=== PATIENT | male | born 1965 | race Caucasian/White ===

== ENCOUNTER 2020-01-05 16:16 | Inpatient (IN) | payer BC ==
[~2020-01-05] VITALS: Ht 172.7 cm; Wt 98.0 kg
--- NOTE | 2020-01-05 16:24 | PHYS DOC ---
General Adult EDM: Chief Complaint: JAUNDICE HPI: HPI: Patient is a 54 year old male who was sent here from his family physician clinic due to pancreatic mass, jaundice, elevated bilirubin. He just started noting the jaundice about 4-5 days ago. He has been feeling bloated. He denied drinking alcohol. He denied any history of hepatitis. He has several large tattoo on his body. No abdominal pain, no fever, no nausea or vomiting. Review of Systems: Review of Systems: Constitutional: Denies fever or chills. [] Eyes: Denies change in visual acuity. [] HENT: Denies nasal congestion or sore throat. [] Respiratory: Denies cough or shortness of breath. [] Cardiovascular: Denies chest pain or edema. [] GI: Denies abdominal pain, nausea, vomiting, bloody stools or diarrhea. [] : Denies dysuria. [] Musculoskeletal: Denies back pain or joint pain. [] Integument: Denies rash. Positive for jaundice Neurologic: Denies headache, focal weakness or sensory changes. [] Endocrine: Denies polyuria or polydipsia. [] Lymphatic: Denies swollen glands. [] Psychiatric: Denies depression or anxiety. [] Heart Score: Risk Factors: Risk Factors: DM, Current or recent (<one month) smoker, HTN, HLP, family hist ory of CAD, obesity. Risk Scores: Score 0 - 3: 2.5% MACE over next 6 weeks - Discharge Home Score 4 - 6: 20.3% MACE over next 6 weeks - Admit for Clinical Observation Score 7 - 10: 72.7% MACE over next 6 weeks - Early Invasive Strategies Physical Exam: PE: Constitutional: Well developed, well nourished, no acute distress, non-toxic appearance. [] HENT: Normocephalic, atraumatic, bilateral external ears normal, oropharynx moist, no oral exudates, nose normal. [] Eyes: PERRLA, EOMI, conjunctiva icterus, no discharge. [] Neck: Normal range of motion, no tenderness, supple, no stridor. [] Cardiovascular:Heart rate regular rhythm, no murmur [] Lungs & Thorax: Bilateral breath sounds clear to auscultation [] Abdomen: Bowel sounds normal, soft, tenderness in RUQ , no masses, no pulsatile masses. [] Skin: Warm, dry, no erythema, no rash. diffuse jaundice. Back: No tenderness, no CVA tenderness. [] Extremities: No tenderness, no cyanosis, no clubbing, ROM intact, no edema. [] Neurologic: Alert and oriented X 3, normal motor function, normal sensory function, no focal deficits noted. [] Psychologic: Affect normal, judgement normal, mood normal. [] EKG: EKG: [] Radiology/Procedures: Radiology/Procedures: [][address] [address] IMAGING REPORT Signed PATIENT: RYAN SHIPMAN ACCOUNT: [id number] : 1965 LOCATION: [facility] [place] AGE: 54 SEX: M EXAM STATUS: REG CLI ORD. PHYSICIAN: MAMADOU PEARCE MD REASON: JAUNDICE, ABDOMINAL BLOATING PROCEDURE: CT ABD PELV W/ORAL&IV CONTRAST EXAM: CT Abdomen and Pelvis with IV contrast CLINICAL HISTORY: JAUNDICE, ABDOMINAL BLOATING COMPARISON: none TECHNIQUE: Helical CT of the abdomen and pelvis was performed following the administration of IV contrast. Axial, coronal and sagittal reformatted images were generated. ---PQRS compliance statement - One or more of the following individualized dose reduction techniques were utilized for this study: 1. Automated exposure control 2. Adjustment of the mA and/or kV according to patient size 3. Use of iterative reconstruction technique--- FINDINGS: Lower chest: Coronary artery calcifications are seen. Calcified granuloma right lower lobe. Abdomen and pelvis: Liver and biliary system: No focal liver lesion. The gallbladder is distended. Small gallstones and sludge are seen dependently. There is intrahepatic and extrahepatic biliary ductal dilatation. Spleen: Unremarkable Pancreas: The pancreas is atrophic. Heterogeneous low attenuating mass is suspected within the pancreatic head/uncinate process measuring 2.9 x 1.9 cm. Adrenal glands: Unremarkable Kidneys: Symmetric nephrograms. Symmetric nephrograms. Punctate nonobstructing left lower pole renal calculus. No hydronephrosis or hydroureter. Mild bladder wall thickening likely cystitis. Lymph nodes/retroperitoneum: No abdominal or pelvic lymphadenopathy. No abdominal or pelvic ascites. Vessels: Aorta is unremarkable. Bowel/Peritoneal cavity: Moderate colonic stool content is seen. No small or large bowel dilatation. No bowel obstruction. Appendix is normal. No abdominal or pelvic ascites. Abdominal wall: Trace fat-containing periumbilical hernia is seen. Bladder: Unremarkable Bones: Degenerative changes of the spine are seen. Hip joint degenerative changes are seen. No aggressive osseous lesion. IMPRESSION: 1. Hypoattenuating pancreatic head/inflammatory process lesion with pancreatic body and tail atrophy as well as intra and extrahepatic biliary ductal dilatation. This should be further evaluated with contrast-enhanced MRI using pancreatic protocol to better delineate suspected pancreatic head mass. 2. Mild bladder wall thickening may be seen with cystitis. Findings discussed with Dr. Alexis PEARCE at 01/05/2020 2:00 PM. FOR INTERNAL CODING PURPOSES RESULT CODE: (C) Electronically signed by: Panfilo Buitrago MD (01/05/2020 2:01 PM) [id number] DICTATED AND SIGNED BY: PANFILO BUITRAGO MD DATE: 01/05/20 1401 CC: MAMADOU PEARCE MD ~ [facility] [address] [place] [address] IMAGING REPORT Signed PATIENT: RYAN SHIPMAN EACCOUNT: [id number] : 1965 LOCATION: ER AGE: 54 SEX: M EXAM STATUS: REG ER ORD. PHYSICIAN: VILLA BINGHAM DO REASON: jaundice, elevated LFT PROCEDURE: ABDOMEN LTD [facility]BDOMEN [facility] History: Reason: jaundice, elevated LFT / Spl. Instructions: / History: Comparison: CT January 05, 2020. Technique: Transabdominal ultrasound images are obtained of the right upper quadrant. Findings: Visualized pancreas is unremarkable. Liver is increased in echogenicity. Right hepatic lobe measures 19.8 cm. Portal flow is hepatopedal. Cholelithiasis. Dilated gallbladder. No gallbladder wall thickening. Dilated common bile duct measures up to 1.4 cm. The right kidney measures 9.8 x 4.5 x 5.1 cm. cm. No hydronephrosis. Visualized portions of the aorta and IVC have normal caliber. IMPRESSION: 1. Dilated common bile duct. Recommend MRI/MRCP to further evaluate for obstructing mass. 2. Cholelithiasis with distended gallbladder. 3. Increased hepatic echotexture, may indicate steatosis. Electronically signed by: Robert Menjivar DO (01/05/2020 5:25 PM) [id number] DICTATED and SIGNED BY: ROBERT MENJIVAR DO DATE: 01/05/20 1725 Course & Med Decision Making: Course & Med Decision Making Pertinent Labs and Imaging studies reviewed. (See chart for details) [] Dragon Disclaimer: Dragon Disclaimer: This electronic medical record was generated, in whole or in part, using a voice recognition dictation system. Departure Departure Impression: Primary Impression: Pancreatic mass Additional Impressions: Jaundice Gallstone Disposition: ADMITTED INPATIENT Admitting Physician: [facility] (DR. BRIONES) Condition: STABLE Justicifation of Admission Dx: Justifications for Admission: Justification of Admission Dx: N/A VILLA BINGHAM DO Jan 05, 2020 16:24
[2020-01-05 16:56] LABS: BASO # 0.1 x10^3/uL (0.0-0.2); BASO % 2 % (0-3); EOS # 0.1 x10^3/uL (0.0-0.7); EOS % 1 % (0-3); HEMATOCRIT 38.3 % (39.0-53.0); HEMOGLOBIN 13.7 g/dL (13.0-17.5); LYMPH # 1.4 x10^3/uL (1.0-4.8); LYMPH % 21 % (24-48); MEAN CORPUSCULAR HEMOGLOBIN 35 pg (25-35); MEAN CORPUSCULAR HGB CONC 36 g/dL (31-37); MEAN CORPUSCULAR VOLUME 99 fL (79-100); MONO # 0.6 x10^3/uL (0.0-1.1); MONO % 10 % (0-9); NEUT # 4.4 x10^3/uL (1.8-7.7); NEUT % 66 % (31-73); PLATELET COUNT 250 x10^3/uL (140-400); RED BLOOD COUNT 3.87 x10^6/uL (4.30-5.70); RED CELL DISTRIBUTION WIDTH 14.8 % (11.5-14.5); WHITE BLOOD COUNT 6.6 x10^3/uL (4.0-11.0)
[2020-01-05 17:05] LABS: PROTHROMBIN TIME PATIENT 14.2 SEC (11.7-14.0)
[2020-01-05 17:15] LABS: CREATININE 0.7 mg/dL (0.7-1.3); GFR 118.4; POTASSIUM 3.2 mmol/L (3.5-5.1)
[2020-01-05] MEDS ORDERED: MORPHINE SULFATE 4 MG/ML VIAL. IV ONE (17:15)
[2020-01-05 17:20] LABS: ALBUMIN 3.1 g/dL (3.4-5.0); ALBUMIN/GLOBULIN RATIO 0.9 (1.0-1.7); MAGNESIUM 1.7 mg/dL (1.8-2.4); TOTAL PROTEIN 6.7 g/dL (6.4-8.2)
--- NOTE | 2020-01-05 17:27 | RAD ---
ABDOMEN LTD History: Reason: jaundice, elevated LFT / Spl. Instructions: / History: Comparison: CT January 05, 2020. Technique: Transabdominal ultrasound images are obtained of the right upper quadrant. Findings: Visualized pancreas is unremarkable. Liver is increased in echogenicity. Right hepatic lobe measures 19.8 cm. Portal flow is hepatopedal. Cholelithiasis. Dilated gallbladder. No gallbladder wall thickening. Dilated common bile duct measures up to 1.4 cm. The right kidney measures 9.8 x 4.5 x 5.1 cm. cm. No hydronephrosis. Visualized portions of the aorta and IVC have normal caliber. IMPRESSION: 1. Dilated common bile duct. Recommend MRI/MRCP to further evaluate for obstructing mass. 2. Cholelithiasis with distended gallbladder. 3. Increased hepatic echotexture, may indicate steatosis. Electronically signed by: Robert Menjivar DO (01/05/2020 5:25 PM) [id number]
[2020-01-05] MEDS ORDERED: ONDANSETRON PF 4 MG/2 ML VIAL. IV PRN ×2 (17:30→18:00)
[2020-01-05] MEDS ORDERED: LORazepam 0.5 MG TABLET PO PRN (18:00)
[2020-01-05] MEDS ORDERED: ZOLPIDEM 5 MG TABLET. PO PRN (18:00)
[2020-01-05] MEDS ORDERED: ACETAMINOPHEN 325 MG TABLET. PO PRN (18:00)
[2020-01-05] MEDS ORDERED: guaiFENesin ORAL 200 MG/10 ML LIQUID. PO PRN (18:00)
[2020-01-05] MEDS ORDERED: DOCUSATE SODIUM 100 MG CAPSULE. PO PRN (18:00)
[2020-01-05] MEDS ORDERED: ALBUTEROL SULFATE 2.5 MG/3 ML NEBU. NEB PRN (18:00)
[2020-01-05 19:49] VITALS: BP 129/76
--- NOTE | 2020-01-05 20:45 | PDOC1 ---
History and Physical Date of Admission Date of Admission January 05, 2020 Identification/Chief Complaint Chief Complaint I was sent here by my doctor Source Source: Chart review, Patient History of Present Illness History of Present Illness Patient is a 54-year-old gentleman with no significant defect in past medical history who was in his usual state of health until approximately 4 to 5 days prior to his admission. Patient apparently started noticing a yellow discoloration generalized. Patient denies any recent travels outside this area no exposure to substances he does work for the [employer] but denies being exposed to chemicals. Patient denies abdominal discomfort, of noticed that he has been eating less since approximately 1 week ago when he had a bout of excessive gases related by the patient. The patient denied dietary transgressions. The patient has also noticed that his urine is darker in color no changes in the color of the stools. He has been losing some weight according to the since he has not been eating much since he has a sensation of fullness very quickly. The patient went to his primary care physician who ordered a CAT scan of the abdomen and a pancreatic mass was found reason why he was sent to our emergency department for further evaluation and treatment. The patient at the time of my evaluation is in no acute distress patient denies any headache no blurred vision no pruritus patient denies any trouble swallowing no fever chills no diaphoresis no chest pain palpitations no sensation of impending doom no abdominal discomfort some nausea has been reported otherwise no changes in the pattern of his stooling either. The patient denies any urinary symptoms, no strokelike symptoms either. Patient is being admitted for further evaluation and treatment Past Medical History Cardiovascular: No pertinent hx Pulmonary: No pertinent hx GI: No pertinent hx Heme/Onc: No pertinent hx Hepatobiliary: No pertinent hx Past Surgical History Past Surgical History: No pertinent history Family History Family History: Other (Reviewed and found negative noncontributory to the present) Social History Smoke: No ALCOHOL: none Drugs: None Current Problem List Problem List Problems Medical Problems: (1) Gallstone Status: Acute (2) Jaundice Status: Acute (3) Pancreatic mass Status: Acute Current Medications Current Medications Current Medications Medications (Trade) Dose Ordered Sig/Renuka Start Time Stop Time Status Last Admin Dose Admin Acetaminophen (Tylenol) 650 mg PRN Q4HRS PRN 01/05/20 18:00 Albuterol Sulfate (Ventolin Neb Soln) 2.5 mg PRN Q4HRS PRN 01/05/20 18:00 Docusate Sodium (Colace) 100 mg PRN BID PRN 01/05/20 18:00 Guaifenesin (Robitussin) 200 mg PRN Q4HRS PRN 01/05/20 18:00 Lorazepam (Ativan Inj) 1 mg 1X ONCE 01/05/20 17:15 01/05/20 17:16 Cancel Lorazepam (Ativan) 0.5 mg PRN Q4HRS PRN 01/05/20 18:00 Morphine Sulfate (Morphine Sulfate) 4 mg 1X ONCE 01/05/20 17:15 01/05/20 17:16 Cancel Ondansetron HCl (Zofran) 4 mg PRN Q4HRS PRN 01/05/20 18:00 Zolpidem Tartrate (Ambien) 5 mg PRN QHS PRN 01/05/20 18:00 Allergies Allergies Allergies Coded Allergies Type Severity Reaction Last Updated Verified No Known Drug Allergies 01/05/20 No ROS Review of System CONSTITUTIONAL: No fever or chills EYES: No recent changes SKIN: No rash or itching CARDIOVASCULAR: No chest pain, syncope, palpitations, or edema RESPIRATORY: No SOB or cough GASTROINTESTINAL: No nausea, vomiting or abdominal pain NEUROLOGICAL: No headaches or weakness ENDOCRINE: No cold or heat intolerance GENITOURINARY: No urgency or frequency of urination MUSCULOSKELETAL: No back pain or joint pain LYMPHATICS: No enlarged lymph nodes PSYCHIATRIC: No anxiety or depression Physical Exam Physical Exam GEN.: No apparent distress. Alert and oriented. HEENT: Head is normocephalic, atraumatic NECK: Supple. LUNGS: Clear to auscultation. HEART: RRR, S1, S2 present. Peripheral pulses intact ABDOMEN: Soft, nontender. Positive bowel sounds. EXTREMITIES: Without any cyanosis. NEUROLOGIC: Normal speech, normal tone PSYCHIATRIC: Normal affect, normal mood. SKIN: Jaundice, no ulcerations Vitals Vitals Vital Signs Date Time Temp Pulse Resp B/P (MAP) Pulse Ox O2 Delivery O2 Flow Rate FiO2 01/05/20 19:49 97.9 64 20 129/76 (93) 98 Room Air 97.9 Labs Labs Laboratory Tests Test 01/05/20 16:40 White Blood Count 6.6 x10^3/uL (4.0-11.0) Red Blood Count 3.87 x10^6/uL (4.30-5.70) Hemoglobin 13.7 g/dL (13.0-17.5) Hematocrit 38.3 % (39.0-53.0) Mean Corpuscular Volume 99 fL (79-100) Mean Corpuscular Hemoglobin 35 pg (25-35) Mean Corpuscular Hemoglobin Concent 36 g/dL (31-37) Red Cell Distribution Width 14.8 % (11.5-14.5) Platelet Count 250 x10^3/uL (140-400) Neutrophils (%) (Auto) 66 % (31-73) Lymphocytes (%) (Auto) 21 % (24-48) Monocytes (%) (Auto) 10 % (0-9) Eosinophils (%) (Auto) 1 % (0-3) Basophils (%) (Auto) 2 % (0-3) Neutrophils # (Auto) 4.4 x10^3/uL (1.8-7.7) Lymphocytes # (Auto) 1.4 x10^3/uL (1.0-4.8) Monocytes # (Auto) 0.6 x10^3/uL (0.0-1.1) Eosinophils # (Auto) 0.1 x10^3/uL (0.0-0.7) Basophils # (Auto) 0.1 x10^3/uL (0.0-0.2) Prothrombin Time 14.2 SEC (11.7-14.0) Prothromb Time International Ratio 1.1 (0.8-1.1) Activated Partial Thromboplast Time 27 SEC (24-38) Sodium Level 134 mmol/L (136-145) Potassium Level 3.2 mmol/L (3.5-5.1) Chloride Level 96 mmol/L (98-107) Carbon Dioxide Level 26 mmol/L (21-32) Anion Gap 12 (6-14) Blood Urea Nitrogen 16 mg/dL (8-26) Creatinine 0.7 mg/dL (0.7-1.3) Estimated GFR (Cockcroft-Gault) 118.4 BUN/Creatinine Ratio 23 (6-20) Glucose Level 240 mg/dL (70-99) Calcium Level 9.0 mg/dL (8.5-10.1) Magnesium Level 1.7 mg/dL (1.8-2.4) Total Bilirubin 16.0 mg/dL (0.2-1.0) Aspartate Amino Transf (AST/SGOT) 150 U/L (15-37) Alanine Aminotransferase (ALT/SGPT) 263 U/L (16-63) Alkaline Phosphatase 358 U/L (46-116) Total Protein 6.7 g/dL (6.4-8.2) Albumin 3.1 g/dL (3.4-5.0) Albumin/Globulin Ratio 0.9 (1.0-1.7) Lipase 43 U/L (73-393) Laboratory Tests Test 01/05/20 16:40 White Blood Count 6.6 x10^3/uL (4.0-11.0) Red Blood Count 3.87 x10^6/uL (4.30-5.70) Hemoglobin 13.7 g/dL (13.0-17.5) Hematocrit 38.3 % (39.0-53.0) Mean Corpuscular Volume 99 fL (79-100) Mean Corpuscular Hemoglobin 35 pg (25-35) Mean Corpuscular Hemoglobin Concent 36 g/dL (31-37) Red Cell Distribution Width 14.8 % (11.5-14.5) Platelet Count 250 x10^3/uL (140-400) Neutrophils (%) (Auto) 66 % (31-73) Lymphocytes (%) (Auto) 21 % (24-48) Monocytes (%) (Auto) 10 % (0-9) Eosinophils (%) (Auto) 1 % (0-3) Basophils (%) (Auto) 2 % (0-3) Neutrophils # (Auto) 4.4 x10^3/uL (1.8-7.7) Lymphocytes # (Auto) 1.4 x10^3/uL (1.0-4.8) Monocytes # (Auto) 0.6 x10^3/uL (0.0-1.1) Eosinophils # (Auto) 0.1 x10^3/uL (0.0-0.7) Basophils # (Auto) 0.1 x10^3/uL (0.0-0.2) Prothrombin Time 14.2 SEC (11.7-14.0) Prothromb Time International Ratio 1.1 (0.8-1.1) Activated Partial Thromboplast Time 27 SEC (24-38) Sodium Level 134 mmol/L (136-145) Potassium Level 3.2 mmol/L (3.5-5.1) Chloride Level 96 mmol/L (98-107) Carbon Dioxide Level 26 mmol/L (21-32) Anion Gap 12 (6-14) Blood Urea Nitrogen 16 mg/dL (8-26) Creatinine 0.7 mg/dL (0.7-1.3) Estimated GFR (Cockcroft-Gault) 118.4 BUN/Creatinine Ratio 23 (6-20) Glucose Level 240 mg/dL (70-99) Calcium Level 9.0 mg/dL (8.5-10.1) Magnesium Level 1.7 mg/dL (1.8-2.4) Total Bilirubin 16.0 mg/dL (0.2-1.0) Aspartate Amino Transf (AST/SGOT) 150 U/L (15-37) Alanine Aminotransferase (ALT/SGPT) 263 U/L (16-63) Alkaline Phosphatase 358 U/L (46-116) Total Protein 6.7 g/dL (6.4-8.2) Albumin 3.1 g/dL (3.4-5.0) Albumin/Globulin Ratio 0.9 (1.0-1.7) Lipase 43 U/L (73-393) VTE Prophylaxis Ordered VTE Prophylaxis Devices: Yes VTE Pharmacological Prophylaxi: No Assessment/Plan Assessment/Plan Painless jaundice Hyperbilirubinemia Pancreatic mass Transaminitis Cholestatic pattern Hyponatremia Hypokalemia Plan Admit the patient to the hospital Consult GI Patient may need further imaging studies like an MRCP Very high suspicion for malignancy, this has been discussed with the patient and his at bedside Reassurance provided DVT prophylaxis with Lovenox Further recommendations based on the clinical course Justicifation of Admission Dx: Justifications for Admission: Justification of Admission Dx: Comment: (Pancreatic mass) CAROLINA BRIONES MD Jan 05, 2020 20:45
[2020-01-05 23:41] VITALS: BP 119/68
[2020-01-06] VITALS (7 sets, daily range): BP systolic 108–118; BP diastolic 53–68
--- NOTE | 2020-01-06 10:17 | PDOC2 ---
GI CONSULT Reason For Consult: pancreatic mass, jaundice HPI: HPI: Very pleasant 54 y/o male w/ 8-10 day h/o bloating, bad gas, some diarrhea, and jaundice. Saw PCP Dr. Proctor, had outpt CT A/P @ [facility] that showed cholelithiasis, intra and extrahepatic biliary dilatation, atrophic pancreas w/ 2.9 x 1.9 cm suspected mass in pancreatic head/uncinate process, moderate stool content, and mild bladder wall thickening. Was advice to come to [facility]. Denies n/v though has been careful to avoid "heavy" foods w/ bloating. No hematemesis though overnight describes some hemoptysis. No abd pain. No constipation, hematochezia, melena. Thinks has lost some weight. H/o GERD prior to gastric sleeve ~7 years ago at [facility] (done for weight loss, diabetes, acid reflux). Does not need to take anything regularly for GERD now, though might have had some acid reflux when bloating began. No GB, liver, pancreas, or PUD history. Thinks he had an EGD prior to gastric sleeve. No previous colonoscopy. Celebrex BID for hip pain since 05/2019 - quit when symptoms began. Works for [employer], has four kids and a fiance. D/w Dr. Lovell and Dr. Lezama. PMH: PMH: DM (diet-controlled), hip OA, GERD back surgery, gastric sleeve FH: Family History: Cancer (renal - father) Social History: Smoke: No ALCOHOL: other (no h/o heavy use, quit altogether when diagnosed w/ DM) Drugs: None ROS: GEN: +sweats HEENT: Denies blurred vision, sore throat CV: Denies chest pain RESP: +hemoptysis GI: Per HPI : +dark urine ENDO: +weight loss NEURO: Denies confusion, dizziness MSK: +chronic hip pain SKIN: +jaundice Vitals: Vitals: Vital Signs Date Time Temp Pulse Resp B/P (MAP) Pulse Ox O2 Delivery O2 Flow Rate FiO2 01/06/20 07:51 98.3 70 18 112/58 (76) 98 Room Air 98.3 Labs: Labs: Laboratory Tests Test 01/05/20 16:40 White Blood Count 6.6 x10^3/uL (4.0-11.0) Red Blood Count 3.87 x10^6/uL (4.30-5.70) Hemoglobin 13.7 g/dL (13.0-17.5) Hematocrit 38.3 % (39.0-53.0) Mean Corpuscular Volume 99 fL (79-100) Mean Corpuscular Hemoglobin 35 pg (25-35) Mean Corpuscular Hemoglobin Concent 36 g/dL (31-37) Red Cell Distribution Width 14.8 % (11.5-14.5) Platelet Count 250 x10^3/uL (140-400) Neutrophils (%) (Auto) 66 % (31-73) Lymphocytes (%) (Auto) 21 % (24-48) Monocytes (%) (Auto) 10 % (0-9) Eosinophils (%) (Auto) 1 % (0-3) Basophils (%) (Auto) 2 % (0-3) Neutrophils # (Auto) 4.4 x10^3/uL (1.8-7.7) Lymphocytes # (Auto) 1.4 x10^3/uL (1.0-4.8) Monocytes # (Auto) 0.6 x10^3/uL (0.0-1.1) Eosinophils # (Auto) 0.1 x10^3/uL (0.0-0.7) Basophils # (Auto) 0.1 x10^3/uL (0.0-0.2) Prothrombin Time 14.2 SEC (11.7-14.0) Prothromb Time International Ratio 1.1 (0.8-1.1) Activated Partial Thromboplast Time 27 SEC (24-38) Sodium Level 134 mmol/L (136-145) Potassium Level 3.2 mmol/L (3.5-5.1) Chloride Level 96 mmol/L (98-107) Carbon Dioxide Level 26 mmol/L (21-32) Anion Gap 12 (6-14) Blood Urea Nitrogen 16 mg/dL (8-26) Creatinine 0.7 mg/dL (0.7-1.3) Estimated GFR (Cockcroft-Gault) 118.4 BUN/Creatinine Ratio 23 (6-20) Glucose Level 240 mg/dL (70-99) Calcium Level 9.0 mg/dL (8.5-10.1) Magnesium Level 1.7 mg/dL (1.8-2.4) Total Bilirubin 16.0 mg/dL (0.2-1.0) Aspartate Amino Transf (AST/SGOT) 150 U/L (15-37) Alanine Aminotransferase (ALT/SGPT) 263 U/L (16-63) Alkaline Phosphatase 358 U/L (46-116) Total Protein 6.7 g/dL (6.4-8.2) Albumin 3.1 g/dL (3.4-5.0) Albumin/Globulin Ratio 0.9 (1.0-1.7) Lipase 43 U/L (73-393) Allergies: Coded Allergies: No Known Drug Allergies (Unverified , 01/05/20) Imaging: Imaging: CT A/P Abd US IMPRESSION: 1. Dilated common bile duct. Recommend MRI/MRCP to further evaluate for obstructing mass. 2. Cholelithiasis with distended gallbladder. 3. Increased hepatic echotexture, may indicate steatosis. PE: GEN: NAD HEENT: Atraumatic LUNGS: CTAB HEART: RRR ABD: NABS, S/ND/NT EXTREMITY: No edema SKIN: +jaundice +tattoos NEURO/PSYCH: A & O 3 A/P: A/P: Bloating, diarrhea, painless jaundice, weight loss, ?hemoptysis Pancreatic head mass, cholelithiasis, intra and extra hepatic biliary dilatation H/o GERD S/p gastric sleeve Hepatic steatosis CRC screen - none DM, NSAID use -- D/w Dr. [facility] - will check CA19-9 and ask for surgery opinion. Okay for PO today per GI. Update - reviewed surgery note, d/w Dr. [facility]. Check COVID swab now, plan for ERCP/stent Saturday and outpt MRCP and EUS. NIURKA BARTH Jan 06, 2020 10:17
[2020-01-06] MEDS: IV RINGERS,LACTATED 1000ML 1,000 ML IV SCH ×2 (10:20→19:26)
--- NOTE | 2020-01-06 10:39 | PDOC2 ---
CONSULT Date of Consult Date of Consult DATE: 01/06/20 TIME: 10:31 Reason for Consult Reason for Consult: obstructive jaundice Referring Physician Referring Physician: Dr. Mclean Identification/Chief Complaint Chief Complaint jaundice, bloating Source Source: Chart review, Patient History of Present Illness Reason for Visit: 54 yo M with 12 day history of some early satiety and noticed yellowing of skin. Denies significant abdominal pain. Did note some emesis with blood last night. Past Medical History Cardiovascular: No pertinent hx Pulmonary: No pertinent hx GI: No pertinent hx Heme/Onc: No pertinent hx Hepatobiliary: No pertinent hx Musculoskeletal: low back pain Past Surgical History Past Surgical History: Other (back surgery, 12 years ago; gastric sleeve 7 years ago (100 lbs weight loss with that).), No pertinent history Family History Family History: Other (Reviewed and found negative noncontributory to the present) Social History No ALCOHOL: none Drugs: None Current Problem List Problem List Problems Medical Problems: (1) Gallstone Status: Acute (2) Jaundice Status: Acute (3) Pancreatic mass Status: Acute Current Medications Current Medications Current Medications Morphine Sulfate (Morphine Sulfate) 4 mg 1X ONCE IV ; Start 01/05/20 at 17:15; Stop 01/05/20 at 17:16; Status Cancel Lorazepam (Ativan Inj) 1 mg 1X ONCE IVP ; Start 01/05/20 at 17:15; Stop 01/05/20 at 17:16; Status Cancel Ondansetron HCl (Zofran) 4 mg PRN Q8HRS PRN IV NAUSEA/VOMITING; Start 01/05/20 at 17:30; Stop 01/05/20 at 18:06; Status DC Ondansetron HCl (Zofran) 4 mg PRN Q4HRS PRN IV NAUSEA/VOMITING; Start 01/05/20 at 18:00 Zolpidem Tartrate (Ambien) 5 mg PRN QHS PRN PO INSOMNIA; Start 01/05/20 at 18:00 Acetaminophen (Tylenol) 650 mg PRN Q4HRS PRN PO TEMP OVER 100.4F OR MILD PAIN; Start 01/05/20 at 18:00 Docusate Sodium (Colace) 100 mg PRN BID PRN PO HARD STOOLS; Start 01/05/20 at 18:00 Albuterol Sulfate (Ventolin Neb Soln) 2.5 mg PRN Q4HRS PRN NEB SHORTNESS OF BREATH; Start 01/05/20 at 18:00 Guaifenesin (Robitussin) 200 mg PRN Q4HRS PRN PO COUGH; Start 01/05/20 at 18:00 Lorazepam (Ativan) 0.5 mg PRN Q4HRS PRN PO ANXIETY / AGITATION; Start 01/05/20 at 18:00 Ringer's Solution 1,000 ml @ 100 mls/hr Q10H IV Last administered on 01/06/20at 10:20; Start 01/06/20 at 09:00 Allergies Allergies: Coded Allergies: No Known Drug Allergies (Unverified , 01/05/20) ROS Gastrointestinal: Yes Vomiting, Yes Other (bloating) Skin: Yes Other (jaundice) Physical Exam General: Alert, Oriented X3, Cooperative, No acute distress HEENT: Other (icteric sclera) Lungs: Normal air movement Abdomen: Soft, No tenderness, No masses (no sister tina deborah node), Other (obese) Extremities: No clubbing, No cyanosis Skin: No rashes, No breakdown Neuro: Normal speech, Sensation intact Psych/Mental Status: Mental status NL, Mood NL Vitals VITALS Vital Signs Date Time Temp Pulse Resp B/P (MAP) Pulse Ox O2 Delivery O2 Flow Rate FiO2 01/06/20 07:51 98.3 70 18 112/58 (76) 98 Room Air 98.3 Labs Labs Laboratory Tests Test 01/05/20 16:40 White Blood Count 6.6 x10^3/uL (4.0-11.0) Red Blood Count 3.87 x10^6/uL (4.30-5.70) Hemoglobin 13.7 g/dL (13.0-17.5) Hematocrit 38.3 % (39.0-53.0) Mean Corpuscular Volume 99 fL (79-100) Mean Corpuscular Hemoglobin 35 pg (25-35) Mean Corpuscular Hemoglobin Concent 36 g/dL (31-37) Red Cell Distribution Width 14.8 % (11.5-14.5) Platelet Count 250 x10^3/uL (140-400) Neutrophils (%) (Auto) 66 % (31-73) Lymphocytes (%) (Auto) 21 % (24-48) Monocytes (%) (Auto) 10 % (0-9) Eosinophils (%) (Auto) 1 % (0-3) Basophils (%) (Auto) 2 % (0-3) Neutrophils # (Auto) 4.4 x10^3/uL (1.8-7.7) Lymphocytes # (Auto) 1.4 x10^3/uL (1.0-4.8) Monocytes # (Auto) 0.6 x10^3/uL (0.0-1.1) Eosinophils # (Auto) 0.1 x10^3/uL (0.0-0.7) Basophils # (Auto) 0.1 x10^3/uL (0.0-0.2) Prothrombin Time 14.2 SEC (11.7-14.0) Prothromb Time International Ratio 1.1 (0.8-1.1) Activated Partial Thromboplast Time 27 SEC (24-38) Sodium Level 134 mmol/L (136-145) Potassium Level 3.2 mmol/L (3.5-5.1) Chloride Level 96 mmol/L (98-107) Carbon Dioxide Level 26 mmol/L (21-32) Anion Gap 12 (6-14) Blood Urea Nitrogen 16 mg/dL (8-26) Creatinine 0.7 mg/dL (0.7-1.3) Estimated GFR (Cockcroft-Gault) 118.4 BUN/Creatinine Ratio 23 (6-20) Glucose Level 240 mg/dL (70-99) Calcium Level 9.0 mg/dL (8.5-10.1) Magnesium Level 1.7 mg/dL (1.8-2.4) Total Bilirubin 16.0 mg/dL (0.2-1.0) Aspartate Amino Transf (AST/SGOT) 150 U/L (15-37) Alanine Aminotransferase (ALT/SGPT) 263 U/L (16-63) Alkaline Phosphatase 358 U/L (46-116) Total Protein 6.7 g/dL (6.4-8.2) Albumin 3.1 g/dL (3.4-5.0) Albumin/Globulin Ratio 0.9 (1.0-1.7) Lipase 43 U/L (73-393) Laboratory Tests Test 01/05/20 16:40 White Blood Count 6.6 x10^3/uL (4.0-11.0) Red Blood Count 3.87 x10^6/uL (4.30-5.70) Hemoglobin 13.7 g/dL (13.0-17.5) Hematocrit 38.3 % (39.0-53.0) Mean Corpuscular Volume 99 fL (79-100) Mean Corpuscular Hemoglobin 35 pg (25-35) Mean Corpuscular Hemoglobin Concent 36 g/dL (31-37) Red Cell Distribution Width 14.8 % (11.5-14.5) Platelet Count 250 x10^3/uL (140-400) Neutrophils (%) (Auto) 66 % (31-73) Lymphocytes (%) (Auto) 21 % (24-48) Monocytes (%) (Auto) 10 % (0-9) Eosinophils (%) (Auto) 1 % (0-3) Basophils (%) (Auto) 2 % (0-3) Neutrophils # (Auto) 4.4 x10^3/uL (1.8-7.7) Lymphocytes # (Auto) 1.4 x10^3/uL (1.0-4.8) Monocytes # (Auto) 0.6 x10^3/uL (0.0-1.1) Eosinophils # (Auto) 0.1 x10^3/uL (0.0-0.7) Basophils # (Auto) 0.1 x10^3/uL (0.0-0.2) Prothrombin Time 14.2 SEC (11.7-14.0) Prothromb Time International Ratio 1.1 (0.8-1.1) Activated Partial Thromboplast Time 27 SEC (24-38) Sodium Level 134 mmol/L (136-145) Potassium Level 3.2 mmol/L (3.5-5.1) Chloride Level 96 mmol/L (98-107) Carbon Dioxide Level 26 mmol/L (21-32) Anion Gap 12 (6-14) Blood Urea Nitrogen 16 mg/dL (8-26) Creatinine 0.7 mg/dL (0.7-1.3) Estimated GFR (Cockcroft-Gault) 118.4 BUN/Creatinine Ratio 23 (6-20) Glucose Level 240 mg/dL (70-99) Calcium Level 9.0 mg/dL (8.5-10.1) Magnesium Level 1.7 mg/dL (1.8-2.4) Total Bilirubin 16.0 mg/dL (0.2-1.0) Aspartate Amino Transf (AST/SGOT) 150 U/L (15-37) Alanine Aminotransferase (ALT/SGPT) 263 U/L (16-63) Alkaline Phosphatase 358 U/L (46-116) Total Protein 6.7 g/dL (6.4-8.2) Albumin 3.1 g/dL (3.4-5.0) Albumin/Globulin Ratio 0.9 (1.0-1.7) Lipase 43 U/L (73-393) Images Images Ct with 3 cm pancreatic head mass and dilated bile ducts Assessment/Plan Assessment/Plan Pancreatic head mass. Given significant elevated bilirubin, favor proceeding with stenting, if GI feels reasonable. May also be beneficial, given hx of gastric sleeve and recent hemetemesis. MRCP would be helpful for surgical planning and Ca 19-9 is pending. Oncology consultation may be also helpful in planning. Given stenting, pt may be best served by outpt EUS and then will tentatively plan surgery within a few weeks, pending improved bilirubin. Appears to surgically resectable by imaging. Given location, will need whipple. Previous gastric sleeve may compromise reconstruction (unlikely to be able to do pancreaticogastrostomy and may need pancreaticojejunostomy). D/w pt. Thanks for consult! SANG AVENDANO MD Jan 06, 2020 10:39
--- NOTE | 2020-01-06 12:49 | PDOC ---
PROGRESS NOTES Chief Complaint Chief Complaint Assessment/Plan Painless jaundice Hyperbilirubinemia Pancreatic mass Transaminitis Cholestatic pattern Hyponatremia Hypokalemia Plan Recommendations from market consultant greatly appreciated We will consult oncology Patient may need further imaging studies like an MRCP, follow recommendations by consultants Very high suspicion for malignancy, this has been discussed with the patient and his at bedside Reassurance provided DVT prophylaxis with Lovenox Further recommendations based on the clinical course History of Present Illness History of Present Illness No acute events reported overnight, case discussed with nursing staff patient in no acute distress no complaints during my visit Vitals Vitals Vital Signs Date Time Temp Pulse Resp B/P (MAP) Pulse Ox O2 Delivery O2 Flow Rate FiO2 01/06/20 11:18 98.0 66 18 118/68 (85) 97 Room Air 98.0 Physical Exam General: Alert, Oriented X3, Cooperative, No acute distress Abdomen: Soft, No tenderness, No masses (no sister tina cabrera node), Other (obese) Extremities: No clubbing, No cyanosis Skin: No rashes, No breakdown Labs LABS Laboratory Tests Test 01/05/20 16:40 White Blood Count 6.6 x10^3/uL (4.0-11.0) Red Blood Count 3.87 x10^6/uL (4.30-5.70) Hemoglobin 13.7 g/dL (13.0-17.5) Hematocrit 38.3 % (39.0-53.0) Mean Corpuscular Volume 99 fL (79-100) Mean Corpuscular Hemoglobin 35 pg (25-35) Mean Corpuscular Hemoglobin Concent 36 g/dL (31-37) Red Cell Distribution Width 14.8 % (11.5-14.5) Platelet Count 250 x10^3/uL (140-400) Neutrophils (%) (Auto) 66 % (31-73) Lymphocytes (%) (Auto) 21 % (24-48) Monocytes (%) (Auto) 10 % (0-9) Eosinophils (%) (Auto) 1 % (0-3) Basophils (%) (Auto) 2 % (0-3) Neutrophils # (Auto) 4.4 x10^3/uL (1.8-7.7) Lymphocytes # (Auto) 1.4 x10^3/uL (1.0-4.8) Monocytes # (Auto) 0.6 x10^3/uL (0.0-1.1) Eosinophils # (Auto) 0.1 x10^3/uL (0.0-0.7) Basophils # (Auto) 0.1 x10^3/uL (0.0-0.2) Prothrombin Time 14.2 SEC (11.7-14.0) Prothromb Time International Ratio 1.1 (0.8-1.1) Activated Partial Thromboplast Time 27 SEC (24-38) Sodium Level 134 mmol/L (136-145) Potassium Level 3.2 mmol/L (3.5-5.1) Chloride Level 96 mmol/L (98-107) Carbon Dioxide Level 26 mmol/L (21-32) Anion Gap 12 (6-14) Blood Urea Nitrogen 16 mg/dL (8-26) Creatinine 0.7 mg/dL (0.7-1.3) Estimated GFR (Cockcroft-Gault) 118.4 BUN/Creatinine Ratio 23 (6-20) Glucose Level 240 mg/dL (70-99) Calcium Level 9.0 mg/dL (8.5-10.1) Magnesium Level 1.7 mg/dL (1.8-2.4) Total Bilirubin 16.0 mg/dL (0.2-1.0) Aspartate Amino Transf (AST/SGOT) 150 U/L (15-37) Alanine Aminotransferase (ALT/SGPT) 263 U/L (16-63) Alkaline Phosphatase 358 U/L (46-116) Total Protein 6.7 g/dL (6.4-8.2) Albumin 3.1 g/dL (3.4-5.0) Albumin/Globulin Ratio 0.9 (1.0-1.7) Lipase 43 U/L (73-393) Assessment and Plan Assessmemt and Plan Problems Medical Problems: (1) Gallstone Status: Acute (2) Jaundice Status: Acute (3) Pancreatic mass Status: Acute Comment Review of Relevant I have reviewed the following items derrick (where applicable) has been applied. Labs Laboratory Tests Test 01/05/20 16:40 White Blood Count 6.6 x10^3/uL (4.0-11.0) Red Blood Count 3.87 x10^6/uL (4.30-5.70) Hemoglobin 13.7 g/dL (13.0-17.5) Hematocrit 38.3 % (39.0-53.0) Mean Corpuscular Volume 99 fL (79-100) Mean Corpuscular Hemoglobin 35 pg (25-35) Mean Corpuscular Hemoglobin Concent 36 g/dL (31-37) Red Cell Distribution Width 14.8 % (11.5-14.5) Platelet Count 250 x10^3/uL (140-400) Neutrophils (%) (Auto) 66 % (31-73) Lymphocytes (%) (Auto) 21 % (24-48) Monocytes (%) (Auto) 10 % (0-9) Eosinophils (%) (Auto) 1 % (0-3) Basophils (%) (Auto) 2 % (0-3) Neutrophils # (Auto) 4.4 x10^3/uL (1.8-7.7) Lymphocytes # (Auto) 1.4 x10^3/uL (1.0-4.8) Monocytes # (Auto) 0.6 x10^3/uL (0.0-1.1) Eosinophils # (Auto) 0.1 x10^3/uL (0.0-0.7) Basophils # (Auto) 0.1 x10^3/uL (0.0-0.2) Prothrombin Time 14.2 SEC (11.7-14.0) Prothromb Time International Ratio 1.1 (0.8-1.1) Activated Partial Thromboplast Time 27 SEC (24-38) Sodium Level 134 mmol/L (136-145) Potassium Level 3.2 mmol/L (3.5-5.1) Chloride Level 96 mmol/L (98-107) Carbon Dioxide Level 26 mmol/L (21-32) Anion Gap 12 (6-14) Blood Urea Nitrogen 16 mg/dL (8-26) Creatinine 0.7 mg/dL (0.7-1.3) Estimated GFR (Cockcroft-Gault) 118.4 BUN/Creatinine Ratio 23 (6-20) Glucose Level 240 mg/dL (70-99) Calcium Level 9.0 mg/dL (8.5-10.1) Magnesium Level 1.7 mg/dL (1.8-2.4) Total Bilirubin 16.0 mg/dL (0.2-1.0) Aspartate Amino Transf (AST/SGOT) 150 U/L (15-37) Alanine Aminotransferase (ALT/SGPT) 263 U/L (16-63) Alkaline Phosphatase 358 U/L (46-116) Total Protein 6.7 g/dL (6.4-8.2) Albumin 3.1 g/dL (3.4-5.0) Albumin/Globulin Ratio 0.9 (1.0-1.7) Lipase 43 U/L (73-393) Laboratory Tests Test 01/05/20 16:40 White Blood Count 6.6 x10^3/uL (4.0-11.0) Red Blood Count 3.87 x10^6/uL (4.30-5.70) Hemoglobin 13.7 g/dL (13.0-17.5) Hematocrit 38.3 % (39.0-53.0) Mean Corpuscular Volume 99 fL (79-100) Mean Corpuscular Hemoglobin 35 pg (25-35) Mean Corpuscular Hemoglobin Concent 36 g/dL (31-37) Red Cell Distribution Width 14.8 % (11.5-14.5) Platelet Count 250 x10^3/uL (140-400) Neutrophils (%) (Auto) 66 % (31-73) Lymphocytes (%) (Auto) 21 % (24-48) Monocytes (%) (Auto) 10 % (0-9) Eosinophils (%) (Auto) 1 % (0-3) Basophils (%) (Auto) 2 % (0-3) Neutrophils # (Auto) 4.4 x10^3/uL (1.8-7.7) Lymphocytes # (Auto) 1.4 x10^3/uL (1.0-4.8) Monocytes # (Auto) 0.6 x10^3/uL (0.0-1.1) Eosinophils # (Auto) 0.1 x10^3/uL (0.0-0.7) Basophils # (Auto) 0.1 x10^3/uL (0.0-0.2) Prothrombin Time 14.2 SEC (11.7-14.0) Prothromb Time International Ratio 1.1 (0.8-1.1) Activated Partial Thromboplast Time 27 SEC (24-38) Sodium Level 134 mmol/L (136-145) Potassium Level 3.2 mmol/L (3.5-5.1) Chloride Level 96 mmol/L (98-107) Carbon Dioxide Level 26 mmol/L (21-32) Anion Gap 12 (6-14) Blood Urea Nitrogen 16 mg/dL (8-26) Creatinine 0.7 mg/dL (0.7-1.3) Estimated GFR (Cockcroft-Gault) 118.4 BUN/Creatinine Ratio 23 (6-20) Glucose Level 240 mg/dL (70-99) Calcium Level 9.0 mg/dL (8.5-10.1) Magnesium Level 1.7 mg/dL (1.8-2.4) Total Bilirubin 16.0 mg/dL (0.2-1.0) Aspartate Amino Transf (AST/SGOT) 150 U/L (15-37) Alanine Aminotransferase (ALT/SGPT) 263 U/L (16-63) Alkaline Phosphatase 358 U/L (46-116) Total Protein 6.7 g/dL (6.4-8.2) Albumin 3.1 g/dL (3.4-5.0) Albumin/Globulin Ratio 0.9 (1.0-1.7) Lipase 43 U/L (73-393) Medications Current Medications Morphine Sulfate (Morphine Sulfate) 4 mg 1X ONCE IV ; Start 01/05/20 at 17:15; Stop 01/05/20 at 17:16; Status Cancel Lorazepam (Ativan Inj) 1 mg 1X ONCE IVP ; Start 01/05/20 at 17:15; Stop 01/05/20 at 17:16; Status Cancel Ondansetron HCl (Zofran) 4 mg PRN Q8HRS PRN IV NAUSEA/VOMITING; Start 01/05/20 at 17:30; Stop 01/05/20 at 18:06; Status DC Ondansetron HCl (Zofran) 4 mg PRN Q4HRS PRN IV NAUSEA/VOMITING; Start 01/05/20 at 18:00 Zolpidem Tartrate (Ambien) 5 mg PRN QHS PRN PO INSOMNIA; Start 01/05/20 at 18:00 Acetaminophen (Tylenol) 650 mg PRN Q4HRS PRN PO TEMP OVER 100.4F OR MILD PAIN; Start 01/05/20 at 18:00 Docusate Sodium (Colace) 100 mg PRN BID PRN PO HARD STOOLS; Start 01/05/20 at 18:00 Albuterol Sulfate (Ventolin Neb Soln) 2.5 mg PRN Q4HRS PRN NEB SHORTNESS OF BREATH; Start 01/05/20 at 18:00 Guaifenesin (Robitussin) 200 mg PRN Q4HRS PRN PO COUGH; Start 01/05/20 at 18:00 Lorazepam (Ativan) 0.5 mg PRN Q4HRS PRN PO ANXIETY / AGITATION; Start 01/05/20 at 18:00 Ringer's Solution 1,000 ml @ 100 mls/hr Q10H IV Last administered on 01/06/20at 10:20; Start 01/06/20 at 09:00 Pantoprazole Sodium (Protonix) 40 mg DAILYAC PO ; Start 01/06/20 at 11:00 Vitals/I & O Vital Sign - Last 24 Hours 01/05/20 01/05/20 01/05/20 01/05/20 16:20 16:30 17:00 17:30 Temp 97.8 97.8 Pulse 72 83 72 78 Resp 20 B/P (MAP) 144/91 (108) 144/91 (108) 142/73 (96) 144/83 (103) Pulse Ox 99 98 99 99 O2 Delivery Room Air Room Air Room Air Room Air 01/05/20 01/05/20 01/05/20 01/05/20 18:00 19:49 20:00 23:41 Temp 97.9 98.3 97.9 98.3 Pulse 70 64 69 Resp 20 18 B/P (MAP) 122/65 (84) 129/76 (93) 119/68 (85) Pulse Ox 98 98 97 O2 Delivery Room Air Room Air Room Air Room Air 01/06/20 01/06/20 01/06/20 03:08 07:51 11:18 Temp 97.6 98.3 98.0 97.6 98.3 98.0 Pulse 66 70 66 Resp 20 18 18 B/P (MAP) 108/63 (78) 112/58 (76) 118/68 (85) Pulse Ox 99 98 97 O2 Delivery Room Air Room Air Room Air Intake and Output 01/05/20 01/05/2020 15:00 23:00 07:00 Intake Total 150 ml Balance 150 ml CAROLINA BRIONES MD Jan 06, 2020 12:48
[2020-01-06] MEDS: PANTOPRAZOLE 40 MG TABLET.DR. PO SCH (13:19)
--- NOTE | 2020-01-06 13:47 | NUR ---
SW following for discharge planning. SW reviewed chart and spoke with RN. SW met with pt who stated he lives with his fiance and plans to return home at discharge. Pt works. Pt on room air and awaiting ERCP on 01/08/2020 pending a negative COVID test. SW to continue following.
--- NOTE | 2020-01-06 16:12 | PDOC2 ---
CONSULT Date of Consult Date of Consult DATE: 01/06/20 TIME: 15:39 Reason for Consult Reason for Consult: Pancreatic mass Referring Physician Referring Physician: Dr. Nitin Lovell Source Source: Chart review, Patient History of Present Illness Reason for Visit: Mr. Roger Hernandez is a 54 year-old male who developed jaundice ~ 4-5 days ago, increased abdominal distention, and decreased appetite with early satiety. He was seen by his PCP, Dr. Daniel Proctor on 12/31/2019, who ordered CT abdomen/pelvis. CT abdomen/pelvis with contrast on 01/05/2020 showed heterogeneous low attenuating mass within the pancreatic head/uncinated process measuring 2.9 x 1.9 cm, intra and extrahepatic biliary ductal dilatation. Roger presented to [facility] ED on 01/05/2020, at the instruction of his PCP. He reported noticing jaundice over the last 4-5 days and reported increased abdominal bloating. He denied history of hepatitis, abdominal pain, fever, nausea, or vomiting. He stated his urine had been darker in color, but denied changes in color of his stool. Labs on 01/05/2020 showed WBC 6.6, Hgb 13.7, Plt 250, AST 150, ALT 263, alkaline phosphatase 358. Roger is being seen in consultation at the request of Dr. Nitin Lovell. Today, Roger is being via phone communication. He reports ~ 10-12 days ago he developed abdominal bloating, which resolved "for a few days then came back". He states on 12/31/2019 he noticed "yellowing of his skin". Denies any abdominal pain. No fevers, chills, or other signs of infection. Past Medical History Cardiovascular: No pertinent hx Pulmonary: No pertinent hx GI: No pertinent hx Heme/Onc: No pertinent hx Hepatobiliary: No pertinent hx Musculoskeletal: low back pain Past Surgical History Past Surgical History: Other (back surgery, 12 years ago; gastric sleeve 7 years ago (100 lbs weight loss with that).), No pertinent history Family History Family History: Other (Reviewed and found negative noncontributory to the present) Social History No ALCOHOL: other (no h/o heavy use, quit altogether when diagnosed w/ DM) Drugs: None Current Problem List Problem List Problems Medical Problems: (1) Gallstone Status: Acute (2) Jaundice Status: Acute (3) Pancreatic mass Status: Acute Current Medications Current Medications Current Medications Morphine Sulfate (Morphine Sulfate) 4 mg 1X ONCE IV ; Start 01/05/20 at 17:15; Stop 01/05/20 at 17:16; Status Cancel Lorazepam (Ativan Inj) 1 mg 1X ONCE IVP ; Start 01/05/20 at 17:15; Stop 01/05/20 at 17:16; Status Cancel Ondansetron HCl (Zofran) 4 mg PRN Q8HRS PRN IV NAUSEA/VOMITING; Start 01/05/20 at 17:30; Stop 01/05/20 at 18:06; Status DC Ondansetron HCl (Zofran) 4 mg PRN Q4HRS PRN IV NAUSEA/VOMITING; Start 01/05/20 at 18:00 Zolpidem Tartrate (Ambien) 5 mg PRN QHS PRN PO INSOMNIA; Start 01/05/20 at 18:00 Acetaminophen (Tylenol) 650 mg PRN Q4HRS PRN PO TEMP OVER 100.4F OR MILD PAIN; Start 01/05/20 at 18:00 Docusate Sodium (Colace) 100 mg PRN BID PRN PO HARD STOOLS; Start 01/05/20 at 18:00 Albuterol Sulfate (Ventolin Neb Soln) 2.5 mg PRN Q4HRS PRN NEB SHORTNESS OF BREATH; Start 01/05/20 at 18:00 Guaifenesin (Robitussin) 200 mg PRN Q4HRS PRN PO COUGH; Start 01/05/20 at 18:00 Lorazepam (Ativan) 0.5 mg PRN Q4HRS PRN PO ANXIETY / AGITATION; Start 01/05/20 at 18:00 Ringer's Solution 1,000 ml @ 100 mls/hr Q10H IV Last administered on 01/06/20at 10:20; Start 01/06/20 at 09:00 Pantoprazole Sodium (Protonix) 40 mg DAILYAC PO Last administered on 01/06/20at 13:19; Start 01/06/20 at 11:00 Allergies Allergies: Coded Allergies: No Known Drug Allergies (Unverified , 01/05/20) Physical Exam General: Alert, Oriented X3 Skin: Other (Jaundice) Vitals VITALS Vital Signs Date Time Temp Pulse Resp B/P (MAP) Pulse Ox O2 Delivery O2 Flow Rate FiO2 01/06/20 11:18 98.0 66 18 118/68 (85) 97 Room Air 98.0 Labs Labs Laboratory Tests Test 01/05/20 16:40 White Blood Count 6.6 x10^3/uL (4.0-11.0) Red Blood Count 3.87 x10^6/uL (4.30-5.70) Hemoglobin 13.7 g/dL (13.0-17.5) Hematocrit 38.3 % (39.0-53.0) Mean Corpuscular Volume 99 fL (79-100) Mean Corpuscular Hemoglobin 35 pg (25-35) Mean Corpuscular Hemoglobin Concent 36 g/dL (31-37) Red Cell Distribution Width 14.8 % (11.5-14.5) Platelet Count 250 x10^3/uL (140-400) Neutrophils (%) (Auto) 66 % (31-73) Lymphocytes (%) (Auto) 21 % (24-48) Monocytes (%) (Auto) 10 % (0-9) Eosinophils (%) (Auto) 1 % (0-3) Basophils (%) (Auto) 2 % (0-3) Neutrophils # (Auto) 4.4 x10^3/uL (1.8-7.7) Lymphocytes # (Auto) 1.4 x10^3/uL (1.0-4.8) Monocytes # (Auto) 0.6 x10^3/uL (0.0-1.1) Eosinophils # (Auto) 0.1 x10^3/uL (0.0-0.7) Basophils # (Auto) 0.1 x10^3/uL (0.0-0.2) Prothrombin Time 14.2 SEC (11.7-14.0) Prothromb Time International Ratio 1.1 (0.8-1.1) Activated Partial Thromboplast Time 27 SEC (24-38) Sodium Level 134 mmol/L (136-145) Potassium Level 3.2 mmol/L (3.5-5.1) Chloride Level 96 mmol/L (98-107) Carbon Dioxide Level 26 mmol/L (21-32) Anion Gap 12 (6-14) Blood Urea Nitrogen 16 mg/dL (8-26) Creatinine 0.7 mg/dL (0.7-1.3) Estimated GFR (Cockcroft-Gault) 118.4 BUN/Creatinine Ratio 23 (6-20) Glucose Level 240 mg/dL (70-99) Calcium Level 9.0 mg/dL (8.5-10.1) Magnesium Level 1.7 mg/dL (1.8-2.4) Total Bilirubin 16.0 mg/dL (0.2-1.0) Aspartate Amino Transf (AST/SGOT) 150 U/L (15-37) Alanine Aminotransferase (ALT/SGPT) 263 U/L (16-63) Alkaline Phosphatase 358 U/L (46-116) Total Protein 6.7 g/dL (6.4-8.2) Albumin 3.1 g/dL (3.4-5.0) Albumin/Globulin Ratio 0.9 (1.0-1.7) Lipase 43 U/L (73-393) Laboratory Tests Test 01/05/20 16:40 White Blood Count 6.6 x10^3/uL (4.0-11.0) Red Blood Count 3.87 x10^6/uL (4.30-5.70) Hemoglobin 13.7 g/dL (13.0-17.5) Hematocrit 38.3 % (39.0-53.0) Mean Corpuscular Volume 99 fL (79-100) Mean Corpuscular Hemoglobin 35 pg (25-35) Mean Corpuscular Hemoglobin Concent 36 g/dL (31-37) Red Cell Distribution Width 14.8 % (11.5-14.5) Platelet Count 250 x10^3/uL (140-400) Neutrophils (%) (Auto) 66 % (31-73) Lymphocytes (%) (Auto) 21 % (24-48) Monocytes (%) (Auto) 10 % (0-9) Eosinophils (%) (Auto) 1 % (0-3) Basophils (%) (Auto) 2 % (0-3) Neutrophils # (Auto) 4.4 x10^3/uL (1.8-7.7) Lymphocytes # (Auto) 1.4 x10^3/uL (1.0-4.8) Monocytes # (Auto) 0.6 x10^3/uL (0.0-1.1) Eosinophils # (Auto) 0.1 x10^3/uL (0.0-0.7) Basophils # (Auto) 0.1 x10^3/uL (0.0-0.2) Prothrombin Time 14.2 SEC (11.7-14.0) Prothromb Time International Ratio 1.1 (0.8-1.1) Activated Partial Thromboplast Time 27 SEC (24-38) Sodium Level 134 mmol/L (136-145) Potassium Level 3.2 mmol/L (3.5-5.1) Chloride Level 96 mmol/L (98-107) Carbon Dioxide Level 26 mmol/L (21-32) Anion Gap 12 (6-14) Blood Urea Nitrogen 16 mg/dL (8-26) Creatinine 0.7 mg/dL (0.7-1.3) Estimated GFR (Cockcroft-Gault) 118.4 BUN/Creatinine Ratio 23 (6-20) Glucose Level 240 mg/dL (70-99) Calcium Level 9.0 mg/dL (8.5-10.1) Magnesium Level 1.7 mg/dL (1.8-2.4) Total Bilirubin 16.0 mg/dL (0.2-1.0) Aspartate Amino Transf (AST/SGOT) 150 U/L (15-37) Alanine Aminotransferase (ALT/SGPT) 263 U/L (16-63) Alkaline Phosphatase 358 U/L (46-116) Total Protein 6.7 g/dL (6.4-8.2) Albumin 3.1 g/dL (3.4-5.0) Albumin/Globulin Ratio 0.9 (1.0-1.7) Lipase 43 U/L (73-393) Images Images 01/05/2020 ABDOMEN LTD History: Reason: jaundice, elevated LFT / Spl. Instructions: / History: Comparison: CT January 05, 2020. Visualized pancreas is unremarkable. Liver is increased in echogenicity. Right hepatic lobe measures 19.8 cm. Portal flow is hepatopedal. Cholelithiasis. Dilated gallbladder. No gallbladder wall thickening. Dilated common bile duct measures up to 1.4 cm. The right kidney measures 9.8 x 4.5 x 5.1 cm. cm. No hydronephrosis. Visualized portions of the aorta and IVC have normal caliber. IMPRESSION: 1. Dilated common bile duct. Recommend MRI/MRCP to further evaluate for obstructing mass. 2. Cholelithiasis with distended gallbladder. 3. Increased hepatic echotexture, may indicate steatosis. 01/05/2020 CT Abdomen and Pelvis with IV contrast ([facility]) CLINICAL HISTORY: JAUNDICE, ABDOMINAL BLOATING COMPARISON: none Lower chest: Coronary artery calcifications are seen. Calcified granuloma right lower lobe. Abdomen and pelvis: Liver and biliary system: No focal liver lesion. The gallbladder is distended. Small gallstones and sludge are seen dependently. There is intrahepatic and extrahepatic biliary ductal dilatation. Spleen: Unremarkable Pancreas: The pancreas is atrophic. Heterogeneous low attenuating mass is suspected within the pancreatic head/uncinate process measuring 2.9 x 1.9 cm. Adrenal glands: Unremarkable Kidneys: Symmetric nephrograms. Symmetric nephrograms. Punctate nonobstructing left lower pole renal calculus. No hydronephrosis or hydroureter. Mild bladder wall thickening likely cystitis. Lymph nodes/retroperitoneum: No abdominal or pelvic lymphadenopathy. No abdominal or pelvic ascites. Vessels: Aorta is unremarkable. Bowel/Peritoneal cavity: Moderate colonic stool content is seen. No small or large bowel dilatation. No bowel obstruction. Appendix is normal. No abdominal or pelvic ascites. Abdominal wall: Trace fat-containing periumbilical hernia is seen. Bladder: Unremarkable Bones: Degenerative changes of the spine are seen. Hip joint degenerative change s are seen. No aggressive osseous lesion. IMPRESSION: 1. Hypoattenuating pancreatic head/inflammatory process lesion with pancreatic body and tail atrophy as well as intra and extrahepatic biliary ductal dilatation. This should be further evaluated with contrast-enhanced MRI using pancreatic protocol to better delineate suspected pancreatic head mass. 2. Mild bladder wall thickening may be seen with cystitis. Assessment/Plan Assessment/Plan 54 year-old male with probable pancreatic adenocarcinoma presenting with abdominal bloating and painless jaundice T-bili 16, 2.9 x 1.9 cm mass within the pancreatic head/uncinate process, diagnosed on 01/05/2020 CT abdomen/pelvis. At this point, based on Dr. Lezama's evaluation, the patient appears to be a good surgical candidate for Whipple procedure. He may benefit from neoadjuvant therapy which is used more and more extensively by GI oncologists even for tumors < 2 cm. Neoadjuvant therapy is useful in preventing unnecessary surgery in patients with occult metastases. It's also helpful for many patients in facilitating R0 margins. Plan: 1. ERCP/biliary stenting, cytology is planned by Dr. Mclean on this admission. 2. MRCP, as per Dr. Lezama, next available. 3. Consideration could be given to neoadjuvant FOLFIRINOX x 6-8 cycles, followed by restaging scans. 4. Whipple procedure after neoadjuvant therapy, as per Dr. Lezama. 5. The patient will likely require port placement in the near future. 6. Follow-up at [facility] over the next 2 weeks. Thank you for the opportunity to see your patient. Please call with any questions. Jeison Shelley MD. [phone] KOBY SHELLEY MD Jan 06, 2020 16:12
--- NOTE | 2020-01-06 23:11 | NUR ---
Pt had an episode of dark bloody stool (mucoid/clots?) approximately 2229. Pt claimed he just been to the restroom to have a BM which according to him was normal and on the way back to bed, he felt he needs to have another BM but felt lightheaded so he just went to the bedside commode which was just close by. v/s checked. Instructed to call for toileting or if he needs to get up. Dr Grijalva paged via you call md. Dr Grijalva in the unit @ this time and informed him. Orders received.
[2020-01-06] MEDS ORDERED: POTASSIUM CHLORIDE 20 MEQ TABLET.ER. PO ONE (23:30)
[2020-01-06] MEDS ORDERED: MAGNESIUM SULFATE 2GM 50 ML IV ONE (23:30)
[2020-01-07 03:39] VITALS: BP 108/64
[2020-01-07] MEDS: IV RINGERS,LACTATED 1000ML 1,000 ML IV SCH ×2 (03:55→17:11)
[2020-01-07 04:24] LABS: BASO % 0 % (0-3); EOS % 1 % (0-3); HEMATOCRIT 25.4 % (39.0-53.0); HEMOGLOBIN 8.9 g/dL (13.0-17.5); LYMPH # 2.4 x10^3/uL (1.0-4.8); LYMPH % 26 % (24-48); MEAN CORPUSCULAR HEMOGLOBIN 35 pg (25-35); MEAN CORPUSCULAR HGB CONC 35 g/dL (31-37); MEAN CORPUSCULAR VOLUME 101 fL (79-100); MONO # 0.7 x10^3/uL (0.0-1.1); MONO % 8 % (0-9); NEUT # 5.9 x10^3/uL (1.8-7.7); NEUT % 65 % (31-73); PLATELET COUNT 209 x10^3/uL (140-400); RED BLOOD COUNT 2.52 x10^6/uL (4.30-5.70); RED CELL DISTRIBUTION WIDTH 14.7 % (11.5-14.5); WHITE BLOOD COUNT 9.1 x10^3/uL (4.0-11.0)
[2020-01-07 04:33] LABS: PROTHROMBIN TIME PATIENT 16.9 SEC (11.7-14.0)
[2020-01-07 04:50] LABS: ALBUMIN 2.2 g/dL (3.4-5.0); ALBUMIN/GLOBULIN RATIO 0.8 (1.0-1.7); CALCIUM 8.2 mg/dL (8.5-10.1); CREATININE 0.8 mg/dL (0.7-1.3); GFR 101.5; MAGNESIUM 2.3 mg/dL (1.8-2.4); POTASSIUM 4.3 mmol/L (3.5-5.1); TOTAL BILIRUBIN 9.2 mg/dL (0.2-1.0)
[2020-01-07] MEDS: PANTOPRAZOLE 40 MG TABLET.DR. PO SCH (06:00)
[2020-01-07 07:52] VITALS: BP 94/44
--- NOTE | 2020-01-07 09:44 | PDOC ---
Subjective: Subjective: Loose stool last night, then dizziness when walking back to bed, then another stool - nurse told him w/ blood. Retching with a little blood last night. Never abdominal pain. Ate some toast and a couple bites of cream of wheat and eggs before I saw him. Objective: Vital Signs: Vital Signs Date Time Temp Pulse Resp B/P (MAP) Pulse Ox O2 Delivery O2 Flow Rate FiO2 01/07/20 07:52 98.1 61 18 94/44 (61) 99 Room Air 98.1 Labs: Laboratory Tests Test 01/06/20 13:15 01/07/20 03:22 Coronavirus (COVID-19)(PCR) Negative White Blood Count 9.1 x10^3/uL Red Blood Count 2.52 x10^6/uL Hemoglobin 8.9 g/dL Hematocrit 25.4 % Mean Corpuscular Volume 101 fL Mean Corpuscular Hemoglobin 35 pg Mean Corpuscular Hemoglobin Concent 35 g/dL Red Cell Distribution Width 14.7 % Platelet Count 209 x10^3/uL Neutrophils (%) (Auto) 65 % Lymphocytes (%) (Auto) 26 % Monocytes (%) (Auto) 8 % Eosinophils (%) (Auto) 1 % Basophils (%) (Auto) 0 % Neutrophils # (Auto) 5.9 x10^3/uL Lymphocytes # (Auto) 2.4 x10^3/uL Monocytes # (Auto) 0.7 x10^3/uL Eosinophils # (Auto) 0.0 x10^3/uL Basophils # (Auto) 0.0 x10^3/uL Prothrombin Time 16.9 SEC Prothromb Time International Ratio 1.4 Sodium Level 137 mmol/L Potassium Level 4.3 mmol/L Chloride Level 103 mmol/L Carbon Dioxide Level 29 mmol/L Anion Gap 5 Blood Urea Nitrogen 24 mg/dL Creatinine 0.8 mg/dL Estimated GFR (Cockcroft-Gault) 101.5 BUN/Creatinine Ratio 30 Glucose Level 226 mg/dL Calcium Level 8.2 mg/dL Magnesium Level 2.3 mg/dL Total Bilirubin 9.2 mg/dL Aspartate Amino Transf (AST/SGOT) 116 U/L Alanine Aminotransferase (ALT/SGPT) 178 U/L Alkaline Phosphatase 250 U/L Total Protein 5.0 g/dL Albumin 2.2 g/dL Albumin/Globulin Ratio 0.8 PE: GEN: NAD LUNGS: CTAB HEART: RRR ABD: S/ND/NT NEURO/PSYCH: A & O 3 A/P: Jaundice, pancreatic head mass ?hemoptysis/hematemesis, ?hematochezia/melena H/o GERD, s/p gastric sleeve, recent NSAID use COVID-19 negative -- Made NPO earlier this morning (about 8:20). D/w Dr. Mclean - recheck Hgb STAT - if still low, emergent EGD - called to floor. Recheck Hgb 8.7 - called pt - he agrees to EGD. Justicifation of Admission Dx: Justifications for Admission: Justification of Admission Dx: Comment: (Pancreatic mass) NIURKA BARTH Jan 07, 2020 09:44
[2020-01-07 09:46] LABS: HEMATOCRIT 24.4 % (39.0-53.0); HEMOGLOBIN 8.7 g/dL (13.0-17.5)
[2020-01-07] MEDS ORDERED: IV RINGERS,LACTATED 1000ML 1,000 ML IV ONE (11:00)
--- NOTE | 2020-01-07 11:32 | PDOC ---
[employer] PROGRESS NOTE Chief Complaint Chief Complaint Probable pancreatic cancer (adenocarcinoma) Painless jaundice Hyperbilirubinemia Pancreatic mass Transaminitis Cholestatic pattern Hyponatremia Hypokalemia History of Present Illness History of Present Illness 01/07/2020 Patient seen and examined His is present He is quite jaundiced Chart reviewed Vitals/I&O Vitals/I&O: Vital Signs Date Time Temp Pulse Resp B/P (MAP) Pulse Ox O2 Delivery O2 Flow Rate FiO2 01/07/20 07:52 98.1 61 18 94/44 (61) 99 Room Air 98.1 I & O 01/06/20 01/06/20 01/07/20 15:00 23:00 07:00 Intake Total 200 ml 120 ml Balance 200 ml 120 ml Physical Exam General: Alert, Oriented X3 Abdomen: Soft, No tenderness, No masses (no sister tina deborah node), Other (obese) Extremities: No clubbing, No cyanosis Skin: Other (Jaundice) Labs Labs: Laboratory Tests Test 01/06/20 13:15 01/07/20 03:22 01/07/20 08:55 Coronavirus (COVID-19)(PCR) Negative (NEGATIVE) White Blood Count 9.1 x10^3/uL (4.0-11.0) Red Blood Count 2.52 x10^6/uL (4.30-5.70) Hemoglobin 8.9 g/dL (13.0-17.5) 8.7 g/dL (13.0-17.5) Hematocrit 25.4 % (39.0-53.0) 24.4 % (39.0-53.0) Mean Corpuscular Volume 101 fL (79-100) Mean Corpuscular Hemoglobin 35 pg (25-35) Mean Corpuscular Hemoglobin Concent 35 g/dL (31-37) 36 g/dL (31-37) Red Cell Distribution Width 14.7 % (11.5-14.5) Platelet Count 209 x10^3/uL (140-400) Neutrophils (%) (Auto) 65 % (31-73) Lymphocytes (%) (Auto) 26 % (24-48) Monocytes (%) (Auto) 8 % (0-9) Eosinophils (%) (Auto) 1 % (0-3) Basophils (%) (Auto) 0 % (0-3) Neutrophils # (Auto) 5.9 x10^3/uL (1.8-7.7) Lymphocytes # (Auto) 2.4 x10^3/uL (1.0-4.8) Monocytes # (Auto) 0.7 x10^3/uL (0.0-1.1) Eosinophils # (Auto) 0.0 x10^3/uL (0.0-0.7) Basophils # (Auto) 0.0 x10^3/uL (0.0-0.2) Prothrombin Time 16.9 SEC (11.7-14.0) Prothromb Time International Ratio 1.4 (0.8-1.1) Sodium Level 137 mmol/L (136-145) Potassium Level 4.3 mmol/L (3.5-5.1) Chloride Level 103 mmol/L (98-107) Carbon Dioxide Level 29 mmol/L (21-32) Anion Gap 5 (6-14) Blood Urea Nitrogen 24 mg/dL (8-26) Creatinine 0.8 mg/dL (0.7-1.3) Estimated GFR (Cockcroft-Gault) 101.5 BUN/Creatinine Ratio 30 (6-20) Glucose Level 226 mg/dL (70-99) Calcium Level 8.2 mg/dL (8.5-10.1) Magnesium Level 2.3 mg/dL (1.8-2.4) Total Bilirubin 9.2 mg/dL (0.2-1.0) Aspartate Amino Transf (AST/SGOT) 116 U/L (15-37) Alanine Aminotransferase (ALT/SGPT) 178 U/L (16-63) Alkaline Phosphatase 250 U/L (46-116) Total Protein 5.0 g/dL (6.4-8.2) Albumin 2.2 g/dL (3.4-5.0) Albumin/Globulin Ratio 0.8 (1.0-1.7) Iron Level 202 ug/dL (65-175) Total Iron Binding Capacity 212 ug/dL (250-450) Iron Saturation 95 % (15-34) Vitamin B12 Level > 2000 pg/mL (247-911) Assessment and Plan Assessmemt and Plan Problems Medical Problems: (1) Gallstone Status: Acute (2) Jaundice Status: Acute (3) Pancreatic mass Status: Acute Assessment/Plan Probable pancreatic cancer (adenocarcinoma) Painless jaundice Hyperbilirubinemia Pancreatic mass Transaminitis Cholestatic pattern Hyponatremia Hypokalemia Plan Oncology is recommending 1 ERCP, 2 probable chemotherapy, 3 probable Whipple's procedure if surgery agrees Recommendations from qm consultant greatly appreciated We will consult oncology Patient may need further imaging studies like an MRCP, follow recommendations by consultants Very high suspicion for malignancy, this has been discussed with the patient and his at bedside Reassurance provided DVT prophylaxis with Lovenox Further recommendations based on the clinical course Prognosis extremely guarded at best Comment Review of Relevant I have reviewed the following items derrick (where applicable) has been applied. Medications: Current Medications Medications (Trade) Dose Ordered Sig/Renuka Route PRN Reason Start Time Stop Time Status Last Admin Dose Admin Potassium Chloride (Klor-Con) 40 meq 1X ONCE PO 01/06/20 23:30 01/06/20 23:31 DC 01/06/20 23:44 Magnesium Sulfate 50 ml @ 25 mls/hr 1X ONCE IV 01/06/20 23:30 01/07/20 01:29 DC 01/06/20 23:46 Justicifation of Admission Dx: Justifications for Admission: Justification of Admission Dx: Comment: (Pancreatic mass) SUSAN GARNICA III DO Jan 07, 2020 11:32
[2020-01-07 11:59] VITALS: BP 111/64
--- NOTE | 2020-01-07 14:15 | PDOC ---
[employer] 01/07/20 1415: SURGICAL PROGRESS NOTE Subjective only complaint is tailbone pain Vital Signs Vital Signs Date Time Temp Pulse Resp B/P (MAP) Pulse Ox O2 Delivery O2 Flow Rate FiO2 01/07/20 11:59 98.0 81 18 111/64 (80) 99 Room Air 98.0 I&O Intake and Output 01/07/20 07:00 Intake Total 320 ml Balance 320 ml Intake Oral 320 ml # Voids 1 # Bowel Movements 2 General: Alert, Cooperative Abdomen: Soft Labs Laboratory Tests Test 01/05/20 16:40 01/06/20 13:15 01/07/20 03:22 01/07/20 08:55 White Blood Count 6.6 x10^3/uL (4.0-11.0) 9.1 x10^3/uL (4.0-11.0) Red Blood Count 3.87 x10^6/uL (4.30-5.70) 2.52 x10^6/uL (4.30-5.70) Hemoglobin 13.7 g/dL (13.0-17.5) 8.9 g/dL (13.0-17.5) 8.7 g/dL (13.0-17.5) Hematocrit 38.3 % (39.0-53.0) 25.4 % (39.0-53.0) 24.4 % (39.0-53.0) Mean Corpuscular Volume 99 fL (79-100) 101 fL (79-100) Mean Corpuscular Hemoglobin 35 pg (25-35) 35 pg (25-35) Mean Corpuscular Hemoglobin Concent 36 g/dL (31-37) 35 g/dL (31-37) 36 g/dL (31-37) Red Cell Distribution Width 14.8 % (11.5-14.5) 14.7 % (11.5-14.5) Platelet Count 250 x10^3/uL (140-400) 209 x10^3/uL (140-400) Neutrophils (%) (Auto) 66 % (31-73) 65 % (31-73) Lymphocytes (%) (Auto) 21 % (24-48) 26 % (24-48) Monocytes (%) (Auto) 10 % (0-9) 8 % (0-9) Eosinophils (%) (Auto) 1 % (0-3) 1 % (0-3) Basophils (%) (Auto) 2 % (0-3) 0 % (0-3) Neutrophils # (Auto) 4.4 x10^3/uL (1.8-7.7) 5.9 x10^3/uL (1.8-7.7) Lymphocytes # (Auto) 1.4 x10^3/uL (1.0-4.8) 2.4 x10^3/uL (1.0-4.8) Monocytes # (Auto) 0.6 x10^3/uL (0.0-1.1) 0.7 x10^3/uL (0.0-1.1) Eosinophils # (Auto) 0.1 x10^3/uL (0.0-0.7) 0.0 x10^3/uL (0.0-0.7) Basophils # (Auto) 0.1 x10^3/uL (0.0-0.2) 0.0 x10^3/uL (0.0-0.2) Prothrombin Time 14.2 SEC (11.7-14.0) 16.9 SEC (11.7-14.0) Prothromb Time International Ratio 1.1 (0.8-1.1) 1.4 (0.8-1.1) Activated Partial Thromboplast Time 27 SEC (24-38) Sodium Level 134 mmol/L (136-145) 137 mmol/L (136-145) Potassium Level 3.2 mmol/L (3.5-5.1) 4.3 mmol/L (3.5-5.1) Chloride Level 96 mmol/L (98-107) 103 mmol/L (98-107) Carbon Dioxide Level 26 mmol/L (21-32) 29 mmol/L (21-32) Anion Gap 12 (6-14) 5 (6-14) Blood Urea Nitrogen 16 mg/dL (8-26) 24 mg/dL (8-26) Creatinine 0.7 mg/dL (0.7-1.3) 0.8 mg/dL (0.7-1.3) Estimated GFR (Cockcroft-Gault) 118.4 101.5 BUN/Creatinine Ratio 23 (6-20) 30 (6-20) Glucose Level 240 mg/dL (70-99) 226 mg/dL (70-99) Calcium Level 9.0 mg/dL (8.5-10.1) 8.2 mg/dL (8.5-10.1) Magnesium Level 1.7 mg/dL (1.8-2.4) 2.3 mg/dL (1.8-2.4) Total Bilirubin 16.0 mg/dL (0.2-1.0) 9.2 mg/dL (0.2-1.0) Aspartate Amino Transf (AST/SGOT) 150 U/L (15-37) 116 U/L (15-37) Alanine Aminotransferase (ALT/SGPT) 263 U/L (16-63) 178 U/L (16-63) Alkaline Phosphatase 358 U/L (46-116) 250 U/L (46-116) Total Protein 6.7 g/dL (6.4-8.2) 5.0 g/dL (6.4-8.2) Albumin 3.1 g/dL (3.4-5.0) 2.2 g/dL (3.4-5.0) Albumin/Globulin Ratio 0.9 (1.0-1.7) 0.8 (1.0-1.7) Lipase 43 U/L (73-393) Coronavirus (COVID-19)(PCR) Negative (NEGATIVE) Iron Level 202 ug/dL (65-175) Total Iron Binding Capacity 212 ug/dL (250-450) Iron Saturation 95 % (15-34) Vitamin B12 Level > 2000 pg/mL (247-911) Laboratory Tests Test 01/07/20 03:22 01/07/20 08:55 White Blood Count 9.1 x10^3/uL (4.0-11.0) Red Blood Count 2.52 x10^6/uL (4.30-5.70) Hemoglobin 8.9 g/dL (13.0-17.5) 8.7 g/dL (13.0-17.5) Hematocrit 25.4 % (39.0-53.0) 24.4 % (39.0-53.0) Mean Corpuscular Volume 101 fL (79-100) Mean Corpuscular Hemoglobin 35 pg (25-35) Mean Corpuscular Hemoglobin Concent 35 g/dL (31-37) 36 g/dL (31-37) Red Cell Distribution Width 14.7 % (11.5-14.5) Platelet Count 209 x10^3/uL (140-400) Neutrophils (%) (Auto) 65 % (31-73) Lymphocytes (%) (Auto) 26 % (24-48) Monocytes (%) (Auto) 8 % (0-9) Eosinophils (%) (Auto) 1 % (0-3) Basophils (%) (Auto) 0 % (0-3) Neutrophils # (Auto) 5.9 x10^3/uL (1.8-7.7) Lymphocytes # (Auto) 2.4 x10^3/uL (1.0-4.8) Monocytes # (Auto) 0.7 x10^3/uL (0.0-1.1) Eosinophils # (Auto) 0.0 x10^3/uL (0.0-0.7) Basophils # (Auto) 0.0 x10^3/uL (0.0-0.2) Prothrombin Time 16.9 SEC (11.7-14.0) Prothromb Time International Ratio 1.4 (0.8-1.1) Sodium Level 137 mmol/L (136-145) Potassium Level 4.3 mmol/L (3.5-5.1) Chloride Level 103 mmol/L (98-107) Carbon Dioxide Level 29 mmol/L (21-32) Anion Gap 5 (6-14) Blood Urea Nitrogen 24 mg/dL (8-26) Creatinine 0.8 mg/dL (0.7-1.3) Estimated GFR (Cockcroft-Gault) 101.5 BUN/Creatinine Ratio 30 (6-20) Glucose Level 226 mg/dL (70-99) Calcium Level 8.2 mg/dL (8.5-10.1) Magnesium Level 2.3 mg/dL (1.8-2.4) Total Bilirubin 9.2 mg/dL (0.2-1.0) Aspartate Amino Transf (AST/SGOT) 116 U/L (15-37) Alanine Aminotransferase (ALT/SGPT) 178 U/L (16-63) Alkaline Phosphatase 250 U/L (46-116) Total Protein 5.0 g/dL (6.4-8.2) Albumin 2.2 g/dL (3.4-5.0) Albumin/Globulin Ratio 0.8 (1.0-1.7) Iron Level 202 ug/dL (65-175) Total Iron Binding Capacity 212 ug/dL (250-450) Iron Saturation 95 % (15-34) Vitamin B12 Level > 2000 pg/mL (247-911) Problem List Problems Medical Problems: (1) Gallstone Status: Acute (2) Jaundice Status: Acute (3) Pancreatic mass Status: Acute Assessment/Plan endoscopy in AM Dr Lezama to follow Justicifation of Admission Dx: Justifications for Admission: Justification of Admission Dx: Comment: (Pancreatic mass) SANG LEZAMA MD 01/07/20 1452: SURGICAL PROGRESS NOTE Assessment/Plan Pt seen and examined. Agree with Ms. Guevara's note Pt feels better, less jaundice abd soft agree with plans per GI appreciate oncology evaluation and would be interested to pursue neoadjuvant therapy prior to surgery. BABATUNDE GUEVARA [employer] Jan 07, 2020 14:15 SANG LEZAMA MD Jan 07, 2020 14:52
[2020-01-07 15:29] VITALS: BP 105/53
--- NOTE | 2020-01-07 16:44 | NUR ---
HARLEY following for discharge planning. HARLEY reviewed chart and spoke with RN. Pt COVID negative. Pt remains on room air. Pt pending ERCP. Discharge plan remains home with . HARLEY to continue following. Addendum: 01/08/20 at 1428 by RAMESH SOUZA [facility] following for discharge planning. Spoke with RN and reviewed chart. Pt had EGD today. HARLEY will continue following.
[2020-01-07] MEDS: PANTOPRAZOLE IV PUSH 40 MG VIAL. IVP SCH (17:10)
--- NOTE | 2020-01-07 17:34 | NUR ---
Pt's 1X dose for LR @ 75 mL/hr nonadministered by this RN. Order was to originally be used in the PACU. LR @ 100 mL/hr already infusing. Refer to [facility] for details.
[2020-01-07 19:56] VITALS: BP 103/48
[2020-01-07 23:51] VITALS: BP 105/55
[2020-01-08] VITALS (16 sets, daily range): BP systolic 101–133; BP diastolic 47–68
[2020-01-08] MEDS: IV RINGERS,LACTATED 1000ML 1,000 ML IV SCH ×3 (03:26→20:05)
[2020-01-08 04:27] LABS: HEMOGLOBIN 7.2 g/dL (13.0-17.5); RED BLOOD COUNT 1.96 x10^6/uL (4.30-5.70); RED CELL DISTRIBUTION WIDTH 14.4 % (11.5-14.5)
[2020-01-08 04:40] LABS: HEMATOCRIT 20.2 % (39.0-53.0)
[2020-01-08 04:45] LABS: ALBUMIN 2.1 g/dL (3.4-5.0); CALCIUM 7.8 mg/dL (8.5-10.1); CREATININE 0.6 mg/dL (0.7-1.3); GFR 141.5; POTASSIUM 3.9 mmol/L (3.5-5.1); TOTAL BILIRUBIN 6.6 mg/dL (0.2-1.0); TOTAL PROTEIN 4.2 g/dL (6.4-8.2)
--- NOTE | 2020-01-08 06:29 | NUR ---
same fluids infusing. change to different rate (30 mls/hr)
[2020-01-08] MEDS ORDERED: PROCHLORPERAZINE 10 MG/2 ML VIAL. IV PRN ×2 (07:00)
[2020-01-08] MEDS ORDERED: ONDANSETRON PF 4 MG/2 ML VIAL. IV PRN ×2 (07:00)
[2020-01-08] MEDS ORDERED: IV RINGERS,LACTATED 1000ML 1,000 ML IV SCH ×2 (07:00)
[2020-01-08] MEDS ORDERED: HYDROmorphone 2 MG/ML VIAL IV PRN ×2 (07:00)
[2020-01-08] MEDS ORDERED: fentaNYL PF VIAL 100 MCG/2 ML VIAL IV PRN ×4 (07:00)
[2020-01-08] MEDS ORDERED: MORPHINE SULFATE 2 MG/ML VIAL. IV PRN ×2 (07:00)
[2020-01-08] MEDS: PANTOPRAZOLE IV PUSH 40 MG VIAL. IVP SCH ×2 (08:27→17:32)
[2020-01-08] MEDS ORDERED: IOHEXOL 300 MG/ML 100ML VIAL. ONE (08:35)
[2020-01-08] MEDS ORDERED: PROPOFOL 10 MG/ML (20ML) VIAL. IV ONE (10:23)
--- NOTE | 2020-01-08 10:34 | PDOC ---
[employer] PROGRESS NOTE Chief Complaint Chief Complaint Probable pancreatic cancer (adenocarcinoma) Painless jaundice Hyperbilirubinemia Pancreatic mass Transaminitis Cholestatic pattern Hyponatremia Hypokalemia History of Present Illness History of Present Illness 01/08/2020 Patient seen and examined Discussed with mother Discussed with Discussed with RN Chart reviewed Patient going for ERCP today 01/07/2020 Patient seen and examined His is present He is quite jaundiced Chart reviewed Vitals/I&O Vitals/I&O: Vital Signs Date Time Temp Pulse Resp B/P (MAP) Pulse Ox O2 Delivery O2 Flow Rate FiO2 01/08/20 09:31 97.3 64 20 99 97.3 01/08/20 09:28 Room Air 01/08/20 07:38 115/60 (78) I & O 01/07/20 01/07/20 01/08/20 15:00 23:00 07:00 Intake Total 1500 ml 1480 ml Output Total 300 ml Balance 1500 ml 1180 ml Physical Exam General: Alert, Cooperative Abdomen: Soft Extremities: No clubbing, No cyanosis Skin: Other (Jaundice) Labs Labs: Laboratory Tests Test 01/08/20 04:10 White Blood Count 6.0 x10^3/uL (4.0-11.0) Red Blood Count 1.96 x10^6/uL (4.30-5.70) Hemoglobin 7.2 g/dL (13.0-17.5) Hematocrit 20.2 % (39.0-53.0) Mean Corpuscular Volume 103 fL (79-100) Mean Corpuscular Hemoglobin 37 pg (25-35) Mean Corpuscular Hemoglobin Concent 36 g/dL (31-37) Red Cell Distribution Width 14.4 % (11.5-14.5) Platelet Count 164 x10^3/uL (140-400) Sodium Level 139 mmol/L (136-145) Potassium Level 3.9 mmol/L (3.5-5.1) Chloride Level 105 mmol/L (98-107) Carbon Dioxide Level 26 mmol/L (21-32) Anion Gap 8 (6-14) Blood Urea Nitrogen 18 mg/dL (8-26) Creatinine 0.6 mg/dL (0.7-1.3) Estimated GFR (Cockcroft-Gault) 141.5 BUN/Creatinine Ratio 30 (6-20) Glucose Level 172 mg/dL (70-99) Calcium Level 7.8 mg/dL (8.5-10.1) Total Bilirubin 6.6 mg/dL (0.2-1.0) Aspartate Amino Transf (AST/SGOT) 84 U/L (15-37) Alanine Aminotransferase (ALT/SGPT) 133 U/L (16-63) Alkaline Phosphatase 198 U/L (46-116) Total Protein 4.2 g/dL (6.4-8.2) Albumin 2.1 g/dL (3.4-5.0) Albumin/Globulin Ratio 1.0 (1.0-1.7) Assessment and Plan Assessmemt and Plan Problems Medical Problems: (1) Gallstone Status: Acute (2) Jaundice Status: Acute (3) Pancreatic mass Status: Acute Assessment/Plan Probable pancreatic cancer (adenocarcinoma) Painless jaundice Hyperbilirubinemia Pancreatic mass Transaminitis Cholestatic pattern Hyponatremia Hypokalemia Plan ERCP today Oncology is recommending 1 ERCP, 2 probable chemotherapy, 3 probable Whipple's procedure if surgery agrees (appreciate Dr. Mchugh's input) Patient may need further imaging studies like an MRCP, follow recommendations by consultants DVT prophylaxis with Lovenox Further recommendations based on the clinical course Prognosis extremely guarded at best Await ERCP report DVT prophylaxis Full code Comment Review of Relevant I have reviewed the following items derrick (where applicable) has been applied. Medications: Current Medications Medications (Trade) Dose Ordered Sig/Renuka Route PRN Reason Start Time Stop Time Status Last Admin Dose Admin Pantoprazole Sodium (PROTONIX VIAL for IV PUSH) 40 mg BIDAC IVP 01/07/20 16:30 01/08/20 08:27 Justicifation of Admission Dx: Justifications for Admission: Justification of Admission Dx: Comment: (Pancreatic mass) SUSAN GARNICA III DO Jan 08, 2020 10:34
[2020-01-08] MEDS ORDERED: EPINEPHrine SYRINGE 1 MG/10 ML SYRINGE ONE (10:52)
--- NOTE | 2020-01-08 10:58 | PDOC4 ---
Operative Note Operative Note EGD with biopsies/epi injection Meds propofol per anesthesia Pre-op dx Melena/acute blood loss anemia Post-op dx s/p gastric sleeve s/p bx antrum r/o h pylori cratered duodenal ulcer 1 cm with adherent clot/visible vessel s/p epi injection 6 cc Plan PPI therapy/ transfusional support to maintain Hg >7 serial CBCs/LFTS eventual ERCP once Hg stabilized to assess for CBD stones versus tumor suggested on prior CT scan clear liquids for 24 hours prior to advancing diet ERICA LAZCANO MD Jan 08, 2020 10:58
--- NOTE | 2020-01-08 12:49 | PDOC ---
BABATUNDE GUEVARA BOARD ATTENDANT 01/08/20 1249: SURGICAL PROGRESS NOTE Subjective resting no current complaints Vital Signs Vital Signs Date Time Temp Pulse Resp B/P (MAP) Pulse Ox O2 Delivery O2 Flow Rate FiO2 01/08/20 11:16 80 18 124/58 96 Room Air 01/08/20 11:01 3 01/08/20 10:46 97.5 97.5 I&O Intake and Output 01/08/20 07:00 Intake Total 2980 ml Output Total 300 ml Balance 2680 ml Intake Oral 980 ml IV Total 2000 ml Output Urine Total 300 ml # Voids 2 General: Cooperative, No acute distress Abdomen: Soft Labs Laboratory Tests Test 01/06/20 13:15 01/07/20 03:22 01/07/20 08:55 01/08/20 04:10 Coronavirus (COVID-19)(PCR) Negative (NEGATIVE) White Blood Count 9.1 x10^3/uL (4.0-11.0) 6.0 x10^3/uL (4.0-11.0) Red Blood Count 2.52 x10^6/uL (4.30-5.70) 1.96 x10^6/uL (4.30-5.70) Hemoglobin 8.9 g/dL (13.0-17.5) 8.7 g/dL (13.0-17.5) 7.2 g/dL (13.0-17.5) Hematocrit 25.4 % (39.0-53.0) 24.4 % (39.0-53.0) 20.2 % (39.0-53.0) Mean Corpuscular Volume 101 fL (79-100) 103 fL (79-100) Mean Corpuscular Hemoglobin 35 pg (25-35) 37 pg (25-35) Mean Corpuscular Hemoglobin Concent 35 g/dL (31-37) 36 g/dL (31-37) 36 g/dL (31-37) Red Cell Distribution Width 14.7 % (11.5-14.5) 14.4 % (11.5-14.5) Platelet Count 209 x10^3/uL (140-400) 164 x10^3/uL (140-400) Neutrophils (%) (Auto) 65 % (31-73) Lymphocytes (%) (Auto) 26 % (24-48) Monocytes (%) (Auto) 8 % (0-9) Eosinophils (%) (Auto) 1 % (0-3) Basophils (%) (Auto) 0 % (0-3) Neutrophils # (Auto) 5.9 x10^3/uL (1.8-7.7) Lymphocytes # (Auto) 2.4 x10^3/uL (1.0-4.8) Monocytes # (Auto) 0.7 x10^3/uL (0.0-1.1) Eosinophils # (Auto) 0.0 x10^3/uL (0.0-0.7) Basophils # (Auto) 0.0 x10^3/uL (0.0-0.2) Prothrombin Time 16.9 SEC (11.7-14.0) Prothromb Time International Ratio 1.4 (0.8-1.1) Sodium Level 137 mmol/L (136-145) 139 mmol/L (136-145) Potassium Level 4.3 mmol/L (3.5-5.1) 3.9 mmol/L (3.5-5.1) Chloride Level 103 mmol/L (98-107) 105 mmol/L (98-107) Carbon Dioxide Level 29 mmol/L (21-32) 26 mmol/L (21-32) Anion Gap 5 (6-14) 8 (6-14) Blood Urea Nitrogen 24 mg/dL (8-26) 18 mg/dL (8-26) Creatinine 0.8 mg/dL (0.7-1.3) 0.6 mg/dL (0.7-1.3) Estimated GFR (Cockcroft-Gault) 101.5 141.5 BUN/Creatinine Ratio 30 (6-20) 30 (6-20) Glucose Level 226 mg/dL (70-99) 172 mg/dL (70-99) Calcium Level 8.2 mg/dL (8.5-10.1) 7.8 mg/dL (8.5-10.1) Magnesium Level 2.3 mg/dL (1.8-2.4) Total Bilirubin 9.2 mg/dL (0.2-1.0) 6.6 mg/dL (0.2-1.0) Aspartate Amino Transf (AST/SGOT) 116 U/L (15-37) 84 U/L (15-37) Alanine Aminotransferase (ALT/SGPT) 178 U/L (16-63) 133 U/L (16-63) Alkaline Phosphatase 250 U/L (46-116) 198 U/L (46-116) Total Protein 5.0 g/dL (6.4-8.2) 4.2 g/dL (6.4-8.2) Albumin 2.2 g/dL (3.4-5.0) 2.1 g/dL (3.4-5.0) Albumin/Globulin Ratio 0.8 (1.0-1.7) 1.0 (1.0-1.7) Iron Level 202 ug/dL (65-175) Total Iron Binding Capacity 212 ug/dL (250-450) Iron Saturation 95 % (15-34) Vitamin B12 Level > 2000 pg/mL (247-911) Laboratory Tests Test 01/08/20 04:10 White Blood Count 6.0 x10^3/uL (4.0-11.0) Red Blood Count 1.96 x10^6/uL (4.30-5.70) Hemoglobin 7.2 g/dL (13.0-17.5) Hematocrit 20.2 % (39.0-53.0) Mean Corpuscular Volume 103 fL (79-100) Mean Corpuscular Hemoglobin 37 pg (25-35) Mean Corpuscular Hemoglobin Concent 36 g/dL (31-37) Red Cell Distribution Width 14.4 % (11.5-14.5) Platelet Count 164 x10^3/uL (140-400) Sodium Level 139 mmol/L (136-145) Potassium Level 3.9 mmol/L (3.5-5.1) Chloride Level 105 mmol/L (98-107) Carbon Dioxide Level 26 mmol/L (21-32) Anion Gap 8 (6-14) Blood Urea Nitrogen 18 mg/dL (8-26) Creatinine 0.6 mg/dL (0.7-1.3) Estimated GFR (Cockcroft-Gault) 141.5 BUN/Creatinine Ratio 30 (6-20) Glucose Level 172 mg/dL (70-99) Calcium Level 7.8 mg/dL (8.5-10.1) Total Bilirubin 6.6 mg/dL (0.2-1.0) Aspartate Amino Transf (AST/SGOT) 84 U/L (15-37) Alanine Aminotransferase (ALT/SGPT) 133 U/L (16-63) Alkaline Phosphatase 198 U/L (46-116) Total Protein 4.2 g/dL (6.4-8.2) Albumin 2.1 g/dL (3.4-5.0) Albumin/Globulin Ratio 1.0 (1.0-1.7) Problem List Problems Medical Problems: (1) Gallstone Status: Acute (2) Jaundice Status: Acute (3) Pancreatic mass Status: Acute Assessment/Plan EGD noted -ulcer ERCP once improved appreciate oncology evaluation and would be interested to pursue neoadjuvant therapy prior to surgery. Justicifation of Admission Dx: Justifications for Admission: Justification of Admission Dx: Comment: (Pancreatic mass) SANG AVENDANO MD 01/08/20 1343: SURGICAL PROGRESS NOTE Assessment/Plan Pt seen and examined. Agree with Ms. Guevara's note Pt sleeping after procedure abd soft agree with plans per GI and consider neoadjuvant therapy. BABATUNDE GUEVARA BOARD ATTENDANT Jan 08, 2020 12:49 SANG AVENDANO MD Jan 08, 2020 13:43
[2020-01-09 03:55] VITALS: BP 113/62
[2020-01-09] MEDS: IV RINGERS,LACTATED 1000ML 1,000 ML IV SCH ×2 (04:31→17:50)
[2020-01-09 04:32] LABS: BASO % 0 % (0-3); EOS # 0.1 x10^3/uL (0.0-0.7); EOS % 1 % (0-3); HEMATOCRIT 23.3 % (39.0-53.0); HEMOGLOBIN 8.2 g/dL (13.0-17.5); LYMPH # 2.5 x10^3/uL (1.0-4.8); LYMPH % 29 % (24-48); MEAN CORPUSCULAR HEMOGLOBIN 34 pg (25-35); MEAN CORPUSCULAR HGB CONC 35 g/dL (31-37); MEAN CORPUSCULAR VOLUME 96 fL (79-100); MONO # 0.7 x10^3/uL (0.0-1.1); MONO % 8 % (0-9); NEUT # 5.2 x10^3/uL (1.8-7.7); NEUT % 61 % (31-73); PLATELET COUNT 185 x10^3/uL (140-400); RED BLOOD COUNT 2.42 x10^6/uL (4.30-5.70); RED CELL DISTRIBUTION WIDTH 20.4 % (11.5-14.5); WHITE BLOOD COUNT 8.5 x10^3/uL (4.0-11.0)
[2020-01-09 05:05] LABS: ALBUMIN 2.2 g/dL (3.4-5.0); ALBUMIN/GLOBULIN RATIO 0.8 (1.0-1.7); CALCIUM 8.2 mg/dL (8.5-10.1); CREATININE 0.7 mg/dL (0.7-1.3); GFR 118.4; POTASSIUM 3.5 mmol/L (3.5-5.1); TOTAL BILIRUBIN 6.7 mg/dL (0.2-1.0); TOTAL PROTEIN 4.9 g/dL (6.4-8.2)
[2020-01-09 06:10] LABS: IGG1 223 mg/dL (248-810); IGG2 102 mg/dL (130-555); IGG3 7 mg/dL (15-102); IGG4 17 mg/dL (2-96); TOTAL IGG 432 mg/dL (603-1613)
[2020-01-09 07:25] VITALS: BP 155/76
[2020-01-09] MEDS: PANTOPRAZOLE IV PUSH 40 MG VIAL. IVP SCH ×2 (08:20→17:49)
--- NOTE | 2020-01-09 08:51 | PDOC ---
GI PROGRESS NOTES Date Date/Time DATE: 01/09/20 TIME: 08:49 Subjective Subjective feeling well after events yesterday- tolerating CLD Hgb stable overnight Objective Vitals Vital Signs Date Time Temp Pulse Resp B/P (MAP) Pulse Ox O2 Delivery O2 Flow Rate FiO2 01/09/20 07:25 97.9 64 18 155/76 (102) 98 Room Air 97.9 01/09/20 03:55 98.6 67 16 113/62 (79) 97 Room Air 98.6 01/08/20 23:17 98.8 72 16 128/59 (82) 95 Room Air 98.8 01/08/20 20:00 Room Air 01/08/20 19:33 99.9 63 16 114/59 (77) 96 Room Air 99.9 01/08/20 18:21 98.8 67 16 127/56 98.8 01/08/20 17:18 99.7 72 16 133/68 99.7 01/08/20 16:20 99.5 66 16 118/60 99.5 01/08/20 16:15 99.5 68 118/60 (79) 96 Room Air 99.5 01/08/20 15:21 99.1 68 16 118/60 99.1 01/08/20 15:15 99.3 73 18 112/67 (82) 98 Room Air 99.3 01/08/20 14:15 97.8 65 16 118/60 (79) 98 Room Air 97.8 01/08/20 13:45 97.6 68 18 118/56 (76) 97 Room Air 97.6 01/08/20 13:15 98.6 76 14 120/63 (82) 96 Room Air 98.6 01/08/20 13:00 97.9 76 16 115/65 (82) 97 Room Air 97.9 01/08/20 12:45 97.9 76 14 126/63 (84) 97 Room Air 97.9 01/08/20 12:30 98.2 77 16 120/61 (80) 92 Room Air 98.2 01/08/20 11:16 80 18 124/58 96 Room Air 01/08/20 11:01 78 18 126/61 99 Nasal Cannula 3 01/08/20 10:46 97.5 99 18 166/75 97 Room Air 3 97.5 01/08/20 09:31 97.3 64 20 99 97.3 01/08/20 09:28 Room Air Labs Labs Laboratory Tests Test 01/09/20 03:30 White Blood Count 8.5 x10^3/uL (4.0-11.0) Red Blood Count 2.42 x10^6/uL (4.30-5.70) Hemoglobin 8.2 g/dL (13.0-17.5) Hematocrit 23.3 % (39.0-53.0) Mean Corpuscular Volume 96 fL (79-100) Mean Corpuscular Hemoglobin 34 pg (25-35) Mean Corpuscular Hemoglobin Concent 35 g/dL (31-37) Red Cell Distribution Width 20.4 % (11.5-14.5) Platelet Count 185 x10^3/uL (140-400) Neutrophils (%) (Auto) 61 % (31-73) Lymphocytes (%) (Auto) 29 % (24-48) Monocytes (%) (Auto) 8 % (0-9) Eosinophils (%) (Auto) 1 % (0-3) Basophils (%) (Auto) 0 % (0-3) Neutrophils # (Auto) 5.2 x10^3/uL (1.8-7.7) Lymphocytes # (Auto) 2.5 x10^3/uL (1.0-4.8) Monocytes # (Auto) 0.7 x10^3/uL (0.0-1.1) Eosinophils # (Auto) 0.1 x10^3/uL (0.0-0.7) Basophils # (Auto) 0.0 x10^3/uL (0.0-0.2) Sodium Level 139 mmol/L (136-145) Potassium Level 3.5 mmol/L (3.5-5.1) Chloride Level 104 mmol/L (98-107) Carbon Dioxide Level 28 mmol/L (21-32) Anion Gap 7 (6-14) Blood Urea Nitrogen 10 mg/dL (8-26) Creatinine 0.7 mg/dL (0.7-1.3) Estimated GFR (Cockcroft-Gault) 118.4 BUN/Creatinine Ratio 14 (6-20) Glucose Level 137 mg/dL (70-99) Calcium Level 8.2 mg/dL (8.5-10.1) Total Bilirubin 6.7 mg/dL (0.2-1.0) Aspartate Amino Transf (AST/SGOT) 92 U/L (15-37) Alanine Aminotransferase (ALT/SGPT) 125 U/L (16-63) Alkaline Phosphatase 202 U/L (46-116) Total Protein 4.9 g/dL (6.4-8.2) Albumin 2.2 g/dL (3.4-5.0) Albumin/Globulin Ratio 0.8 (1.0-1.7) Physical Exam Physical Exam Jaundice chest- clear cor- RRR abd- soft non tender Assessment Assessment Large DU with recent bleeding- injected yesterday - appears stable today Obstructive jaundice with likely pancreatic mass- ERCP and further w/u pending Justicifation of Admission Dx: Justifications for Admission: Justification of Admission Dx: Comment: (Pancreatic mass) CADEN GODOY MD Jan 09, 2020 08:51
--- NOTE | 2020-01-09 09:22 | PDOC ---
BABATUNDE GUEVARA SMUDGER 01/09/20 0922: SURGICAL PROGRESS NOTE Subjective tolerating clears no complaints Vital Signs Vital Signs Date Time Temp Pulse Resp B/P (MAP) Pulse Ox O2 Delivery O2 Flow Rate FiO2 01/09/20 07:25 97.9 64 18 155/76 (102) 98 Room Air 97.9 01/08/20 11:01 3 I&O Intake and Output 01/09/20 07:00 Intake Total 3200 ml Output Total 500 ml Balance 2700 ml Intake Oral 550 ml IV Total 2000 ml Blood Product IV Normal Saline Flush 650 ml Output Urine Total 500 ml # Voids 1 General: Cooperative, Other (jaundice) Abdomen: Soft, No tenderness Labs Laboratory Tests Test 01/08/20 04:10 01/09/20 03:30 White Blood Count 6.0 x10^3/uL (4.0-11.0) 8.5 x10^3/uL (4.0-11.0) Red Blood Count 1.96 x10^6/uL (4.30-5.70) 2.42 x10^6/uL (4.30-5.70) Hemoglobin 7.2 g/dL (13.0-17.5) 8.2 g/dL (13.0-17.5) Hematocrit 20.2 % (39.0-53.0) 23.3 % (39.0-53.0) Mean Corpuscular Volume 103 fL (79-100) 96 fL (79-100) Mean Corpuscular Hemoglobin 37 pg (25-35) 34 pg (25-35) Mean Corpuscular Hemoglobin Concent 36 g/dL (31-37) 35 g/dL (31-37) Red Cell Distribution Width 14.4 % (11.5-14.5) 20.4 % (11.5-14.5) Platelet Count 164 x10^3/uL (140-400) 185 x10^3/uL (140-400) Sodium Level 139 mmol/L (136-145) 139 mmol/L (136-145) Potassium Level 3.9 mmol/L (3.5-5.1) 3.5 mmol/L (3.5-5.1) Chloride Level 105 mmol/L (98-107) 104 mmol/L (98-107) Carbon Dioxide Level 26 mmol/L (21-32) 28 mmol/L (21-32) Anion Gap 8 (6-14) 7 (6-14) Blood Urea Nitrogen 18 mg/dL (8-26) 10 mg/dL (8-26) Creatinine 0.6 mg/dL (0.7-1.3) 0.7 mg/dL (0.7-1.3) Estimated GFR (Cockcroft-Gault) 141.5 118.4 BUN/Creatinine Ratio 30 (6-20) 14 (6-20) Glucose Level 172 mg/dL (70-99) 137 mg/dL (70-99) Calcium Level 7.8 mg/dL (8.5-10.1) 8.2 mg/dL (8.5-10.1) Total Bilirubin 6.6 mg/dL (0.2-1.0) 6.7 mg/dL (0.2-1.0) Aspartate Amino Transf (AST/SGOT) 84 U/L (15-37) 92 U/L (15-37) Alanine Aminotransferase (ALT/SGPT) 133 U/L (16-63) 125 U/L (16-63) Alkaline Phosphatase 198 U/L (46-116) 202 U/L (46-116) Total Protein 4.2 g/dL (6.4-8.2) 4.9 g/dL (6.4-8.2) Albumin 2.1 g/dL (3.4-5.0) 2.2 g/dL (3.4-5.0) Albumin/Globulin Ratio 1.0 (1.0-1.7) 0.8 (1.0-1.7) Neutrophils (%) (Auto) 61 % (31-73) Lymphocytes (%) (Auto) 29 % (24-48) Monocytes (%) (Auto) 8 % (0-9) Eosinophils (%) (Auto) 1 % (0-3) Basophils (%) (Auto) 0 % (0-3) Neutrophils # (Auto) 5.2 x10^3/uL (1.8-7.7) Lymphocytes # (Auto) 2.5 x10^3/uL (1.0-4.8) Monocytes # (Auto) 0.7 x10^3/uL (0.0-1.1) Eosinophils # (Auto) 0.1 x10^3/uL (0.0-0.7) Basophils # (Auto) 0.0 x10^3/uL (0.0-0.2) Laboratory Tests Test 01/09/20 03:30 White Blood Count 8.5 x10^3/uL (4.0-11.0) Red Blood Count 2.42 x10^6/uL (4.30-5.70) Hemoglobin 8.2 g/dL (13.0-17.5) Hematocrit 23.3 % (39.0-53.0) Mean Corpuscular Volume 96 fL (79-100) Mean Corpuscular Hemoglobin 34 pg (25-35) Mean Corpuscular Hemoglobin Concent 35 g/dL (31-37) Red Cell Distribution Width 20.4 % (11.5-14.5) Platelet Count 185 x10^3/uL (140-400) Neutrophils (%) (Auto) 61 % (31-73) Lymphocytes (%) (Auto) 29 % (24-48) Monocytes (%) (Auto) 8 % (0-9) Eosinophils (%) (Auto) 1 % (0-3) Basophils (%) (Auto) 0 % (0-3) Neutrophils # (Auto) 5.2 x10^3/uL (1.8-7.7) Lymphocytes # (Auto) 2.5 x10^3/uL (1.0-4.8) Monocytes # (Auto) 0.7 x10^3/uL (0.0-1.1) Eosinophils # (Auto) 0.1 x10^3/uL (0.0-0.7) Basophils # (Auto) 0.0 x10^3/uL (0.0-0.2) Sodium Level 139 mmol/L (136-145) Potassium Level 3.5 mmol/L (3.5-5.1) Chloride Level 104 mmol/L (98-107) Carbon Dioxide Level 28 mmol/L (21-32) Anion Gap 7 (6-14) Blood Urea Nitrogen 10 mg/dL (8-26) Creatinine 0.7 mg/dL (0.7-1.3) Estimated GFR (Cockcroft-Gault) 118.4 BUN/Creatinine Ratio 14 (6-20) Glucose Level 137 mg/dL (70-99) Calcium Level 8.2 mg/dL (8.5-10.1) Total Bilirubin 6.7 mg/dL (0.2-1.0) Aspartate Amino Transf (AST/SGOT) 92 U/L (15-37) Alanine Aminotransferase (ALT/SGPT) 125 U/L (16-63) Alkaline Phosphatase 202 U/L (46-116) Total Protein 4.9 g/dL (6.4-8.2) Albumin 2.2 g/dL (3.4-5.0) Albumin/Globulin Ratio 0.8 (1.0-1.7) Problem List Problems Medical Problems: (1) Gallstone Status: Acute (2) Jaundice Status: Acute (3) Pancreatic mass Status: Acute Assessment/Plan as per Gi will FU on Saturday Justicifation of Admission Dx: Justifications for Admission: Justification of Admission Dx: Comment: (Pancreatic mass) JEFFREY LOWE MD 01/09/20 0948: SURGICAL PROGRESS NOTE Assessment/Plan Patient stable, agree with Alatorre assessment and plan. BABATUNDE GUEVARA APRN Jan 09, 2020 09:22 JEFFREY LOWE MD Jan 09, 2020 09:48
[2020-01-09 11:09] VITALS: BP 103/58
--- NOTE | 2020-01-09 12:02 | PDOC ---
[employer] PROGRESS NOTE Chief Complaint Chief Complaint Probable pancreatic cancer (adenocarcinoma) Painless jaundice Hyperbilirubinemia Pancreatic mass Transaminitis Cholestatic pattern Hyponatremia Hypokalemia History of Present Illness History of Present Illness 01/09/2020 Patient seen and examined He has 2 family members present Chart reviewed Discussed with RN 01/08/2020 Patient seen and examined Discussed with mother Discussed with Discussed with RN Chart reviewed Patient going for ERCP today 01/07/2020 Patient seen and examined His is present He is quite jaundiced Chart reviewed Vitals/I&O Vitals/I&O: Vital Signs Date Time Temp Pulse Resp B/P (MAP) Pulse Ox O2 Delivery O2 Flow Rate FiO2 01/09/20 11:09 98.2 59 16 103/58 (73) 96 Room Air 98.2 01/08/20 11:01 3 I & O 01/08/20 01/08/20 01/09/20 15:00 23:00 07:00 Intake Total 1050 ml 950 ml 1200 ml Output Total 200 ml 300 ml Balance 1050 ml 750 ml 900 ml Physical Exam General: Cooperative, Other (jaundice) Abdomen: Soft, No tenderness Extremities: No clubbing, No cyanosis Skin: Other (Jaundice) Labs Labs: Laboratory Tests Test 01/09/20 03:30 White Blood Count 8.5 x10^3/uL (4.0-11.0) Red Blood Count 2.42 x10^6/uL (4.30-5.70) Hemoglobin 8.2 g/dL (13.0-17.5) Hematocrit 23.3 % (39.0-53.0) Mean Corpuscular Volume 96 fL (79-100) Mean Corpuscular Hemoglobin 34 pg (25-35) Mean Corpuscular Hemoglobin Concent 35 g/dL (31-37) Red Cell Distribution Width 20.4 % (11.5-14.5) Platelet Count 185 x10^3/uL (140-400) Neutrophils (%) (Auto) 61 % (31-73) Lymphocytes (%) (Auto) 29 % (24-48) Monocytes (%) (Auto) 8 % (0-9) Eosinophils (%) (Auto) 1 % (0-3) Basophils (%) (Auto) 0 % (0-3) Neutrophils # (Auto) 5.2 x10^3/uL (1.8-7.7) Lymphocytes # (Auto) 2.5 x10^3/uL (1.0-4.8) Monocytes # (Auto) 0.7 x10^3/uL (0.0-1.1) Eosinophils # (Auto) 0.1 x10^3/uL (0.0-0.7) Basophils # (Auto) 0.0 x10^3/uL (0.0-0.2) Sodium Level 139 mmol/L (136-145) Potassium Level 3.5 mmol/L (3.5-5.1) Chloride Level 104 mmol/L (98-107) Carbon Dioxide Level 28 mmol/L (21-32) Anion Gap 7 (6-14) Blood Urea Nitrogen 10 mg/dL (8-26) Creatinine 0.7 mg/dL (0.7-1.3) Estimated GFR (Cockcroft-Gault) 118.4 BUN/Creatinine Ratio 14 (6-20) Glucose Level 137 mg/dL (70-99) Calcium Level 8.2 mg/dL (8.5-10.1) Total Bilirubin 6.7 mg/dL (0.2-1.0) Aspartate Amino Transf (AST/SGOT) 92 U/L (15-37) Alanine Aminotransferase (ALT/SGPT) 125 U/L (16-63) Alkaline Phosphatase 202 U/L (46-116) Total Protein 4.9 g/dL (6.4-8.2) Albumin 2.2 g/dL (3.4-5.0) Albumin/Globulin Ratio 0.8 (1.0-1.7) Review of Systems Review of Systems: No new complaints today Assessment and Plan Assessmemt and Plan Problems Medical Problems: (1) Gallstone Status: Acute (2) Jaundice Status: Acute (3) Pancreatic mass Status: Acute Probable pancreatic cancer (adenocarcinoma) Painless jaundice Hyperbilirubinemia Pancreatic mass Transaminitis Cholestatic pattern Hyponatremia Hypokalemia Plan ERCP soon then if the tumor is confirmed to be malignant probably chemotherapy then eventually he will need surgery for Whipple procedure For now continue current treatment Per GI see the following: Post-op dx s/p gastric sleeve s/p bx antrum r/o h pylori cratered duodenal ulcer 1 cm with adherent clot/visible vessel s/p epi injection 6 cc Plan PPI therapy/ transfusional support to maintain Hg >7 serial CBCs/LFTS eventual ERCP once Hg stabilized to assess for CBD stones versus tumor suggested on prior CT scan clear liquids for 24 hours prior to advancing diet Comment Review of Relevant I have reviewed the following items derrick (where applicable) has been applied. Justicifation of Admission Dx: Justifications for Admission: Justification of Admission Dx: Comment: (Pancreatic mass) SUSAN GARNICA III DO Jan 09, 2020 12:02
[2020-01-09 15:17] VITALS: BP 126/49
[2020-01-09 19:30] VITALS: BP 123/61
[2020-01-09 23:07] VITALS: BP 128/71
[2020-01-10] MEDS: IV RINGERS,LACTATED 1000ML 1,000 ML IV SCH ×3 (03:00→23:00)
--- NOTE | 2020-01-10 03:36 | NUR ---
Schedule 0300 LR was not administered as current bag is still infusing.
[2020-01-10 03:50] VITALS: BP 101/60
[2020-01-10 07:00] VITALS: BP 111/59
[2020-01-10] MEDS: PANTOPRAZOLE IV PUSH 40 MG VIAL. IVP SCH ×2 (08:47→17:09)
[2020-01-10 11:00] VITALS: BP 117/63
--- NOTE | 2020-01-10 12:02 | PDOC ---
[employer] PROGRESS NOTE Chief Complaint Chief Complaint Probable pancreatic cancer (adenocarcinoma) Painless jaundice Hyperbilirubinemia Pancreatic mass Transaminitis Cholestatic pattern Hyponatremia Hypokalemia History of Present Illness History of Present Illness 01/09/2022 Patient seen and examined He appears jaundiced Family members present Chart reviewed Discussed with RN 01/09/2020 Patient seen and examined He has 2 family members present Chart reviewed Discussed with RN 01/08/2020 Patient seen and examined Discussed with mother Discussed with Discussed with RN Chart reviewed Patient going for ERCP today 01/07/2020 Patient seen and examined His is present He is quite jaundiced Chart reviewed Vitals/I&O Vitals/I&O: Vital Signs Date Time Temp Pulse Resp B/P (MAP) Pulse Ox O2 Delivery O2 Flow Rate FiO2 01/10/20 08:00 Room Air 3.0 01/10/20 07:00 97.9 54 17 111/59 (76) 98 97.9 I & O 01/09/20 01/09/20 01/10/20 15:00 23:00 07:00 Intake Total 650 ml 500 ml 190 ml Balance 650 ml 500 ml 190 ml Physical Exam General: Cooperative, Other (jaundice) Abdomen: Soft, No tenderness Extremities: No clubbing, No cyanosis Skin: Other (Jaundice) Assessment and Plan Assessmemt and Plan Problems Medical Problems: (1) Gallstone Status: Acute (2) Jaundice Status: Acute (3) Pancreatic mass Status: Acute Probable pancreatic cancer (adenocarcinoma) Painless jaundice Hyperbilirubinemia Pancreatic mass Transaminitis Cholestatic pattern Hyponatremia Hypokalemia Plan ERCP soon, then if the tumor is confirmed to be malignant, probably chemotherapy then eventually he will need surgery for Whipple procedure For now continue current treatment Long-term prognosis extremely guarded at best Comment Review of Relevant I have reviewed the following items derrick (where applicable) has been applied. Justicifation of Admission Dx: Justifications for Admission: Justification of Admission Dx: Comment: (Pancreatic mass) SUSAN GARNICA III DO Jan 10, 2020 12:02
--- NOTE | 2020-01-10 14:46 | PDOC ---
GI PROGRESS NOTES Date Date/Time DATE: 01/10/20 TIME: 14:44 Subjective Subjective Feeling well today, tolerating clear liquid diet without abdominal pain. Does describe some dark stools. Hemoglobin is stable Objective Vitals Vital Signs Date Time Temp Pulse Resp B/P (MAP) Pulse Ox O2 Delivery O2 Flow Rate FiO2 01/10/20 11:00 98.0 58 17 117/63 (81) 97 Room Air 98.0 01/10/20 08:00 Room Air 3.0 01/10/20 07:00 97.9 54 17 111/59 (76) 98 Room Air 97.9 01/10/20 03:50 98.2 62 16 101/60 (74) 100 Room Air 98.2 01/09/20 23:07 98.3 74 20 128/71 (90) 97 Room Air 98.3 01/09/20 20:01 Room Air 01/09/20 19:30 98.1 65 22 123/61 (81) 97 Nasal Cannula 98.1 01/09/20 15:17 98.2 69 18 126/49 (74) 96 Room Air 98.2 Physical Exam Physical Exam Jaundice chest- clear cor- RRR abd- soft non tender Assessment Assessment Large DU with recent bleeding- injected yesterday - appears stable with stable hemoglobin. Some dark stools but no evidence for recurrent active bleeding. Obstructive jaundice with likely pancreatic mass- ERCP and further w/u pending -we will defer to Dr. Mclean Justicifation of Admission Dx: Justifications for Admission: Justification of Admission Dx: Comment: (Pancreatic mass) CADEN GODOY MD Jan 10, 2020 14:46
[2020-01-10 15:00] VITALS: BP 115/69
[2020-01-10 19:12] VITALS: BP 112/70
[2020-01-10 23:32] VITALS: BP 109/56
[2020-01-11 03:20] LABS: BASO % 1 % (0-3); EOS # 0.2 x10^3/uL (0.0-0.7); EOS % 3 % (0-3); HEMATOCRIT 27.4 % (39.0-53.0); HEMOGLOBIN 9.8 g/dL (13.0-17.5); LYMPH % 34 % (24-48); MEAN CORPUSCULAR HEMOGLOBIN 35 pg (25-35); MEAN CORPUSCULAR HGB CONC 36 g/dL (31-37); MEAN CORPUSCULAR VOLUME 98 fL (79-100); MONO # 0.4 x10^3/uL (0.0-1.1); MONO % 7 % (0-9); NEUT # 3.2 x10^3/uL (1.8-7.7); NEUT % 55 % (31-73); PLATELET COUNT 264 x10^3/uL (140-400); RED CELL DISTRIBUTION WIDTH 19.5 % (11.5-14.5); WHITE BLOOD COUNT 5.8 x10^3/uL (4.0-11.0)
[2020-01-11 03:35] LABS: ALBUMIN 2.6 g/dL (3.4-5.0); ALBUMIN/GLOBULIN RATIO 0.8 (1.0-1.7); CALCIUM 8.6 mg/dL (8.5-10.1); CREATININE 0.8 mg/dL (0.7-1.3); GFR 101.5; POTASSIUM 3.4 mmol/L (3.5-5.1); TOTAL BILIRUBIN 8.5 mg/dL (0.2-1.0); TOTAL PROTEIN 5.8 g/dL (6.4-8.2)
[2020-01-11 07:39] VITALS: BP 113/64
[2020-01-11] MEDS: PANTOPRAZOLE IV PUSH 40 MG VIAL. IVP SCH (08:17)
--- NOTE | 2020-01-11 09:55 | PDOC ---
[employer] PROGRESS NOTE Chief Complaint Chief Complaint Probable pancreatic cancer (adenocarcinoma) Painless jaundice Hyperbilirubinemia Pancreatic mass Transaminitis Cholestatic pattern Hyponatremia Hypokalemia History of Present Illness History of Present Illness 01/11/2020 Patient seen and examined Family present Called GI Plan is scheduled for ERCP tomorrow at 2:00 Chart reviewed 01/09/2022 Patient seen and examined He appears jaundiced Family members present Chart reviewed Discussed with RN 01/09/2020 Patient seen and examined He has 2 family members present Chart reviewed Discussed with RN 01/08/2020 Patient seen and examined Discussed with mother Discussed with Discussed with RN Chart reviewed Patient going for ERCP today 01/07/2020 Patient seen and examined His is present He is quite jaundiced Chart reviewed Vitals/I&O Vitals/I&O: Vital Signs Date Time Temp Pulse Resp B/P (MAP) Pulse Ox O2 Delivery O2 Flow Rate FiO2 01/11/20 08:03 97 Room Air 01/11/20 07:39 98.1 60 18 113/64 (80) 98.1 01/10/20 08:00 3.0 I & O 01/10/20 01/10/20 01/11/20 15:00 23:00 07:00 Intake Total 480 ml 120 ml Output Total 300 ml Balance 180 ml 120 ml Physical Exam General: Cooperative, Other (jaundice) Abdomen: Soft, No tenderness Extremities: No clubbing, No cyanosis Skin: Other (Jaundice) Labs Labs: Laboratory Tests Test 01/11/20 02:40 White Blood Count 5.8 x10^3/uL (4.0-11.0) Red Blood Count 2.80 x10^6/uL (4.30-5.70) Hemoglobin 9.8 g/dL (13.0-17.5) Hematocrit 27.4 % (39.0-53.0) Mean Corpuscular Volume 98 fL (79-100) Mean Corpuscular Hemoglobin 35 pg (25-35) Mean Corpuscular Hemoglobin Concent 36 g/dL (31-37) Red Cell Distribution Width 19.5 % (11.5-14.5) Platelet Count 264 x10^3/uL (140-400) Neutrophils (%) (Auto) 55 % (31-73) Lymphocytes (%) (Auto) 34 % (24-48) Monocytes (%) (Auto) 7 % (0-9) Eosinophils (%) (Auto) 3 % (0-3) Basophils (%) (Auto) 1 % (0-3) Neutrophils # (Auto) 3.2 x10^3/uL (1.8-7.7) Lymphocytes # (Auto) 2.0 x10^3/uL (1.0-4.8) Monocytes # (Auto) 0.4 x10^3/uL (0.0-1.1) Eosinophils # (Auto) 0.2 x10^3/uL (0.0-0.7) Basophils # (Auto) 0.0 x10^3/uL (0.0-0.2) Sodium Level 138 mmol/L (136-145) Potassium Level 3.4 mmol/L (3.5-5.1) Chloride Level 102 mmol/L (98-107) Carbon Dioxide Level 27 mmol/L (21-32) Anion Gap 9 (6-14) Blood Urea Nitrogen 6 mg/dL (8-26) Creatinine 0.8 mg/dL (0.7-1.3) Estimated GFR (Cockcroft-Gault) 101.5 BUN/Creatinine Ratio 8 (6-20) Glucose Level 173 mg/dL (70-99) Calcium Level 8.6 mg/dL (8.5-10.1) Total Bilirubin 8.5 mg/dL (0.2-1.0) Aspartate Amino Transf (AST/SGOT) 119 U/L (15-37) Alanine Aminotransferase (ALT/SGPT) 149 U/L (16-63) Alkaline Phosphatase 263 U/L (46-116) Total Protein 5.8 g/dL (6.4-8.2) Albumin 2.6 g/dL (3.4-5.0) Albumin/Globulin Ratio 0.8 (1.0-1.7) Assessment and Plan Assessmemt and Plan Problems Medical Problems: (1) Gallstone Status: Acute (2) Jaundice Status: Acute (3) Pancreatic mass Status: Acute Probable pancreatic cancer (adenocarcinoma) Painless jaundice Hyperbilirubinemia Pancreatic mass Transaminitis Cholestatic pattern Hyponatremia Hypokalemia Plan ERCP tomorrow at 2:00, then if the tumor is confirmed to be malignant, probable chemotherapy then eventually he will need surgery for Whipple procedure Home meds DVT prophylaxis Trend labs Full code For now continue current treatment Appreciate subspecialist input Long-term prognosis extremely guarded at best Comment Review of Relevant I have reviewed the following items derrick (where applicable) has been applied. Justicifation of Admission Dx: Justifications for Admission: Justification of Admission Dx: Comment: (Pancreatic mass) SUSAN GARNICA III DO Jan 11, 2020 09:55
[2020-01-11 11:28] VITALS: BP 108/62
--- NOTE | 2020-01-11 11:34 | PDOC ---
Subjective: Subjective: Ate a couple small pancakes - no bloating, no abd pain. Dark stool on Saturday - no stools since. Objective: Objective: Dr. Quinn called twice this morning re: diet (regular diet ordered last night) and ERCP scheduling. Vital Signs: Vital Signs Date Time Temp Pulse Resp B/P (MAP) Pulse Ox O2 Delivery O2 Flow Rate FiO2 01/11/20 11:28 98.3 67 18 108/62 (77) 99 Room Air 98.3 01/10/20 08:00 3.0 Labs: Laboratory Tests Test 01/11/20 02:40 White Blood Count 5.8 x10^3/uL Red Blood Count 2.80 x10^6/uL Hemoglobin 9.8 g/dL Hematocrit 27.4 % Mean Corpuscular Volume 98 fL Mean Corpuscular Hemoglobin 35 pg Mean Corpuscular Hemoglobin Concent 36 g/dL Red Cell Distribution Width 19.5 % Platelet Count 264 x10^3/uL Neutrophils (%) (Auto) 55 % Lymphocytes (%) (Auto) 34 % Monocytes (%) (Auto) 7 % Eosinophils (%) (Auto) 3 % Basophils (%) (Auto) 1 % Neutrophils # (Auto) 3.2 x10^3/uL Lymphocytes # (Auto) 2.0 x10^3/uL Monocytes # (Auto) 0.4 x10^3/uL Eosinophils # (Auto) 0.2 x10^3/uL Basophils # (Auto) 0.0 x10^3/uL Sodium Level 138 mmol/L Potassium Level 3.4 mmol/L Chloride Level 102 mmol/L Carbon Dioxide Level 27 mmol/L Anion Gap 9 Blood Urea Nitrogen 6 mg/dL Creatinine 0.8 mg/dL Estimated GFR (Cockcroft-Gault) 101.5 BUN/Creatinine Ratio 8 Glucose Level 173 mg/dL Calcium Level 8.6 mg/dL Total Bilirubin 8.5 mg/dL Aspartate Amino Transf (AST/SGOT) 119 U/L Alanine Aminotransferase (ALT/SGPT) 149 U/L Alkaline Phosphatase 263 U/L Total Protein 5.8 g/dL Albumin 2.6 g/dL Albumin/Globulin Ratio 0.8 Imaging: EGD 01/07 Post-op dx s/p gastric sleeve s/p bx antrum r/o h pylori cratered duodenal ulcer 1 cm with adherent clot/visible vessel s/p epi injection 6 cc PE: GEN: NAD, up in chair LUNGS: CTAB HEART: RRR ABD: S/ND/NT NEURO/PSYCH: A & O 3 A/P: Jaundice, pancreatic head mass, cholelithiasis - LFTs fluctuating DU, anemia - Hgb stable/improved, advanced diet this a.m. H/o GERD, s/p gastric sleeve COVID-19 negative 01/06/20 -- Plans for ERCP tomorrow at 2:00 p.m. Continue PPI. Justicifation of Admission Dx: Justifications for Admission: Justification of Admission Dx: Comment: (Pancreatic mass) NIURKA BARTH Jan 11, 2020 11:34
--- NOTE | 2020-01-11 11:37 | NUR ---
SW following for discharge planning. Reviewed chart and coordinated care with RN. GI following this patient. ERCP scheduled for tomorrow, 01/12/2020. Pt remains on room air. Pt plans to return home at discharge. SW to continue following.
--- NOTE | 2020-01-11 12:25 | PDOC ---
BABATUNDE GUEVARA [employer] 01/11/20 1225: SURGICAL PROGRESS NOTE Subjective no complaints plans for ERCP tomorrow Vital Signs Vital Signs Date Time Temp Pulse Resp B/P (MAP) Pulse Ox O2 Delivery O2 Flow Rate FiO2 01/11/20 11:28 98.3 67 18 108/62 (77) 99 Room Air 98.3 01/10/20 08:00 3.0 I&O Intake and Output 01/11/20 07:00 Intake Total 600 ml Output Total 300 ml Balance 300 ml Intake Oral 600 ml Output Urine Total 300 ml # Voids 7 General: Cooperative, No acute distress Abdomen: Soft Labs Laboratory Tests Test 01/11/20 02:40 White Blood Count 5.8 x10^3/uL (4.0-11.0) Red Blood Count 2.80 x10^6/uL (4.30-5.70) Hemoglobin 9.8 g/dL (13.0-17.5) Hematocrit 27.4 % (39.0-53.0) Mean Corpuscular Volume 98 fL (79-100) Mean Corpuscular Hemoglobin 35 pg (25-35) Mean Corpuscular Hemoglobin Concent 36 g/dL (31-37) Red Cell Distribution Width 19.5 % (11.5-14.5) Platelet Count 264 x10^3/uL (140-400) Neutrophils (%) (Auto) 55 % (31-73) Lymphocytes (%) (Auto) 34 % (24-48) Monocytes (%) (Auto) 7 % (0-9) Eosinophils (%) (Auto) 3 % (0-3) Basophils (%) (Auto) 1 % (0-3) Neutrophils # (Auto) 3.2 x10^3/uL (1.8-7.7) Lymphocytes # (Auto) 2.0 x10^3/uL (1.0-4.8) Monocytes # (Auto) 0.4 x10^3/uL (0.0-1.1) Eosinophils # (Auto) 0.2 x10^3/uL (0.0-0.7) Basophils # (Auto) 0.0 x10^3/uL (0.0-0.2) Sodium Level 138 mmol/L (136-145) Potassium Level 3.4 mmol/L (3.5-5.1) Chloride Level 102 mmol/L (98-107) Carbon Dioxide Level 27 mmol/L (21-32) Anion Gap 9 (6-14) Blood Urea Nitrogen 6 mg/dL (8-26) Creatinine 0.8 mg/dL (0.7-1.3) Estimated GFR (Cockcroft-Gault) 101.5 BUN/Creatinine Ratio 8 (6-20) Glucose Level 173 mg/dL (70-99) Calcium Level 8.6 mg/dL (8.5-10.1) Total Bilirubin 8.5 mg/dL (0.2-1.0) Aspartate Amino Transf (AST/SGOT) 119 U/L (15-37) Alanine Aminotransferase (ALT/SGPT) 149 U/L (16-63) Alkaline Phosphatase 263 U/L (46-116) Total Protein 5.8 g/dL (6.4-8.2) Albumin 2.6 g/dL (3.4-5.0) Albumin/Globulin Ratio 0.8 (1.0-1.7) Laboratory Tests Test 01/11/20 02:40 White Blood Count 5.8 x10^3/uL (4.0-11.0) Red Blood Count 2.80 x10^6/uL (4.30-5.70) Hemoglobin 9.8 g/dL (13.0-17.5) Hematocrit 27.4 % (39.0-53.0) Mean Corpuscular Volume 98 fL (79-100) Mean Corpuscular Hemoglobin 35 pg (25-35) Mean Corpuscular Hemoglobin Concent 36 g/dL (31-37) Red Cell Distribution Width 19.5 % (11.5-14.5) Platelet Count 264 x10^3/uL (140-400) Neutrophils (%) (Auto) 55 % (31-73) Lymphocytes (%) (Auto) 34 % (24-48) Monocytes (%) (Auto) 7 % (0-9) Eosinophils (%) (Auto) 3 % (0-3) Basophils (%) (Auto) 1 % (0-3) Neutrophils # (Auto) 3.2 x10^3/uL (1.8-7.7) Lymphocytes # (Auto) 2.0 x10^3/uL (1.0-4.8) Monocytes # (Auto) 0.4 x10^3/uL (0.0-1.1) Eosinophils # (Auto) 0.2 x10^3/uL (0.0-0.7) Basophils # (Auto) 0.0 x10^3/uL (0.0-0.2) Sodium Level 138 mmol/L (136-145) Potassium Level 3.4 mmol/L (3.5-5.1) Chloride Level 102 mmol/L (98-107) Carbon Dioxide Level 27 mmol/L (21-32) Anion Gap 9 (6-14) Blood Urea Nitrogen 6 mg/dL (8-26) Creatinine 0.8 mg/dL (0.7-1.3) Estimated GFR (Cockcroft-Gault) 101.5 BUN/Creatinine Ratio 8 (6-20) Glucose Level 173 mg/dL (70-99) Calcium Level 8.6 mg/dL (8.5-10.1) Total Bilirubin 8.5 mg/dL (0.2-1.0) Aspartate Amino Transf (AST/SGOT) 119 U/L (15-37) Alanine Aminotransferase (ALT/SGPT) 149 U/L (16-63) Alkaline Phosphatase 263 U/L (46-116) Total Protein 5.8 g/dL (6.4-8.2) Albumin 2.6 g/dL (3.4-5.0) Albumin/Globulin Ratio 0.8 (1.0-1.7) Problem List Problems Medical Problems: (1) Gallstone Status: Acute (2) Jaundice Status: Acute (3) Pancreatic mass Status: Acute Assessment/Plan ERCP 01/11 Justicifation of Admission Dx: Justifications for Admission: Justification of Admission Dx: Comment: (Pancreatic mass) MIK GARCIA MD 01/11/20 1330: SURGICAL PROGRESS NOTE Assessment/Plan pt seen and examined as above for procedure tomorrow BABATUNDE GUEVARA APRN Jan 11, 2020 12:25 MIK GARCIA MD Jan 11, 2020 13:30
[2020-01-11] MEDS: IV RINGERS,LACTATED 1000ML 1,000 ML IV SCH (13:50)
[2020-01-11 15:18] VITALS: BP 107/65
--- NOTE | 2020-01-11 16:06 | PATHOLOGY ---
[facility] Accession Number: [id number] . 01 Material submitted: . stomach - GASTRIC BX . 01 Clinical history: . Jaundice . 02 Diagnosis: Gastric biopsies: - Chronic gastritis, mild. (JPM:leeanna; 01/11/2020) [facility] [place] 01/11/2020 0929 Local . 02 Comment: Sections of the gastric biopsy reveal segments of gastric body and antral/body transition mucosa showing congestion and mild chronic inflammation. A properly controlled immunoperoxidase stain for Helicobacter is negative for Helicobacter organisms. There is no evidence of malignancy. (JPM:leeanna; 01/11/2020) . Special stain performed: Immunoperoxidase stain for Helicobacter . 02 Electronically signed: . Raulito Morin MD, Pathologist NPI- [id number] . 01 Gross description: . The specimen is received in formalin, labeled "Roger Hernandez, gastric BX for H. pylori" and consists of 3 fragments of turk tissue measuring between 0.3 x 0.2 cm and 1.0 x 0.2 cm which are entirely submitted in A1. (SD; 01/08/2020) SYU/SYU 01/08/2020 1615 Local . 02 Pathologist provided ICD-10: K29.50 . 02 CPT . 749581, P15859 Specimen Comment: A courtesy copy of this report has been sent to [phone], [phone] Specimen Comment: [phone], , Specimen Comment: Report sent to ,DR BRIONES,DR PEARCE / DR BINGHAM Performed at: [address], [place], [place] [id number] MD Yosi Gray MD Phone: [phone] Performed at: [address] [id number] MD Raulito Morin MD Phone: [phone]
[2020-01-11] MEDS: PANTOPRAZOLE 40 MG TABLET.DR. PO SCH (16:59)
[2020-01-11 19:11] VITALS: BP 109/65
[2020-01-11 23:10] VITALS: BP 108/69
[2020-01-12] MEDS: IV RINGERS,LACTATED 1000ML 1,000 ML IV SCH ×3 (00:02→16:51)
[2020-01-12 03:20] VITALS: BP 109/60
[2020-01-12 04:15] LABS: HEMATOCRIT 26.4 % (39.0-53.0); HEMOGLOBIN 9.2 g/dL (13.0-17.5); RED BLOOD COUNT 2.71 x10^6/uL (4.30-5.70); WHITE BLOOD COUNT 5.7 x10^3/uL (4.0-11.0)
[2020-01-12 04:39] LABS: ALBUMIN 2.4 g/dL (3.4-5.0); ALBUMIN/GLOBULIN RATIO 0.8 (1.0-1.7); CALCIUM 8.6 mg/dL (8.5-10.1); CREATININE 0.7 mg/dL (0.7-1.3); GFR 118.4; POTASSIUM 3.4 mmol/L (3.5-5.1); TOTAL BILIRUBIN 8.5 mg/dL (0.2-1.0); TOTAL PROTEIN 5.3 g/dL (6.4-8.2)
[2020-01-12] MEDS ORDERED: PROCHLORPERAZINE 10 MG/2 ML VIAL. IV PRN (07:00)
[2020-01-12] MEDS ORDERED: fentaNYL PF VIAL 100 MCG/2 ML VIAL IV PRN ×2 (07:00)
[2020-01-12] MEDS ORDERED: ONDANSETRON PF 4 MG/2 ML VIAL. IV PRN (07:00)
[2020-01-12] MEDS ORDERED: HYDROmorphone 2 MG/ML VIAL IV PRN (07:00)
[2020-01-12] MEDS ORDERED: IV RINGERS,LACTATED 1000ML 1,000 ML IV SCH (07:00)
[2020-01-12] MEDS ORDERED: MORPHINE SULFATE 2 MG/ML VIAL. IV PRN (07:00)
[2020-01-12 07:28] VITALS: BP 112/70
[2020-01-12] MEDS: PANTOPRAZOLE 40 MG TABLET.DR. PO SCH ×2 (07:30→16:45)
[2020-01-12] MEDS ORDERED: IOHEXOL 300 MG/ML 100ML VIAL. ONE (08:32)
[2020-01-12 11:30] VITALS: BP 107/62
[2020-01-12] MEDS ORDERED: ROCURONIUM 50 MG/5 ML VIAL. ONE (12:09)
[2020-01-12] MEDS ORDERED: GLYCOPYRROLATE 1 MG/5 ML VIAL. ONE (12:10)
[2020-01-12] MEDS ORDERED: NEOSTIGMINE METHYLSULFATE 5 MG/5 ML SYRINGE. ONE (12:10)
[2020-01-12] MEDS ORDERED: SEVOFLURANE 31 TO 60 MINUTES. IH ONE (12:11)
[2020-01-12] MEDS ORDERED: DEXAMETHASONE SOD PHOS 4 MG/ML VIAL ONE (12:14)
[2020-01-12] MEDS ORDERED: ONDANSETRON PF 4 MG/2 ML VIAL. ONE (12:14)
--- NOTE | 2020-01-12 12:22 | PDOC ---
[employer] PROGRESS NOTE Chief Complaint Chief Complaint Probable pancreatic cancer (probable pancreatic adenocarcinoma presenting with abdominal bloating and painless jaundice T-bili 16, 2.9 x 1.9 cm mass within the pancreatic head/uncinate process, diagnosed on 01/05/2020 CT abdomen/pelvis) Painless jaundice Hyperbilirubinemia Pancreatic mass Transaminitis Cholestatic pattern Hyponatremia Hypokalemia History of Present Illness History of Present Illness 01/12/2020 Patient going for ERCP today Chart reviewed Labs noted 01/11/2020 Patient seen and examined Family present Called GI Plan is scheduled for ERCP tomorrow at 2:00 Chart reviewed 01/09/2022 Patient seen and examined He appears jaundiced Family members present Chart reviewed Discussed with RN 01/09/2020 Patient seen and examined He has 2 family members present Chart reviewed Discussed with RN 01/08/2020 Patient seen and examined Discussed with mother Discussed with Discussed with RN Chart reviewed Patient going for ERCP today 01/07/2020 Patient seen and examined His is present He is quite jaundiced Chart reviewed Vitals/I&O Vitals/I&O: Vital Signs Date Time Temp Pulse Resp B/P (MAP) Pulse Ox O2 Delivery O2 Flow Rate FiO2 01/12/20 08:00 Room Air 01/12/20 07:28 98.8 55 18 112/70 (84) 98 98.8 I & O 01/11/20 01/11/20 01/12/20 15:00 23:00 07:00 Intake Total 200 ml Balance 200 ml Physical Exam General: Cooperative, No acute distress Abdomen: Soft Extremities: No clubbing, No cyanosis Skin: Other (Jaundice) Labs Labs: Laboratory Tests Test 01/12/20 02:55 White Blood Count 5.7 x10^3/uL (4.0-11.0) Red Blood Count 2.71 x10^6/uL (4.30-5.70) Hemoglobin 9.2 g/dL (13.0-17.5) Hematocrit 26.4 % (39.0-53.0) Mean Corpuscular Volume 97 fL (79-100) Mean Corpuscular Hemoglobin 34 pg (25-35) Mean Corpuscular Hemoglobin Concent 35 g/dL (31-37) Red Cell Distribution Width 20.0 % (11.5-14.5) Platelet Count 234 x10^3/uL (140-400) Sodium Level 139 mmol/L (136-145) Potassium Level 3.4 mmol/L (3.5-5.1) Chloride Level 104 mmol/L (98-107) Carbon Dioxide Level 26 mmol/L (21-32) Anion Gap 9 (6-14) Blood Urea Nitrogen 9 mg/dL (8-26) Creatinine 0.7 mg/dL (0.7-1.3) Estimated GFR (Cockcroft-Gault) 118.4 BUN/Creatinine Ratio 13 (6-20) Glucose Level 132 mg/dL (70-99) Calcium Level 8.6 mg/dL (8.5-10.1) Total Bilirubin 8.5 mg/dL (0.2-1.0) Aspartate Amino Transf (AST/SGOT) 135 U/L (15-37) Alanine Aminotransferase (ALT/SGPT) 149 U/L (16-63) Alkaline Phosphatase 275 U/L (46-116) Total Protein 5.3 g/dL (6.4-8.2) Albumin 2.4 g/dL (3.4-5.0) Albumin/Globulin Ratio 0.8 (1.0-1.7) Assessment and Plan Assessmemt and Plan Problems Medical Problems: (1) GallstonStatus: Acute (2) Jaundice Status: Acute (3) Pancreatic mass Status: Acute Probable pancreatic cancer (probable pancreatic adenocarcinoma presenting with abdominal bloating and painless jaundice T-bili 16, 2.9 x 1.9 cm mass within the pancreatic head/uncinate process, diagnosed on 01/05/2020 CT abdomen/pelvis) Painless jaundice Hyperbilirubinemia Pancreatic mass Transaminitis Cholestatic pattern Hyponatremia Hypokalemia Plan ERCP at 2:00, then if the tumor is confirmed to be malignant, probable chemotherapy then eventually he will need surgery for Whipple procedure Home meds DVT prophylaxis Trend labs Full code For now continue current treatment Appreciate subspecialist input Long-term prognosis extremely guarded at best Comment Review of Relevant I have reviewed the following items derrick (where applicable) has been applied. Medications: Current Medications Medications (Trade) Dose Ordered Sig/Renuka Route PRN Reason Start Time Stop Time Status Last Admin Dose Admin Pantoprazole Sodium (Protonix) 40 mg BIDAC PO 01/11/20 16:30 01/11/20 16:59 Justicifation of Admission Dx: Justifications for Admission: Justification of Admission Dx: Comment: (Pancreatic mass) SUSAN GARNICA III DO Jan 12, 2020 12:22
[2020-01-12] MEDS ORDERED: IOHEXOL 300 MG/ML 100ML VIAL. IJ ONE (15:00)
--- NOTE | 2020-01-12 15:27 | PDOC4 ---
Operative Note Operative Note ERCP with brush cytology/stent placement Jamison REYESETT with propofol Pre-op dx Jaundice/abnl CT scan post-op dx chronic pancreatitis dilated CBD with distal obstruction s/p brush cytology 7Fr 10 Cm stent Plan advance diet and activity in am antibiotics O/p EUS pending brush cytology/possible MRCP PROPECK,ERICA José MD Jan 12, 2020 15:27
--- NOTE | 2020-01-12 15:54 | RAD ---
ERCP with fluoroscopic guidance INDICATION: Elevated LFTs. Pancreatic head mass. COMPARISON: Abdomen ultrasound 01/05/2020. TECHNIQUE: The gastroenterology service under Dr. Mclean's direction utilized flouroscopic imaging guidance during ERCP using a total of 6.13 minutes of fluoroscopy time. 9 images were acquired for procedural documentation. FINDINGS: ERCP images show a dilated irregular main pancreatic duct. The intra and extrahepatic bile ducts were also cannulated and shown to have irregular dilation. There is no distal opacification of the common duct or pancreatic duct. Final image shows placement of a stent. IMPRESSION: ERCP under fluoroscopic guidance as described showing both biliary and pancreatic ductal dilation with subsequent placement of a biliary stent Electronically signed by: Brenda Lindsay MD (01/12/2020 3:51 PM) [id number]
--- NOTE | 2020-01-12 16:34 | NUR ---
SW following. Pt went for ERCP today. Discharge plan remains home when stable. HARLEY reviewed chart and coordinated care with RN and CM. SW to continue following.
[2020-01-12] MEDS: CIPROFLOXACIN HCL 250 MG TABLET. PO SCH (16:45)
[2020-01-12 19:00] VITALS: BP 122/67
[2020-01-12 23:00] VITALS: BP 111/67
[2020-01-13] MEDS: IV RINGERS,LACTATED 1000ML 1,000 ML IV SCH ×2 (01:00→11:00)
[2020-01-13 03:00] VITALS: BP 121/70
[2020-01-13 03:18] LABS: BASO % 0 % (0-3); EOS % 1 % (0-3); HEMATOCRIT 28.4 % (39.0-53.0); LYMPH # 1.2 x10^3/uL (1.0-4.8); LYMPH % 19 % (24-48); MEAN CORPUSCULAR HEMOGLOBIN 34 pg (25-35); MEAN CORPUSCULAR HGB CONC 35 g/dL (31-37); MEAN CORPUSCULAR VOLUME 98 fL (79-100); MONO # 0.5 x10^3/uL (0.0-1.1); MONO % 8 % (0-9); NEUT # 4.5 x10^3/uL (1.8-7.7); NEUT % 72 % (31-73); PLATELET COUNT 257 x10^3/uL (140-400); RED CELL DISTRIBUTION WIDTH 19.5 % (11.5-14.5); WHITE BLOOD COUNT 6.4 x10^3/uL (4.0-11.0)
[2020-01-13 03:37] LABS: ALBUMIN 2.4 g/dL (3.4-5.0); ALBUMIN/GLOBULIN RATIO 0.8 (1.0-1.7); CALCIUM 8.6 mg/dL (8.5-10.1); CREATININE 0.8 mg/dL (0.7-1.3); GFR 101.5; POTASSIUM 4.1 mmol/L (3.5-5.1); TOTAL BILIRUBIN 7.3 mg/dL (0.2-1.0); TOTAL PROTEIN 5.5 g/dL (6.4-8.2)
[2020-01-13] MEDS: PANTOPRAZOLE 40 MG TABLET.DR. PO SCH (06:33)
[2020-01-13 07:52] VITALS: BP 112/56
[2020-01-13] MEDS: CIPROFLOXACIN HCL 250 MG TABLET. PO SCH (08:57)
--- NOTE | 2020-01-13 10:03 | PDOC ---
Subjective: Subjective: Might "feel something" in upper abdomen but not pain. Tolerating diet. No n/v, no bleeding. Would like to go home. Says someone dropped off paperwork for [employer] on 01/20 - wondering if he should postpone this. Objective: Objective: Tmax 99.9 Vital Signs: Vital Signs Date Time Temp Pulse Resp B/P (MAP) Pulse Ox O2 Delivery O2 Flow Rate FiO2 01/13/20 08:10 Room Air 10.0 01/13/20 07:52 98.4 52 16 112/56 (74) 99 98.4 Labs: Laboratory Tests Test 01/13/20 02:40 White Blood Count 6.4 x10^3/uL Red Blood Count 2.90 x10^6/uL Hemoglobin 10.0 g/dL Hematocrit 28.4 % Mean Corpuscular Volume 98 fL Mean Corpuscular Hemoglobin 34 pg Mean Corpuscular Hemoglobin Concent 35 g/dL Red Cell Distribution Width 19.5 % Platelet Count 257 x10^3/uL Neutrophils (%) (Auto) 72 % Lymphocytes (%) (Auto) 19 % Monocytes (%) (Auto) 8 % Eosinophils (%) (Auto) 1 % Basophils (%) (Auto) 0 % Neutrophils # (Auto) 4.5 x10^3/uL Lymphocytes # (Auto) 1.2 x10^3/uL Monocytes # (Auto) 0.5 x10^3/uL Eosinophils # (Auto) 0.0 x10^3/uL Basophils # (Auto) 0.0 x10^3/uL Sodium Level 134 mmol/L Potassium Level 4.1 mmol/L Chloride Level 101 mmol/L Carbon Dioxide Level 26 mmol/L Anion Gap 7 Blood Urea Nitrogen 11 mg/dL Creatinine 0.8 mg/dL Estimated GFR (Cockcroft-Gault) 101.5 BUN/Creatinine Ratio 14 Glucose Level 215 mg/dL Calcium Level 8.6 mg/dL Total Bilirubin 7.3 mg/dL Aspartate Amino Transf (AST/SGOT) 124 U/L Alanine Aminotransferase (ALT/SGPT) 154 U/L Alkaline Phosphatase 286 U/L Total Protein 5.5 g/dL Albumin 2.4 g/dL Albumin/Globulin Ratio 0.8 Amylase Level 219 U/L Lipase 120 U/L Material submitted: . stomach - GASTRIC BX Clinical history: . Jaundice Diagnosis: Gastric biopsies: - Chronic gastritis, mild. Comment: Sections of the gastric biopsy reveal segments of gastric body and antral/body transition mucosa showing congestion and mild chronic inflammation. A properly controlled immunoperoxidase stain for Helicobacter is negative for Helicobacter organisms. There is no evidence of malignancy. Imaging: ERCP 01/11 chronic pancreatitis dilated CBD with distal obstruction s/p brush cytology 7Fr 10 Cm stent IMPRESSION: ERCP under fluoroscopic guidance as described showing both biliary and pancreatic ductal dilation with subsequent placement of a biliary stent PE: GEN: NAD LUNGS: CTAB HEART: RRR ABD: NABS, S/ND/NT NEURO/PSYCH: A & O 3 A/P: Jaundice, pancreatic head mass, cholelithiasis - s/p ERCP w/ stent as above DU S/p gastric sleeve COVID-19 negative 01/06/20 -- D/w Dr. Mclean - okay to [place]. Follow-up for brushing results, plan for outpt MRCP and EUS - our office will arrange. Continue atbx and PPI. Seem will need to postpone/reschedule surgery - encouraged follow-up w/ surgery. All d/w nurse, Rxs provided. Justicifation of Admission Dx: Justifications for Admission: Justification of Admission Dx: Comment: (Pancreatic mass) NIURKA BARTH Jan 13, 2020 10:03
[2020-01-13 11:35] VITALS: BP 116/62
--- NOTE | 2020-01-13 11:59 | PDOC ---
[employer] PROGRESS NOTE Chief Complaint Chief Complaint Probable pancreatic cancer (probable pancreatic adenocarcinoma presenting with abdominal bloating and painless jaundice T-bili 16, 2.9 x 1.9 cm mass within the pancreatic head/uncinate process, diagnosed on 01/05/2020 CT abdomen/pelvis) Painless jaundice Hyperbilirubinemia Pancreatic mass Transaminitis Cholestatic pattern Hyponatremia Hypokalemia History of Present Illness History of Present Illness 01/13/2020 Patient seen and examined He had successful stent to the pancreatic duct yesterday during the ERCP He is requesting discharge Chart reviewed Discussed with nurse We will discharge if okay with subspecialist 01/12/2020 Patient going for ERCP today Chart reviewed Labs noted 01/11/2020 Patient seen and examined Family present Called GI Plan is scheduled for ERCP tomorrow at 2:00 Chart reviewed 01/09/2022 Patient seen and examined He appears jaundiced Family members present Chart reviewed Discussed with RN 01/09/2020 Patient seen and examined He has 2 family members present Chart reviewed Discussed with RN 01/08/2020 Patient seen and examined Discussed with mother Discussed with Discussed with RN Chart reviewed Patient going for ERCP today 01/07/2020 Patient seen and examined His is present He is quite jaundiced Chart reviewed Vitals/I&O Vitals/I&O: Vital Signs Date Time Temp Pulse Resp B/P (MAP) Pulse Ox O2 Delivery O2 Flow Rate FiO2 01/13/20 11:35 98.4 57 18 116/62 (80) 98 Room Air 98.4 01/13/20 08:10 10.0 I & O 01/12/20 01/12/20 01/13/20 15:00 23:00 07:00 Intake Total 0 ml 170 ml 1000 ml Balance 0 ml 170 ml 1000 ml Physical Exam General: Cooperative, No acute distress Abdomen: Soft Extremities: No clubbing, No cyanosis Skin: Other (Jaundice) Labs Labs: Laboratory Tests Test 01/13/20 02:40 White Blood Count 6.4 x10^3/uL (4.0-11.0) Red Blood Count 2.90 x10^6/uL (4.30-5.70) Hemoglobin 10.0 g/dL (13.0-17.5) Hematocrit 28.4 % (39.0-53.0) Mean Corpuscular Volume 98 fL (79-100) Mean Corpuscular Hemoglobin 34 pg (25-35) Mean Corpuscular Hemoglobin Concent 35 g/dL (31-37) Red Cell Distribution Width 19.5 % (11.5-14.5) Platelet Count 257 x10^3/uL (140-400) Neutrophils (%) (Auto) 72 % (31-73) Lymphocytes (%) (Auto) 19 % (24-48) Monocytes (%) (Auto) 8 % (0-9) Eosinophils (%) (Auto) 1 % (0-3) Basophils (%) (Auto) 0 % (0-3) Neutrophils # (Auto) 4.5 x10^3/uL (1.8-7.7) Lymphocytes # (Auto) 1.2 x10^3/uL (1.0-4.8) Monocytes # (Auto) 0.5 x10^3/uL (0.0-1.1) Eosinophils # (Auto) 0.0 x10^3/uL (0.0-0.7) Basophils # (Auto) 0.0 x10^3/uL (0.0-0.2) Sodium Level 134 mmol/L (136-145) Potassium Level 4.1 mmol/L (3.5-5.1) Chloride Level 101 mmol/L (98-107) Carbon Dioxide Level 26 mmol/L (21-32) Anion Gap 7 (6-14) Blood Urea Nitrogen 11 mg/dL (8-26) Creatinine 0.8 mg/dL (0.7-1.3) Estimated GFR (Cockcroft-Gault) 101.5 BUN/Creatinine Ratio 14 (6-20) Glucose Level 215 mg/dL (70-99) Calcium Level 8.6 mg/dL (8.5-10.1) Total Bilirubin 7.3 mg/dL (0.2-1.0) Aspartate Amino Transf (AST/SGOT) 124 U/L (15-37) Alanine Aminotransferase (ALT/SGPT) 154 U/L (16-63) Alkaline Phosphatase 286 U/L (46-116) Total Protein 5.5 g/dL (6.4-8.2) Albumin 2.4 g/dL (3.4-5.0) Albumin/Globulin Ratio 0.8 (1.0-1.7) Amylase Level 219 U/L (25-115) Lipase 120 U/L (73-393) Assessment and Plan Assessmemt and Plan Problems Medical Problems: (1) Gallstone Status: Acute (2) Jaundice Status: Acute (3) Pancreatic mass Status: Acute Probable pancreatic cancer (probable pancreatic adenocarcinoma presenting with abdominal bloating and painless jaundice T-bili 16, 2.9 x 1.9 cm mass within the pancreatic head/uncinate process, diagnosed on 01/05/2020 CT abdomen/pelvis) Painless jaundice Hyperbilirubinemia Pancreatic mass Transaminitis Cholestatic pattern Hyponatremia Hypokalemia Plan Discharge home if okay with consultants For now continue to follow; Home meds DVT prophylaxis Trend labs Full code Appreciate subspecialist input Long-term prognosis extremely guarded Comment Review of Relevant I have reviewed the following items derrick (where applicable) has been applied. Medications: Current Medications Medications (Trade) Dose Ordered Sig/Renuka Route PRN Reason Start Time Stop Time Status Last Admin Dose Admin Ciprofloxacin (Cipro) 500 mg BID PO 01/12/20 16:00 01/13/20 08:57 Iohexol (Omnipaque 300 Mg/ml) 100 ml STK-MED ONCE IJ 01/12/20 15:00 01/12/20 16:06 DC 01/12/20 15:00 Justicifation of Admission Dx: Justifications for Admission: Justification of Admission Dx: Comment: (Pancreatic mass) SUSAN GARNICA III DO Jan 13, 2020 11:58
--- NOTE | 2020-01-13 12:00 | SNU/HH DC ---
DISCHARGE WITH HOME HEALTH DISCHARGE INFORMATION: Final Diagnosis: Problems Medical Problems: (1) Gallstone Status: Acute (2) Jaundice Status: Acute (3) Pancreatic mass Status: Acute Condition on Discharge: Stable CODE STATUS: Code Status: Full HOME HEALTH: Face to Face: I certify this patient is under my care and that I, or a nurse practitioner or physician's safety assistant working with me, had a face to face encounter that meets the physician face to face encounter requirements with this patient on []. Medical Complications: Other (Possible pancreatic neoplasm/jaundice) Detention For: Assess & Educate Safety RN For Eval/Treatment: Yes Physical Therapy For: Evalulation/Treatment Speech Language Pathology For: Evaluation/Treatment Home Health Aide For: Self-care LEGISLATIVE DIRECTOR For: Community Resources Pt Meets Homebound Status: Fatigue w/ amb. POST DISCHARGE ORDERS: DIET AFTER DISCHARGE: Hepatic CERTIFICATION STATEMENT: Certification Statement: Certification Statement: Based on the above finding, I certify that this patient is confined to the home and needs intermittent fdc care, physical therapy and/or speech therapy, or continues to need occupational therapy.~ This patient is under my care, and I have initiated the establishment of the plan of care.~ This patient will be followed by myself or a community physician who will periodically review the plan of care. SUSAN GARNICA III DO Jan 13, 2020 12:00
--- NOTE | 2020-01-13 15:06 | DS ---
DATE OF DISCHARGE: 01/13/2020 ADMISSION DIAGNOSES: Jaundice, hyperbilirubinemia, pancreatic mass, transaminitis, hyponatremia, and hypokalemia. DISCHARGE DIAGNOSIS: Suspect pancreatic cancer (he has an elevated CA 19-9 level of 228). PROCEDURES: 1. ERCP with stent placement. 2. EGD. CONSULTS: Dr. Bud Shelley, Dr. Jorge L Lezama. HOSPITAL COURSE: The patient is a pleasant middle-aged male who basically presented with painless jaundice. We discovered he had a mass on his pancreas. Indeed, his CA 19-9 level was also high. We were concerned he has adenocarcinoma. The above consults were obtained. We did place a stent yesterday via ERCP. Basically, the plan is to await biopsy reports and then if this turns out to indeed be malignant, Hematology/Oncology recommends chemotherapy, then eventually a probable Whipple procedure. Clinically, the patient is at his baseline. I saw him this morning. His jaundice is improved. He is alert and oriented. Heart tones are normal. Lungs are clear. We plan to discharge with very close outpatient followup. DISPOSITION: Home. ACTIVITY: As tolerated. DIET: Hepatic. MEDICATIONS: Please see the MRAD. TOTAL TIME: 34 minutes. SUSAN GARNICA DO DR: ELOY/madison JOB#: [id number] / [id number]
[2020-01-13 15:27] VITALS: BP 112/72
--- NOTE | 2020-01-13 16:38 | NUR ---
SW following. Reviewed chart and spoke with RN. Pt ready for discharge today, 01/13/2020. Pt had ERCP with stent placement and will return home with fiance. Pt declines the need for HH. Pt to discharge with oral medications on room air. No further SW needs at this time.
== END 2020-01-13 16:00 | disposition home or self-care (01) | DRG 435 ==
LOC: ER 16:16 → 6 SOUTH 17:00
PROVIDERS: ADMIT Internal Medicine; ATTEND Internal Medicine
PROC: 0DB68ZX Excision of Stomach, Via Natural or Artificial Opening Endoscopic, Diagnostic (ICD-10-PCS; principal; 2020-01-05)
PROC: 3E0G8GC Introduction of Other Therapeutic Substance into Upper GI, Via Natural or Artificial Opening Endoscopic (ICD-10-PCS; 2020-01-05)
PROC: 30233N1 Transfusion of Nonautologous Red Blood Cells into Peripheral Vein, Percutaneous Approach (ICD-10-PCS; 2020-01-05)
PROC: 0FB98ZX Excision of Common Bile Duct, Via Natural or Artificial Opening Endoscopic, Diagnostic (ICD-10-PCS; 2020-01-12)
PROC: 0F798DZ Dilation of Common Bile Duct with Intraluminal Device, Via Natural or Artificial Opening Endoscopic (ICD-10-PCS; 2020-01-12)
DX: C25.9 Malignant neoplasm of pancreas, unspecified (principal); K26.4 Chronic or unspecified duodenal ulcer with hemorrhage; E87.1 Hypo-osmolality and hyponatremia; D62 Acute posthemorrhagic anemia; K31.5 Obstruction of duodenum; K80.21 Calculus of gallbladder without cholecystitis with obstruction; K86.1 Other chronic pancreatitis; E11.9 Type 2 diabetes mellitus without complications; E87.6 Hypokalemia; K21.9 Gastro-esophageal reflux disease without esophagitis; K82.8 Other specified diseases of gallbladder; M16.10 Unilateral primary osteoarthritis, unspecified hip; Z20.828 Contact with and (suspected) exposure to other viral communicable diseases; Z80.51 Family history of malignant neoplasm of kidney; Z98.84 Bariatric surgery status
CPT/HCPCS: 36415; 43239; 43255; 43260; 43274; 74330; 76705; 80053; 82150; 82607; 82784; 82787; 83540; 83550; 83690; 83735; 85014; 85018; 85025; 85027; 85610; 85730; 86301; 86850; 86900; 86901; 86920; 88104; 88305; 88342; 94760; C1757; C9113; J0171; J1100; J2405; J2704; J2710; J3475; J3490; J7120; P9016; Q9967; U0003; 99285-25; G0378

== ENCOUNTER → 2020-01-21 | Outpatient (CLI) | payer BC ==
[2020-01-13 15:27] VITALS: BP 112/72
--- NOTE | 2020-01-21 11:36 | RAD ---
EXAM: MRI ABDOMEN WITHOUT CONTRAST. HISTORY: Pancreatic mass, abdominal pain, biliary dilatation. TECHNIQUE: MRI of the abdomen was performed without intravenous contrast. Three-dimensional reconstructions of the biliary tree were also performed. COMPARISON: 01/12/2020, 01/05/2020. FINDINGS: Liver: There is no significant steatosis. There are no suspicious hepatic lesions without contrast. Biliary tree: There is an abrupt stricture of the common duct at the level of the pancreatic head. Proximal to this it measures 1.2 cm. There is mild to moderate intrahepatic biliary dilatation. A common duct stent traverses the stricture, which is secondary to ill-defined low signal soft tissue along the anterior aspect of the pancreatic head. The involved region spans approximately 2.3 x 2.1 cm. It is inseparable from the adjacent first portion of the duodenum and direct involvement cannot be excluded. The portal vein remains patent. Definitive vascular encasement is not seen, though sensitivity is low without contrast. The abnormal soft tissue also results in a stricture of the distal pancreatic duct. The more proximal pancreatic duct is mildly dilated and diffusely irregular with dilated sidebranches. The gallbladder is distended but does not appear inflamed. A few small gallstones are noted. Other findings: The kidneys, adrenal glands and spleen are unremarkable. IMPRESSION: 1. Ill-defined soft tissue in the pancreatic head is most concerning for adenocarcinoma. Chronic focal pancreatitis is a secondary consideration. Endoscopic ultrasound and biopsy is recommended if the diagnosis is not already known. 2. The mass results in severe strictures of the common duct and distal pancreatic duct. There is mild to moderate intra and extra hepatic biliary dilatation status post common duct stent placement. 3. Pancreatic protocol CT could be useful in further staging of pancreatic malignancy if there is persistent concern. 4. Cholelithiasis. Electronically signed by: Jese Meier MD (01/21/2020 11:33 AM) [id number]
== END | disposition home or self-care (01) ==
LOC: MRI 09:05
PROVIDERS: ATTEND Internal Medicine Gastroenterology
DX: K80.80 Other cholelithiasis without obstruction (principal); K86.89 Other specified diseases of pancreas
CPT/HCPCS: 74181

== ENCOUNTER → 2020-01-28 | Outpatient (CLI) | payer BC ==
[2020-01-13 15:27] VITALS: BP 112/72
[~2020-01-28] MED LIST: METF500T16 PO; PANT40TA77 PO; metform
[2020-01-28 11:13] LABS: BASO # 0.1 x10^3/uL (0.0-0.2); BASO % 1 % (0-3); EOS # 0.1 x10^3/uL (0.0-0.7); EOS % 2 % (0-3); HEMATOCRIT 33.2 % (39.0-53.0); HEMOGLOBIN 11.6 g/dL (13.0-17.5); LYMPH # 1.7 x10^3/uL (1.0-4.8); LYMPH % 27 % (24-48); MEAN CORPUSCULAR HEMOGLOBIN 34 pg (25-35); MEAN CORPUSCULAR HGB CONC 35 g/dL (31-37); MEAN CORPUSCULAR VOLUME 97 fL (79-100); MONO # 0.5 x10^3/uL (0.0-1.1); MONO % 8 % (0-9); NEUT # 3.9 x10^3/uL (1.8-7.7); NEUT % 62 % (31-73); PLATELET COUNT 283 x10^3/uL (140-400); RED BLOOD COUNT 3.42 x10^6/uL (4.30-5.70); RED CELL DISTRIBUTION WIDTH 15.6 % (11.5-14.5); WHITE BLOOD COUNT 6.3 x10^3/uL (4.0-11.0)
[2020-01-28 11:30] LABS: CALCIUM 9.3 mg/dL (8.5-10.1); CREATININE 0.7 mg/dL (0.7-1.3); GFR 118.4
[2020-01-28 11:42] LABS: ALBUMIN 3.2 g/dL (3.4-5.0); DIRECT BILIRUBIN 1.5 mg/dL (0.0-0.2); TOTAL BILIRUBIN 1.7 mg/dL (0.2-1.0); TOTAL PROTEIN 7.5 g/dL (6.4-8.2)
== END ==
LOC: ONCLAB 10:17
PROVIDERS: ATTEND Physician Assistant
DX: R93.89 Abnormal findings on diagnostic imaging of other specified body structures (principal)
CPT/HCPCS: 36415; 80048; 80076; 82728; 83540; 83550; 83615; 85025; 86301

== ENCOUNTER 2020-02-12 06:46 | Outpatient (CLI) | payer BC ==
[2020-02-12] VITALS (7 sets, daily range): BP systolic 108–133; BP diastolic 58–73
[~2020-02-12] VITALS: Ht 172.7 cm; Wt 86.2 kg
[2020-02-12] MEDS ORDERED: PANT40TA77 PO (07:31)
[2020-02-12 07:50] LABS: BASO # 0.1 x10^3/uL (0.0-0.2); BASO % 1 % (0-3); EOS # 0.2 x10^3/uL (0.0-0.7); EOS % 3 % (0-3); HEMATOCRIT 35.9 % (39.0-53.0); HEMOGLOBIN 12.5 g/dL (13.0-17.5); LYMPH # 1.3 x10^3/uL (1.0-4.8); LYMPH % 23 % (24-48); MEAN CORPUSCULAR HEMOGLOBIN 34 pg (25-35); MEAN CORPUSCULAR HGB CONC 35 g/dL (31-37); MEAN CORPUSCULAR VOLUME 97 fL (79-100); MONO # 0.6 x10^3/uL (0.0-1.1); MONO % 10 % (0-9); NEUT # 3.7 x10^3/uL (1.8-7.7); NEUT % 63 % (31-73); PLATELET COUNT 227 x10^3/uL (140-400); RED BLOOD COUNT 3.72 x10^6/uL (4.30-5.70); RED CELL DISTRIBUTION WIDTH 15.3 % (11.5-14.5); WHITE BLOOD COUNT 5.8 x10^3/uL (4.0-11.0)
[2020-02-12 07:59] LABS: PROTHROMBIN TIME PATIENT 13.1 SEC (11.7-14.0)
[2020-02-12 08:03] LABS: CALCIUM 9.3 mg/dL (8.5-10.1); CREATININE 0.7 mg/dL (0.7-1.3); GFR 118.4; POTASSIUM 4.2 mmol/L (3.5-5.1)
[2020-02-12] MEDS ORDERED: LIDOCAINE 1%/EPI 1:100,000 20 ML VIAL. ONE (08:17)
[2020-02-12] MEDS ORDERED: ceFAZolin SODIUM IV Push 1 GM VIAL. IVP ONE ×2 (08:37→09:00)
[2020-02-12] MEDS ORDERED: fentaNYL PF VIAL 100 MCG/2 ML VIAL ONE (08:38)
[2020-02-12] MEDS ORDERED: MIDAZOLAM HCL/PF 2 MG/2 ML VIAL. ONE (08:38)
[2020-02-12] MEDS ORDERED: MIDAZOLAM HCL/PF 2 MG/2 ML VIAL. IV ONE (09:00)
[2020-02-12] MEDS ORDERED: LIDOCAINE 1%/EPI 1:100,000 20 ML VIAL. INJ ONE (09:00)
[2020-02-12] MEDS ORDERED: fentaNYL PF VIAL 100 MCG/2 ML VIAL IV ONE (09:00)
--- NOTE | 2020-02-12 10:40 | NUR ---
Discharge Note: RYAN LIAO Discharge instructions and discharge home medications reviewed with Patient and a copy given. All questions have been answered and understanding verbalized. The following instructions and handouts were given: adult moderate sedation and implanted port instructions Discontinued lines and drains: Peripheral IV intact. Patient discharged to Home or Self Care withSpousevia Wheelchair
--- NOTE | 2020-02-12 15:22 | RAD ---
Procedure: Ultrasound and fluoroscopically guided placement of right internal jugular power port.. 02/12/2020 1:18 PM Clinical Indication: TREATMENT Sedation: Conscious sedation was administered for 25 minutes. The patient was monitored by a qualified independent observer throughout the time of sedation. Please refer to the medical record for exact doses of medications utilized to achieve moderate sedation. Fluoroscopy time: 0.8 minutes Dose area product: 2Gycm2 Consent: The procedure was explained in its entirety to the patient or the patients designated sales representative girls' apparel by a member of the treatment team, including a discussion of the risks, benefits and commonly accepted alternatives to the procedure, as well as the expected consequences of no therapy whatsoever. Discussion of the risks included, but was not limited to, those that are most frequent and those that are rare but possibly severe or life-threatening, as well as the possibility of unforeseen complications. Technique and Findings: All elements of maximal sterile barrier technique including the use of a cap, mask, sterile gown, sterile gloves, large sterile sheet, appropriate hand hygiene, and 2% chlorhexidine for cutaneous antisepsis (or acceptable alternative antiseptic per current guidelines) were followed for this procedure.Following informed consent, and a timeout procedure, the patient was prepped and draped in the usual sterile fashion. Ultrasound interrogation of the right neck revealed patency and compressibility of the right internal jugular vein. A 21-gauge micropuncture was then used to gain access to this vein under ultrasound guidance. A hard copy ultrasound image was recorded. The needle was exchanged over a wire for a sheath. A 1 inch incision was made several centimeters inferior to the venotomy site. A catheter was tunneled from this site dermatotomy site in the neck. Catheter was advanced through peel-away sheath such that its tip was in the proximal right atrium with the patient supine. The catheter was trimmed to length and connected to the port reservoir. The port was found to flush and aspirate normally. The wound was closed in layers using 4-0 Vicryl suture. Sterile dressings were applied. Impression: Successful ultrasound and fluoroscopically guided placement of a right internal jugular PowerPort
== END 2020-02-12 10:45 | disposition home or self-care (01) ==
LOC: INTRAD 06:46
PROVIDERS: ATTEND Internal Medicine Hematology & Oncology
DX: Z45.2 Encounter for adjustment and management of vascular access device (principal); Z79.899 Other long term (current) drug therapy; Z79.01 Long term (current) use of anticoagulants
CPT/HCPCS: 36415; 36561; 76937; 77001; 80048; 85025; 85610; 85730; 99152; 99153; C1751; C1892; C1894; J0690; J2250; J3010; J3490

== ENCOUNTER → 2020-02-16 | Outpatient (CLI) | payer BC ==
[2020-02-12 10:20] VITALS: BP 116/61
[2020-02-16 10:17] LABS: BASO % 1 % (0-3); EOS # 0.2 x10^3/uL (0.0-0.7); EOS % 3 % (0-3); HEMATOCRIT 37.1 % (39.0-53.0); HEMOGLOBIN 12.9 g/dL (13.0-17.5); LYMPH # 1.1 x10^3/uL (1.0-4.8); LYMPH % 18 % (24-48); MEAN CORPUSCULAR HEMOGLOBIN 33 pg (25-35); MEAN CORPUSCULAR HGB CONC 35 g/dL (31-37); MEAN CORPUSCULAR VOLUME 96 fL (79-100); MONO # 0.8 x10^3/uL (0.0-1.1); MONO % 12 % (0-9); NEUT # 4.2 x10^3/uL (1.8-7.7); NEUT % 66 % (31-73); PLATELET COUNT 224 x10^3/uL (140-400); RED BLOOD COUNT 3.88 x10^6/uL (4.30-5.70); RED CELL DISTRIBUTION WIDTH 15.2 % (11.5-14.5); WHITE BLOOD COUNT 6.4 x10^3/uL (4.0-11.0)
[2020-02-16 10:20] LABS: CALCIUM 8.9 mg/dL (8.5-10.1); CREATININE 0.7 mg/dL (0.7-1.3); GFR 118.4
[2020-02-16 10:26] LABS: ALBUMIN 3.3 g/dL (3.4-5.0); DIRECT BILIRUBIN 0.8 mg/dL (0.0-0.2); TOTAL BILIRUBIN 1.3 mg/dL (0.2-1.0)
== END ==
LOC: ONCLAB 08:16
PROVIDERS: ATTEND Physician Assistant
DX: R93.89 Abnormal findings on diagnostic imaging of other specified body structures (principal)
CPT/HCPCS: 36415; 80048; 80076; 83615; 85025

== ENCOUNTER → 2020-02-17 | Outpatient (CLI) | payer BC ==
[2020-02-12 10:20] VITALS: BP 116/61
[2020-02-17 09:02] LABS: CALCIUM 9.2 mg/dL (8.5-10.1); CREATININE 0.7 mg/dL (0.7-1.3); GFR 118.4; POTASSIUM 3.9 mmol/L (3.5-5.1)
[2020-02-18 01:09] LABS: HEMOGLOBIN A1C 8.6 % (4.8-5.6)
== END | disposition home or self-care (01) ==
LOC: ONCLAB 10:00
PROVIDERS: ATTEND Physician Assistant
DX: R93.89 Abnormal findings on diagnostic imaging of other specified body structures (principal)
CPT/HCPCS: 36415; 80048; 83036

== ENCOUNTER 2020-02-24 10:51 | Inpatient (IN) | payer BC ==
[~2020-02-24] VITALS: Ht 172.7 cm; Wt 81.3 kg
[~2020-02-24 10:51] MED LIST changes: -METF500T16 PO; -metform
--- NOTE | 2020-02-24 12:42 | PHYS DOC ---
Past Medical History Past Medical History: Diabetes-Type II, Other Additional Past Medical Histor: OSTEOARTHRITIS Past Surgical History: Other Additional Past Surgical Histo: "BACK SURGERY", GASTRIC SLEEVE Smoking Status: Never Smoker Alcohol Use: None General Adult EDM: Chief Complaint: ABNORMAL LABS HPI: HPI: Patient is a 54 year old presents to the emergency room today stating that he was at an oncology follow-up appointment today and was ultimately sent here because he was acutely jaundiced. Patient's fianc is in the room with him states that he woke up this morning and was jaundice. Patient's chief complaint is that he feels tired, also reports that approximately 4 PM yesterday while watching TV he developed a sudden onset of center chest pain that radiates across to his back. Patient states that nothing makes it feel better, nothing makes it feel worse, describes as a pressure type pain that he rates a 67/10 pain on a 1-10 pain scale. Patient states that while he was at the oncology office today they accessed his Port-A-Cath and gave him 8 mg of Zofran IV at 0 928 along with 1 L of saline IV at 10:40 AM. He was then sent here for evaluation of his jaundice state. Patient denies any congestion, cough, pain in his joints, abdominal pain, nausea, vomiting, diarrhea, or constipation. Patient denies any skin rashes, headaches, focal weaknesses, or sensory changes. Patient denies any swelling of his glands. Patient denies any homicidal suicidal ideation. Patient denies any recent fever or chills, patient denies any recent exposure to COVID-19 virus, does not have any concerns for having the COVID-19 virus. Patient states he has a history of pancreatic cancer with obstructive jaundice that required a pancreatic stent. Patient is on chemotherapy every 2 weeks reporting his last chemotherapy session was last Saturday. Review of Systems: Review of Systems: Constitutional: Denies fever or chills. Denies exposure to the COVID-19 virus. Eyes: Denies change in visual acuity. HENT: Denies nasal congestion or sore throat. Respiratory: Denies cough or shortness of breath. Cardiovascular: Complains of center chest pain that he describes as a pressure that radiates across to his back, sudden onset starting at approximately 4 PM yesterday while watching TV GI: Denies abdominal pain, nausea, vomiting, constipation or diarrhea. : Denies dysuria. Musculoskeletal: Complains of pain across the upper back that started as a sudden onset at approximately 4 PM yesterday while watching TV. Integument: Denies rash. Neurologic: Denies headache, focal weakness or sensory changes. Lymphatic: Denies swollen glands. Psychiatric: Denies suicidal or homicidal ideation. Heart Score: Risk Factors: Risk Factors: DM, Current or recent (<one month) smoker, HTN, HLP, family history of CAD, obesity. Risk Scores: Score 0 - 3: 2.5% MACE over next 6 weeks - Discharge Home Score 4 - 6: 20.3% MACE over next 6 weeks - Admit for Clinical Observation Score 7 - 10: 72.7% MACE over next 6 weeks - Early Invasive Strategies Allergies: Allergies: Allergies Coded Allergies Type Severity Reaction Last Updated Verified No Known Drug Allergies 01/12/20 No Physical Exam: PE: Constitutional: Well developed, well nourished, no acute distress, jaundice appearance. HENT: Normocephalic, atraumatic, bilateral external ears normal, oropharynx moist, no oral exudates, nose normal. Eyes: PERRLA, EOMI, conjunctiva normal, no discharge. Scleral yellowing. Pupils 4 mm. Neck: Normal range of motion, no tenderness, supple, no stridor. Cardiovascular:Heart rate regular rhythm, no murmur, heart sounds S1-S2, no abnormalities per auscultation. Patient sternal chest pain reproducible to palpation. Lungs & Thorax: Bilateral breath sounds clear to auscultation all lung sharif. Abdomen: Bowel sounds normal all 4 quadrants, soft, no tenderness, no masses, no pulsatile masses. Abdomen mildly distended. Skin: Warm, dry, no erythema, no rash. Skin jaundice in color. Back: Tenderness to palpation across bilateral lower scapular region, no CVA tenderness. Extremities: No tenderness, no cyanosis, no clubbing, ROM intact, no edema. Neurologic: Alert and oriented X 3, normal motor function, normal sensory function, no focal deficits noted. Psychologic: Affect normal, judgement normal, mood normal. EKG: EKG: EKG performed at 1152 today shows normal sinus rhythm without ectopy. Was reviewed by ED attending Dr. Stephens, no STEMI concerns, no ACS concerns Radiology/Procedures: Radiology/Procedures: PROCEDURE: ABDOMEN COMPLETE ABDOMEN COMPLETE History: Reason: ACUTE JAUNDICE, PANCREATIC STENT / Spl. Instructions: / History: Comparison: January 05, 2020 ultrasound. MRI January 21, 2020 Technique: Sonographic examination of the abdomen was performed and multiple grayscale and color Doppler static images were obtained. Findings: Liver demonstrates normal echogenicity. The liver measures 19.5 cm. Portal flow is patent. Dilated common bile duct measures 1.2 cm. Debris is also identified within the common bile duct. Gallbladder sludge and tiny stones. Mild gallbladder wall thickening measures 5 mm. Visualized pancreas is is not well seen due to overlying bowel gas. The right kidney measures 11.2 x 5.2 x 5.0 cm. No hydronephrosis. The left kidney measures 14.0 x 5.5 x 6.7 cm. No hydronephrosis. The spleen measures 13 cm. Visualized portions of the abdominal aorta and IVC are normal. IMPRESSION: 1. Dilated common bile duct with debris. 2. Mild gallbladder wall thickening with gallbladder sludge and tiny stones. HIDA scan can further evaluate for gallbladder function as clinically warranted. Electronically signed by: Robert Menjivar DO (02/24/2020 1:42 PM) [facility] DICTATED and SIGNED BY: ROBERT MENJIVAR DO DATE: 02/24/20 1342 PROCEDURE: PORTABLE CHEST 1V Single view of the chest. 02/24/2020 12:50 PM Indication: Reason: CHEST PAIN / Spl. Instructions: / History: Comparison: None Findings: Right IJ Powerport noted, in normal position. There is no focal consolidation. There is no pleural effusion or pneumothorax. The cardiomediastinal silhouette and pulmonary vasculature are within normal limits. No acute osseous abnormalities are seen. Impression: No evidence of acute cardiopulmonary process. Electronically signed by: Fox Doty MD (02/24/2020 1:15 PM) [id number] DICTATED and SIGNED BY: FOX DOTY MD DATE: 02/24/20 1315 Course & Med Decision Making: Course & Med Decision Making Pertinent Labs and Imaging studies reviewed. (See chart for details) 54-year-old patient arrives to the emergency department from his oncologist office with acute jaundice appearance. Patient complained of acute chest pain starting yesterday at 4 PM and awakening this morning with a jaundice appearance, labs ordered EKG ordered imaging of pancreas ordered. Labs concerning of hyper bilirubinemia, spoke with patient's primary oncologist in the ER who recommended the patient be admitted under the [facility] doctor and to consult GI specialist Dr. Mclean. [facility] to [facility] unit, Dr. Mclean was consulted, Dr. Mclean wanted patient to be stat tested for COVID19 in case he needed to take him to surgery. Patient is not a PUI. [facility], patient is not a COVID-19 person under investigation. Dragon Disclaimer: Dragon Disclaimer: This electronic medical record was generated, in whole or in part, using a voice recognition dictation system. Departure Departure Impression: Primary Impression: Hyperbilirubinemia Additional Impressions: Jaundice Pancreatic cancer Qualified Codes: C25.9 - Malignant neoplasm of pancreas, unspecified Disposition: ADMITTED INPATIENT Admitting Physician: MAICOL (Dr. Sylvester) Referrals: MAMADOU PEARCE MD (PCP) Justicifation of Admission Dx: Justifications for Admission: Justification of Admission Dx: Yes Comments: Hyperbilirubinemia, jaundice, pancreatic CA MARILYN MAN APRN Feb 24, 2020 12:42
[2020-02-24 12:44] LABS: BASO % 0 % (0-3); EOS % 0 % (0-3); HEMATOCRIT 35.8 % (39.0-53.0); HEMOGLOBIN 12.4 g/dL (13.0-17.5); LYMPH # 0.4 x10^3/uL (1.0-4.8); LYMPH % 6 % (24-48); MEAN CORPUSCULAR HEMOGLOBIN 33 pg (25-35); MEAN CORPUSCULAR HGB CONC 35 g/dL (31-37); MEAN CORPUSCULAR VOLUME 96 fL (79-100); MONO # 0.4 x10^3/uL (0.0-1.1); MONO % 6 % (0-9); NEUT # 5.9 x10^3/uL (1.8-7.7); NEUT % 88 % (31-73); PLATELET COUNT 119 x10^3/uL (140-400); RED BLOOD COUNT 3.72 x10^6/uL (4.30-5.70); RED CELL DISTRIBUTION WIDTH 14.9 % (11.5-14.5); WHITE BLOOD COUNT 6.7 x10^3/uL (4.0-11.0)
[2020-02-24 12:55] LABS: CREATININE 0.9 mg/dL (0.7-1.3); GFR 88.6; POTASSIUM 3.3 mmol/L (3.5-5.1); PROTHROMBIN TIME PATIENT 16.8 SEC (11.7-14.0)
[2020-02-24 13:01] LABS: ALBUMIN 2.1 g/dL (3.4-5.0); ALBUMIN/GLOBULIN RATIO 0.6 (1.0-1.7); DIRECT BILIRUBIN 9.3 mg/dL (0.0-0.2); TOTAL BILIRUBIN 10.3 mg/dL (0.2-1.0); TOTAL PROTEIN 5.5 g/dL (6.4-8.2)
[2020-02-24 13:09] LABS: CALCIUM 7.6 mg/dL (8.5-10.1)
--- NOTE | 2020-02-24 13:18 | RAD ---
Single view of the chest. 02/24/2020 12:50 PM Indication: Reason: CHEST PAIN / Spl. Instructions: / History: Comparison: None Findings: Right IJ Powerport noted, in normal position. There is no focal consolidation. There is no pleural effusion or pneumothorax. The cardiomediastinal silhouette and pulmonary vasculature are within normal limits. No acute osseous abnormalities are seen. Impression: No evidence of acute cardiopulmonary process. Electronically signed by: Fox Doty MD (02/24/2020 1:15 PM) [id number]
--- NOTE | 2020-02-24 13:45 | RAD ---
ABDOMEN COMPLETE History: Reason: ACUTE JAUNDICE, PANCREATIC STENT / Spl. Instructions: / History: Comparison: January 05, 2020 ultrasound. MRI January 21, 2020 Technique: Sonographic examination of the abdomen was performed and multiple grayscale and color Doppler static images were obtained. Findings: Liver demonstrates normal echogenicity. The liver measures 19.5 cm. Portal flow is patent. Dilated common bile duct measures 1.2 cm. Debris is also identified within the common bile duct. Gallbladder sludge and tiny stones. Mild gallbladder wall thickening measures 5 mm. Visualized pancreas is is not well seen due to overlying bowel gas. The right kidney measures 11.2 x 5.2 x 5.0 cm. No hydronephrosis. The left kidney measures 14.0 x 5.5 x 6.7 cm. No hydronephrosis. The spleen measures 13 cm. Visualized portions of the abdominal aorta and IVC are normal. IMPRESSION: 1. Dilated common bile duct with debris. 2. Mild gallbladder wall thickening with gallbladder sludge and tiny stones. HIDA scan can further evaluate for gallbladder function as clinically warranted. Electronically signed by: Robert Menjivar DO (02/24/2020 1:42 PM) [facility]
[2020-02-24 13:52] LABS: CREATINE KINASE 9 U/L (39-308)
[2020-02-24] MEDS ORDERED: POTASSIUM CHLORIDE 20 MEQ TABLET.ER. PO ONE (18:00)
--- NOTE | 2020-02-24 19:08 | PDOC1 ---
History and Physical Date of Admission Date of Admission DATE: 02/24/20 TIME: 19:04 History of Present Illness History of Present Illness Mr. Hernandez, is a 54 year old sent to the ER by his Oncologist, noticed that he was again acutely jaundiced. Abd pain worse today with new jaundice just today, he complains of pain and fatigue. soem pain started last night, pain now 4/10, was 6 in the ER. zofran and saline IV given in the oncology clinic. Patient states he has a history of pancreatic cancer with obstructive jaundice that required a pancreatic stent. Past Medical History Cardiovascular: No pertinent hx Pulmonary: No pertinent hx GI: No pertinent hx Heme/Onc: No pertinent hx Hepatobiliary: No pertinent hx Musculoskeletal: low back pain Past Surgical History Past Surgical History: Other, No pertinent history Family History Family History: Other Social History ALCOHOL: other Drugs: None Current Problem List Problem List Problems Medical Problems: (1) Hyperbilirubinemia Status: Acute (2) Jaundice Status: Acute (3) Pancreatic cancer Status: Acute Current Medications Current Medications Current Medications Potassium Chloride (Klor-Con) 40 meq 1X ONCE PO ; Start 02/24/20 at 18:00; Stop 02/24/20 at 18:01; Status DC Pantoprazole Sodium (Protonix) 40 mg DAILYAC PO ; Start 02/24/20 at 18:00 Levofloxacin/ Dextrose 100 ml @ 100 mls/hr Q24H IV ; Start 02/24/20 at 18:00 Active Scripts Active Reported Pantoprazole Sodium (Pantoprazole Sodium) 40 Mg Tablet.dr 40 Mg PO DAILYAC Allergies Allergies: Coded Allergies: No Known Drug Allergies (Unverified , 01/12/20) ROS General: YES: Fatigue; No: Chills, Night Sweats, Malaise, Appetite, Other PSYCHOLOGICAL ROS: No: Anxiety, Behavioral Disorder, Concentration difficultie, Decreased libido, Depression, Disorientation, Hallucinations, Hostility, Irritablity, Memory difficulties, Mood Swings, Obsessive thoughts, Physical abuse, Sexual abuse, Sleep disturbances, Suicidal ideation, Other Eyes: No Blurry vision, No Decreased vision, No Double vision, No Dry eyes, No Excessive tearing, No Eye Pain, No Itchy Eyes, No Loss of vision, No Photophobia, No Scotomata, No Uses contacts, No Uses glasses, No Other HEENT: No: Heacaches, Visual Changes, Hearing change, Nasal congestion, Nasal discharge, Oral lesions, Sinus pain, Sore Throat, Epistaxis, Sneezing, Snoring, Tinnitus, Vertigo, Vocal changes, Other ENDOCRINE: No: Breast Changes, Galactorrhea, Hair Pattern Changes, Hot Flashes, Malaise/lethargy, Mood Swings, Palpitations, Polydipsia/polyuria, Skin Changes, Temperature Intolerance, Unexpected Weight Changes, Other Respiratory: No: Cough, Hemoptysis, Orthopnea, Pleuritic Pain, Shortness of breath, SOB with excertion, Sputum Changes, Stridor, Tachypnea, Wheezing, Other Cardiovascular: No Chest Pain, No Palpitations, No Orthopnea, No Paroxysmal Noc. Dyspnea, No Edema, No Lt Headedness, No Other Gastrointestinal: Yes Nausea, Yes Abdominal Pain Genitourinary: No Dysuria, No Frequency, No Incontinence, No Hematuria, No Retention, No Discharge, No Urgency, No Pain, No Flank Pain, No Other, No , No , No , No , No , No , No Musculoskeletal: No Gait Disturbance, No Joint Pain, No Joint Stiffness, No Joint Swelling, No Muscle Pain, No Muscular Weakness, No Pain In:, No Swelling In:, No Other Neurological: No Behavorial Changes, No Bowel/Bladder ControlChng, No Confusion, No Dizziness, No Gait Disturbance, No Headaches, No Impaired Coord/balance, No Memory Loss, No Numbness/Tingling, No Seizures, No Speech Problems, No Tremors, No Visual Changes, No Weakness, No Other Skin: No Dry Skin, No Eczema, No Hair Changes, No Lumps, No Mole Changes, No Mottling, No Nail Changes, No Pruritus, No Rash, No Skin Lesion Changes, No Other, No Acne Physical Exam General: Alert, Oriented X3, Cooperative, No acute distress HEENT: EOMI, Mucous membr. moist/pink Lungs: Clear to auscultation, Normal air movement Heart: S1S2, RRR, no gallops, no murmurs Abdomen: Normal bowel sounds, Soft Extremities: No clubbing, No edema, Normal pulses Skin: No rashes, No breakdown, Other (jaundice) Neuro: Normal tone, Sensation intact, Other Psych/Mental Status: Mood NL Vitals Vitals Vital Signs Date Time Temp Pulse Resp B/P (MAP) Pulse Ox O2 Delivery O2 Flow Rate FiO2 02/24/20 17:15 80 16 100/67 (78) 99 Room Air 02/24/20 11:46 98.8 98.8 Labs Labs Laboratory Tests Test 02/24/20 12:06 02/24/20 13:27 02/24/20 17:07 White Blood Count 6.7 x10^3/uL (4.0-11.0) Red Blood Count 3.72 x10^6/uL (4.30-5.70) Hemoglobin 12.4 g/dL (13.0-17.5) Hematocrit 35.8 % (39.0-53.0) Mean Corpuscular Volume 96 fL (79-100) Mean Corpuscular Hemoglobin 33 pg (25-35) Mean Corpuscular Hemoglobin Concent 35 g/dL (31-37) Red Cell Distribution Width 14.9 % (11.5-14.5) Platelet Count 119 x10^3/uL (140-400) Neutrophils (%) (Auto) 88 % (31-73) Lymphocytes (%) (Auto) 6 % (24-48) Monocytes (%) (Auto) 6 % (0-9) Eosinophils (%) (Auto) 0 % (0-3) Basophils (%) (Auto) 0 % (0-3) Neutrophils # (Auto) 5.9 x10^3/uL (1.8-7.7) Lymphocytes # (Auto) 0.4 x10^3/uL (1.0-4.8) Monocytes # (Auto) 0.4 x10^3/uL (0.0-1.1) Eosinophils # (Auto) 0.0 x10^3/uL (0.0-0.7) Basophils # (Auto) 0.0 x10^3/uL (0.0-0.2) Prothrombin Time 16.8 SEC (11.7-14.0) Prothromb Time International Ratio 1.4 (0.8-1.1) Activated Partial Thromboplast Time 28 SEC (24-38) Sodium Level 134 mmol/L (136-145) Potassium Level 3.3 mmol/L (3.5-5.1) Chloride Level 97 mmol/L (98-107) Carbon Dioxide Level 27 mmol/L (21-32) Anion Gap 10 (6-14) Blood Urea Nitrogen 21 mg/dL (8-26) Creatinine 0.9 mg/dL (0.7-1.3) Estimated GFR (Cockcroft-Gault) 88.6 BUN/Creatinine Ratio 23 (6-20) Glucose Level 204 mg/dL (70-99) Calcium Level 7.6 mg/dL (8.5-10.1) Total Bilirubin 10.3 mg/dL (0.2-1.0) Direct Bilirubin 9.3 mg/dL (0.0-0.2) Aspartate Amino Transf (AST/SGOT) 130 U/L (15-37) Alanine Aminotransferase (ALT/SGPT) 136 U/L (16-63) Alkaline Phosphatase 487 U/L (46-116) Creatine Kinase 9 U/L (39-308) Creatine Kinase MB (Mass) < 0.5 ng/mL (0.0-3.6) Creatine Kinase MB Relative Index % (0-4) Troponin I Quantitative < 0.017 ng/mL (0.000-0.055) IV-Zuc-A-Type Natriuretic Peptide 4145 pg/mL (0-124) Total Protein 5.5 g/dL (6.4-8.2) Albumin 2.1 g/dL (3.4-5.0) Albumin/Globulin Ratio 0.6 (1.0-1.7) Lipase 21 U/L (73-393) Lactic Acid Level 2.3 mmol/L (0.4-2.0) 1.8 mmol/L (0.4-2.0) Ammonia < 10 mcmol/L (11-34) Laboratory Tests Test 02/24/20 12:06 02/24/20 13:27 02/24/20 17:07 White Blood Count 6.7 x10^3/uL (4.0-11.0) Red Blood Count 3.72 x10^6/uL (4.30-5.70) Hemoglobin 12.4 g/dL (13.0-17.5) Hematocrit 35.8 % (39.0-53.0) Mean Corpuscular Volume 96 fL (79-100) Mean Corpuscular Hemoglobin 33 pg (25-35) Mean Corpuscular Hemoglobin Concent 35 g/dL (31-37) Red Cell Distribution Width 14.9 % (11.5-14.5) Platelet Count 119 x10^3/uL (140-400) Neutrophils (%) (Auto) 88 % (31-73) Lymphocytes (%) (Auto) 6 % (24-48) Monocytes (%) (Auto) 6 % (0-9) Eosinophils (%) (Auto) 0 % (0-3) Basophils (%) (Auto) 0 % (0-3) Neutrophils # (Auto) 5.9 x10^3/uL (1.8-7.7) Lymphocytes # (Auto) 0.4 x10^3/uL (1.0-4.8) Monocytes # (Auto) 0.4 x10^3/uL (0.0-1.1) Eosinophils # (Auto) 0.0 x10^3/uL (0.0-0.7) Basophils # (Auto) 0.0 x10^3/uL (0.0-0.2) Prothrombin Time 16.8 SEC (11.7-14.0) Prothromb Time International Ratio 1.4 (0.8-1.1) Activated Partial Thromboplast Time 28 SEC (24-38) Sodium Level 134 mmol/L (136-145) Potassium Level 3.3 mmol/L (3.5-5.1) Chloride Level 97 mmol/L (98-107) Carbon Dioxide Level 27 mmol/L (21-32) Anion Gap 10 (6-14) Blood Urea Nitrogen 21 mg/dL (8-26) Creatinine 0.9 mg/dL (0.7-1.3) Estimated GFR (Cockcroft-Gault) 88.6 BUN/Creatinine Ratio 23 (6-20) Glucose Level 204 mg/dL (70-99) Calcium Level 7.6 mg/dL (8.5-10.1) Total Bilirubin 10.3 mg/dL (0.2-1.0) Direct Bilirubin 9.3 mg/dL (0.0-0.2) Aspartate Amino Transf (AST/SGOT) 130 U/L (15-37) Alanine Aminotransferase (ALT/SGPT) 136 U/L (16-63) Alkaline Phosphatase 487 U/L (46-116) Creatine Kinase 9 U/L (39-308) Creatine Kinase MB (Mass) < 0.5 ng/mL (0.0-3.6) Creatine Kinase MB Relative Index % (0-4) Troponin I Quantitative < 0.017 ng/mL (0.000-0.055) MP-Crm-G-Type Natriuretic Peptide 4145 pg/mL (0-124) Total Protein 5.5 g/dL (6.4-8.2) Albumin 2.1 g/dL (3.4-5.0) Albumin/Globulin Ratio 0.6 (1.0-1.7) Lipase 21 U/L (73-393) Lactic Acid Level 2.3 mmol/L (0.4-2.0) 1.8 mmol/L (0.4-2.0) Ammonia < 10 mcmol/L (11-34) VTE Prophylaxis Ordered VTE Prophylaxis Devices: Yes VTE Pharmacological Prophylaxi: No Assessment/Plan Assessment/Plan acute recurrent jaundice with abdominal pain pancreatic cancer prior stent placed, may have moved, GI consulted admit Justicifation of Admission Dx: Justifications for Admission: Justification of Admission Dx: Yes JEWELL GALINDO MD Feb 24, 2020 19:08
[2020-02-24] MEDS ORDERED: diphenhydrAMINE HCL 25 MG CAPSULE PO PRN (19:15)
[2020-02-24] MEDS ORDERED: oxyCODONE/APAP 5/325 1 TAB TABLET PO PRN (19:15)
[2020-02-24] MEDS ORDERED: fentaNYL PF VIAL 100 MCG/2 ML VIAL IVP PRN (19:15)
[2020-02-24 20:11] VITALS: BP 108/46
[2020-02-24] MEDS: PANTOPRAZOLE 40 MG TABLET.DR. PO SCH (20:30)
[2020-02-24 22:45] VITALS: BP 110/66
[2020-02-25 02:38] VITALS: BP 116/71
--- NOTE | 2020-02-25 03:36 | EKG ---
[facility] [address] [place] [address] Test Date: 2020-02-24 Test Time: 11:52:28 Pat Name: RYAN SHIPMAN Department: Room: 246 1 Gender: M [employer]ift [employer]: : 1965 Requested By: MARILYN MAN Order Number: [id number] Reading MD: Measurements Intervals Branch Rate: 91 P: 0 AL: 140 QRS: -17 QRSD: 78 T: 27 QT: 372 QTc: 459 Interpretive Statements SINUS RHYTHM LEFTWARD AXIS NO SPECIFIC ECG ABNORMALITIES RI6.01 No previous ECG available for comparison
[2020-02-25] MEDS ORDERED: metform (04:36)
[2020-02-25] MEDS ORDERED: METF500T16 PO (04:37)
[2020-02-25 06:21] LABS: BASO % 1 % (0-3); EOS % 0 % (0-3); HEMATOCRIT 32.4 % (39.0-53.0); HEMOGLOBIN 11.2 g/dL (13.0-17.5); LYMPH # 0.6 x10^3/uL (1.0-4.8); LYMPH % 11 % (24-48); MEAN CORPUSCULAR HEMOGLOBIN 33 pg (25-35); MEAN CORPUSCULAR HGB CONC 35 g/dL (31-37); MEAN CORPUSCULAR VOLUME 96 fL (79-100); MONO # 0.3 x10^3/uL (0.0-1.1); MONO % 6 % (0-9); NEUT # 4.3 x10^3/uL (1.8-7.7); NEUT % 82 % (31-73); PLATELET COUNT 109 x10^3/uL (140-400); RED CELL DISTRIBUTION WIDTH 14.5 % (11.5-14.5); WHITE BLOOD COUNT 5.3 x10^3/uL (4.0-11.0)
[2020-02-25 06:42] LABS: ALBUMIN 1.9 g/dL (3.4-5.0); ALBUMIN/GLOBULIN RATIO 0.5 (1.0-1.7); CALCIUM 8.5 mg/dL (8.5-10.1); CREATININE 0.7 mg/dL (0.7-1.3); GFR 118.4; TOTAL BILIRUBIN 9.4 mg/dL (0.2-1.0); TOTAL PROTEIN 6.1 g/dL (6.4-8.2)
[2020-02-25 07:00] VITALS: BP 119/71
[2020-02-25] MEDS ORDERED: IOHEXOL 300 MG/ML 100ML VIAL. ONE (07:28)
[2020-02-25] MEDS ORDERED: SUCCINYLCHOLINE 200 MG/10 ML VIAL. ONE (08:00)
[2020-02-25] MEDS ORDERED: PROPOFOL 10 MG/ML (20ML) VIAL. IV ONE (08:00)
[2020-02-25 10:47] VITALS: BP 125/78
--- NOTE | 2020-02-25 11:52 | PDOC ---
[facility] [facility] PROGRESS NOTE Chief Complaint Chief Complaint acute recurrent jaundice with abdominal pain suggestive of obstructive etiology pancreatic cancer Severe malnutrition Acute electrolyte derangements Transaminitis due to hepatobiliary obstruction Normocytic anemia Thrombocytopenia Pending GI evaluation Pending ERCP prior stent placed, may have moved, GI consulted SCD and ambulation for DVT prophylaxis N.p.o. Full code Discussed with RN and HARLEY Dispo pending GI evaluation for possible ERCP History of Present Illness History of Present Illness 54 year old sent to the ER by his Oncologist, noticed that he was again acutely jaundiced. Abd pain worse today with new jaundice just today, he complains of pain and fatigue. soem pain started last night, pain now 4/10, was 6 in the ER. zofran and saline IV given in the oncology clinic. Patient states he has a history of pancreatic cancer with obstructive jaundice that required a pancreatic stent. 02/25/2020 No acute events overnight. Patient's pain is controlled. No further nausea or vomiting. Jaundice is stable. Patient's chart, labs, images were reviewed and discussed with RN Vitals/I&O Vitals/I&O: Vital Signs Date Time Temp Pulse Resp B/P (MAP) Pulse Ox O2 Delivery O2 Flow Rate FiO2 02/25/20 10:47 98.5 79 14 125/78 (94) 97 Room Air 98.5 I & O 02/24/20 02/24/20 02/25/20 14:59 22:59 06:59 Intake Total 200 ml 240 ml Output Total 900 ml Balance 200 ml -660 ml Physical Exam General: Alert, Oriented X3, Cooperative, No acute distress Abdomen: Normal bowel sounds, Soft Extremities: No clubbing, No edema, Normal pulses Skin: No rashes, No breakdown, Other (jaundice) Labs Labs: All labs, images, and reports were reviewed by me personally Laboratory Tests Test 02/24/20 12:06 02/24/20 13:27 02/24/20 17:07 02/24/20 20:40 White Blood Count 6.7 x10^3/uL (4.0-11.0) Red Blood Count 3.72 x10^6/uL (4.30-5.70) Hemoglobin 12.4 g/dL (13.0-17.5) Hematocrit 35.8 % (39.0-53.0) Mean Corpuscular Volume 96 fL (79-100) Mean Corpuscular Hemoglobin 33 pg (25-35) Mean Corpuscular Hemoglobin Concent 35 g/dL (31-37) Red Cell Distribution Width 14.9 % (11.5-14.5) Platelet Count 119 x10^3/uL (140-400) Neutrophils (%) (Auto) 88 % (31-73) Lymphocytes (%) (Auto) 6 % (24-48) Monocytes (%) (Auto) 6 % (0-9) Eosinophils (%) (Auto) 0 % (0-3) Basophils (%) (Auto) 0 % (0-3) Neutrophils # (Auto) 5.9 x10^3/uL (1.8-7.7) Lymphocytes # (Auto) 0.4 x10^3/uL (1.0-4.8) Monocytes # (Auto) 0.4 x10^3/uL (0.0-1.1) Eosinophils # (Auto) 0.0 x10^3/uL (0.0-0.7) Basophils # (Auto) 0.0 x10^3/uL (0.0-0.2) Prothrombin Time 16.8 SEC (11.7-14.0) Prothromb Time International Ratio 1.4 (0.8-1.1) Activated Partial Thromboplast Time 28 SEC (24-38) Sodium Level 134 mmol/L (136-145) Potassium Level 3.3 mmol/L (3.5-5.1) Chloride Level 97 mmol/L (98-107) Carbon Dioxide Level 27 mmol/L (21-32) Anion Gap 10 (6-14) Blood Urea Nitrogen 21 mg/dL (8-26) Creatinine 0.9 mg/dL (0.7-1.3) Estimated GFR (Cockcroft-Gault) 88.6 BUN/Creatinine Ratio 23 (6-20) Glucose Level 204 mg/dL (70-99) Calcium Level 7.6 mg/dL (8.5-10.1) Total Bilirubin 10.3 mg/dL (0.2-1.0) Direct Bilirubin 9.3 mg/dL (0.0-0.2) Aspartate Amino Transf (AST/SGOT) 130 U/L (15-37) Alanine Aminotransferase (ALT/SGPT) 136 U/L (16-63) Alkaline Phosphatase 487 U/L (46-116) Creatine Kinase 9 U/L (39-308) Creatine Kinase MB (Mass) < 0.5 ng/mL (0.0-3.6) Creatine Kinase MB Relative Index % (0-4) Troponin I Quantitative < 0.017 ng/mL (0.000-0.055) AY-Vyt-W-Type Natriuretic Peptide 4145 pg/mL (0-124) Total Protein 5.5 g/dL (6.4-8.2) Albumin 2.1 g/dL (3.4-5.0) Albumin/Globulin Ratio 0.6 (1.0-1.7) Lipase 21 U/L (73-393) Lactic Acid Level 2.3 mmol/L (0.4-2.0) 1.8 mmol/L (0.4-2.0) Ammonia < 10 mcmol/L (11-34) Glucose (Fingerstick) 195 mg/dL (70-99) Test 02/25/20 06:00 02/25/20 07:05 02/25/20 07:42 02/25/20 11:34 White Blood Count 5.3 x10^3/uL (4.0-11.0) Red Blood Count 3.40 x10^6/uL (4.30-5.70) Hemoglobin 11.2 g/dL (13.0-17.5) Hematocrit 32.4 % (39.0-53.0) Mean Corpuscular Volume 96 fL (79-100) Mean Corpuscular Hemoglobin 33 pg (25-35) Mean Corpuscular Hemoglobin Concent 35 g/dL (31-37) Red Cell Distribution Width 14.5 % (11.5-14.5) Platelet Count 109 x10^3/uL (140-400) Neutrophils (%) (Auto) 82 % (31-73) Lymphocytes (%) (Auto) 11 % (24-48) Monocytes (%) (Auto) 6 % (0-9) Eosinophils (%) (Auto) 0 % (0-3) Basophils (%) (Auto) 1 % (0-3) Neutrophils # (Auto) 4.3 x10^3/uL (1.8-7.7) Lymphocytes # (Auto) 0.6 x10^3/uL (1.0-4.8) Monocytes # (Auto) 0.3 x10^3/uL (0.0-1.1) Eosinophils # (Auto) 0.0 x10^3/uL (0.0-0.7) Basophils # (Auto) 0.0 x10^3/uL (0.0-0.2) Sodium Level 134 mmol/L (136-145) Potassium Level 3.0 mmol/L (3.5-5.1) Chloride Level 98 mmol/L (98-107) Carbon Dioxide Level 28 mmol/L (21-32) Anion Gap 8 (6-14) Blood Urea Nitrogen 17 mg/dL (8-26) Creatinine 0.7 mg/dL (0.7-1.3) Estimated GFR (Cockcroft-Gault) 118.4 BUN/Creatinine Ratio 24 (6-20) Glucose Level 174 mg/dL (70-99) Calcium Level 8.5 mg/dL (8.5-10.1) Total Bilirubin 9.4 mg/dL (0.2-1.0) Aspartate Amino Transf (AST/SGOT) 77 U/L (15-37) Alanine Aminotransferase (ALT/SGPT) 106 U/L (16-63) Alkaline Phosphatase 406 U/L (46-116) Total Protein 6.1 g/dL (6.4-8.2) Albumin 1.9 g/dL (3.4-5.0) Albumin/Globulin Ratio 0.5 (1.0-1.7) SARS-CoV-2 Antigen (Rapid) Negative (NEGATIVE) Glucose (Fingerstick) 182 mg/dL (70-99) 193 mg/dL (70-99) Assessment and Plan Assessmemt and Plan Problems Medical Problems: (1) Hyperbilirubinemia Status: Acute (2) Jaundice Status: Acute (3) Pancreatic cancer Status: Acute Comment Review of Relevant I have reviewed the following items derrick (where applicable) has been applied. Medications: Current Medications Medications (Trade) Dose Ordered Sig/Renuka Route PRN Reason Start Time Stop Time Status Last Admin Dose Admin Potassium Chloride (Klor-Con) 40 meq 1X ONCE PO 02/24/20 18:00 02/24/20 18:01 DC 02/24/20 20:30 Pantoprazole Sodium (Protonix) 40 mg DAILYAC PO 02/24/20 18:00 02/24/20 20:30 Levofloxacin/ Dextrose 100 ml @ 100 mls/hr Q24H IV 02/24/20 18:00 02/24/20 20:31 Justicifation of Admission Dx: Justifications for Admission: Justification of Admission Dx: Yes NOAH HERNANDEZ MD Feb 25, 2020 11:52
[2020-02-25] MEDS ORDERED: IV RINGERS,LACTATED 1000ML 1,000 ML IV ONE (12:15)
--- NOTE | 2020-02-25 12:28 | PDOC2 ---
CONSULT Date of Consult Date of Consult DATE: 02/25/20 TIME: 12:19 Reason for Consult Reason for Consult: Pancreatic cancer Referring Physician Referring Physician: Dr. Bhakta Identification/Chief Complaint Chief Complaint Abdominal pain and jaundice Problems: (1) Jaundice (2) Pancreatic cancer (3) Hyperbilirubinemia Source Source: Chart review, Patient History of Present Illness Reason for Visit: Mr. Hernandez is a 54-year-old male with type 2 diabetes and borderline resectable pancreatic adenocarcinoma who has been admitted to the hospital for further management of obstructive jaundice. He is known to me from my clinic and had recently started FOLFIRINOX neoadjuvant chemotherapy for borderline resectable pancreatic cancer on 02/17/2020. He was seen in a follow-up visit on 02/24/2020 and had reported new onset epigastric abdominal pain that was radiating to the back. He also woke up on the same day with jaundice. His lab studies obtained in the clinic showed hyperbilirubinemia with a bilirubin of 10.9 as well as elevated alkaline phosphatase. He did have a biliary stent placed to alleviate obstructive jaundice at the time of diagnosis for pancreatic cancer. He was sent to the emergency room to be admitted for further evaluation and management of new hyperbilirubinemia and suspected stent migration. Gastroenterology has been consulted and he was taken to endoscopy today for ERCP. Oncology has been consulted given his pancreas cancer Past Medical History Cardiovascular: No pertinent hx Pulmonary: No pertinent hx GI: No pertinent hx Heme/Onc: No pertinent hx Hepatobiliary: No pertinent hx Musculoskeletal: low back pain Past Surgical History Past Surgical History: Other, No pertinent history Family History Family History: Other Social History ALCOHOL: other Drugs: None Current Problem List Problem List Problems Medical Problems: (1) Hyperbilirubinemia Status: Acute (2) Jaundice Status: Acute (3) Pancreatic cancer Status: Acute Current Medications Current Medications Current Medications Potassium Chloride (Klor-Con) 40 meq 1X ONCE PO Last administered on 02/24/20at 20:30; Start 02/24/20 at 18:00; Stop 02/24/20 at 18:01; Status DC Pantoprazole Sodium (Protonix) 40 mg DAILYAC PO Last administered on 02/24/20at 20:30; Start 02/24/20 at 18:00 Levofloxacin/ Dextrose 100 ml @ 100 mls/hr Q24H IV Last administered on 02/24/20at 20:31; Start 02/24/20 at 18:00 Fentanyl Citrate (Fentanyl 2ml Vial) 50 mcg PRN Q2HR PRN IVP PAIN; Start 02/24/20 at 19:15 Oxycodone/ Acetaminophen (Percocet 5/325) 1 tab PRN Q6HRS PRN PO PAIN; Start 02/24/20 at 19:15 Diphenhydramine HCl (Benadryl) 25 mg PRN Q6HRS PRN PO ITCHING; Start 02/24/20 at 19:15 Iohexol (Omnipaque 300 Mg/ml) 100 ml STK-MED ONCE .ROUTE ; Start 02/25/20 at 07:28; Stop 02/25/20 at 07:28; Status DC Ringer's Solution 1,000 ml @ 75 mls/hr 1X ONCE IV Last administered on 02/25/20at 12:12; Start 02/25/20 at 12:15; Stop 02/26/20 at 01:34 Active Scripts Active Reported Metformin Hcl 500 Mg Tablet 500 Mg PO BIDWMEALS Pantoprazole Sodium (Pantoprazole Sodium) 40 Mg Tablet.dr 40 Mg PO DAILYAC Allergies Allergies: Coded Allergies: No Known Drug Allergies (Unverified , 02/25/20) ROS General: No: Chills, Night Sweats PSYCHOLOGICAL ROS: No: Anxiety, Behavioral Disorder Eyes: No Blurry vision, No Decreased vision HEENT: No: Heacaches ALLERGY AND IMMUNOLOGY: No: Nasal Congestion, Post Nasal Drip Hematological and Lymphatic: No: Bleeding Problems, Blood Clots ENDOCRINE: No: Mood Swings, Palpitations Respiratory: No: Cough, Pleuritic Pain, Shortness of breath Cardiovascular: No Chest Pain, No Palpitations Gastrointestinal: Yes Nausea, Yes Abdominal Pain (Epigastric pain radiating to the back); No Melena, No Hematochezia Genitourinary: No Dysuria, No Flank Pain Musculoskeletal: No Joint Pain Neurological: No Behavorial Changes, No Bowel/Bladder ControlChng Skin: No Dry Skin, No Eczema Physical Exam General: Alert, Other (Jaundice noted) HEENT: Atraumatic, PERRLA Lungs: Clear to auscultation Heart: Regular rate, No murmurs Abdomen: Normal bowel sounds, Soft Extremities: No clubbing, No cyanosis Skin: No rashes Neuro: Normal gait, Normal speech Psych/Mental Status: Mental status NL MUSCULOSKELETAL: No joint tenderness, No deformity Vitals VITALS Vital Signs Date Time Temp Pulse Resp B/P (MAP) Pulse Ox O2 Delivery O2 Flow Rate FiO2 02/25/20 12:05 98.2 83 20 96 98.2 02/25/20 12:03 Room Air 02/25/20 10:47 125/78 (94) Labs Labs Laboratory Tests Test 02/24/20 12:06 02/24/20 13:27 02/24/20 17:07 02/24/20 20:40 White Blood Count 6.7 x10^3/uL (4.0-11.0) Red Blood Count 3.72 x10^6/uL (4.30-5.70) Hemoglobin 12.4 g/dL (13.0-17.5) Hematocrit 35.8 % (39.0-53.0) Mean Corpuscular Volume 96 fL (79-100) Mean Corpuscular Hemoglobin 33 pg (25-35) Mean Corpuscular Hemoglobin Concent 35 g/dL (31-37) Red Cell Distribution Width 14.9 % (11.5-14.5) Platelet Count 119 x10^3/uL (140-400) Neutrophils (%) (Auto) 88 % (31-73) Lymphocytes (%) (Auto) 6 % (24-48) Monocytes (%) (Auto) 6 % (0-9) Eosinophils (%) (Auto) 0 % (0-3) Basophils (%) (Auto) 0 % (0-3) Neutrophils # (Auto) 5.9 x10^3/uL (1.8-7.7) Lymphocytes # (Auto) 0.4 x10^3/uL (1.0-4.8) Monocytes # (Auto) 0.4 x10^3/uL (0.0-1.1) Eosinophils # (Auto) 0.0 x10^3/uL (0.0-0.7) Basophils # (Auto) 0.0 x10^3/uL (0.0-0.2) Prothrombin Time 16.8 SEC (11.7-14.0) Prothromb Time International Ratio 1.4 (0.8-1.1) Activated Partial Thromboplast Time 28 SEC (24-38) Sodium Level 134 mmol/L (136-145) Potassium Level 3.3 mmol/L (3.5-5.1) Chloride Level 97 mmol/L (98-107) Carbon Dioxide Level 27 mmol/L (21-32) Anion Gap 10 (6-14) Blood Urea Nitrogen 21 mg/dL (8-26) Creatinine 0.9 mg/dL (0.7-1.3) Estimated GFR (Cockcroft-Gault) 88.6 BUN/Creatinine Ratio 23 (6-20) Glucose Level 204 mg/dL (70-99) Calcium Level 7.6 mg/dL (8.5-10.1) Total Bilirubin 10.3 mg/dL (0.2-1.0) Direct Bilirubin 9.3 mg/dL (0.0-0.2) Aspartate Amino Transf (AST/SGOT) 130 U/L (15-37) Alanine Aminotransferase (ALT/SGPT) 136 U/L (16-63) Alkaline Phosphatase 487 U/L (46-116) Creatine Kinase 9 U/L (39-308) Creatine Kinase MB (Mass) < 0.5 ng/mL (0.0-3.6) Creatine Kinase MB Relative Index % (0-4) Troponin I Quantitative < 0.017 ng/mL (0.000-0.055) MK-Lyn-E-Type Natriuretic Peptide 4145 pg/mL (0-124) Total Protein 5.5 g/dL (6.4-8.2) Albumin 2.1 g/dL (3.4-5.0) Albumin/Globulin Ratio 0.6 (1.0-1.7) Lipase 21 U/L (73-393) Lactic Acid Level 2.3 mmol/L (0.4-2.0) 1.8 mmol/L (0.4-2.0) Ammonia < 10 mcmol/L (11-34) Glucose (Fingerstick) 195 mg/dL (70-99) Test 02/25/20 06:00 02/25/20 07:05 02/25/20 07:42 02/25/20 11:34 White Blood Count 5.3 x10^3/uL (4.0-11.0) Red Blood Count 3.40 x10^6/uL (4.30-5.70) Hemoglobin 11.2 g/dL (13.0-17.5) Hematocrit 32.4 % (39.0-53.0) Mean Corpuscular Volume 96 fL (79-100) Mean Corpuscular Hemoglobin 33 pg (25-35) Mean Corpuscular Hemoglobin Concent 35 g/dL (31-37) Red Cell Distribution Width 14.5 % (11.5-14.5) Platelet Count 109 x10^3/uL (140-400) Neutrophils (%) (Auto) 82 % (31-73) Lymphocytes (%) (Auto) 11 % (24-48) Monocytes (%) (Auto) 6 % (0-9) Eosinophils (%) (Auto) 0 % (0-3) Basophils (%) (Auto) 1 % (0-3) Neutrophils # (Auto) 4.3 x10^3/uL (1.8-7.7) Lymphocytes # (Auto) 0.6 x10^3/uL (1.0-4.8) Monocytes # (Auto) 0.3 x10^3/uL (0.0-1.1) Eosinophils # (Auto) 0.0 x10^3/uL (0.0-0.7) Basophils # (Auto) 0.0 x10^3/uL (0.0-0.2) Sodium Level 134 mmol/L (136-145) Potassium Level 3.0 mmol/L (3.5-5.1) Chloride Level 98 mmol/L (98-107) Carbon Dioxide Level 28 mmol/L (21-32) Anion Gap 8 (6-14) Blood Urea Nitrogen 17 mg/dL (8-26) Creatinine 0.7 mg/dL (0.7-1.3) Estimated GFR (Cockcroft-Gault) 118.4 BUN/Creatinine Ratio 24 (6-20) Glucose Level 174 mg/dL (70-99) Calcium Level 8.5 mg/dL (8.5-10.1) Total Bilirubin 9.4 mg/dL (0.2-1.0) Aspartate Amino Transf (AST/SGOT) 77 U/L (15-37) Alanine Aminotransferase (ALT/SGPT) 106 U/L (16-63) Alkaline Phosphatase 406 U/L (46-116) Total Protein 6.1 g/dL (6.4-8.2) Albumin 1.9 g/dL (3.4-5.0) Albumin/Globulin Ratio 0.5 (1.0-1.7) SARS-CoV-2 Antigen (Rapid) Negative (NEGATIVE) Glucose (Fingerstick) 182 mg/dL (70-99) 193 mg/dL (70-99) Laboratory Tests Test 02/24/20 13:27 02/24/20 17:07 02/24/20 20:40 02/25/20 06:00 Lactic Acid Level 2.3 mmol/L (0.4-2.0) 1.8 mmol/L (0.4-2.0) Ammonia < 10 mcmol/L (11-34) Glucose (Fingerstick) 195 mg/dL (70-99) White Blood Count 5.3 x10^3/uL (4.0-11.0) Red Blood Count 3.40 x10^6/uL (4.30-5.70) Hemoglobin 11.2 g/dL (13.0-17.5) Hematocrit 32.4 % (39.0-53.0) Mean Corpuscular Volume 96 fL (79-100) Mean Corpuscular Hemoglobin 33 pg (25-35) Mean Corpuscular Hemoglobin Concent 35 g/dL (31-37) Red Cell Distribution Width 14.5 % (11.5-14.5) Platelet Count 109 x10^3/uL (140-400) Neutrophils (%) (Auto) 82 % (31-73) Lymphocytes (%) (Auto) 11 % (24-48) Monocytes (%) (Auto) 6 % (0-9) Eosinophils (%) (Auto) 0 % (0-3) Basophils (%) (Auto) 1 % (0-3) Neutrophils # (Auto) 4.3 x10^3/uL (1.8-7.7) Lymphocytes # (Auto) 0.6 x10^3/uL (1.0-4.8) Monocytes # (Auto) 0.3 x10^3/uL (0.0-1.1) Eosinophils # (Auto) 0.0 x10^3/uL (0.0-0.7) Basophils # (Auto) 0.0 x10^3/uL (0.0-0.2) Sodium Level 134 mmol/L (136-145) Potassium Level 3.0 mmol/L (3.5-5.1) Chloride Level 98 mmol/L (98-107) Carbon Dioxide Level 28 mmol/L (21-32) Anion Gap 8 (6-14) Blood Urea Nitrogen 17 mg/dL (8-26) Creatinine 0.7 mg/dL (0.7-1.3) Estimated GFR (Cockcroft-Gault) 118.4 BUN/Creatinine Ratio 24 (6-20) Glucose Level 174 mg/dL (70-99) Calcium Level 8.5 mg/dL (8.5-10.1) Total Bilirubin 9.4 mg/dL (0.2-1.0) Aspartate Amino Transf (AST/SGOT) 77 U/L (15-37) Alanine Aminotransferase (ALT/SGPT) 106 U/L (16-63) Alkaline Phosphatase 406 U/L (46-116) Total Protein 6.1 g/dL (6.4-8.2) Albumin 1.9 g/dL (3.4-5.0) Albumin/Globulin Ratio 0.5 (1.0-1.7) Test 02/25/20 07:05 02/25/20 07:42 02/25/20 11:34 SARS-CoV-2 Antigen (Rapid) Negative (NEGATIVE) Glucose (Fingerstick) 182 mg/dL (70-99) 193 mg/dL (70-99) Images Images Reviewed results of ultrasound abdomen and lab studies Assessment/Plan Assessment/Plan Assessment: Borderline resectable pancreatic cancer Obstructive jaundice Hyperbilirubinemia Type 2 diabetes Abdominal pain Recommendations: -Agree with GI consultation for evaluation and management of hyperbilirubinemia -He has recently received cycle 1 of FOLFIRINOX chemotherapy for borderline resectable pancreatic cancer -We will arrange follow-up to see me after he is discharged from the hospital -Management of diabetes and abdominal pain per hospitalist service -CBC daily while inpatient. Will monitor to determine need for G-CSF -Continue abx for cholangitis coverage per hospitalist Thank you for the consult Vasu Rey MD Medical Oncology/Hematology Ph: [phone] RAGHU REY MD Feb 25, 2020 12:27
[2020-02-25] MEDS ORDERED: POTASSIUM CHLORIDE 10MEQ 100 ML IV PRN (12:30)
--- NOTE | 2020-02-25 12:59 | PDOC2 ---
CONSULT Date of Consult Date of Consult DATE: 02/25/20 TIME: 12:57 Reason for Consult Reason for Consult: Obstructive jaundice/pancreatic adenocarcinoma Past Medical History Cardiovascular: No pertinent hx Pulmonary: No pertinent hx GI: No pertinent hx Heme/Onc: No pertinent hx Hepatobiliary: No pertinent hx Musculoskeletal: low back pain Past Surgical History Past Surgical History: Other, No pertinent history Family History Family History: Other Social History ALCOHOL: other Drugs: None Current Problem List Problem List Problems Medical Problems: (1) Hyperbilirubinemia Status: Acute (2) Jaundice Status: Acute (3) Pancreatic cancer Status: Acute Current Medications Current Medications Current Medications Potassium Chloride (Klor-Con) 40 meq 1X ONCE PO Last administered on 02/24/20at 20:30; Start 02/24/20 at 18:00; Stop 02/24/20 at 18:01; Status DC Pantoprazole Sodium (Protonix) 40 mg DAILYAC PO Last administered on 02/24/20at 20:30; Start 02/24/20 at 18:00 Levofloxacin/ Dextrose 100 ml @ 100 mls/hr Q24H IV Last administered on 02/24/20at 20:31; Start 02/24/20 at 18:00 Fentanyl Citrate (Fentanyl 2ml Vial) 50 mcg PRN Q2HR PRN IVP PAIN; Start 02/24/20 at 19:15 Oxycodone/ Acetaminophen (Percocet 5/325) 1 tab PRN Q6HRS PRN PO PAIN; Start 02/24/20 at 19:15 Diphenhydramine HCl (Benadryl) 25 mg PRN Q6HRS PRN PO ITCHING; Start 02/24/20 at 19:15 Iohexol (Omnipaque 300 Mg/ml) 100 ml STK-MED ONCE .ROUTE ; Start 02/25/20 at 07:28; Stop 02/25/20 at 07:28; Status DC Ringer's Solution 1,000 ml @ 75 mls/hr 1X ONCE IV Last administered on 02/25/20at 12:12; Start 02/25/20 at 12:15; Stop 02/26/20 at 01:34 Potassium Chloride/Water 100 ml @ 100 mls/hr PRN Q1HR PRN IV SEE COMMENTS; Start 02/25/20 at 12:30 Potassium Chloride/Water 100 ml @ 100 mls/hr Q1HR IV ; Start 02/25/20 at 13:00; Stop 02/25/20 at 16:59 Active Scripts Active Reported Metformin Hcl 500 Mg Tablet 500 Mg PO BIDWMEALS Pantoprazole Sodium (Pantoprazole Sodium) 40 Mg Tablet.dr 40 Mg PO DAILYAC Allergies Allergies: Coded Allergies: No Known Drug Allergies (Unverified , 02/25/20) Vitals VITALS Vital Signs Date Time Temp Pulse Resp B/P (MAP) Pulse Ox O2 Delivery O2 Flow Rate FiO2 02/25/20 12:05 98.2 83 20 96 98.2 02/25/20 12:03 Room Air 02/25/20 10:47 125/78 (94) Labs Labs Laboratory Tests Test 02/24/20 12:06 02/24/20 13:27 02/24/20 17:07 02/24/20 20:40 White Blood Count 6.7 x10^3/uL (4.0-11.0) Red Blood Count 3.72 x10^6/uL (4.30-5.70) Hemoglobin 12.4 g/dL (13.0-17.5) Hematocrit 35.8 % (39.0-53.0) Mean Corpuscular Volume 96 fL (79-100) Mean Corpuscular Hemoglobin 33 pg (25-35) Mean Corpuscular Hemoglobin Concent 35 g/dL (31-37) Red Cell Distribution Width 14.9 % (11.5-14.5) Platelet Count 119 x10^3/uL (140-400) Neutrophils (%) (Auto) 88 % (31-73) Lymphocytes (%) (Auto) 6 % (24-48) Monocytes (%) (Auto) 6 % (0-9) Eosinophils (%) (Auto) 0 % (0-3) Basophils (%) (Auto) 0 % (0-3) Neutrophils # (Auto) 5.9 x10^3/uL (1.8-7.7) Lymphocytes # (Auto) 0.4 x10^3/uL (1.0-4.8) Monocytes # (Auto) 0.4 x10^3/uL (0.0-1.1) Eosinophils # (Auto) 0.0 x10^3/uL (0.0-0.7) Basophils # (Auto) 0.0 x10^3/uL (0.0-0.2) Prothrombin Time 16.8 SEC (11.7-14.0) Prothromb Time International Ratio 1.4 (0.8-1.1) Activated Partial Thromboplast Time 28 SEC (24-38) Sodium Level 134 mmol/L (136-145) Potassium Level 3.3 mmol/L (3.5-5.1) Chloride Level 97 mmol/L (98-107) Carbon Dioxide Level 27 mmol/L (21-32) Anion Gap 10 (6-14) Blood Urea Nitrogen 21 mg/dL (8-26) Creatinine 0.9 mg/dL (0.7-1.3) Estimated GFR (Cockcroft-Gault) 88.6 BUN/Creatinine Ratio 23 (6-20) Glucose Level 204 mg/dL (70-99) Calcium Level 7.6 mg/dL (8.5-10.1) Total Bilirubin 10.3 mg/dL (0.2-1.0) Direct Bilirubin 9.3 mg/dL (0.0-0.2) Aspartate Amino Transf (AST/SGOT) 130 U/L (15-37) Alanine Aminotransferase (ALT/SGPT) 136 U/L (16-63) Alkaline Phosphatase 487 U/L (46-116) Creatine Kinase 9 U/L (39-308) Creatine Kinase MB (Mass) < 0.5 ng/mL (0.0-3.6) Creatine Kinase MB Relative Index % (0-4) Troponin I Quantitative < 0.017 ng/mL (0.000-0.055) JV-Nay-F-Type Natriuretic Peptide 4145 pg/mL (0-124) Total Protein 5.5 g/dL (6.4-8.2) Albumin 2.1 g/dL (3.4-5.0) Albumin/Globulin Ratio 0.6 (1.0-1.7) Lipase 21 U/L (73-393) Lactic Acid Level 2.3 mmol/L (0.4-2.0) 1.8 mmol/L (0.4-2.0) Ammonia < 10 mcmol/L (11-34) Glucose (Fingerstick) 195 mg/dL (70-99) Test 02/25/20 06:00 02/25/20 07:05 02/25/20 07:42 02/25/20 11:34 White Blood Count 5.3 x10^3/uL (4.0-11.0) Red Blood Count 3.40 x10^6/uL (4.30-5.70) Hemoglobin 11.2 g/dL (13.0-17.5) Hematocrit 32.4 % (39.0-53.0) Mean Corpuscular Volume 96 fL (79-100) Mean Corpuscular Hemoglobin 33 pg (25-35) Mean Corpuscular Hemoglobin Concent 35 g/dL (31-37) Red Cell Distribution Width 14.5 % (11.5-14.5) Platelet Count 109 x10^3/uL (140-400) Neutrophils (%) (Auto) 82 % (31-73) Lymphocytes (%) (Auto) 11 % (24-48) Monocytes (%) (Auto) 6 % (0-9) Eosinophils (%) (Auto) 0 % (0-3) Basophils (%) (Auto) 1 % (0-3) Neutrophils # (Auto) 4.3 x10^3/uL (1.8-7.7) Lymphocytes # (Auto) 0.6 x10^3/uL (1.0-4.8) Monocytes # (Auto) 0.3 x10^3/uL (0.0-1.1) Eosinophils # (Auto) 0.0 x10^3/uL (0.0-0.7) Basophils # (Auto) 0.0 x10^3/uL (0.0-0.2) Sodium Level 134 mmol/L (136-145) Potassium Level 3.0 mmol/L (3.5-5.1) Chloride Level 98 mmol/L (98-107) Carbon Dioxide Level 28 mmol/L (21-32) Anion Gap 8 (6-14) Blood Urea Nitrogen 17 mg/dL (8-26) Creatinine 0.7 mg/dL (0.7-1.3) Estimated GFR (Cockcroft-Gault) 118.4 BUN/Creatinine Ratio 24 (6-20) Glucose Level 174 mg/dL (70-99) Calcium Level 8.5 mg/dL (8.5-10.1) Total Bilirubin 9.4 mg/dL (0.2-1.0) Aspartate Amino Transf (AST/SGOT) 77 U/L (15-37) Alanine Aminotransferase (ALT/SGPT) 106 U/L (16-63) Alkaline Phosphatase 406 U/L (46-116) Total Protein 6.1 g/dL (6.4-8.2) Albumin 1.9 g/dL (3.4-5.0) Albumin/Globulin Ratio 0.5 (1.0-1.7) SARS-CoV-2 Antigen (Rapid) Negative (NEGATIVE) Glucose (Fingerstick) 182 mg/dL (70-99) 193 mg/dL (70-99) Laboratory Tests Test 02/24/20 13:27 02/24/20 17:07 02/24/20 20:40 02/25/20 06:00 Lactic Acid Level 2.3 mmol/L (0.4-2.0) 1.8 mmol/L (0.4-2.0) Ammonia < 10 mcmol/L (11-34) Glucose (Fingerstick) 195 mg/dL (70-99) White Blood Count 5.3 x10^3/uL (4.0-11.0) Red Blood Count 3.40 x10^6/uL (4.30-5.70) Hemoglobin 11.2 g/dL (13.0-17.5) Hematocrit 32.4 % (39.0-53.0) Mean Corpuscular Volume 96 fL (79-100) Mean Corpuscular Hemoglobin 33 pg (25-35) Mean Corpuscular Hemoglobin Concent 35 g/dL (31-37) Red Cell Distribution Width 14.5 % (11.5-14.5) Platelet Count 109 x10^3/uL (140-400) Neutrophils (%) (Auto) 82 % (31-73) Lymphocytes (%) (Auto) 11 % (24-48) Monocytes (%) (Auto) 6 % (0-9) Eosinophils (%) (Auto) 0 % (0-3) Basophils (%) (Auto) 1 % (0-3) Neutrophils # (Auto) 4.3 x10^3/uL (1.8-7.7) Lymphocytes # (Auto) 0.6 x10^3/uL (1.0-4.8) Monocytes # (Auto) 0.3 x10^3/uL (0.0-1.1) Eosinophils # (Auto) 0.0 x10^3/uL (0.0-0.7) Basophils # (Auto) 0.0 x10^3/uL (0.0-0.2) Sodium Level 134 mmol/L (136-145) Potassium Level 3.0 mmol/L (3.5-5.1) Chloride Level 98 mmol/L (98-107) Carbon Dioxide Level 28 mmol/L (21-32) Anion Gap 8 (6-14) Blood Urea Nitrogen 17 mg/dL (8-26) Creatinine 0.7 mg/dL (0.7-1.3) Estimated GFR (Cockcroft-Gault) 118.4 BUN/Creatinine Ratio 24 (6-20) Glucose Level 174 mg/dL (70-99) Calcium Level 8.5 mg/dL (8.5-10.1) Total Bilirubin 9.4 mg/dL (0.2-1.0) Aspartate Amino Transf (AST/SGOT) 77 U/L (15-37) Alanine Aminotransferase (ALT/SGPT) 106 U/L (16-63) Alkaline Phosphatase 406 U/L (46-116) Total Protein 6.1 g/dL (6.4-8.2) Albumin 1.9 g/dL (3.4-5.0) Albumin/Globulin Ratio 0.5 (1.0-1.7) Test 02/25/20 07:05 02/25/20 07:42 02/25/20 11:34 SARS-CoV-2 Antigen (Rapid) Negative (NEGATIVE) Glucose (Fingerstick) 182 mg/dL (70-99) 193 mg/dL (70-99) Assessment/Plan Assessment/Plan Pancreatic adenocarcinoma- with duodenal involvement s/p stent with recurrent jaundice- stent migration and/or occlusion likely. Plan ERCp with replacement if possible. Otherwise PTC with internal -external drainage to be pursued to facilitate adjuvant chemotherapy Full note dictated ERICA LAZCANO MD Feb 25, 2020 12:59
--- NOTE | 2020-02-25 13:54 | PDOC4 ---
Operative Note Operative Note ERCP with stent replacement Meds Propofol per anesthesia Pre-op dx Obstructive jaundice/pancreatic adenocarcinoma Post-op dx S/p stent removal S/p 7 Fr & cm stent placed with drainage of cholangitic material Plan am labs advance diet as tolerated ERICA LAZCANO MD Feb 25, 2020 13:54
[2020-02-25] MEDS: POTASSIUM CHLORIDE 10MEQ 100 ML IV SCH ×4 (14:56→18:26)
[2020-02-25] MEDS: PANTOPRAZOLE 40 MG TABLET.DR. PO SCH (14:56)
[2020-02-25 15:00] VITALS: BP 112/68
--- NOTE | 2020-02-25 15:44 | CONS ---
DATE OF CONSULTATION: 02/25/2020 GI CONSULTATION REASON FOR CONSULTATION: Obstructive jaundice and pancreatic adenocarcinoma. HISTORY OF PRESENT ILLNESS: A 54-year-old male whose past medical history is noncontributory, seen with recurrent jaundice and initiated therapy with FOLFIRINOX neoadjuvant therapy on 02/16. He had a new onset pain with radiation to the back suggestive of stent occlusion and/or migration. Further imaging including ultrasound did reveal dilated ducts and no visible stent suggesting that in past with continued issues, he has been admitted. Consultation for recurrent stent placement is requested. PAST MEDICAL HISTORY: Pancreatic adeno CA. ALLERGIES: None. MEDICATIONS: Fentanyl, levofloxacin, and pantoprazole. FAMILY AND SOCIAL HISTORY: He does not drink or smoke at this time. FAMILY HISTORY: Noncontributory. REVIEW OF SYSTEMS: Per records. PHYSICAL EXAMINATION: GENERAL: Reveals a jaundiced male. VITAL SIGNS: Temperature is 98.2, pulse 83, respiratory rate 20, blood pressure is 126/70. LUNGS: Clear. CARDIOVASCULAR: Reveals an S1, S2 without S3, S4 or appreciable murmur. ABDOMEN: With a soft abdomen, normal bowel sounds, without appreciable hepatosplenomegaly. EXTREMITIES: Reveals no cyanosis, clubbing or edema. LABORATORY STUDIES: Hemoglobin 11.2, hematocrit 32.4, white count is 5.3, platelet count is 109,000. Sodium 134, potassium 3.0, chloride 98, bicarbonate 28, glucose 174, calcium 8.5, total bilirubin 9.4, AST 77, ALT 106, alkaline phosphatase 406. The ultrasound reveals dilated common bile duct with debris, gallbladder wall thickening and gallbladder sludge and tiny stones. No stent is visualized. IMPRESSION: Obstructive jaundice with pancreatic adenocarcinoma. We will recommend repeat ERCP with possible stent placement. If this is unsuccessful and internal and external stenting with Interventional Radiology to facilitate adjuvant chemotherapy and radiation would be pursued as discussed with the patient. ERICA LAZCANO MD DR: YOANDY/madison JOB#: [id number] / [id number]
[2020-02-25] MEDS ORDERED: BENZOCAINE/MENTHOL LOZENGE. PO PRN (16:45)
--- NOTE | 2020-02-25 17:29 | RAD ---
ERCP BILIARY DUCT SYSYEM History: Reason: PANCREATIC CA, JAUNDICE, ELEVATED LFTS ABD PAIN,55 SEC FL / Spl. Instructions: FL TIME.55 MIN, STENT PLACED CHOLANGIOGRAM DONE / History: Comparison: None. Technique/findings: Fluoroscopy provided during ERCP. Cholangiogram was performed. Dilated ducts. Stent was placed. See procedure note for further details. Fluoroscopy time: 0.55 minutes. Number of fluoroscopic images: 8 Impression: 1. Fluoroscopy provided during ERCP. Electronically signed by: Robert Menjivar DO (02/25/2020 5:26 PM) [facility]
[2020-02-25 18:16] VITALS: BP 91/56
[2020-02-25 22:39] VITALS: BP 100/64
[2020-02-26 03:13] VITALS: BP 97/63
[2020-02-26 05:59] LABS: BASO % 1 % (0-3); EOS # 0.1 x10^3/uL (0.0-0.7); EOS % 3 % (0-3); HEMATOCRIT 29.7 % (39.0-53.0); HEMOGLOBIN 10.4 g/dL (13.0-17.5); LYMPH % 27 % (24-48); MEAN CORPUSCULAR HEMOGLOBIN 33 pg (25-35); MEAN CORPUSCULAR HGB CONC 35 g/dL (31-37); MEAN CORPUSCULAR VOLUME 95 fL (79-100); MONO # 0.3 x10^3/uL (0.0-1.1); MONO % 9 % (0-9); NEUT # 2.3 x10^3/uL (1.8-7.7); NEUT % 61 % (31-73); PLATELET COUNT 113 x10^3/uL (140-400); RED BLOOD COUNT 3.12 x10^6/uL (4.30-5.70); RED CELL DISTRIBUTION WIDTH 14.8 % (11.5-14.5); WHITE BLOOD COUNT 3.7 x10^3/uL (4.0-11.0)
[2020-02-26 06:18] LABS: ALBUMIN 1.7 g/dL (3.4-5.0); ALBUMIN/GLOBULIN RATIO 0.4 (1.0-1.7); CALCIUM 8.5 mg/dL (8.5-10.1); CREATININE 0.6 mg/dL (0.7-1.3); GFR 141.5; POTASSIUM 3.3 mmol/L (3.5-5.1); TOTAL BILIRUBIN 4.1 mg/dL (0.2-1.0); TOTAL PROTEIN 5.9 g/dL (6.4-8.2)
[2020-02-26 07:00] VITALS: BP 97/64
[2020-02-26] MEDS: PANTOPRAZOLE 40 MG TABLET.DR. PO SCH (08:11)
--- NOTE | 2020-02-26 09:13 | PDOC ---
PROGRESS NOTES Subjective Subjective Received ERCP with stent placement yesterday. Patient reports feeling better today. Appears less jaundiced. He denies fever, chills, chest pain, abdominal pain, nausea, vomiting, dysuria, flank pain, headaches, weakness. Reports some sore throat after endoscopy Objective Objective Vital Signs Date Time Temp Pulse Resp B/P (MAP) Pulse Ox O2 Delivery O2 Flow Rate FiO2 02/26/20 08:00 Room Air 02/26/20 07:00 98.3 68 16 97/64 (75) 97 98.3 02/25/20 13:55 2 Intake and Output 02/26/20 07:00 Intake Total 1060 ml Output Total 1101 ml Balance -41 ml Intake Oral 260 ml IV Total 800 ml Output Urine Total 1101 ml Physical Exam Abdomen: Normal bowel sounds, Soft Heart: Regular rate, Normal S1, Normal S2 Extremities: No clubbing, No cyanosis General: Alert, Oriented X3, Other (Icterus improved from yesterday) HEENT: Atraumatic, PERRLA Lungs: Clear to auscultation MUSCULOSKELETAL: No joint tenderness, No swelling Neck: Supple, No JVD Neuro: Normal gait, Normal speech Skin: No rashes Diagnosis Problems: (1) Pancreatic cancer (2) Hyperbilirubinemia Assessment Assessment Assessment: Pancreatic cancer Obstructive jaundice secondary to pancreatic cancer Abdominal pain Type 2 diabetes Anemia and thrombocytopenia secondary to antineoplastic chemotherapy Plan Plan of Care Status post ERCP with stent placement on 02/25/2020 Continue supportive care Discharge per GI recommendations and hospitalist We will arrange follow-up in clinic next week No need for G-CSF given normal WBC count Vasu Peña MD Medical Oncology/Hematology Ph: [phone] Comment Review of Relevant I have reviewed the following items derrick (where applicable) has been applied. Labs Laboratory Tests Test 02/24/20 12:06 02/24/20 13:27 02/24/20 15:43 02/24/20 17:07 White Blood Count 6.7 x10^3/uL (4.0-11.0) Red Blood Count 3.72 x10^6/uL (4.30-5.70) Hemoglobin 12.4 g/dL (13.0-17.5) Hematocrit 35.8 % (39.0-53.0) Mean Corpuscular Volume 96 fL (79-100) Mean Corpuscular Hemoglobin 33 pg (25-35) Mean Corpuscular Hemoglobin Concent 35 g/dL (31-37) Red Cell Distribution Width 14.9 % (11.5-14.5) Platelet Count 119 x10^3/uL (140-400) Neutrophils (%) (Auto) 88 % (31-73) Lymphocytes (%) (Auto) 6 % (24-48) Monocytes (%) (Auto) 6 % (0-9) Eosinophils (%) (Auto) 0 % (0-3) Basophils (%) (Auto) 0 % (0-3) Neutrophils # (Auto) 5.9 x10^3/uL (1.8-7.7) Lymphocytes # (Auto) 0.4 x10^3/uL (1.0-4.8) Monocytes # (Auto) 0.4 x10^3/uL (0.0-1.1) Eosinophils # (Auto) 0.0 x10^3/uL (0.0-0.7) Basophils # (Auto) 0.0 x10^3/uL (0.0-0.2) Prothrombin Time 16.8 SEC (11.7-14.0) Prothromb Time International Ratio 1.4 (0.8-1.1) Activated Partial Thromboplast Time 28 SEC (24-38) Sodium Level 134 mmol/L (136-145) Potassium Level 3.3 mmol/L (3.5-5.1) Chloride Level 97 mmol/L (98-107) Carbon Dioxide Level 27 mmol/L (21-32) Anion Gap 10 (6-14) Blood Urea Nitrogen 21 mg/dL (8-26) Creatinine 0.9 mg/dL (0.7-1.3) Estimated GFR (Cockcroft-Gault) 88.6 BUN/Creatinine Ratio 23 (6-20) Glucose Level 204 mg/dL (70-99) Calcium Level 7.6 mg/dL (8.5-10.1) Total Bilirubin 10.3 mg/dL (0.2-1.0) Direct Bilirubin 9.3 mg/dL (0.0-0.2) Aspartate Amino Transf (AST/SGOT) 130 U/L (15-37) Alanine Aminotransferase (ALT/SGPT) 136 U/L (16-63) Alkaline Phosphatase 487 U/L (46-116) Creatine Kinase 9 U/L (39-308) Creatine Kinase MB (Mass) < 0.5 ng/mL (0.0-3.6) Creatine Kinase MB Relative Index % (0-4) Troponin I Quantitative < 0.017 ng/mL (0.000-0.055) OX-Kgs-Y-Type Natriuretic Peptide 4145 pg/mL (0-124) Total Protein 5.5 g/dL (6.4-8.2) Albumin 2.1 g/dL (3.4-5.0) Albumin/Globulin Ratio 0.6 (1.0-1.7) Lipase 21 U/L (73-393) Lactic Acid Level 2.3 mmol/L (0.4-2.0) 1.8 mmol/L (0.4-2.0) Ammonia < 10 mcmol/L (11-34) Coronavirus (PCR) Not detected (Not Detected) Test 02/24/20 20:40 02/25/20 06:00 02/25/20 07:05 02/25/20 07:42 Glucose (Fingerstick) 195 mg/dL (70-99) 182 mg/dL (70-99) White Blood Count 5.3 x10^3/uL (4.0-11.0) Red Blood Count 3.40 x10^6/uL (4.30-5.70) Hemoglobin 11.2 g/dL (13.0-17.5) Hematocrit 32.4 % (39.0-53.0) Mean Corpuscular Volume 96 fL (79-100) Mean Corpuscular Hemoglobin 33 pg (25-35) Mean Corpuscular Hemoglobin Concent 35 g/dL (31-37) Red Cell Distribution Width 14.5 % (11.5-14.5) Platelet Count 109 x10^3/uL (140-400) Neutrophils (%) (Auto) 82 % (31-73) Lymphocytes (%) (Auto) 11 % (24-48) Monocytes (%) (Auto) 6 % (0-9) Eosinophils (%) (Auto) 0 % (0-3) Basophils (%) (Auto) 1 % (0-3) Neutrophils # (Auto) 4.3 x10^3/uL (1.8-7.7) Lymphocytes # (Auto) 0.6 x10^3/uL (1.0-4.8) Monocytes # (Auto) 0.3 x10^3/uL (0.0-1.1) Eosinophils # (Auto) 0.0 x10^3/uL (0.0-0.7) Basophils # (Auto) 0.0 x10^3/uL (0.0-0.2) Sodium Level 134 mmol/L (136-145) Potassium Level 3.0 mmol/L (3.5-5.1) Chloride Level 98 mmol/L (98-107) Carbon Dioxide Level 28 mmol/L (21-32) Anion Gap 8 (6-14) Blood Urea Nitrogen 17 mg/dL (8-26) Creatinine 0.7 mg/dL (0.7-1.3) Estimated GFR (Cockcroft-Gault) 118.4 BUN/Creatinine Ratio 24 (6-20) Glucose Level 174 mg/dL (70-99) Calcium Level 8.5 mg/dL (8.5-10.1) Total Bilirubin 9.4 mg/dL (0.2-1.0) Aspartate Amino Transf (AST/SGOT) 77 U/L (15-37) Alanine Aminotransferase (ALT/SGPT) 106 U/L (16-63) Alkaline Phosphatase 406 U/L (46-116) Total Protein 6.1 g/dL (6.4-8.2) Albumin 1.9 g/dL (3.4-5.0) Albumin/Globulin Ratio 0.5 (1.0-1.7) SARS-CoV-2 Antigen (Rapid) Negative (NEGATIVE) Test 02/25/20 11:34 02/26/20 05:45 02/26/20 07:31 Glucose (Fingerstick) 193 mg/dL (70-99) 169 mg/dL (70-99) White Blood Count 3.7 x10^3/uL (4.0-11.0) Red Blood Count 3.12 x10^6/uL (4.30-5.70) Hemoglobin 10.4 g/dL (13.0-17.5) Hematocrit 29.7 % (39.0-53.0) Mean Corpuscular Volume 95 fL (79-100) Mean Corpuscular Hemoglobin 33 pg (25-35) Mean Corpuscular Hemoglobin Concent 35 g/dL (31-37) Red Cell Distribution Width 14.8 % (11.5-14.5) Platelet Count 113 x10^3/uL (140-400) Neutrophils (%) (Auto) 61 % (31-73) Lymphocytes (%) (Auto) 27 % (24-48) Monocytes (%) (Auto) 9 % (0-9) Eosinophils (%) (Auto) 3 % (0-3) Basophils (%) (Auto) 1 % (0-3) Neutrophils # (Auto) 2.3 x10^3/uL (1.8-7.7) Lymphocytes # (Auto) 1.0 x10^3/uL (1.0-4.8) Monocytes # (Auto) 0.3 x10^3/uL (0.0-1.1) Eosinophils # (Auto) 0.1 x10^3/uL (0.0-0.7) Basophils # (Auto) 0.0 x10^3/uL (0.0-0.2) Sodium Level 137 mmol/L (136-145) Potassium Level 3.3 mmol/L (3.5-5.1) Chloride Level 100 mmol/L (98-107) Carbon Dioxide Level 30 mmol/L (21-32) Anion Gap 7 (6-14) Blood Urea Nitrogen 22 mg/dL (8-26) Creatinine 0.6 mg/dL (0.7-1.3) Estimated GFR (Cockcroft-Gault) 141.5 BUN/Creatinine Ratio 37 (6-20) Glucose Level 166 mg/dL (70-99) Calcium Level 8.5 mg/dL (8.5-10.1) Total Bilirubin 4.1 mg/dL (0.2-1.0) Aspartate Amino Transf (AST/SGOT) 36 U/L (15-37) Alanine Aminotransferase (ALT/SGPT) 72 U/L (16-63) Alkaline Phosphatase 343 U/L (46-116) Total Protein 5.9 g/dL (6.4-8.2) Albumin 1.7 g/dL (3.4-5.0) Albumin/Globulin Ratio 0.4 (1.0-1.7) Laboratory Tests Test 02/25/20 11:34 02/26/20 05:45 02/26/20 07:31 Glucose (Fingerstick) 193 mg/dL (70-99) 169 mg/dL (70-99) White Blood Count 3.7 x10^3/uL (4.0-11.0) Red Blood Count 3.12 x10^6/uL (4.30-5.70) Hemoglobin 10.4 g/dL (13.0-17.5) Hematocrit 29.7 % (39.0-53.0) Mean Corpuscular Volume 95 fL (79-100) Mean Corpuscular Hemoglobin 33 pg (25-35) Mean Corpuscular Hemoglobin Concent 35 g/dL (31-37) Red Cell Distribution Width 14.8 % (11.5-14.5) Platelet Count 113 x10^3/uL (140-400) Neutrophils (%) (Auto) 61 % (31-73) Lymphocytes (%) (Auto) 27 % (24-48) Monocytes (%) (Auto) 9 % (0-9) Eosinophils (%) (Auto) 3 % (0-3) Basophils (%) (Auto) 1 % (0-3) Neutrophils # (Auto) 2.3 x10^3/uL (1.8-7.7) Lymphocytes # (Auto) 1.0 x10^3/uL (1.0-4.8) Monocytes # (Auto) 0.3 x10^3/uL (0.0-1.1) Eosinophils # (Auto) 0.1 x10^3/uL (0.0-0.7) Basophils # (Auto) 0.0 x10^3/uL (0.0-0.2) Sodium Level 137 mmol/L (136-145) Potassium Level 3.3 mmol/L (3.5-5.1) Chloride Level 100 mmol/L (98-107) Carbon Dioxide Level 30 mmol/L (21-32) Anion Gap 7 (6-14) Blood Urea Nitrogen 22 mg/dL (8-26) Creatinine 0.6 mg/dL (0.7-1.3) Estimated GFR (Cockcroft-Gault) 141.5 BUN/Creatinine Ratio 37 (6-20) Glucose Level 166 mg/dL (70-99) Calcium Level 8.5 mg/dL (8.5-10.1) Total Bilirubin 4.1 mg/dL (0.2-1.0) Aspartate Amino Transf (AST/SGOT) 36 U/L (15-37) Alanine Aminotransferase (ALT/SGPT) 72 U/L (16-63) Alkaline Phosphatase 343 U/L (46-116) Total Protein 5.9 g/dL (6.4-8.2) Albumin 1.7 g/dL (3.4-5.0) Albumin/Globulin Ratio 0.4 (1.0-1.7) Medications Current Medications Potassium Chloride (Klor-Con) 40 meq 1X ONCE PO Last administered on 02/24/20at 20:30; Start 02/24/20 at 18:00; Stop 02/24/20 at 18:01; Status DC Pantoprazole Sodium (Protonix) 40 mg DAILYAC PO Last administered on 02/26/20at 08:11; Start 02/24/20 at 18:00 Levofloxacin/ Dextrose 100 ml @ 100 mls/hr Q24H IV Last administered on 02/25/20at 18:26; Start 02/24/20 at 18:00 Fentanyl Citrate (Fentanyl 2ml Vial) 50 mcg PRN Q2HR PRN IVP PAIN; Start 02/24/20 at 19:15 Oxycodone/ Acetaminophen (Percocet 5/325) 1 tab PRN Q6HRS PRN PO PAIN; Start 02/24/20 at 19:15 Diphenhydramine HCl (Benadryl) 25 mg PRN Q6HRS PRN PO ITCHING; Start 02/24/20 at 19:15 Iohexol (Omnipaque 300 Mg/ml) 100 ml STK-MED ONCE .ROUTE ; Start 02/25/20 at 07:28; Stop 02/25/20 at 07:28; Status DC Ringer's Solution 1,000 ml @ 75 mls/hr 1X ONCE IV Last administered on 02/25/20at 12:12; Start 02/25/20 at 12:15; Stop 02/26/20 at 01:34; Status DC Potassium Chloride/Water 100 ml @ 100 mls/hr PRN Q1HR PRN IV SEE COMMENTS; Start 02/25/20 at 12:30 Potassium Chloride/Water 100 ml @ 100 mls/hr Q1HR IV Last administered on 02/25/20at 18:26; Start 02/25/20 at 13:00; Stop 02/25/20 at 16:59; Status DC Throat Lozenges (Cepacol Sore Throat Lozenge) 1 paul PRN Q2HRS PRN PO SORE THROAT Last administered on 02/25/20at 16:57; Start 02/25/20 at 16:45 Active Scripts Active Reported Metformin Hcl 500 Mg Tablet 500 Mg PO BIDWMEALS Pantoprazole Sodium (Pantoprazole Sodium) 40 Mg Tablet.dr 40 Mg PO DAILYAC Vitals/I & O Vital Sign - Last 24 Hours 02/25/20 02/25/20 02/25/20 02/25/20 10:47 12:03 12:05 13:55 Temp 98.5 98.2 98.8 98.5 98.2 98.8 Pulse 79 83 80 Resp 14 20 17 B/P (MAP) 125/78 (94) 125/58 Pulse Ox 97 96 96 O2 Delivery Room Air Room Air Room Air O2 Flow Rate 2 02/25/20 02/25/20 02/25/20 02/25/20 14:10 14:25 15:00 18:16 Temp 98.8 98.7 98.8 98.7 Pulse 76 73 72 90 Resp 18 18 14 16 B/P (MAP) 131/61 138/62 112/68 (83) 91/56 (68) Pulse Ox 98 98 99 100 O2 Delivery Room Air Room Air Room Air Room Air 02/25/20 02/25/20 02/26/20 02/26/20 19:30 22:39 03:13 07:00 Temp 98.1 98.1 98.3 98.1 98.1 98.3 Pulse 85 75 68 Resp 18 18 16 B/P (MAP) 100/64 (76) 97/63 (74) 97/64 (75) Pulse Ox 97 97 97 O2 Delivery Room Air Room Air Room Air Room Air 02/26/20 08:00 O2 Delivery Room Air Intake and Output 02/25/20 02/25/20 02/26/20 15:00 23:00 07:00 Intake Total 600 ml 430 ml 30 ml Output Total 500 ml 600 ml 1 ml Balance 100 ml -170 ml 29 ml Justicifation of Admission Dx: Justifications for Admission: Justification of Admission Dx: Yes Problem Qualifiers (1) Pancreatic cancer: Pancreatic malignancy location: unspecified Qualified Codes: C25.9 - Malignant neoplasm of pancreas, unspecified RAGHU PEÑA MD Feb 26, 2020 09:13
--- NOTE | 2020-02-26 09:44 | PDOC ---
G I PROGRESS NOTE Reason for Follow-up Obstructive jaundice/pancreatic cancer Subjective Feeling better s/p stent replacement Physical Exam Lungs clear CV S1 S2 ABD +BS, soft, nontender Review of Relevant I have reviewed the following items derrick (where applicable) has been applied. Labs Laboratory Tests Test 02/24/20 12:06 02/24/20 13:27 02/24/20 15:43 02/24/20 17:07 White Blood Count 6.7 x10^3/uL (4.0-11.0) Red Blood Count 3.72 x10^6/uL (4.30-5.70) Hemoglobin 12.4 g/dL (13.0-17.5) Hematocrit 35.8 % (39.0-53.0) Mean Corpuscular Volume 96 fL (79-100) Mean Corpuscular Hemoglobin 33 pg (25-35) Mean Corpuscular Hemoglobin Concent 35 g/dL (31-37) Red Cell Distribution Width 14.9 % (11.5-14.5) Platelet Count 119 x10^3/uL (140-400) Neutrophils (%) (Auto) 88 % (31-73) Lymphocytes (%) (Auto) 6 % (24-48) Monocytes (%) (Auto) 6 % (0-9) Eosinophils (%) (Auto) 0 % (0-3) Basophils (%) (Auto) 0 % (0-3) Neutrophils # (Auto) 5.9 x10^3/uL (1.8-7.7) Lymphocytes # (Auto) 0.4 x10^3/uL (1.0-4.8) Monocytes # (Auto) 0.4 x10^3/uL (0.0-1.1) Eosinophils # (Auto) 0.0 x10^3/uL (0.0-0.7) Basophils # (Auto) 0.0 x10^3/uL (0.0-0.2) Prothrombin Time 16.8 SEC (11.7-14.0) Prothromb Time International Ratio 1.4 (0.8-1.1) Activated Partial Thromboplast Time 28 SEC (24-38) Sodium Level 134 mmol/L (136-145) Potassium Level 3.3 mmol/L (3.5-5.1) Chloride Level 97 mmol/L (98-107) Carbon Dioxide Level 27 mmol/L (21-32) Anion Gap 10 (6-14) Blood Urea Nitrogen 21 mg/dL (8-26) Creatinine 0.9 mg/dL (0.7-1.3) Estimated GFR (Cockcroft-Gault) 88.6 BUN/Creatinine Ratio 23 (6-20) Glucose Level 204 mg/dL (70-99) Calcium Level 7.6 mg/dL (8.5-10.1) Total Bilirubin 10.3 mg/dL (0.2-1.0) Direct Bilirubin 9.3 mg/dL (0.0-0.2) Aspartate Amino Transf (AST/SGOT) 130 U/L (15-37) Alanine Aminotransferase (ALT/SGPT) 136 U/L (16-63) Alkaline Phosphatase 487 U/L (46-116) Creatine Kinase 9 U/L (39-308) Creatine Kinase MB (Mass) < 0.5 ng/mL (0.0-3.6) Creatine Kinase MB Relative Index % (0-4) Troponin I Quantitative < 0.017 ng/mL (0.000-0.055) PF-Ecr-C-Type Natriuretic Peptide 4145 pg/mL (0-124) Total Protein 5.5 g/dL (6.4-8.2) Albumin 2.1 g/dL (3.4-5.0) Albumin/Globulin Ratio 0.6 (1.0-1.7) Lipase 21 U/L (73-393) Lactic Acid Level 2.3 mmol/L (0.4-2.0) 1.8 mmol/L (0.4-2.0) Ammonia < 10 mcmol/L (11-34) Coronavirus (PCR) Not detected (Not Detected) Test 02/24/20 20:40 02/25/20 06:00 02/25/20 07:05 02/25/20 07:42 Glucose (Fingerstick) 195 mg/dL (70-99) 182 mg/dL (70-99) White Blood Count 5.3 x10^3/uL (4.0-11.0) Red Blood Count 3.40 x10^6/uL (4.30-5.70) Hemoglobin 11.2 g/dL (13.0-17.5) Hematocrit 32.4 % (39.0-53.0) Mean Corpuscular Volume 96 fL (79-100) Mean Corpuscular Hemoglobin 33 pg (25-35) Mean Corpuscular Hemoglobin Concent 35 g/dL (31-37) Red Cell Distribution Width 14.5 % (11.5-14.5) Platelet Count 109 x10^3/uL (140-400) Neutrophils (%) (Auto) 82 % (31-73) Lymphocytes (%) (Auto) 11 % (24-48) Monocytes (%) (Auto) 6 % (0-9) Eosinophils (%) (Auto) 0 % (0-3) Basophils (%) (Auto) 1 % (0-3) Neutrophils # (Auto) 4.3 x10^3/uL (1.8-7.7) Lymphocytes # (Auto) 0.6 x10^3/uL (1.0-4.8) Monocytes # (Auto) 0.3 x10^3/uL (0.0-1.1) Eosinophils # (Auto) 0.0 x10^3/uL (0.0-0.7) Basophils # (Auto) 0.0 x10^3/uL (0.0-0.2) Sodium Level 134 mmol/L (136-145) Potassium Level 3.0 mmol/L (3.5-5.1) Chloride Level 98 mmol/L (98-107) Carbon Dioxide Level 28 mmol/L (21-32) Anion Gap 8 (6-14) Blood Urea Nitrogen 17 mg/dL (8-26) Creatinine 0.7 mg/dL (0.7-1.3) Estimated GFR (Cockcroft-Gault) 118.4 BUN/Creatinine Ratio 24 (6-20) Glucose Level 174 mg/dL (70-99) Calcium Level 8.5 mg/dL (8.5-10.1) Total Bilirubin 9.4 mg/dL (0.2-1.0) Aspartate Amino Transf (AST/SGOT) 77 U/L (15-37) Alanine Aminotransferase (ALT/SGPT) 106 U/L (16-63) Alkaline Phosphatase 406 U/L (46-116) Total Protein 6.1 g/dL (6.4-8.2) Albumin 1.9 g/dL (3.4-5.0) Albumin/Globulin Ratio 0.5 (1.0-1.7) SARS-CoV-2 Antigen (Rapid) Negative (NEGATIVE) Test 02/25/20 11:34 02/26/20 05:45 02/26/20 07:31 Glucose (Fingerstick) 193 mg/dL (70-99) 169 mg/dL (70-99) White Blood Count 3.7 x10^3/uL (4.0-11.0) Red Blood Count 3.12 x10^6/uL (4.30-5.70) Hemoglobin 10.4 g/dL (13.0-17.5) Hematocrit 29.7 % (39.0-53.0) Mean Corpuscular Volume 95 fL (79-100) Mean Corpuscular Hemoglobin 33 pg (25-35) Mean Corpuscular Hemoglobin Concent 35 g/dL (31-37) Red Cell Distribution Width 14.8 % (11.5-14.5) Platelet Count 113 x10^3/uL (140-400) Neutrophils (%) (Auto) 61 % (31-73) Lymphocytes (%) (Auto) 27 % (24-48) Monocytes (%) (Auto) 9 % (0-9) Eosinophils (%) (Auto) 3 % (0-3) Basophils (%) (Auto) 1 % (0-3) Neutrophils # (Auto) 2.3 x10^3/uL (1.8-7.7) Lymphocytes # (Auto) 1.0 x10^3/uL (1.0-4.8) Monocytes # (Auto) 0.3 x10^3/uL (0.0-1.1) Eosinophils # (Auto) 0.1 x10^3/uL (0.0-0.7) Basophils # (Auto) 0.0 x10^3/uL (0.0-0.2) Sodium Level 137 mmol/L (136-145) Potassium Level 3.3 mmol/L (3.5-5.1) Chloride Level 100 mmol/L (98-107) Carbon Dioxide Level 30 mmol/L (21-32) Anion Gap 7 (6-14) Blood Urea Nitrogen 22 mg/dL (8-26) Creatinine 0.6 mg/dL (0.7-1.3) Estimated GFR (Cockcroft-Gault) 141.5 BUN/Creatinine Ratio 37 (6-20) Glucose Level 166 mg/dL (70-99) Calcium Level 8.5 mg/dL (8.5-10.1) Total Bilirubin 4.1 mg/dL (0.2-1.0) Aspartate Amino Transf (AST/SGOT) 36 U/L (15-37) Alanine Aminotransferase (ALT/SGPT) 72 U/L (16-63) Alkaline Phosphatase 343 U/L (46-116) Total Protein 5.9 g/dL (6.4-8.2) Albumin 1.7 g/dL (3.4-5.0) Albumin/Globulin Ratio 0.4 (1.0-1.7) Laboratory Tests Test 02/25/20 11:34 02/26/20 05:45 02/26/20 07:31 Glucose (Fingerstick) 193 mg/dL (70-99) 169 mg/dL (70-99) White Blood Count 3.7 x10^3/uL (4.0-11.0) Red Blood Count 3.12 x10^6/uL (4.30-5.70) Hemoglobin 10.4 g/dL (13.0-17.5) Hematocrit 29.7 % (39.0-53.0) Mean Corpuscular Volume 95 fL (79-100) Mean Corpuscular Hemoglobin 33 pg (25-35) Mean Corpuscular Hemoglobin Concent 35 g/dL (31-37) Red Cell Distribution Width 14.8 % (11.5-14.5) Platelet Count 113 x10^3/uL (140-400) Neutrophils (%) (Auto) 61 % (31-73) Lymphocytes (%) (Auto) 27 % (24-48) Monocytes (%) (Auto) 9 % (0-9) Eosinophils (%) (Auto) 3 % (0-3) Basophils (%) (Auto) 1 % (0-3) Neutrophils # (Auto) 2.3 x10^3/uL (1.8-7.7) Lymphocytes # (Auto) 1.0 x10^3/uL (1.0-4.8) Monocytes # (Auto) 0.3 x10^3/uL (0.0-1.1) Eosinophils # (Auto) 0.1 x10^3/uL (0.0-0.7) Basophils # (Auto) 0.0 x10^3/uL (0.0-0.2) Sodium Level 137 mmol/L (136-145) Potassium Level 3.3 mmol/L (3.5-5.1) Chloride Level 100 mmol/L (98-107) Carbon Dioxide Level 30 mmol/L (21-32) Anion Gap 7 (6-14) Blood Urea Nitrogen 22 mg/dL (8-26) Creatinine 0.6 mg/dL (0.7-1.3) Estimated GFR (Cockcroft-Gault) 141.5 BUN/Creatinine Ratio 37 (6-20) Glucose Level 166 mg/dL (70-99) Calcium Level 8.5 mg/dL (8.5-10.1) Total Bilirubin 4.1 mg/dL (0.2-1.0) Aspartate Amino Transf (AST/SGOT) 36 U/L (15-37) Alanine Aminotransferase (ALT/SGPT) 72 U/L (16-63) Alkaline Phosphatase 343 U/L (46-116) Total Protein 5.9 g/dL (6.4-8.2) Albumin 1.7 g/dL (3.4-5.0) Albumin/Globulin Ratio 0.4 (1.0-1.7) Medications Current Medications Potassium Chloride (Klor-Con) 40 meq 1X ONCE PO Last administered on 02/24/20at 20:30; Start 02/24/20 at 18:00; Stop 02/24/20 at 18:01; Status DC Pantoprazole Sodium (Protonix) 40 mg DAILYAC PO Last administered on 02/26/20at 08:11; Start 02/24/20 at 18:00 Levofloxacin/ Dextrose 100 ml @ 100 mls/hr Q24H IV Last administered on 01/28 at 18:26; Start 02/24/20 at 18:00 Fentanyl Citrate (Fentanyl 2ml Vial) 50 mcg PRN Q2HR PRN IVP PAIN; Start 02/24/20 at 19:15 Oxycodone/ Acetaminophen (Percocet 5/325) 1 tab PRN Q6HRS PRN PO PAIN; Start 02/24/20 at 19:15 Diphenhydramine HCl (Benadryl) 25 mg PRN Q6HRS PRN PO ITCHING; Start 02/24/20 at 19:15 Iohexol (Omnipaque 300 Mg/ml) 100 ml STK-MED ONCE .ROUTE ; Start 02/25/20 at 07:28; Stop 02/25/20 at 07:28; Status DC Ringer's Solution 1,000 ml @ 75 mls/hr 1X ONCE IV Last administered on at 12:12; Start 02/25/20 at 12:15; Stop 02/26/20 at 01:34; Status DC Potassium Chloride/Water 100 ml @ 100 mls/hr PRN Q1HR PRN IV SEE COMMENTS; Start 02/25/20 at 12:30 Potassium Chloride/Water 100 ml @ 100 mls/hr Q1HR IV Last administered on 02/25/20at 18:26; Start 02/25/20 at 13:00; Stop 02/25/20 at 16:59; Status DC Throat Lozenges (Cepacol Sore Throat Lozenge) 1 paul PRN Q2HRS PRN PO SORE THROAT Last administered on 02/25/20at 16:57; Start 02/25/20 at 16:45 Succinylcholine Chloride (Anectine) 200 mg STK-MED ONCE .ROUTE ; Start 02/25/20 at 08:00; Stop 02/26/20 at 09:20; Status DC Propofol (Diprivan) 200 mg STK-MED ONCE IV ; Start 02/25/20 at 08:00; Stop 02/26/20 at 09:20; Status DC Active Scripts Active Reported Metformin Hcl 500 Mg Tablet 500 Mg PO BIDWMEALS Pantoprazole Sodium (Pantoprazole Sodium) 40 Mg Tablet.dr 40 Mg PO DAILYAC Vitals/I & O Vital Sign - Last 24 Hours 02/25/20 02/25/20 02/25/20 02/25/20 10:47 12:03 12:05 13:55 Temp 98.5 98.2 98.8 98.5 98.2 98.8 Pulse 79 83 80 Resp 14 20 17 B/P (MAP) 125/78 (94) 125/58 Pulse Ox 97 96 96 O2 Delivery Room Air Room Air Room Air O2 Flow Rate 2 02/25/20 02/25/20 02/25/20/30/20 14:10 14:25 15:00 18:16 Temp 98.8 98.7 98.8 98.7 Pulse 76 73 72 90 Resp 18 18 14 16 B/P (MAP) 131/61 138/62 112/68 (83) 91/56 (68) Pulse Ox 98 98 99 100 O2 Delivery Room Air Room Air Room Air Room Air 02/25/20 02/25/20 02/26/20 02/26/20 19:30 22:39 03:13 07:00 Temp 98.1 98.1 98.3 98.1 98.1 98.3 Pulse 85 75 68 Resp 18 18 16 B/P (MAP) 100/64 (76) 97/63 (74) 97/64 (75) Pulse Ox 97 97 97 O2 Delivery Room Air Room Air Room Air Room Air 02/26/20 08:00 O2 Delivery Room Air Intake and Output 02/25/20 02/25/20 02/26/20 15:00 23:00 07:00 Intake Total 600 ml 430 ml 30 ml Output Total 500 ml 600 ml 1 ml Balance 100 ml -170 ml 29 ml Problem List Problems Medical Problems: (1) Hyperbilirubinemia Status: Acute (2) Jaundice Status: Acute (3) Pancreatic cancer Status: Acute Assessment Obstructive jaundice-with pancreatic cancer , s/p stent, 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
[2020-02-26 10:25] VITALS: BP 104/61
--- NOTE | 2020-02-26 11:56 | DISCH ---
DISCHARGE INSTRUCTIONS Condition on Discharge Condition on Discharge: Stable Activity After Discharge Activity Instructions for Disc: Bedrest today Lifting Instructions after Dis: No heavy lifting, No pulling or pushing, Do not lift >10 pounds Exercise Instruction after Dis: Progress as tolerated Driving Instructions after Dis: Do not drive today Weight Bearing Status after Di: As tolerated Diet after Discharge Diet after Discharge: Regular Wound Incision Care Wound/Incision Care: Keep wound/cast CDI Checks after Discharge Checks after discharge: Check blood press - daily, Check blood sugar, ac/hs, Check your Temp as needed, Weigh Yourself Daily Follow-Up Follow up with: Gastroenterology Follow Up With: PCP within 1 week of discharge Treatment/Equipment after DC Adaptive Equipment Issued: None NOAH HERNANDEZ MD Feb 26, 2020 11:56
[2020-02-26] MEDS ORDERED: HEPARIN PF 500 UNIT/5 ML DISP.SYRIN. IVP ONE (13:15)
--- NOTE | 2020-02-26 18:10 | PDOC3 ---
[facility]-Discharge Summary Date of Admission: Date of Admission: Feb 24, 2020 Date of Discharge: Date of Discharge: Feb 26, 2020 Admission Diagnosis: Admitting Diagnosis: acute recurrent jaundice with abdominal pain pancreatic cancer Discharge Diagnosis: Discharge Diagnosis: acute recurrent jaundice with abdominal pain suggestive of obstructive etiology pancreatic cancer Severe malnutrition Acute electrolyte derangements Transaminitis due to hepatobiliary obstruction Normocytic anemia Thrombocytopenia Consults: Consults: Gastroenterology Hospital Course: Hospital Course: 54 year old sent to the ER by his Oncologist, noticed that he was again acutely jaundiced. Abd pain worse today with new jaundice just today, he complains of pain and fatigue. soem pain started last night, pain now 4/10, was 6 in the ER. zofran and saline IV given in the oncology clinic. Patient states he has a history of pancreatic cancer with obstructive jaundice that required a pancreatic stent. Patient was admitted for further care and evaluated by gastroenterology. Patient was taken for ERCP in which a stent was replaced. Patient's liver enzymes improved after the procedure and clinically rim was less jaundiced the day after. Patient was tolerating diet and having adequate urine output. Patient was ambulating without assistance and feeling better. Abdominal pain was much improved. Rest of his hospital course was uneventful General: Alert, Oriented X3, Cooperative, No acute distress Abdomen: Normal bowel sounds, Soft Extremities: No clubbing, No edema, Normal pulses Skin: No rashes, No breakdown. Jaundice improved Disposition: Disposition/Orders: D/C to Home Activity: Activity: Resume previous activity Diet: Diet: Consistent Carbohydrate Medications: Home Meds Reported Medications Metformin Hcl (METFORMIN HCL) 500 Mg Tablet, 500 MG PO BIDWMEALS for ANTI- DIABETIC, TAB 0 Refills 02/25/20 Pantoprazole Sodium (PANTOPRAZOLE SODIUM ) 40 Mg Tablet.dr, 40 MG PO DAILYAC for GERD, TAB 02/12/20 Scheduled Metformin Hcl (Metformin Hcl), 500 MG PO BIDWMEALS, (Reported) Pantoprazole Sodium (Pantoprazole Sodium ), 40 MG PO DAILYAC, (Reported) Total Time: Total Time: Total time spent was 25 minutes in preparing scripts, discharge planning with SWI and RN and preparing this discharge summary Justicifation of Admission Dx: Justifications for Admission: Justification of Admission Dx: Yes NOAH HERNANDEZ MD Feb 26, 2020 18:10
== END 2020-02-26 14:21 | disposition home or self-care (01) | DRG 444 ==
LOC: ER 10:51 → 6 SOUTH 13:50 → 2 SOUTH 18:31
PROVIDERS: ADMIT Internal Medicine; ATTEND Internal Medicine
PROC: 0FPB8DZ Removal of Intraluminal Device from Hepatobiliary Duct, Via Natural or Artificial Opening Endoscopic (ICD-10-PCS; 2020-02-25)
PROC: 0F798DZ Dilation of Common Bile Duct with Intraluminal Device, Via Natural or Artificial Opening Endoscopic (ICD-10-PCS; principal; 2020-02-25 12:30)
DX: K83.1 Obstruction of bile duct (principal); E43 Unspecified severe protein-calorie malnutrition; C25.9 Malignant neoplasm of pancreas, unspecified; K31.5 Obstruction of duodenum; R74.0 Nonspecific elevation of levels of transaminase and lactic acid dehydrogenase [LDH]; Z20.828 Contact with and (suspected) exposure to other viral communicable diseases; Z68.27 Body mass index [BMI] 27.0-27.9, adult; Z92.21 Personal history of antineoplastic chemotherapy; D64.9 Anemia, unspecified; D69.59 Other secondary thrombocytopenia; E11.9 Type 2 diabetes mellitus without complications; M19.90 Unspecified osteoarthritis, unspecified site
CPT/HCPCS: 36415; 43274; 71045; 74328; 76700; 80053; 80076; 82140; 82553; 82962; 83605; 83690; 83880; 84484; 85025; 85610; 85730; 87426; 93005; 99285; C1713; C1757; J0330; J1642; J1956; J2704; J3480; J7120; Q9967; G0378; U0003-CS

== ENCOUNTER → 2020-02-24 | Outpatient (CLI) | payer BC ==
[2020-02-12 10:20] VITALS: BP 116/61
[2020-02-24 09:09] LABS: BASO % 0 % (0-3); EOS % 0 % (0-3); HEMATOCRIT 38.4 % (39.0-53.0); HEMOGLOBIN 13.4 g/dL (13.0-17.5); LYMPH # 0.4 x10^3/uL (1.0-4.8); LYMPH % 6 % (24-48); MEAN CORPUSCULAR HEMOGLOBIN 33 pg (25-35); MEAN CORPUSCULAR HGB CONC 35 g/dL (31-37); MEAN CORPUSCULAR VOLUME 95 fL (79-100); MONO # 0.4 x10^3/uL (0.0-1.1); MONO % 5 % (0-9); NEUT # 6.2 x10^3/uL (1.8-7.7); NEUT % 89 % (31-73); PLATELET COUNT 154 x10^3/uL (140-400); RED BLOOD COUNT 4.03 x10^6/uL (4.30-5.70); RED CELL DISTRIBUTION WIDTH 14.7 % (11.5-14.5)
[2020-02-24 09:21] LABS: AMYLASE 11 U/L (25-115); LIPASE 23 U/L (73-393)
[2020-02-24 09:22] LABS: CALCIUM 8.7 mg/dL (8.5-10.1); CREATININE 1.3 mg/dL (0.7-1.3); POTASSIUM 3.4 mmol/L (3.5-5.1)
[2020-02-24 09:27] LABS: ALBUMIN 2.3 g/dL (3.4-5.0); ALBUMIN/GLOBULIN RATIO 0.5 (1.0-1.7); TOTAL BILIRUBIN 10.9 mg/dL (0.2-1.0); TOTAL PROTEIN 6.9 g/dL (6.4-8.2)
[2020-02-24 12:01] LABS: % BANDS 24 % (0-9); % EOS 1 % (0-5); % LYMPHS 11 % (24-48); % MONOS 2 % (0-10); % SEGS 62 % (35-66); PLT ESTIMATE ADEQUATE (ADEQUATE)
== END ==
LOC: ONCLAB 08:18
PROVIDERS: ATTEND Internal Medicine Hematology & Oncology
DX: C25.0 Malignant neoplasm of head of pancreas (principal)
CPT/HCPCS: 36415; 80053; 82150; 83690; 85007; 85025

== ENCOUNTER → 2020-03-02 | Outpatient (CLI) | payer BC ==
[2020-02-26 10:25] VITALS: BP 104/61
[~2020-03-02] MED LIST changes: +METF500T16 PO; +metform
[2020-03-02 09:58] LABS: BASO % 0 % (0-3); EOS % 0 % (0-3); HEMATOCRIT 34.9 % (39.0-53.0); HEMOGLOBIN 11.9 g/dL (13.0-17.5); LYMPH # 1.7 x10^3/uL (1.0-4.8); LYMPH % 25 % (24-48); MEAN CORPUSCULAR HEMOGLOBIN 32 pg (25-35); MEAN CORPUSCULAR HGB CONC 34 g/dL (31-37); MEAN CORPUSCULAR VOLUME 95 fL (79-100); MONO # 0.8 x10^3/uL (0.0-1.1); MONO % 13 % (0-9); NEUT # 4.2 x10^3/uL (1.8-7.7); NEUT % 62 % (31-73); PLATELET COUNT 339 x10^3/uL (140-400); RED BLOOD COUNT 3.67 x10^6/uL (4.30-5.70); RED CELL DISTRIBUTION WIDTH 14.4 % (11.5-14.5); WHITE BLOOD COUNT 6.8 x10^3/uL (4.0-11.0)
[2020-03-02 10:09] LABS: CALCIUM 8.6 mg/dL (8.5-10.1); CREATININE 0.5 mg/dL (0.7-1.3); GFR 174.6
[2020-03-02 10:16] LABS: ALBUMIN 2.1 g/dL (3.4-5.0); ALBUMIN/GLOBULIN RATIO 0.4 (1.0-1.7); TOTAL BILIRUBIN 1.9 mg/dL (0.2-1.0); TOTAL PROTEIN 6.9 g/dL (6.4-8.2)
== END | disposition home or self-care (01) ==
LOC: ONCLAB 09:39
PROVIDERS: ATTEND Internal Medicine Hematology & Oncology
DX: R93.89 Abnormal findings on diagnostic imaging of other specified body structures (principal)
CPT/HCPCS: 36415; 80053; 85025; 86301

== ENCOUNTER → 2020-03-09 | Outpatient (CLI) | payer BC ==
[2020-02-26 10:25] VITALS: BP 104/61
[2020-03-09 09:00] LABS: BASO # 0.1 x10^3/uL (0.0-0.2); BASO % 1 % (0-3); EOS % 1 % (0-3); HEMATOCRIT 35.3 % (39.0-53.0); HEMOGLOBIN 12.5 g/dL (13.0-17.5); LYMPH # 1.7 x10^3/uL (1.0-4.8); LYMPH % 40 % (24-48); MEAN CORPUSCULAR HEMOGLOBIN 33 pg (25-35); MEAN CORPUSCULAR HGB CONC 35 g/dL (31-37); MEAN CORPUSCULAR VOLUME 92 fL (79-100); MONO # 0.2 x10^3/uL (0.0-1.1); MONO % 4 % (0-9); NEUT # 2.3 x10^3/uL (1.8-7.7); NEUT % 53 % (31-73); PLATELET COUNT 255 x10^3/uL (140-400); RED BLOOD COUNT 3.82 x10^6/uL (4.30-5.70); RED CELL DISTRIBUTION WIDTH 14.3 % (11.5-14.5); WHITE BLOOD COUNT 4.3 x10^3/uL (4.0-11.0)
[2020-03-09 09:06] LABS: CALCIUM 8.8 mg/dL (8.5-10.1); CREATININE 0.7 mg/dL (0.7-1.3); GFR 118.4; POTASSIUM 3.6 mmol/L (3.5-5.1)
[2020-03-09 09:15] LABS: ALBUMIN 2.6 g/dL (3.4-5.0); ALBUMIN/GLOBULIN RATIO 0.6 (1.0-1.7); TOTAL BILIRUBIN 1.4 mg/dL (0.2-1.0); TOTAL PROTEIN 6.9 g/dL (6.4-8.2)
== END | disposition home or self-care (01) ==
LOC: ONCLAB 08:46
PROVIDERS: ATTEND Internal Medicine Hematology & Oncology
DX: C25.0 Malignant neoplasm of head of pancreas (principal)
CPT/HCPCS: 36415; 80053; 85025

== ENCOUNTER → 2020-03-16 | Outpatient (CLI) | payer BC ==
[2020-02-26 10:25] VITALS: BP 104/61
[2020-03-16 09:11] LABS: BASO % 1 % (0-3); EOS # 0.1 x10^3/uL (0.0-0.7); EOS % 3 % (0-3); HEMATOCRIT 34.4 % (39.0-53.0); HEMOGLOBIN 11.7 g/dL (13.0-17.5); LYMPH % 52 % (24-48); MEAN CORPUSCULAR HEMOGLOBIN 32 pg (25-35); MEAN CORPUSCULAR HGB CONC 34 g/dL (31-37); MEAN CORPUSCULAR VOLUME 93 fL (79-100); MONO # 0.6 x10^3/uL (0.0-1.1); MONO % 15 % (0-9); NEUT # 1.1 x10^3/uL (1.8-7.7); NEUT % 28 % (31-73); PLATELET COUNT 159 x10^3/uL (140-400); RED CELL DISTRIBUTION WIDTH 14.5 % (11.5-14.5); WHITE BLOOD COUNT 3.8 x10^3/uL (4.0-11.0)
[2020-03-16 09:24] LABS: CALCIUM 8.5 mg/dL (8.5-10.1); CREATININE 0.7 mg/dL (0.7-1.3); GFR 118.4; POTASSIUM 3.5 mmol/L (3.5-5.1)
[2020-03-16 09:30] LABS: ALBUMIN 2.6 g/dL (3.4-5.0); ALBUMIN/GLOBULIN RATIO 0.7 (1.0-1.7); TOTAL PROTEIN 6.4 g/dL (6.4-8.2)
== END | disposition home or self-care (01) ==
LOC: ONCLAB 08:36
PROVIDERS: ATTEND Internal Medicine Hematology & Oncology
DX: C25.0 Malignant neoplasm of head of pancreas (principal)
CPT/HCPCS: 36415; 80053; 85025; 86301

== ENCOUNTER → 2020-03-30 | Outpatient (CLI) | payer BC ==
[2020-03-30 09:17] LABS: BASO # 0.1 x10^3/uL (0.0-0.2); BASO % 1 % (0-3); EOS # 0.1 x10^3/uL (0.0-0.7); EOS % 2 % (0-3); HEMATOCRIT 33.8 % (39.0-53.0); HEMOGLOBIN 11.7 g/dL (13.0-17.5); LYMPH # 2.3 x10^3/uL (1.0-4.8); LYMPH % 44 % (24-48); MEAN CORPUSCULAR HEMOGLOBIN 32 pg (25-35); MEAN CORPUSCULAR HGB CONC 35 g/dL (31-37); MEAN CORPUSCULAR VOLUME 94 fL (79-100); MONO # 0.8 x10^3/uL (0.0-1.1); MONO % 15 % (0-9); NEUT % 39 % (31-73); PLATELET COUNT 169 x10^3/uL (140-400); RED BLOOD COUNT 3.61 x10^6/uL (4.30-5.70); WHITE BLOOD COUNT 5.2 x10^3/uL (4.0-11.0)
[2020-03-30 09:37] LABS: CALCIUM 8.2 mg/dL (8.5-10.1); CREATININE 0.6 mg/dL (0.7-1.3); GFR 141.5; POTASSIUM 3.3 mmol/L (3.5-5.1)
[2020-03-30 09:42] LABS: ALBUMIN 2.7 g/dL (3.4-5.0); TOTAL BILIRUBIN 0.6 mg/dL (0.2-1.0); TOTAL PROTEIN 5.5 g/dL (6.4-8.2)
== END | disposition home or self-care (01) ==
LOC: ONCLAB 08:55
PROVIDERS: ATTEND Internal Medicine Hematology & Oncology
DX: R93.89 Abnormal findings on diagnostic imaging of other specified body structures (principal)
CPT/HCPCS: 36415; 80053; 85025

== ENCOUNTER → 2020-04-13 | Outpatient (CLI) | payer BC ==
[2020-04-13 09:02] LABS: BASO % 1 % (0-3); EOS # 0.1 x10^3/uL (0.0-0.7); EOS % 3 % (0-3); HEMATOCRIT 33.3 % (39.0-53.0); HEMOGLOBIN 11.4 g/dL (13.0-17.5); LYMPH # 1.9 x10^3/uL (1.0-4.8); LYMPH % 50 % (24-48); MEAN CORPUSCULAR HEMOGLOBIN 32 pg (25-35); MEAN CORPUSCULAR HGB CONC 34 g/dL (31-37); MEAN CORPUSCULAR VOLUME 95 fL (79-100); MONO # 0.6 x10^3/uL (0.0-1.1); MONO % 17 % (0-9); NEUT # 1.1 x10^3/uL (1.8-7.7); NEUT % 29 % (31-73); PLATELET COUNT 192 x10^3/uL (140-400); RED BLOOD COUNT 3.52 x10^6/uL (4.30-5.70); RED CELL DISTRIBUTION WIDTH 18.8 % (11.5-14.5); WHITE BLOOD COUNT 3.7 x10^3/uL (4.0-11.0)
[2020-04-13 09:08] LABS: CALCIUM 8.8 mg/dL (8.5-10.1); CREATININE 0.7 mg/dL (0.7-1.3); GFR 118.4; POTASSIUM 3.2 mmol/L (3.5-5.1)
[2020-04-13 09:14] LABS: ALBUMIN 2.8 g/dL (3.4-5.0); ALBUMIN/GLOBULIN RATIO 0.8 (1.0-1.7); TOTAL BILIRUBIN 0.5 mg/dL (0.2-1.0); TOTAL PROTEIN 6.1 g/dL (6.4-8.2)
== END | disposition home or self-care (01) ==
LOC: ONCLAB 08:06
PROVIDERS: ATTEND Internal Medicine Hematology & Oncology
DX: C25.0 Malignant neoplasm of head of pancreas (principal)
CPT/HCPCS: 36415; 80053; 85025; 86301

== ENCOUNTER → 2020-04-27 | Outpatient (CLI) | payer BC ==
[2020-04-27 08:38] LABS: BASO % 1 % (0-3); EOS # 0.1 x10^3/uL (0.0-0.7); EOS % 2 % (0-3); HEMATOCRIT 33.4 % (39.0-53.0); HEMOGLOBIN 11.7 g/dL (13.0-17.5); LYMPH # 1.8 x10^3/uL (1.0-4.8); LYMPH % 40 % (24-48); MEAN CORPUSCULAR HEMOGLOBIN 33 pg (25-35); MEAN CORPUSCULAR HGB CONC 35 g/dL (31-37); MEAN CORPUSCULAR VOLUME 94 fL (79-100); MONO # 0.7 x10^3/uL (0.0-1.1); MONO % 17 % (0-9); NEUT # 1.8 x10^3/uL (1.8-7.7); NEUT % 40 % (31-73); PLATELET COUNT 150 x10^3/uL (140-400); RED BLOOD COUNT 3.54 x10^6/uL (4.30-5.70); RED CELL DISTRIBUTION WIDTH 20.4 % (11.5-14.5); WHITE BLOOD COUNT 4.4 x10^3/uL (4.0-11.0)
[2020-04-27 08:53] LABS: ALBUMIN 2.7 g/dL (3.4-5.0); ALBUMIN/GLOBULIN RATIO 0.8 (1.0-1.7); CALCIUM 8.7 mg/dL (8.5-10.1); CREATININE 0.5 mg/dL (0.7-1.3); GFR 174.6; TOTAL BILIRUBIN 0.4 mg/dL (0.2-1.0); TOTAL PROTEIN 5.9 g/dL (6.4-8.2)
[2020-04-27 10:37] LABS: ANISOCYTOSIS SLIGHT; OVALOCYTES FEW; PLT ESTIMATE ADEQUATE (ADEQUATE); TEAR DROP CELLS OCC
== END | disposition home or self-care (01) ==
LOC: ONCLAB 08:28
PROVIDERS: ATTEND Internal Medicine Hematology & Oncology
DX: C25.0 Malignant neoplasm of head of pancreas (principal)
CPT/HCPCS: 36415; 80053; 85025; 86301

== ENCOUNTER → 2020-05-02 | Outpatient (CLI) | payer BC ==
[~2020-05-02] MED LIST changes: +CONTRAST GIVEN. MC PRN; +IOHEXOL 240 MG/ML 50ML VIAL. PO ONE; +IOHEXOL 300 MG/ML 100ML VIAL. IV ONE
--- NOTE | 2020-05-02 13:16 | RAD ---
EXAM: CT CHEST, ABDOMEN, AND PELVIS WITH CONTRAST INDICATION: Pancreatic adenocarcinoma COMPARISON: CT abdomen and pelvis 01/05/2020 TECHNIQUE: Helical CT imaging performed of the chest, abdomen and pelvis after administration of 75 mL Omnipaque 300 intravenous contrast. Sagittal and coronal reformats were obtained. One or more of the following individualized dose reduction techniques were utilized for this examination: 1. Automated exposure control 2. Adjustment of the mA and/or kV according to patient size 3. Use of iterative reconstruction technique. FINDINGS: CHEST: Thyroid gland and thoracic inlet: Normal. Heart and great vessels: Heart is normal in size. There are coronary artery calcifications. The thoracic aorta is normal in caliber. Central pulmonary arteries are clear. Mediastinum and lamar: No lymphadenopathy. There are calcified mediastinal and left hilar lymph nodes. Lungs and pleura: There are calcified granuloma in the left lower lobe. There is a 4 mm noncalcified pulmonary nodule in the right lower lobe (image 37, series 2), and multiple scattered 2 mm pulmonary nodules in both lungs. No pleural effusion. Chest wall and axillae: There is a right IJ port with tip at the superior cavoatrial junction. No axillary lymphadenopathy. Bones: No acute osseous abnormality. ABDOMEN AND PELVIS: Liver: The liver is normal in size. No liver mass. The hepatic, portal, superior mesenteric, and splenic veins are patent. Gallbladder/Biliary Tree: Mild to moderate intrahepatic biliary duct dilatation is unchanged. There is a new common bile duct stent. The common bile duct remains dilated measuring 1.7 cm in diameter. Cholelithiasis. Pancreas: Mild pancreatic atrophy is unchanged. The mass is less smaller and conspicuous, now measuring approximately 2.0 x 1.1 cm, previously 2.9 x 1.9 cm (image 27, series 4). Spleen: No splenomegaly. There are calcified splenic granulomas. Adrenal Glands: Normal. Kidneys/Ureters/Bladder: Normal. No hydronephrosis. Reproductive Organs: Prostate gland is normal. Stomach, small bowel, and colon: There are surgical changes of the stomach. No small bowel obstruction. Colon is normal. Appendix is normal. Vasculature: Abdominal aorta is normal in caliber. Lymph Nodes: A portacaval lymph node is increased in size, 1.3 cm, previously 1.0 cm (image 20, series 4). A celiac axis lymph node measures 1 cm, unchanged (image 21, series 4). Peritoneum and retroperitoneum: No free fluid or free air. Bones: No acute osseous abnormality. There is multilevel degenerative disc disease. Severe left and moderate right hip osteoarthrosis. IMPRESSION: 1. Decreased size and conspicuity of pancreatic head mass. 2. New biliary stent with unchanged dilation of the common bile duct and intrahepatic bile ducts. 3. There are several prominent mesenteric lymph nodes, one of which is slightly larger. Recommend attention on follow-up. 4. 4 mm pulmonary nodule in the right lower lobe and other scattered bilateral 2 mm pulmonary nodules. These are nonspecific. Recommend attention on follow-up. Electronically signed by: Tarsha Eller MD (05/02/2020 1:13 PM) [id number]
== END | disposition home or self-care (01) ==
LOC: CT 08:19
PROVIDERS: ATTEND Internal Medicine Hematology & Oncology
DX: C25.9 Malignant neoplasm of pancreas, unspecified (principal); R91.8 Other nonspecific abnormal finding of lung field; K80.20 Calculus of gallbladder without cholecystitis without obstruction; K86.89 Other specified diseases of pancreas; M16.0 Bilateral primary osteoarthritis of hip
CPT/HCPCS: 71260; 74177; Q9966; Q9967

== ENCOUNTER → 2020-05-20 | Outpatient (CLI) | payer BC ==
[~2020-05-20] MED LIST changes: -CONTRAST GIVEN. MC PRN; +INSU100V13 SQ; +INSU100V31 SQ; -IOHEXOL 240 MG/ML 50ML VIAL. PO ONE; -IOHEXOL 300 MG/ML 100ML VIAL. IV ONE
== END ==
LOC: LAB 12:52
PROVIDERS: ATTEND Surgery
DX: Z01.812 Encounter for preprocedural laboratory examination (principal); C25.9 Malignant neoplasm of pancreas, unspecified; Z20.828 Contact with and (suspected) exposure to other viral communicable diseases
CPT/HCPCS: U0003

== ENCOUNTER 2020-05-31 08:09 | Inpatient (IN) | payer BC ==
[2020-05-31] VITALS (9 sets, daily range): BP systolic 82–106; BP diastolic 40–62
[~2020-05-31] VITALS: Ht 172.7 cm; Wt 76.0 kg
[~2020-05-31 08:09] MED LIST changes: +HYDROmorphone 2 MG/ML VIAL IV PRN; +IV RINGERS,LACTATED 1000ML 1,000 ML IV SCH; +MORPHINE SULFATE 2 MG/ML VIAL. IV PRN; +ONDANSETRON PF 4 MG/2 ML VIAL. IV PRN; +PROCHLORPERAZINE 10 MG/2 ML VIAL. IV PRN; +cefTRIAXone IV Push 1 GM VIAL. IVP PRN; +fentaNYL PF VIAL 100 MCG/2 ML VIAL IV PRN
[2020-05-31] MEDS ORDERED: LIDOCAINE 2% PF 5 ML VIAL. ONE (08:13)
[2020-05-31] MEDS ORDERED: PROPOFOL 10 MG/ML (20ML) VIAL. IV ONE (08:13)
[2020-05-31] MEDS ORDERED: fentaNYL PF VIAL 100 MCG/2 ML VIAL ONE (08:14)
[2020-05-31] MEDS ORDERED: SUCCINYLCHOLINE 200 MG/10 ML VIAL. ONE (08:15)
[2020-05-31] MEDS ORDERED: ROCURONIUM 50 MG/5 ML VIAL. ONE ×3 (08:15→14:00)
[2020-05-31] MEDS ORDERED: INSULIN LISPRO 100 UNIT/ML 3ML VIAL for OP,RR ONLY. SQ PRN ×2 (09:15→11:00)
--- NOTE | 2020-05-31 09:16 | PDOC ---
SURGICAL PROGRESS NOTE DATE: 05/31/20 TIME: 09:14 Subjective Pre-Op Note 54 yo M with pancreatic cancer, s/p neoadjuvant therapy. TO OR for whipple procedure. R/R/B/A d/w pt and pt's supportive . Risks, including, but not limited to: bleeding, infection, damage to surrounding structures, risk of anesthesia, risk of pancreatic fistula, risk of . They appear to understand, their questions are answered and they elect to proceed. Office note H&P reviewed and unchanged. Pt reports feeling well, jasmin diet, having stools and denies N/V. Weight stable, but not gaining. Vital Signs Vital Signs Date Time Temp Pulse Resp B/P (MAP) Pulse Ox O2 Delivery O2 Flow Rate FiO2 05/31/20 08:52 97.7 74 18 125/80 99 Room Air 97.7 Justicifation of Admission Dx: Justifications for Admission: Justification of Admission Dx: Yes SANG AVENDANO MD May 31, 2020 09:16
[2020-05-31] MEDS ORDERED: MIDAZOLAM HCL/PF 2 MG/2 ML VIAL. ONE ×2 (09:27→10:03)
[2020-05-31] MEDS ORDERED: BUPIVACAINE MPF 0.25% 10 ML VIAL. ONE (09:28)
[2020-05-31] MEDS ORDERED: INSULIN LISPRO 100 UNIT/ML 3ML VIAL for OP,RR ONLY. SQ ONE (09:30)
[2020-05-31] MEDS ORDERED: LIDOCAINE 1% Multi-Dose 20 ML VIAL. ONE (10:04)
[2020-05-31] MEDS ORDERED: DEXAMETHASONE SOD PHOS 4 MG/ML VIAL ONE ×2 (10:36→10:43)
[2020-05-31] MEDS ORDERED: DESFLURANE > 120 MINUTES IH ONE (10:37)
[2020-05-31] MEDS ORDERED: BUPIVACAINE MPF 0.5% 30 ML VIAL. ONE (10:41)
[2020-05-31] MEDS ORDERED: PHENYLEPHRINE in 0.9% NACL PF 1 MG/10 ML SYRINGE. IV ONE ×3 (10:44→15:40)
[2020-05-31] MEDS ORDERED: ePHEDrine PF IN SALINE 50 MG/10 ML SYRINGE. IV ONE (10:59)
[2020-05-31] MEDS ORDERED: NALOXONE 0.4 MG/ML VIAL. IV PRN ×2 (11:00→17:15)
[2020-05-31] MEDS ORDERED: ATROPINE 0.5 MG/5 ML DISP.SYRINGE. IV PRN (11:00)
[2020-05-31] MEDS ORDERED: ONDANSETRON PF 4 MG/2 ML VIAL. ONE (15:06)
[2020-05-31] MEDS ORDERED: GLYCOPYRROLATE 1 MG/5 ML VIAL. ONE (15:06)
[2020-05-31] MEDS ORDERED: NEOSTIGMINE 10 MG/10 ML VIAL. ONE (15:07)
[2020-05-31] MEDS ORDERED: HEPARIN PF 500 UNIT/5 ML DISP.SYRIN. IVP ONE ×2 (16:59→17:00)
[2020-05-31] MEDS ORDERED: IV NORMAL SALINE 1000ML BAG 1,000 ML IV SCH (17:14)
[2020-05-31] MEDS ORDERED: 0.9 % SODIUM CHLORIDE 10 ML DISP.SYRIN. IV PRN (17:15)
[2020-05-31] MEDS ORDERED: ONDANSETRON PF 4 MG/2 ML VIAL. IVP PRN (17:15)
[2020-05-31] MEDS ORDERED: ENOXAPARIN 40 MG/0.4 ML SYRINGE. SQ SCH (18:00)
[2020-05-31] MEDS: IV RINGERS,LACTATED 1000ML 1,000 ML IV SCH ×2 (18:30→21:35)
--- NOTE | 2020-05-31 18:37 | NUR ---
PT ORIENTED TO ROOM 8 IN THE ICU. BED LOW AND LOCKED, PACKAGE DESIGNER RAILS UPX3, CALL LIGHT IN REACH. NGT LEFT NARE TO LIS. MID LINE ABDOMINAL INCISION WITH SLIGHT OOZING FROM ZOHREH DRAIN AT THE BOTTOM OF INCISION. RIGHT AND LEFT LATERAL CONCHIS DRAINS FROM INCISION IN PLACE AND DRAINING SEROUS SANG. IVERSON IN PLACE WITH CLEAR YELLOW URINE. EPIDURAL BRANCH RETAIL EXECUTIVE INFUSING AND INTACT. WILL CONTINUE TO ASSESS.
[2020-05-31] MEDS ORDERED: IV NORMAL SALINE 1000ML BAG 1,000 ML IV ONE (19:30)
[2020-05-31] MEDS ORDERED: DEXTROSE 50% 25 GM / 50ML DISP.SYRIN. IV PRN (19:30)
--- NOTE | 2020-05-31 19:30 | NUR ---
Paged Dr Lezama for clarification of post op orders. Dr Lezama returned page, updated on patient's condition, SBP 90's with MAP 65, good UO and good pain control with epidural; reviewed Lovenox dosage/time, questioned repeat labs tonight, and FSBS/Insulin orders. Orders received to start Lovenox in am, labs in am CBC (already ordered), CMP, Mg, ICU Elyte protocol, FSBS Q6HRS with low Insulin Sliding Scale, 1000cc NS bolus now TRA 250CC/HR and may increase to 500CC/HR if needed, Consult Dr Quinn for medical management and patient may have ice chips PRN. See orders, vital signs, and I/O.
--- NOTE | 2020-05-31 20:35 | NUR ---
Called Dr Quinn, notified of consult for medical management, patient's medical hx, surgical procedure today, orders received from Dr Lezama--IVF, am lab and elyte protocol, and general post op orders. No new orders at this time.
--- NOTE | 2020-05-31 20:50 | PDOC4 ---
OPERATIVE NOTE Date: Date: May 31, 2020 Pre-Op Diagnosis: Pancreatic cancer Post-Op Diagnosis: same Procedure Performed: Whipple procedure (specifically pyloric sparing, pancreaticogastrostomy), G-tube placement RUQ CONCHIS drain near hepaticojejunostomy, LUQ CONCHIS drain near pancreaticogastrostomy, mat drain in wound, all secured with 3 0 nylon Surgeon: Sachin Avendano Asst: Dr. Leoncio Rollins Anesthesia Type: GETA Blood Loss: 300 Specimans Obtained: whipple, gallbladder, hepatic artery lymph node, additional uncinate process margin, additional mesenteric margin Findings: no obvious metastatic disease; large, dilated CBD with infected bile, enlarged gallbladder, mass in head of pancreas, uncinate process margin positive Complications: none Operative Note: After obtaining informed consent, patient was taken to OR, induced under GETA and prepped in the usual fashion. Midline incision made with cautery. Abdominal cavity was explored and noted as above. No obvious metastatic disease noted in liver or elsewhere. Anatomy normal otherwise, except for evidence of previous sleeve gastrectomy. Duodenum fully kocherized. Gallbladder taken down in dome down fashion. Cystic artery ligated with ligasure. Cystic duct ligated with ligasure. Gallbladder sent to pathology. Hepatic artery lymph node excised with cautery. Hepatic artery normal in appearance and no evidence of compromise with clamping gastroduodenal. Gastroduodenal artery ligated with 0 vicryl and clip. Common bile duct resected above cystic duct insertion with cautery. Stent kept with specimen. Bile appeared to be infected. Duodenum divided with GRANT distal to pylorus. Proximal jejunum divided with GRANT at ligament of treitz with GRANT. Pancreas divided with cautery at SMV, which did not appeared to be involved. Pancreas noted to atrophic throughout. Pancreatic duct essentially obliterated and small. Attempts at placing small pediatric feeding tube was not possible. Pancreas mobilized off SMV with ligasure. Uncinate divided with ligasure. Specimen sent to pathology for evaluation. Frozen section concerning for margin involvement at uncinate margin. Addition margin taken with ligasure well to left of SMV and up to SMA of uncinated process. In addition, additional specimen taken of mesentery inferiorly near jejunal vessels. Reconstruction then proceeded. Pancreatic gastrostomy performed with invagi nation of pancreas into posterior stomach. This was performed with 3 0 vicryl. Proximal jejunum was brought through avascular portion of right transverse mesocolon. Duodenal jejunstomy created with inside 3 0 PDS and outside 3 0 vicryl. Anastomosis noted to be viable, patent, under no tension and without leakage. NGT placed across this anastomosis. Hepaticojejunostomy created distal to this with 4 0 PDS in side to side sutured anastomosis. This appeared to patent, under no tension and completely viable. Copious irrigation. No evidence of bleeding or other pathology noted. Drains placed as noted above. Gastrostomy tube placed in anterior stomach through 2 x 3 0 vicryl pursestrings and tacked to abdominal wall with 3 0 vicryl. Balloon inflated. Peritoneum repaired with 0 vicryl. Anterior fascia repaired with 0 PDS looped. Skin repaired with 3 0 vicryl and 4 0 monocryl. Mat left in wound and secured with 3 0 nylon. Dressing placed. Patient tolerated procedure well and sent to PACU in stable condition. All counts correct. Wound class is dirty, given infected bile and is a 4. SANG AVENDANO MD May 31, 2020 20:50
[2020-05-31] MEDS: NORMAL SALINE 35 ML, fentaNYL PF VIAL 250 MCG, ROPIVacaine 0.5% PF 10 ML in EPIDURAL 50 TV EPID PRN (21:42)
[2020-06-01] VITALS (24 sets, daily range): BP systolic 85–110; BP diastolic 47–65
[2020-06-01] MEDS: NORMAL SALINE 35 ML, fentaNYL PF VIAL 250 MCG, ROPIVacaine 0.5% PF 10 ML in EPIDURAL 50 TV EPID PRN ×4 (05:15→21:37)
[2020-06-01] MEDS ORDERED: IV NORMAL SALINE 1000ML BAG 1,000 ML IV ONE (07:00)
[2020-06-01] MEDS: INSULIN LISPRO 300 UNITS/3 ML VIAL. SQ SCH ×4 (07:07→18:00)
[2020-06-01 07:20] LABS: BASO % 0 % (0-3); EOS % 0 % (0-3); HEMATOCRIT 27.6 % (39.0-53.0); HEMOGLOBIN 9.4 g/dL (13.0-17.5); LYMPH # 0.9 x10^3/uL (1.0-4.8); LYMPH % 11 % (24-48); MEAN CORPUSCULAR HEMOGLOBIN 35 pg (25-35); MEAN CORPUSCULAR HGB CONC 34 g/dL (31-37); MEAN CORPUSCULAR VOLUME 104 fL (79-100); MONO # 0.9 x10^3/uL (0.0-1.1); MONO % 11 % (0-9); NEUT # 6.3 x10^3/uL (1.8-7.7); NEUT % 78 % (31-73); PLATELET COUNT 171 x10^3/uL (140-400); RED BLOOD COUNT 2.66 x10^6/uL (4.30-5.70); RED CELL DISTRIBUTION WIDTH 17.8 % (11.5-14.5); WHITE BLOOD COUNT 8.1 x10^3/uL (4.0-11.0)
[2020-06-01] MEDS: IV RINGERS,LACTATED 1000ML 1,000 ML IV SCH (07:23)
[2020-06-01 07:41] LABS: ALBUMIN 1.8 g/dL (3.4-5.0); ALBUMIN/GLOBULIN RATIO 0.6 (1.0-1.7); CREATININE 0.5 mg/dL (0.7-1.3); GFR 174.6; MAGNESIUM 1.4 mg/dL (1.8-2.4); POTASSIUM 3.2 mmol/L (3.5-5.1); TOTAL BILIRUBIN 2.6 mg/dL (0.2-1.0); TOTAL PROTEIN 4.6 g/dL (6.4-8.2)
[2020-06-01] MEDS ORDERED: MAGNESIUM SULFATE 4GM 100 ML IV ONE (08:00)
[2020-06-01] MEDS: POTASSIUM CHLORIDE 10MEQ 100 ML IV SCH ×4 (08:35→11:39)
[2020-06-01] MEDS: ENOXAPARIN 40 MG/0.4 ML SYRINGE. SQ SCH (08:36)
[2020-06-01] MEDS ORDERED: VITA1TAB31 PO (09:02)
[2020-06-01] MEDS ORDERED: METF500T16 PO (09:02)
[2020-06-01] MEDS ORDERED: POTA20TA4 PO (09:02)
[2020-06-01] MEDS ORDERED: INSU100V13 SQ (09:02)
[2020-06-01] MEDS ORDERED: OXYC5TAB2 PO (09:02)
[2020-06-01] MEDS ORDERED: LIDO30CR TP (09:02)
--- NOTE | 2020-06-01 09:24 | RAD ---
EXAM: Abdomen, single view. HISTORY: Postoperative evaluation. COMPARISON: 05/02/2020 FINDINGS: A frontal view of the abdomen is obtained. There is a nasogastric tube within the stomach. There are drainage catheters terminating within the left upper quadrant. There is also a suspected drain terminating over the midline abdomen. There is gas and stool within the colon. Evaluated for free air is limited in the absence of an upright or lateral decubitus view. There is a gastrostomy tube overlying expected position. IMPRESSION: 1. Findings consistent with a reported recent Whipple procedure. There are multiple drainage catheters overlying the abdomen. 2. Nonobstructive bowel gas pattern. Electronically signed by: Brittany Panda MD (06/01/2020 9:21 AM) [id number]
[2020-06-01] MEDS: PANTOPRAZOLE IV PUSH 40 MG VIAL. IVP SCH (09:36)
--- NOTE | 2020-06-01 10:07 | PDOC ---
SURGICAL PROGRESS NOTE DATE: 06/01/20 TIME: 10:01 Subjective pain managed no nausea Vital Signs Vital Signs Date Time Temp Pulse Resp B/P (MAP) Pulse Ox O2 Delivery O2 Flow Rate FiO2 06/01/20 09:00 72 19 93/56 (68) 98 Room Air 06/01/20 08:00 98.6 98.6 06/01/20 04:00 2.0 I&O Intake and Output 06/01/20 07:00 Intake Total 4782 ml Output Total 1760 ml Balance 3022 ml Intake IV Total 4782 ml Output Urine Total 1200 ml Drainage Total 260 ml Estimated Blood Loss 300 ml PATIENT HAS A IVERSON: Yes General: Cooperative, No acute distress Abdomen: Soft, Other (drains serosang) Labs Laboratory Tests Test 05/31/20 09:12 05/31/20 11:17 05/31/20 13:05 05/31/20 15:51 Glucose (Fingerstick) 113 mg/dL (70-99) 108 mg/dL (70-99) 127 mg/dL (70-99) 148 mg/dL (70-99) Test 05/31/20 17:32 06/01/20 06:50 06/01/20 07:04 Glucose (Fingerstick) 131 mg/dL (70-99) 164 mg/dL (70-99) White Blood Count 8.1 x10^3/uL (4.0-11.0) Red Blood Count 2.66 x10^6/uL (4.30-5.70) Hemoglobin 9.4 g/dL (13.0-17.5) Hematocrit 27.6 % (39.0-53.0) Mean Corpuscular Volume 104 fL (79-100) Mean Corpuscular Hemoglobin 35 pg (25-35) Mean Corpuscular Hemoglobin Concent 34 g/dL (31-37) Red Cell Distribution Width 17.8 % (11.5-14.5) Platelet Count 171 x10^3/uL (140-400) Neutrophils (%) (Auto) 78 % (31-73) Lymphocytes (%) (Auto) 11 % (24-48) Monocytes (%) (Auto) 11 % (0-9) Eosinophils (%) (Auto) 0 % (0-3) Basophils (%) (Auto) 0 % (0-3) Neutrophils # (Auto) 6.3 x10^3/uL (1.8-7.7) Lymphocytes # (Auto) 0.9 x10^3/uL (1.0-4.8) Monocytes # (Auto) 0.9 x10^3/uL (0.0-1.1) Eosinophils # (Auto) 0.0 x10^3/uL (0.0-0.7) Basophils # (Auto) 0.0 x10^3/uL (0.0-0.2) Sodium Level 142 mmol/L (136-145) Potassium Level 3.2 mmol/L (3.5-5.1) Chloride Level 108 mmol/L (98-107) Carbon Dioxide Level 26 mmol/L (21-32) Anion Gap 8 (6-14) Blood Urea Nitrogen 11 mg/dL (8-26) Creatinine 0.5 mg/dL (0.7-1.3) Estimated GFR (Cockcroft-Gault) 174.6 BUN/Creatinine Ratio 22 (6-20) Glucose Level 185 mg/dL (70-99) Calcium Level 8.0 mg/dL (8.5-10.1) Magnesium Level 1.4 mg/dL (1.8-2.4) Total Bilirubin 2.6 mg/dL (0.2-1.0) Aspartate Amino Transf (AST/SGOT) 82 U/L (15-37) Alanine Aminotransferase (ALT/SGPT) 64 U/L (16-63) Alkaline Phosphatase 344 U/L (46-116) Total Protein 4.6 g/dL (6.4-8.2) Albumin 1.8 g/dL (3.4-5.0) Albumin/Globulin Ratio 0.6 (1.0-1.7) Laboratory Tests Test 05/31/20 11:17 05/31/20 13:05 05/31/20 15:51 05/31/20 17:32 Glucose (Fingerstick) 108 mg/dL (70-99) 127 mg/dL (70-99) 148 mg/dL (70-99) 131 mg/dL (70-99) Test 06/01/20 06:50 06/01/20 07:04 White Blood Count 8.1 x10^3/uL (4.0-11.0) Red Blood Count 2.66 x10^6/uL (4.30-5.70) Hemoglobin 9.4 g/dL (13.0-17.5) Hematocrit 27.6 % (39.0-53.0) Mean Corpuscular Volume 104 fL (79-100) Mean Corpuscular Hemoglobin 35 pg (25-35) Mean Corpuscular Hemoglobin Concent 34 g/dL (31-37) Red Cell Distribution Width 17.8 % (11.5-14.5) Platelet Count 171 x10^3/uL (140-400) Neutrophils (%) (Auto) 78 % (31-73) Lymphocytes (%) (Auto) 11 % (24-48) Monocytes (%) (Auto) 11 % (0-9) Eosinophils (%) (Auto) 0 % (0-3) Basophils (%) (Auto) 0 % (0-3) Neutrophils # (Auto) 6.3 x10^3/uL (1.8-7.7) Lymphocytes # (Auto) 0.9 x10^3/uL (1.0-4.8) Monocytes # (Auto) 0.9 x10^3/uL (0.0-1.1) Eosinophils # (Auto) 0.0 x10^3/uL (0.0-0.7) Basophils # (Auto) 0.0 x10^3/uL (0.0-0.2) Sodium Level 142 mmol/L (136-145) Potassium Level 3.2 mmol/L (3.5-5.1) Chloride Level 108 mmol/L (98-107) Carbon Dioxide Level 26 mmol/L (21-32) Anion Gap 8 (6-14) Blood Urea Nitrogen 11 mg/dL (8-26) Creatinine 0.5 mg/dL (0.7-1.3) Estimated GFR (Cockcroft-Gault) 174.6 BUN/Creatinine Ratio 22 (6-20) Glucose Level 185 mg/dL (70-99) Calcium Level 8.0 mg/dL (8.5-10.1) Magnesium Level 1.4 mg/dL (1.8-2.4) Total Bilirubin 2.6 mg/dL (0.2-1.0) Aspartate Amino Transf (AST/SGOT) 82 U/L (15-37) Alanine Aminotransferase (ALT/SGPT) 64 U/L (16-63) Alkaline Phosphatase 344 U/L (46-116) Total Protein 4.6 g/dL (6.4-8.2) Albumin 1.8 g/dL (3.4-5.0) Albumin/Globulin Ratio 0.6 (1.0-1.7) Glucose (Fingerstick) 164 mg/dL (70-99) Assessment/Plan close monitoring bp improving some this AM Justicifation of Admission Dx: Justifications for Admission: Justification of Admission Dx: Yes BABATUNDE GUEVARA PHYSICIST [employer] Jun 01, 2020 10:07
--- NOTE | 2020-06-01 11:40 | NUR ---
Blood glucose via Jonnie at 1140 is 122.
--- NOTE | 2020-06-01 12:30 | CONS ---
DATE OF CONSULTATION: INTERNAL MEDICINE CONSULTATION CHIEF COMPLAINT: Postop Whipple procedure, request for postoperative evaluation and treatment of comorbidities. HISTORY OF PRESENT ILLNESS: The patient is a pleasant middle-aged male who has a new diagnosis of pancreatic cancer, went for Whipple procedure yesterday with Dr. Lezama. Dr. Lezama has asked us to follow along and evaluate the patient for other comorbidities. PAST MEDICAL HISTORY: Pancreatic cancer, GERD, previous gastric sleeve, diabetes, hypertension. ALLERGIES: None. FAMILY HISTORY: Diabetes. SOCIAL HISTORY: He does not drink, smoke or take drugs. He is . MEDICATIONS: Reviewed. He is on oxycodone, potassium, Protonix, metformin, insulin, lidocaine, and vitamins. REVIEW OF SYSTEMS: GENERAL: No history of weight change, weakness or fevers. SKIN: No bruising, hair changes or rashes. EYES: No blurred, double or loss of vision. NOSE AND THROAT: No history of nosebleeds, hoarseness or sore throat. HEART: No history of palpitations, chest pain or shortness of breath on exertion. LUNGS: Denies cough, hemoptysis, wheezing or shortness of breath. GASTROINTESTINAL: He complains of abdominal pain, although he is feeling better. GENITOURINARY: No history of frequency, urgency, hesitancy or nocturia. NEUROLOGIC: Denies history of numbness, tingling, tremor or weakness. PSYCHIATRIC: No history of panic, anxiety or depression. ENDOCRINE: No history of heat or cold intolerance, polyuria or polydipsia. EXTREMITIES: Denies muscle weakness, joint pain, pain on walking or stiffness. PHYSICAL EXAMINATION: VITALS: Within normal limits and are stable. GENERAL: No apparent distress. Alert and oriented. HEENT: Normal cephalic atraumatic, external auditory canals are patent. Eyes: Extraocular muscles are intact, pupils are equally round and reactive to light and accommodation. MUSCULOSKELETAL: Well developed, well nourished, good range of motion. ENDOCRINE: No thyromegaly was palpated. LYMPHATICS: No cervical chain or axillary nodes were noted. HEMATOPOIETIC: No bruising. NECK: Supple, no JVD, no thyromegaly was noted. LUNGS: Clear to auscultation in all lung sharif without rhonchi or wheezing. HEART: RRR, S1, S2 present. Peripheral pulses intact, no obvious murmurs were noted. GASTROINTESTINAL: He has clean, dry and intact ventral dressings. He has several different drains. EXTREMITIES: Without any cyanosis, clubbing, or edema. Pedal pulses intact, Homans sign is negative. NEUROLOGIC: Normal speech, normal tone. A and O x 3, moves all extremities, no obvious focal deficits. PSYCHIATRIC: Normal affect, normal mood. Stable. SKIN: No ulcerations or rashes, good skin turgor, no jaundice. VASCULAR: Good capillary refill, neurovascular bundle appears to be intact. LABORATORY DATA: White count 8, hemoglobin 9.4, platelets 171. Electrolytes: Sodium 142, potassium 3.2, chloride 108, bicarbonate 26, BUN 11, creatinine 0.5, glucose 185, AST and ALT are slightly high at 82 and 64, alkaline phosphatase high at 344. ASSESSMENT AND PLAN: Postoperative day #1 Whipple procedure with hypokalemia, anemia, transaminitis and hyperglycemia. The patient is in the ICU. We will continue that for now. Aggressive wound care. IV Protonix. Replace his magnesium. Check daily CBC, BMP. Lovenox 40 subQ every day for DVT prophylaxis. Elias to bedside drainage p.r.n. Sliding scale insulin. PT, OT. Thank you very much for allowing us to participate in the care of this nice gentleman. SUSAN GARNICA DO DR: ELOY/madison JOB#: [id number] / [id number]
--- NOTE | 2020-06-01 15:00 | NUR ---
SS following for discharge planning. SS reviewed pt chart and discussed with pt RN. Pt is from home and is currently on room air. COVID19 negative. Pt had Whipple 05/31/2020. PT/OT ordered. SS will continue to follow for discharge planning.
--- NOTE | 2020-06-01 22:14 | NUR ---
Blood glucose via Jonnie at 2000 is 97.
[2020-06-02] VITALS (24 sets, daily range): BP systolic 87–110; BP diastolic 55–71
[2020-06-02] MEDS: NORMAL SALINE 35 ML, fentaNYL PF VIAL 250 MCG, ROPIVacaine 0.5% PF 10 ML in EPIDURAL 50 TV EPID PRN ×4 (03:34→18:05)
[2020-06-02] MEDS: IV RINGERS,LACTATED 1000ML 1,000 ML IV SCH (05:36)
[2020-06-02] MEDS: INSULIN LISPRO 300 UNITS/3 ML VIAL. SQ SCH ×5 (06:00→23:59)
--- NOTE | 2020-06-02 06:54 | NUR ---
Blood glucose at 0600 via Jonnie was 85
[2020-06-02] MEDS: PANTOPRAZOLE IV PUSH 40 MG VIAL. IVP SCH (07:26)
[2020-06-02 07:28] LABS: BASO % 0 % (0-3); EOS # 0.1 x10^3/uL (0.0-0.7); EOS % 1 % (0-3); HEMOGLOBIN 9.8 g/dL (13.0-17.5); LYMPH # 0.8 x10^3/uL (1.0-4.8); LYMPH % 8 % (24-48); MEAN CORPUSCULAR HEMOGLOBIN 35 pg (25-35); MEAN CORPUSCULAR HGB CONC 34 g/dL (31-37); MEAN CORPUSCULAR VOLUME 104 fL (79-100); MONO # 0.9 x10^3/uL (0.0-1.1); MONO % 9 % (0-9); NEUT % 82 % (31-73); PLATELET COUNT 201 x10^3/uL (140-400); RED BLOOD COUNT 2.79 x10^6/uL (4.30-5.70); RED CELL DISTRIBUTION WIDTH 16.5 % (11.5-14.5); WHITE BLOOD COUNT 9.8 x10^3/uL (4.0-11.0)
[2020-06-02 07:33] LABS: CALCIUM 7.8 mg/dL (8.5-10.1); CREATININE 0.5 mg/dL (0.7-1.3); GFR 174.6; POTASSIUM 3.5 mmol/L (3.5-5.1)
[2020-06-02] MEDS: ENOXAPARIN 40 MG/0.4 ML SYRINGE. SQ SCH (08:10)
--- NOTE | 2020-06-02 09:26 | PDOC ---
SURGICAL PROGRESS NOTE DATE: 06/02/20 TIME: 09:25 Subjective pain managed up to chair yesterday Vital Signs Vital Signs Date Time Temp Pulse Resp B/P (MAP) Pulse Ox O2 Delivery O2 Flow Rate FiO2 06/02/20 09:00 89 16 110/64 (79) 98 Room Air 06/02/20 08:00 99.0 99.0 I&O Intake and Output 06/02/20 07:00 Intake Total 3487 ml Output Total 3070 ml Balance 417 ml Intake IV Total 3487 ml Output Urine Total 2375 ml Gastric Drainage Total 40 ml Drainage Total 655 ml PATIENT HAS A IVERSON: Yes General: Alert, Cooperative Abdomen: Soft, Other (drains serosang, dressings dry) Labs Laboratory Tests Test 05/31/20 11:17 05/31/20 13:05 05/31/20 15:51 05/31/20 17:32 Glucose (Fingerstick) 108 mg/dL (70-99) 127 mg/dL (70-99) 148 mg/dL (70-99) 131 mg/dL (70-99) Test 06/01/20 06:50 06/01/20 07:04 06/02/20 07:06 White Blood Count 8.1 x10^3/uL (4.0-11.0) 9.8 x10^3/uL (4.0-11.0) Red Blood Count 2.66 x10^6/uL (4.30-5.70) 2.79 x10^6/uL (4.30-5.70) Hemoglobin 9.4 g/dL (13.0-17.5) 9.8 g/dL (13.0-17.5) Hematocrit 27.6 % (39.0-53.0) 29.0 % (39.0-53.0) Mean Corpuscular Volume 104 fL (79-100) 104 fL (79-100) Mean Corpuscular Hemoglobin 35 pg (25-35) 35 pg (25-35) Mean Corpuscular Hemoglobin Concent 34 g/dL (31-37) 34 g/dL (31-37) Red Cell Distribution Width 17.8 % (11.5-14.5) 16.5 % (11.5-14.5) Platelet Count 171 x10^3/uL (140-400) 201 x10^3/uL (140-400) Neutrophils (%) (Auto) 78 % (31-73) 82 % (31-73) Lymphocytes (%) (Auto) 11 % (24-48) 8 % (24-48) Monocytes (%) (Auto) 11 % (0-9) 9 % (0-9) Eosinophils (%) (Auto) 0 % (0-3) 1 % (0-3) Basophils (%) (Auto) 0 % (0-3) 0 % (0-3) Neutrophils # (Auto) 6.3 x10^3/uL (1.8-7.7) 8.0 x10^3/uL (1.8-7.7) Lymphocytes # (Auto) 0.9 x10^3/uL (1.0-4.8) 0.8 x10^3/uL (1.0-4.8) Monocytes # (Auto) 0.9 x10^3/uL (0.0-1.1) 0.9 x10^3/uL (0.0-1.1) Eosinophils # (Auto) 0.0 x10^3/uL (0.0-0.7) 0.1 x10^3/uL (0.0-0.7) Basophils # (Auto) 0.0 x10^3/uL (0.0-0.2) 0.0 x10^3/uL (0.0-0.2) Sodium Level 142 mmol/L (136-145) 137 mmol/L (136-145) Potassium Level 3.2 mmol/L (3.5-5.1) 3.5 mmol/L (3.5-5.1) Chloride Level 108 mmol/L (98-107) 102 mmol/L (98-107) Carbon Dioxide Level 26 mmol/L (21-32) 27 mmol/L (21-32) Anion Gap 8 (6-14) 8 (6-14) Blood Urea Nitrogen 11 mg/dL (8-26) 7 mg/dL (8-26) Creatinine 0.5 mg/dL (0.7-1.3) 0.5 mg/dL (0.7-1.3) Estimated GFR (Cockcroft-Gault) 174.6 174.6 BUN/Creatinine Ratio 22 (6-20) Glucose Level 185 mg/dL (70-99) 98 mg/dL (70-99) Calcium Level 8.0 mg/dL (8.5-10.1) 7.8 mg/dL (8.5-10.1) Magnesium Level 1.4 mg/dL (1.8-2.4) 1.9 mg/dL (1.8-2.4) Total Bilirubin 2.6 mg/dL (0.2-1.0) Aspartate Amino Transf (AST/SGOT) 82 U/L (15-37) Alanine Aminotransferase (ALT/SGPT) 64 U/L (16-63) Alkaline Phosphatase 344 U/L (46-116) Total Protein 4.6 g/dL (6.4-8.2) Albumin 1.8 g/dL (3.4-5.0) Albumin/Globulin Ratio 0.6 (1.0-1.7) Glucose (Fingerstick) 164 mg/dL (70-99) Laboratory Tests Test 06/02/20 07:06 White Blood Count 9.8 x10^3/uL (4.0-11.0) Red Blood Count 2.79 x10^6/uL (4.30-5.70) Hemoglobin 9.8 g/dL (13.0-17.5) Hematocrit 29.0 % (39.0-53.0) Mean Corpuscular Volume 104 fL (79-100) Mean Corpuscular Hemoglobin 35 pg (25-35) Mean Corpuscular Hemoglobin Concent 34 g/dL (31-37) Red Cell Distribution Width 16.5 % (11.5-14.5) Platelet Count 201 x10^3/uL (140-400) Neutrophils (%) (Auto) 82 % (31-73) Lymphocytes (%) (Auto) 8 % (24-48) Monocytes (%) (Auto) 9 % (0-9) Eosinophils (%) (Auto) 1 % (0-3) Basophils (%) (Auto) 0 % (0-3) Neutrophils # (Auto) 8.0 x10^3/uL (1.8-7.7) Lymphocytes # (Auto) 0.8 x10^3/uL (1.0-4.8) Monocytes # (Auto) 0.9 x10^3/uL (0.0-1.1) Eosinophils # (Auto) 0.1 x10^3/uL (0.0-0.7) Basophils # (Auto) 0.0 x10^3/uL (0.0-0.2) Sodium Level 137 mmol/L (136-145) Potassium Level 3.5 mmol/L (3.5-5.1) Chloride Level 102 mmol/L (98-107) Carbon Dioxide Level 27 mmol/L (21-32) Anion Gap 8 (6-14) Blood Urea Nitrogen 7 mg/dL (8-26) Creatinine 0.5 mg/dL (0.7-1.3) Estimated GFR (Cockcroft-Gault) 174.6 Glucose Level 98 mg/dL (70-99) Calcium Level 7.8 mg/dL (8.5-10.1) Magnesium Level 1.9 mg/dL (1.8-2.4) Assessment/Plan supportive care Justicifation of Admission Dx: Justifications for Admission: Justification of Admission Dx: Yes BABATUNDE GUEVARA RELIABILITY MANAGER Jun 02, 2020 09:26
--- NOTE | 2020-06-02 11:46 | NUR ---
Blood glucose via Jonnie scanner is 82 at 1145.
--- NOTE | 2020-06-02 11:59 | PDOC ---
[facility] PROGRESS NOTE Date of Service DOS: DATE: 06/02/20 TIME: 11:56 Chief Complaint Chief Complaint Postoperative day #2 Whipple procedure with hypokalemia, anemia, transaminitis and hyperglycemia. Pancreatic cancer GERD next hypertension Diabetes Previous gastric sleeve History of Present Illness History of Present Illness 06/02/2020 Patient seen and examined in the ICU He was up walking with physical therapy Appears very weak and frail but overall stable present Chart reviewed Discussed with RN Vitals/I&O Vitals/I&O: Vital Signs Date Time Temp Pulse Resp B/P (MAP) Pulse Ox O2 Delivery O2 Flow Rate FiO2 06/02/20 11:34 Room Air 06/02/20 11:00 97 16 100/67 (78) 97 06/02/20 08:00 99.0 99.0 I & O 06/01/20 06/01/20 06/02/20 15:00 23:00 07:00 Intake Total 1542 ml 1157 ml 788 ml Output Total 1060 ml 970 ml 1040 ml Balance 482 ml 187 ml -252 ml Physical Exam General: Alert, Cooperative, Other (Very weak and frail) Heart: Regular rate Lungs: Clear Abdomen: Soft, Other (drains serosang, dressings dry) Extremities: No clubbing Skin: No rashes Labs Labs: Laboratory Tests Test 06/02/20 07:06 White Blood Count 9.8 x10^3/uL (4.0-11.0) Red Blood Count 2.79 x10^6/uL (4.30-5.70) Hemoglobin 9.8 g/dL (13.0-17.5) Hematocrit 29.0 % (39.0-53.0) Mean Corpuscular Volume 104 fL (79-100) Mean Corpuscular Hemoglobin 35 pg (25-35) Mean Corpuscular Hemoglobin Concent 34 g/dL (31-37) Red Cell Distribution Width 16.5 % (11.5-14.5) Platelet Count 201 x10^3/uL (140-400) Neutrophils (%) (Auto) 82 % (31-73) Lymphocytes (%) (Auto) 8 % (24-48) Monocytes (%) (Auto) 9 % (0-9) Eosinophils (%) (Auto) 1 % (0-3) Basophils (%) (Auto) 0 % (0-3) Neutrophils # (Auto) 8.0 x10^3/uL (1.8-7.7) Lymphocytes # (Auto) 0.8 x10^3/uL (1.0-4.8) Monocytes # (Auto) 0.9 x10^3/uL (0.0-1.1) Eosinophils # (Auto) 0.1 x10^3/uL (0.0-0.7) Basophils # (Auto) 0.0 x10^3/uL (0.0-0.2) Sodium Level 137 mmol/L (136-145) Potassium Level 3.5 mmol/L (3.5-5.1) Chloride Level 102 mmol/L (98-107) Carbon Dioxide Level 27 mmol/L (21-32) Anion Gap 8 (6-14) Blood Urea Nitrogen 7 mg/dL (8-26) Creatinine 0.5 mg/dL (0.7-1.3) Estimated GFR (Cockcroft-Gault) 174.6 Glucose Level 98 mg/dL (70-99) Calcium Level 7.8 mg/dL (8.5-10.1) Magnesium Level 1.9 mg/dL (1.8-2.4) Review of Systems Review of Systems: Complains of weakness complains of hunger Assessment and Plan Assessmemt and Plan Postoperative day #2 Whipple procedure with hypokalemia, anemia, transaminitis and hyperglycemia. Pancreatic cancer GERD next hypertension Diabetes Previous gastric sleeve Plan ICU monitoring Wound care I am going to start some IV ProcalAmine and stop his lactated Ringer's DVT prophylaxis Full code Hope to transfer out of ICU later today Hope to resume home meds soon Trend labs On discharge he may need snf? We will follow Comment Review of Relevant I have reviewed the following items derrick (where applicable) has been applied. Justifications for Admission Other Justification SUSAN GARNICA III DO Jun 02, 2020 11:59
[2020-06-02] MEDS: AMINO AC 3%/ELECTROLYTE/GLYCER 1,000 ML IV SCH (12:39)
--- NOTE | 2020-06-02 15:18 | NUR ---
SS following up with discharge planning. SS reviewed pt chart and discussed with pt RN. Pt is currently on room air. S/p Whipple. COVID19 negative. Pt on PPN. PT/OT recommending home with home healthcare. SS will continue to follow for discharge planning.
--- NOTE | 2020-06-02 18:11 | NUR ---
Blood glucose via Jonnie scanner at 1811 is 93.
[2020-06-03] VITALS (19 sets, daily range): BP systolic 92–108; BP diastolic 58–70
[2020-06-03] MEDS: AMINO AC 3%/ELECTROLYTE/GLYCER 1,000 ML IV SCH ×2 (02:11→15:18)
[2020-06-03] MEDS: NORMAL SALINE 35 ML, fentaNYL PF VIAL 250 MCG, ROPIVacaine 0.5% PF 10 ML in EPIDURAL 50 TV EPID PRN ×5 (02:15→23:05)
[2020-06-03] MEDS: INSULIN LISPRO 300 UNITS/3 ML VIAL. SQ SCH ×4 (06:00→23:55)
[2020-06-03 07:38] LABS: ANION GAP 6 (6-14); BLOOD UREA NITROGEN 10 mg/dL (8-26); CALCIUM 7.8 mg/dL (8.5-10.1); CARBON DIOXIDE 29 mmol/L (21-32); CHLORIDE 103 mmol/L (98-107); CREATININE 0.3 mg/dL (0.7-1.3); GFR > 300.0; GLUCOSE 108 mg/dL (70-99); POTASSIUM 3.5 mmol/L (3.5-5.1); SODIUM 138 mmol/L (136-145)
[2020-06-03] MEDS: PANTOPRAZOLE IV PUSH 40 MG VIAL. IVP SCH (07:39)
[2020-06-03] MEDS: ENOXAPARIN 40 MG/0.4 ML SYRINGE. SQ SCH (08:40)
--- NOTE | 2020-06-03 09:55 | PDOC ---
SURGICAL PROGRESS NOTE DATE: 06/03/20 TIME: 09:54 Subjective ambulated yesterday pain managed no flatus Vital Signs Vital Signs Date Time Temp Pulse Resp B/P (MAP) Pulse Ox O2 Delivery O2 Flow Rate FiO2 06/03/20 09:42 20 99 Room Air 06/03/20 09:00 83 108/70 (83) 06/03/20 07:00 98.5 98.5 06/03/20 04:00 2.0 I&O Intake and Output 06/03/20 07:00 Intake Total 2161 ml Output Total 2955 ml Balance -794 ml Intake Oral 0 ml IV Total 2161 ml Output Urine Total 2520 ml Drainage Total 435 ml PATIENT HAS A IVERSON: Yes General: Alert, Oriented X3, Cooperative HEENT: Other (NG) Abdomen: Soft, Other (drain serosang) Labs Laboratory Tests Test 06/02/20 07:06 06/03/20 06:50 White Blood Count 9.8 x10^3/uL (4.0-11.0) Red Blood Count 2.79 x10^6/uL (4.30-5.70) Hemoglobin 9.8 g/dL (13.0-17.5) Hematocrit 29.0 % (39.0-53.0) Mean Corpuscular Volume 104 fL (79-100) Mean Corpuscular Hemoglobin 35 pg (25-35) Mean Corpuscular Hemoglobin Concent 34 g/dL (31-37) Red Cell Distribution Width 16.5 % (11.5-14.5) Platelet Count 201 x10^3/uL (140-400) Neutrophils (%) (Auto) 82 % (31-73) Lymphocytes (%) (Auto) 8 % (24-48) Monocytes (%) (Auto) 9 % (0-9) Eosinophils (%) (Auto) 1 % (0-3) Basophils (%) (Auto) 0 % (0-3) Neutrophils # (Auto) 8.0 x10^3/uL (1.8-7.7) Lymphocytes # (Auto) 0.8 x10^3/uL (1.0-4.8) Monocytes # (Auto) 0.9 x10^3/uL (0.0-1.1) Eosinophils # (Auto) 0.1 x10^3/uL (0.0-0.7) Basophils # (Auto) 0.0 x10^3/uL (0.0-0.2) Sodium Level 137 mmol/L (136-145) 138 mmol/L (136-145) Potassium Level 3.5 mmol/L (3.5-5.1) 3.5 mmol/L (3.5-5.1) Chloride Level 102 mmol/L (98-107) 103 mmol/L (98-107) Carbon Dioxide Level 27 mmol/L (21-32) 29 mmol/L (21-32) Anion Gap 8 (6-14) 6 (6-14) Blood Urea Nitrogen 7 mg/dL (8-26) 10 mg/dL (8-26) Creatinine 0.5 mg/dL (0.7-1.3) 0.3 mg/dL (0.7-1.3) Estimated GFR (Cockcroft-Gault) 174.6 > 300.0 Glucose Level 98 mg/dL (70-99) 108 mg/dL (70-99) Calcium Level 7.8 mg/dL (8.5-10.1) 7.8 mg/dL (8.5-10.1) Magnesium Level 1.9 mg/dL (1.8-2.4) Laboratory Tests Test 06/03/20 06:50 Sodium Level 138 mmol/L (136-145) Potassium Level 3.5 mmol/L (3.5-5.1) Chloride Level 103 mmol/L (98-107) Carbon Dioxide Level 29 mmol/L (21-32) Anion Gap 6 (6-14) Blood Urea Nitrogen 10 mg/dL (8-26) Creatinine 0.3 mg/dL (0.7-1.3) Estimated GFR (Cockcroft-Gault) > 300.0 Glucose Level 108 mg/dL (70-99) Calcium Level 7.8 mg/dL (8.5-10.1) Assessment/Plan ok to move out of ICU continue current care Justicifation of Admission Dx: Justifications for Admission: Justification of Admission Dx: Yes BABATUNDE GUEVARA EMAIL MARKETING COORDINATOR Jun 03, 2020 09:54
--- NOTE | 2020-06-03 10:16 | PDOC ---
[facility] [facility] PROGRESS NOTE Date of Service DOS: DATE: 06/03/20 TIME: 10:14 Chief Complaint Chief Complaint Postoperative day #3 Whipple procedure with hypokalemia, anemia, transaminitis and hyperglycemia. Pancreatic cancer GERD next hypertension Diabetes Previous gastric sleeve History of Present Illness History of Present Illness 06/03/2020 Patient seen and examined in the ICU He has NG to suction Appears frail and weak perhaps depressed Chart reviewed Discussed with RN 06/02/2020 Patient seen and examined in the ICU He was up walking with physical therapy Appears very weak and frail but overall stable present Chart reviewed Discussed with RN Vitals/I&O Vitals/I&O: Vital Signs Date Time Temp Pulse Resp B/P (MAP) Pulse Ox O2 Delivery O2 Flow Rate FiO2 06/03/20 10:02 70 18 100/64 (76) 98 Room Air 06/03/20 07:00 98.5 98.5 06/03/20 04:00 2.0 I & O 06/02/20 06/02/20 06/03/20 15:00 23:00 07:00 Intake Total 807 ml 374 ml 980 ml Output Total 1185 ml 1245 ml 525 ml Balance -378 ml -871 ml 455 ml Physical Exam General: Alert, Oriented X3, Cooperative Heart: Regular rate Lungs: Clear Abdomen: Soft, Other (drain serosang) Extremities: No clubbing Skin: No rashes Labs Labs: Laboratory Tests Test 06/03/20 06:50 Sodium Level 138 mmol/L (136-145) Potassium Level 3.5 mmol/L (3.5-5.1) Chloride Level 103 mmol/L (98-107) Carbon Dioxide Level 29 mmol/L (21-32) Anion Gap 6 (6-14) Blood Urea Nitrogen 10 mg/dL (8-26) Creatinine 0.3 mg/dL (0.7-1.3) Estimated GFR (Cockcroft-Gault) > 300.0 Glucose Level 108 mg/dL (70-99) Calcium Level 7.8 mg/dL (8.5-10.1) Review of Systems Review of Systems: Complains of weakness complains of depression Assessment and Plan Assessmemt and Plan Postoperative day #3 Whipple procedure with hypokalemia, anemia, transaminitis and hyperglycemia. Pancreatic cancer GERD next hypertension Diabetes Previous gastric sleeve Plan ICU monitoring Wound care IV ProcalAmine DVT prophylaxis Full code Hope to transfer out of ICU later today Hope to resume home meds soon Trend labs On discharge he may need [place] [facility]? We will follow Comment Review of Relevant I have reviewed the following items derrick (where applicable) has been applied. Medications: Current Medications Medications (Trade) Dose Ordered Sig/Renuka Route PRN Reason Start Time Stop Time Status Last Admin Dose Admin Amino Acids/ Glycerin/ Electrolytes 1,000 ml @ 75 mls/hr [id number] IV 06/02/20 12:30 06/03/20 02:11 Justifications for Admission Other Justification SUSAN GARNICA III DO Jun 03, 2020 10:16
--- NOTE | 2020-06-03 13:31 | NUR ---
SS following up with discharge planning. SS reviewed pt chart and discussed with pt RN. Pt is currently on room air. Pt on PPN. COVID19 negative. PT/OT recommended home with home healthcare. SS will continue to follow for discharge planning.
--- NOTE | 2020-06-03 17:57 | NUR ---
Report given to FLAQUITA Kramer on [facility] for transfer of care around 1644. Patient was then moved to room [id number] around 1710 with all his belongings. [facility] notified and aware of patient arrival.
[2020-06-04 03:21] VITALS: BP 111/69
[2020-06-04] MEDS: NORMAL SALINE 35 ML, fentaNYL PF VIAL 250 MCG, ROPIVacaine 0.5% PF 10 ML in EPIDURAL 50 TV EPID PRN ×4 (04:35→21:15)
[2020-06-04] MEDS: AMINO AC 3%/ELECTROLYTE/GLYCER 1,000 ML IV SCH ×2 (04:50→21:28)
[2020-06-04] MEDS: INSULIN LISPRO 300 UNITS/3 ML VIAL. SQ SCH ×3 (06:00→18:00)
[2020-06-04 06:02] LABS: CALCIUM 8.1 mg/dL (8.5-10.1); CREATININE 0.4 mg/dL (0.7-1.3); GFR 225.9; POTASSIUM 3.5 mmol/L (3.5-5.1)
[2020-06-04 07:00] VITALS: BP 108/67
--- NOTE | 2020-06-04 07:04 | NUR ---
BLOOD SUGAR RESULTS FROM [facility] 06/04/20 at Midnight= 69 06/04/20 at 0600= 82
[2020-06-04] MEDS: ENOXAPARIN 40 MG/0.4 ML SYRINGE. SQ SCH (08:23)
[2020-06-04] MEDS: PANTOPRAZOLE IV PUSH 40 MG VIAL. IVP SCH (08:23)
--- NOTE | 2020-06-04 08:41 | PDOC ---
SURGICAL PROGRESS NOTE DATE: 06/04/20 TIME: 08:40 Subjective Patient states he is feeling well still having some abdominal discomfort complains most about NG tube no nausea has passed flatus Vital Signs Vital Signs Date Time Temp Pulse Resp B/P (MAP) Pulse Ox O2 Delivery O2 Flow Rate FiO2 06/04/20 07:00 98.9 69 18 108/67 (81) 99 Room Air 98.9 06/04/20 04:35 2.0 I&O Intake and Output 06/04/20 07:00 Intake Total 0 ml Output Total 1580 ml Balance -1580 ml Intake Oral 0 ml Output Urine Total 1440 ml Drainage Total 140 ml PATIENT HAS A IVERSON: Yes General: Alert, Oriented X3, Cooperative, mild distress Abdomen: Soft, Other (Hypoactive bowel sounds wounds clean dry and intact mild incisional tenderness drains in place serous drainage minimal out NG tube) Labs Laboratory Tests Test 06/03/20 06:50 06/04/20 05:20 Sodium Level 138 mmol/L (136-145) 137 mmol/L (136-145) Potassium Level 3.5 mmol/L (3.5-5.1) 3.5 mmol/L (3.5-5.1) Chloride Level 103 mmol/L (98-107) 102 mmol/L (98-107) Carbon Dioxide Level 29 mmol/L (21-32) 30 mmol/L (21-32) Anion Gap 6 (6-14) 5 (6-14) Blood Urea Nitrogen 10 mg/dL (8-26) 10 mg/dL (8-26) Creatinine 0.3 mg/dL (0.7-1.3) 0.4 mg/dL (0.7-1.3) Estimated GFR (Cockcroft-Gault) > 300.0 225.9 Glucose Level 108 mg/dL (70-99) 101 mg/dL (70-99) Calcium Level 7.8 mg/dL (8.5-10.1) 8.1 mg/dL (8.5-10.1) Laboratory Tests Test 06/04/20 05:20 Sodium Level 137 mmol/L (136-145) Potassium Level 3.5 mmol/L (3.5-5.1) Chloride Level 102 mmol/L (98-107) Carbon Dioxide Level 30 mmol/L (21-32) Anion Gap 5 (6-14) Blood Urea Nitrogen 10 mg/dL (8-26) Creatinine 0.4 mg/dL (0.7-1.3) Estimated GFR (Cockcroft-Gault) 225.9 Glucose Level 101 mg/dL (70-99) Calcium Level 8.1 mg/dL (8.5-10.1) Assessment/Plan That is post Whipple procedure hemodynamically stable Continue NG tube and supportive care Justicifation of Admission Dx: Justifications for Admission: Justification of Admission Dx: Yes JEFFREY LOWE MD Jun 04, 2020 08:41
--- NOTE | 2020-06-04 11:02 | PDOC ---
PROGRESS NOTES Date of Service: DATE: 06/04/20 TIME: 10:57 Chief Complaint Chief Complaint impression Postoperative day #4 Whipple procedure with hypokalemia, anemia, transaminitis and hyperglycemia. pancreatic cancer Severe protein-caloric malnutrition Acute electrolyte derangements Transaminitis due to hepatobiliary obstruction Normocytic anemia Thrombocytopenia Pancreatic cancer GERD hypertension Diabetes Previous gastric sleeve 37 MIN PT EXAM, CHART REVIEW, > 50% OF TIME SPENT WITH EXAM, CHART REVIEW, PT CARE COORDINATION History of Present Illness History of Present Illness 06/04/2020 Patient seen and examined bedside He has NG to suction Appears frail and weak Chart reviewed Discussed with RN 06/02/2020 Patient seen and examined in the ICU He was up walking with physical therapy Appears very weak and frail but overall stable present Chart reviewed Discussed with RN Vitals Vitals Vital Signs Date Time Temp Pulse Resp B/P (MAP) Pulse Ox O2 Delivery O2 Flow Rate FiO2 06/04/20 10:16 18 Room Air 06/04/20 07:00 98.9 69 108/67 (81) 99 98.9 06/04/20 04:35 2.0 Physical Exam General: Alert, Oriented X3, Cooperative, mild distress Heart: Regular rate Lungs: Clear Abdomen: Soft, Other (Hypoactive bowel sounds wounds clean dry and intact mild incisional tenderness drains in place serous drainage minimal out NG tube) Extremities: No clubbing, No edema Skin: No rashes Labs LABS Thyroid gland and thoracic inlet: Normal. Heart and great vessels: Heart is normal in size. There are coronary artery calcifications. The thoracic aorta is normal in caliber. Central pulmonary arteries are clear. Mediastinum and lamar: No lymphadenopathy. There are calcified mediastinal and left hilar lymph nodes. Lungs and pleura: There are calcified granuloma in the left lower lobe. There is a 4 mm noncalcified pulmonary nodule in the right lower lobe (image 37, series 2), and multiple scattered 2 mm pulmonary nodules in both lungs. No pleural effusion. Chest wall and axillae: There is a right IJ port with tip at the superior cavoatrial junction. No axillary lymphadenopathy. Bones: No acute osseous abnormality. ABDOMEN AND PELVIS: Liver: The liver is normal in size. No liver mass. The hepatic, portal, superior mesenteric, and splenic veins are patent. Gallbladder/Biliary Tree: Mild to moderate intrahepatic biliary duct dilatation is unchanged. There is a new common bile duct stent. The common bile duct remains dilated measuring 1.7 cm in diameter. Cholelithiasis. Pancreas: Mild pancreatic atrophy is unchanged. The mass is less smaller and conspicuous, now measuring approximately 2.0 x 1.1 cm, previously 2.9 x 1.9 cm (image 27, series 4). Spleen: No splenomegaly. There are calcified splenic granulomas. Adrenal Glands: Normal. Kidneys/Ureters/Bladder: Normal. No hydronephrosis. Reproductive Organs: Prostate gland is normal. Stomach, small bowel, and colon: There are surgical changes of the stomach. No small bowel obstruction. Colon is normal. Appendix is normal. Vasculature: Abdominal aorta is normal in caliber. Lymph Nodes: A portacaval lymph node is increased in size, 1.3 cm, previously 1.0 cm (image 20, series 4). A celiac axis lymph node measures 1 cm, unchanged (image 21, series 4). Peritoneum and retroperitoneum: No free fluid or free air. Bones: No acute osseous abnormality. There is multilevel degenerative disc disease. Severe left and moderate right hip osteoarthrosis. IMPRESSION: 1. Decreased size and conspicuity of pancreatic head mass. 2. New biliary stent with unchanged dilation of the common bile duct and intrahepatic bile ducts. 3. There are several prominent mesenteric lymph nodes, one of which is slightly larger. Recommend attention on follow-up. EXAM: Abdomen, single view. HISTORY: Postoperative evaluation. COMPARISON: 05/02/2020 FINDINGS: A frontal view of the abdomen is obtained. There is a nasogastric tube within the stomach. There are drainage catheters terminating within the left upper quadrant. There is also a suspected drain terminating over the midline abdomen. There is gas and stool within the colon. Evaluated for free air is limited in the absence of an upright or lateral decubitus view. There is a gastrostomy tube overlying expected position. IMPRESSION: 1. Findings consistent with a reported recent Whipple procedure. There are multiple drainage catheters overlying the abdomen. 2. Nonobstructive bowel gas pattern. Electronically signed by: Brittany Panda MD (06/01/2020 9:21 AM) [id number] DICTATED and SIGNED BY: BRITTANY PANDA MD DATE: 06/01/20 0921 Laboratory Tests Test 06/04/20 05:20 Sodium Level 137 mmol/L (136-145) Potassium Level 3.5 mmol/L (3.5-5.1) Chloride Level 102 mmol/L (98-107) Carbon Dioxide Level 30 mmol/L (21-32) Anion Gap 5 (6-14) Blood Urea Nitrogen 10 mg/dL (8-26) Creatinine 0.4 mg/dL (0.7-1.3) Estimated GFR (Cockcroft-Gault) 225.9 Glucose Level 101 mg/dL (70-99) Calcium Level 8.1 mg/dL (8.5-10.1) Assessment and Plan Assessmemt and Plan * Pain Pt/caregiver agrees with plan of care/goals * Yes Patient condition at conclusion of therapy * Pt in chair * Call light in reach * Phone in reach * PtIn no apparent distress * Pt denies further needs Communicated Patient Care With (Name, Title) * Marie OT; Gaby SAMS Goal 1 - Bed Mobility Assistance Required * Independent Goal 1 Assessment * Appropriate - Continue Goal 2 - Transfers Assistance Required * Independent Goal 2 - Transfer Type * Sit to Stand Goal 2 Assessment * Appropriate - Continue Goal 3 - Ambulation Assistance Required * Independent Goal 3 - Ambulation Distance * 250' Goal 3 - Ambulation Device * No Device Goal 3 Assessment * Appropriate - Continue Goal 4 - Stairs Assistance Required * Independent Goal 4 - Number of Stairs * 2-4 Goal 4 - Device on Stairs * Rail on Right Goal 4 Assessment * Appropriate - Continue Treatment Plan * Therapeutic Exercise * Bed Mobility Training * Transfer training * Gait Training * Dynamic Balance Training Frequency of Treatment Expected * 12 visits/week Duration of Treatment Expected * 2 weeks Discharge Recommendations * Home with Assistance Discharge Recommendation Comments * Will continue to assess for dsicharge needs Comment Review of Relevant I have reviewed the following items derrick (where applicable) has been applied. Labs Laboratory Tests Test 06/03/20 06:50 06/04/20 05:20 Sodium Level 138 mmol/L (136-145) 137 mmol/L (136-145) Potassium Level 3.5 mmol/L (3.5-5.1) 3.5 mmol/L (3.5-5.1) Chloride Level 103 mmol/L (98-107) 102 mmol/L (98-107) Carbon Dioxide Level 29 mmol/L (21-32) 30 mmol/L (21-32) Anion Gap 6 (6-14) 5 (6-14) Blood Urea Nitrogen 10 mg/dL (8-26) 10 mg/dL (8-26) Creatinine 0.3 mg/dL (0.7-1.3) 0.4 mg/dL (0.7-1.3) Estimated GFR (Cockcroft-Gault) > 300.0 225.9 Glucose Level 108 mg/dL (70-99) 101 mg/dL (70-99) Calcium Level 7.8 mg/dL (8.5-10.1) 8.1 mg/dL (8.5-10.1) Laboratory Tests Test 06/04/20 05:20 Sodium Level 137 mmol/L (136-145) Potassium Level 3.5 mmol/L (3.5-5.1) Chloride Level 102 mmol/L (98-107) Carbon Dioxide Level 30 mmol/L (21-32) Anion Gap 5 (6-14) Blood Urea Nitrogen 10 mg/dL (8-26) Creatinine 0.4 mg/dL (0.7-1.3) Estimated GFR (Cockcroft-Gault) 225.9 Glucose Level 101 mg/dL (70-99) Calcium Level 8.1 mg/dL (8.5-10.1) Medications Current Medications Ondansetron HCl (Zofran) 4 mg PRN Q6HRS PRN IV NAUSEA/VOMITING; Start 05/31/20 at 07:00; Stop 05/31/20 at 20:26; Status DC Fentanyl Citrate (Fentanyl 2ml Vial) 25 mcg PRN Q5MIN PRN IV MILD PAIN 1-3; Start 05/31/20 at 07:00; Stop 05/31/20 at 20:26; Status DC Fentanyl Citrate (Fentanyl 2ml Vial) 50 mcg PRN Q5MIN PRN IV MODERATE TO SEVERE PAIN; Start 05/31/20 at 07:00; Stop 05/31/20 at 20:26; Status DC Morphine Sulfate (Morphine Sulfate) 1 mg PRN Q10MIN PRN IV SEVERE PAIN 7-10; Start 05/31/20 at 07:00; Stop 05/31/20 at 20:26; Status DC Ringer's Solution 1,000 ml @ 30 mls/hr Q24H IV Last administered on 05/31/20at 09:18; Start 05/31/20 at 07:00; Stop 05/31/20 at 18:59; Status DC Hydromorphone HCl (Dilaudid) 0.5 mg PRN Q10MIN PRN IV SEV PAIN, Second choice; Start 05/31/20 at 07:00; Stop 05/31/20 at 20:26; Status DC Prochlorperazine Edisylate (Compazine) 5 mg PACU PRN PRN IV NAUSEA, MRX1; Start 05/31/20 at 07:00; Stop 05/31/20 at 20:26; Status DC Ceftriaxone Sodium (Rocephin) 1 gm 1X PREOP PRN IVP PRIOR TO PROCEDURE; Start 05/31/20 at 08:00; Stop 06/02/20 at 09:36; Status DC Metronidazole 100 ml @ 100 mls/hr 1X PREOP PRN IV PRIOR TO PROCEDURE; Start 05/31/20 at 06:00; Stop 05/31/20 at 18:00; Status DC Propofol (Diprivan) 200 mg STK-MED ONCE IV ; Start 05/31/20 at 08:13; Stop 05/31/20 at 08:14; Status DC Lidocaine HCl (Lidocaine Pf 2% Vial) 5 ml STK-MED ONCE .ROUTE ; Start 05/31/20 at 08:13; Stop 05/31/20 at 08:14; Status DC Fentanyl Citrate (Fentanyl 2ml Vial) 100 mcg STK-MED ONCE .ROUTE ; Start 05/31/20 at 08:14; Stop 05/31/20 at 08:14; Status DC Succinylcholine Chloride (Anectine) 200 mg STK-MED ONCE .ROUTE ; Start 05/31/20 at 08:15; Stop 05/31/20 at 08:16; Status DC Rocuronium Lopeno (Zemuron) 50 mg STK-MED ONCE .ROUTE ; Start 05/31/20 at 08:15; Stop 05/31/20 at 08:16; Status DC Insulin Human Lispro (HumaLOG VIAL for OP,RR ONLY) 0-10 units PRN Q1HR PRN SQ PER PROTOCOL Last administered on 05/31/20at 09:22; Start 05/31/20 at 09:15; Stop 05/31/20 at 19:58; Status DC Midazolam HCl (Versed) 2 mg STK-MED ONCE .ROUTE ; Start 05/31/20 at 09:27; Stop 05/31/20 at 09:28; Status DC Bupivacaine HCl (Sensorcaine-Mpf 0.25%) 10 ml STK-MED ONCE .ROUTE ; Start 05/31/20 at 09:28; Stop 05/31/20 at 09:28; Status DC Midazolam HCl (Versed) 2 mg STK-MED ONCE .ROUTE ; Start 05/31/20 at 10:03; Stop 05/31/20 at 10:03; Status DC Lidocaine HCl (Lidocaine 1% 20ml Vial) 20 ml STK-MED ONCE .ROUTE ; Start 05/31/20 at 10:04; Stop 05/31/20 at 10:05; Status DC Dexamethasone Sodium Phosphate (Decadron) 4 mg STK-MED ONCE .ROUTE ; Start 05/31/20 at 10:36; Stop 05/31/20 at 10:37; Status DC Desflurane (Suprane) 90 ml STK-MED ONCE IH ; Start 05/31/20 at 10:37; Stop 05/31/20 at 10:37; Status DC Bupivacaine HCl (Sensorcaine Mpf 0.5%) 30 ml STK-MED ONCE .ROUTE ; Start 05/31/20 at 10:41; Stop 05/31/20 at 10:42; Status DC Dexamethasone Sodium Phosphate (Decadron) 4 mg STK-MED ONCE .ROUTE ; Start 05/31/20 at 10:43; Stop 05/31/20 at 10:44; Status DC Phenylephrine HCl (PHENYLEPHRINE in 0.9% NACL PF) 1 mg STK-MED ONCE IV ; Start 05/31/20 at 10:44; Stop 05/31/20 at 10:44; Status DC Ephedrine Sulfate (ePHEDrine PF IN SALINE SYRINGE) 50 mg STK-MED ONCE IV ; Start 05/31/20 at 10:59; Stop 05/31/20 at 11:00; Status DC Sodium Chloride 35 ml/Fentanyl Citrate 250 mcg/ Ropivacaine 10 ml/ Epidural Dosage Infused (Pha) 50 ml @ 0 mls/hr CONT PRN EPID SEE PROTOCOL TABLE Last administered on 06/04/20at 10:16; Start 05/31/20 at 11:00 Insulin Human Lispro (HumaLOG VIAL for OP,RR ONLY) 0-10 units PRN Q1HR PRN SQ PER PROTOCOL; Start 05/31/20 at 11:00; Stop 05/31/20 at 19:58; Status DC Atropine Sulfate (ATROPINE 0.5mg SYRINGE) 0.5 mg PRN 1X PRN IV SEE COMMENTS; Start 05/31/20 at 11:00; Stop 06/01/20 at 10:59; Status DC Naloxone HCl (Narcan) 0.04 mg PRN Q2MIN PRN IV SEE COMMENTS; Start 05/31/20 at 11:00; Stop 05/31/20 at 20:35; Status DC Rocuronium Lopeno (Zemuron) 50 mg STK-MED ONCE .ROUTE ; Start 05/31/20 at 12:03; Stop 05/31/20 at 12:04; Status DC Rocuronium Lopeno (Zemuron) 50 mg STK-MED ONCE .ROUTE ; Start 05/31/20 at 14:00; Stop 05/31/20 at 14:00; Status DC Ondansetron HCl (Zofran) 4 mg STK-MED ONCE .ROUTE ; Start 05/31/20 at 15:06; St op 05/31/20 at 15:06; Status DC Phenylephrine HCl (PHENYLEPHRINE in 0.9% NACL PF) 1 mg STK-MED ONCE IV ; Start 05/31/20 at 15:06; Stop 05/31/20 at 15:06; Status DC Glycopyrrolate (Robinul) 1 mg STK-MED ONCE .ROUTE ; Start 05/31/20 at 15:06; Stop 05/31/20 at 15:06; Status DC Neostigmine Methylsulfate (Bloxiverz) 10 mg STK-MED ONCE .ROUTE ; Start 05/31/20 at 15:07; Stop 05/31/20 at 15:07; Status DC Phenylephrine HCl (PHENYLEPHRINE in 0.9% NACL PF) 1 mg STK-MED ONCE IV ; Start 05/31/20 at 15:40; Stop 05/31/20 at 15:40; Status DC Metronidazole 100 ml @ 100 mls/hr 1X ONCE IV Last administered on 05/31/20at 16:14; Start 05/31/20 at 16:15; Stop 05/31/20 at 17:14; Status DC Heparin Sodium (Porcine) (Hep Lock Adult) 500 unit STK-MED ONCE IVP ; Start 05/31/20 at 16:59; Stop 05/31/20 at 16:59; Status DC Heparin Sodium (Porcine) (Hep Lock Adult) 500 unit 1X ONCE IVP Last administered on 05/31/20at 18:00; Start 05/31/20 at 17:00; Stop 05/31/20 at 17:01; Status DC Enoxaparin Sodium (Lovenox 40mg Syringe) 40 mg Q24H SQ ; Start 05/31/20 at 18:00; Stop 05/31/20 at 19:58; Status DC Sodium Chloride (Normal Saline Flush) 3 ml QSHIFT PRN IV AFTER MEDS AND BLOOD DRAWS; Start 05/31/20 at 17:15 Ringer's Solution 1,000 ml @ 100 mls/hr Q10H IV Last administered on 06/02/20at 05:36; Start 05/31/20 at 17:14; Stop 06/02/20 at 11:56; Status DC Naloxone HCl (Narcan) 0.4 mg PRN Q2MIN PRN IV SEE INSTRUCTIONS; Start 05/31/20 at 17:15 Sodium Chloride 1,000 ml @ 25 mls/hr Q24H IV ; Start 05/31/20 at 17:14; Stop 05/31/20 at 20:32; Status DC Ondansetron HCl (Zofran) 4 mg PRN Q6HRS PRN IVP NAUESA, 1ST CHOICE; Start 05/31/20 at 17:15 Enoxaparin Sodium (Lovenox 40mg Syringe) 40 mg Q24H SQ Last administered on 06/04/20at 08:23; Start 06/01/20 at 09:00 Sodium Chloride 1,000 ml @ 250 mls/hr 1X ONCE IV Last administered on 05/31/20at 20:33; Start 05/31/20 at 19:30; Stop 05/31/20 at 23:29; Status DC Insulin Human Lispro (HumaLOG) 0-5 UNITS Q6HRS SQ ; Start 06/01/20 at 00:00 Dextrose (Dextrose 50%-Water Syringe) 12.5 gm PRN Q15MIN PRN IV SEE COMMENTS; Start 05/31/20 at 19:30 Sodium Chloride 1,000 ml @ 1,000 mls/hr 1X ONCE IV Last administered on 06/01/20at 07:23; Start 06/01/20 at 07:00; Stop 06/01/20 at 07:59; Status DC Potassium Chloride/Water 100 ml @ 100 mls/hr Q1H IV Last administered on 06/01/20at 11:39; Start 06/01/20 at 08:30; Stop 06/01/20 at 12:29; Status DC Magnesium Sulfate 100 ml @ 25 mls/hr 1X ONCE IV Last administered on 06/01/20at 08:35; Start 06/01/20 at 08:00; Stop 06/01/20 at 11:59; Status DC Pantoprazole Sodium (PROTONIX VIAL for IV PUSH) 40 mg DAILYAC IVP Last administered on 06/04/20at 08:23; Start 06/01/20 at 10:00 Amino Acids/ Glycerin/ Electrolytes 1,000 ml @ 75 mls/hr [id number] IV Last administered on 06/04/20at 04:50; Start 06/02/20 at 12:30 Insulin Human Lispro (HumaLOG VIAL for OP,RR ONLY) 2 unit STK-MED ONCE SQ ; Start 05/31/20 at 09:30; Stop 06/02/20 at 16:33; Status DC Active Scripts Active Reported Lidocaine-Prilocaine Cream (Lidocaine/Prilocaine) 30 Gm Cream..g. 1 Lashae TP UD Oxycodone HCl 5 Mg Tablet 5 Mg PO PRN Q4-6HRS PRN D3 + K2 Dots 1,000 Units Tab (Vitamin D3/Vitamin K2) 1 Each Tab.rapdis 1 Tab PO DAILY 30 Days Klor-Con M20 (Potassium Chloride) 20 Meq Tab.er.prt 1 Tab PO DAILY 30 Days Metformin Hcl 500 Mg Tablet 500 Mg PO BIDWMEALS Levemir (Insulin Detemir) 100 Unit/1 Ml Vial 15 Unit SQ HS Novolog (Insulin Aspart) 100 Unit/1 Ml Vial 6 Unit SQ DAILYAC Metformin Hcl 500 Mg Tablet 500 Mg PO BIDWMEALS Pantoprazole Sodium (Pantoprazole Sodium) 40 Mg Tablet.dr 40 Mg PO DAILYAC Vitals/I & O Vital Sign - Last 24 Hours 06/03/20 06/03/20 06/03/20 06/03/20 11:14 11:54 11:56 13:01 Temp 98.3 98.7 98.3 98.7 Pulse 82 78 72 Resp 20 18 22 B/P (MAP) 95/62 (73) 100/63 (75) 92/58 (69) Pulse Ox 96 98 99 O2 Delivery Room Air Room Air Room Air Room Air 06/03/20 06/03/20 06/03/20 06/03/20 14:00 14:11 14:41 15:00 Temp 98.5 98.5 Pulse 77 72 Resp 18 14 B/P (MAP) 103/60 (74) 106/66 (79) Pulse Ox 96 99 97 99 O2 Delivery Room Air Room Air Room Air Room Air 06/03/20 06/03/20 06/03/20 06/03/20 16:00 16:00 17:25 19:07 Temp 99.6 99.1 99.6 99.1 Pulse 73 73 75 Resp 14 16 16 B/P (MAP) 104/70 (81) 101/66 (78) 101/67 (78) Pulse Ox 98 99 99 O2 Delivery Room Air Room Air Room Air Room Air 06/03/20 06/03/20 06/03/20 06/03/20 19:35 22:37 23:05 23:35 Temp 98.3 98.3 Pulse 71 Resp 16 20 20 B/P (MAP) 104/70 (81) Pulse Ox 98 99 O2 Delivery Room Air Room Air Room Air Room Air O2 Flow Rate 2.0 06/04/20 06/04/20 06/04/20 06/04/20 03:21 04:35 05:05 07:00 Temp 99.1 98.9 99.1 98.9 Pulse 74 69 Resp 16 20 18 18 B/P (MAP) 111/69 (83) 108/67 (81) Pulse Ox 100 100 99 O2 Delivery Room Air Room Air Room Air Room Air O2 Flow Rate 2.0 06/04/20 10:16 Resp 18 O2 Delivery Room Air Intake and Output 06/03/20 06/03/20 06/04/20 15:00 23:00 07:00 Intake Total 0 ml 0 ml 0 ml Output Total 710 ml 870 ml Balance -710 ml 0 ml -870 ml Nutrition Consultation Dietary Evaluation: Recommendations by RD: Dietary education by RD, Increase Calorie Intake, Protein supplementation Comments: REC advance diet as able per surgery; recommend Ensure clear (any flavor, TID) if on clears and Glucerna (butter pecan, TID) otherwise Continue w/PPN for short-term nutrition support needs until advanced to PO diet and pt is eating >50% meals and tolerating Expected Outcomes/Goals: diet advancement - not met, goal ongoing Interpretation of weight loss: >10% in 6 months Malnutrition Findings: Food and Nutrition Intake (Sev: <50% est energy req 5days Justicifation of Admission Dx: Justifications for Admission: Justification of Admission Dx: Yes JEFFREY HERNANDEZ MD Jun 04, 2020 11:02
[2020-06-04 11:24] VITALS: BP 117/72
--- NOTE | 2020-06-04 12:00 | NUR ---
Blood glucose 80 at 1200 via [employer].
[2020-06-04 15:20] VITALS: BP 109/70
--- NOTE | 2020-06-04 17:55 | NUR ---
Blood glucose 72 at 1755 via [employer].
[2020-06-04 18:59] VITALS: BP 113/71
[2020-06-04 23:15] VITALS: BP 104/67
--- NOTE | 2020-06-05 00:21 | NUR ---
BS 71 at 0000 via [employer]
[2020-06-05] MEDS: NORMAL SALINE 35 ML, fentaNYL PF VIAL 250 MCG, ROPIVacaine 0.5% PF 10 ML in EPIDURAL 50 TV EPID PRN ×2 (01:54→06:58)
[2020-06-05 02:01] VITALS: BP 99/55
[2020-06-05] MEDS: INSULIN LISPRO 300 UNITS/3 ML VIAL. SQ SCH ×5 (06:00→23:07)
--- NOTE | 2020-06-05 06:02 | NUR ---
BS @ 8065 IS 88
[2020-06-05 07:00] VITALS: BP 99/60
[2020-06-05 07:51] LABS: BASO # 0.1 x10^3/uL (0.0-0.2); BASO % 1 % (0-3); EOS # 0.1 x10^3/uL (0.0-0.7); EOS % 2 % (0-3); HEMATOCRIT 27.3 % (39.0-53.0); HEMOGLOBIN 9.2 g/dL (13.0-17.5); LYMPH # 1.4 x10^3/uL (1.0-4.8); LYMPH % 17 % (24-48); MEAN CORPUSCULAR HEMOGLOBIN 35 pg (25-35); MEAN CORPUSCULAR HGB CONC 34 g/dL (31-37); MEAN CORPUSCULAR VOLUME 103 fL (79-100); MONO # 0.9 x10^3/uL (0.0-1.1); MONO % 11 % (0-9); NEUT # 5.8 x10^3/uL (1.8-7.7); NEUT % 70 % (31-73); PLATELET COUNT 245 x10^3/uL (140-400); RED BLOOD COUNT 2.64 x10^6/uL (4.30-5.70); RED CELL DISTRIBUTION WIDTH 14.7 % (11.5-14.5); WHITE BLOOD COUNT 8.4 x10^3/uL (4.0-11.0)
[2020-06-05 08:13] LABS: ALBUMIN 1.5 g/dL (3.4-5.0); ALBUMIN/GLOBULIN RATIO 0.4 (1.0-1.7); CALCIUM 8.2 mg/dL (8.5-10.1); CREATININE 0.4 mg/dL (0.7-1.3); GFR 225.9; POTASSIUM 3.9 mmol/L (3.5-5.1); TOTAL BILIRUBIN 0.9 mg/dL (0.2-1.0); TOTAL PROTEIN 5.1 g/dL (6.4-8.2)
--- NOTE | 2020-06-05 08:25 | NUR ---
Blood glucose 78 at 0800 via [employer].
[2020-06-05] MEDS: PANTOPRAZOLE IV PUSH 40 MG VIAL. IVP SCH (08:59)
[2020-06-05] MEDS: ENOXAPARIN 40 MG/0.4 ML SYRINGE. SQ SCH (09:00)
--- NOTE | 2020-06-05 09:09 | PDOC ---
SURGICAL PROGRESS NOTE DATE: 06/05/20 TIME: 09:07 Subjective Patient doing quite well resting comfortably pain is controlled with epidural Vital Signs Vital Signs Date Time Temp Pulse Resp B/P (MAP) Pulse Ox O2 Delivery O2 Flow Rate FiO2 06/05/20 07:28 16 Room Air 06/05/20 02:01 99.2 70 99/55 (70) 98 99.2 I&O Intake and Output 06/05/20 07:00 Intake Total 0 ml Output Total 1360 ml Balance -1360 ml Intake Oral 0 ml Output Urine Total 1225 ml Drainage Total 135 ml # Voids 4 PATIENT HAS A IVERSON: Yes General: Alert, Oriented X3, Cooperative, mild distress Abdomen: Soft, Other (Incisional tenderness wounds clean dry and intact) Extremities: No edema Labs Laboratory Tests Test 06/04/20 05:20 06/05/20 06:55 06/05/20 07:13 Sodium Level 137 mmol/L (136-145) 137 mmol/L (136-145) Potassium Level 3.5 mmol/L (3.5-5.1) 3.9 mmol/L (3.5-5.1) Chloride Level 102 mmol/L (98-107) 102 mmol/L (98-107) Carbon Dioxide Level 30 mmol/L (21-32) 28 mmol/L (21-32) Anion Gap 5 (6-14) 7 (6-14) Blood Urea Nitrogen 10 mg/dL (8-26) 10 mg/dL (8-26) Creatinine 0.4 mg/dL (0.7-1.3) 0.4 mg/dL (0.7-1.3) Estimated GFR (Cockcroft-Gault) 225.9 225.9 Glucose Level 101 mg/dL (70-99) 105 mg/dL (70-99) Calcium Level 8.1 mg/dL (8.5-10.1) 8.2 mg/dL (8.5-10.1) White Blood Count 8.4 x10^3/uL (4.0-11.0) Red Blood Count 2.64 x10^6/uL (4.30-5.70) Hemoglobin 9.2 g/dL (13.0-17.5) Hematocrit 27.3 % (39.0-53.0) Mean Corpuscular Volume 103 fL (79-100) Mean Corpuscular Hemoglobin 35 pg (25-35) Mean Corpuscular Hemoglobin Concent 34 g/dL (31-37) Red Cell Distribution Width 14.7 % (11.5-14.5) Platelet Count 245 x10^3/uL (140-400) Neutrophils (%) (Auto) 70 % (31-73) Lymphocytes (%) (Auto) 17 % (24-48) Monocytes (%) (Auto) 11 % (0-9) Eosinophils (%) (Auto) 2 % (0-3) Basophils (%) (Auto) 1 % (0-3) Neutrophils # (Auto) 5.8 x10^3/uL (1.8-7.7) Lymphocytes # (Auto) 1.4 x10^3/uL (1.0-4.8) Monocytes # (Auto) 0.9 x10^3/uL (0.0-1.1) Eosinophils # (Auto) 0.1 x10^3/uL (0.0-0.7) Basophils # (Auto) 0.1 x10^3/uL (0.0-0.2) BUN/Creatinine Ratio 25 (6-20) Total Bilirubin 0.9 mg/dL (0.2-1.0) Aspartate Amino Transf (AST/SGOT) 26 U/L (15-37) Alanine Aminotransferase (ALT/SGPT) 23 U/L (16-63) Alkaline Phosphatase 225 U/L (46-116) Total Protein 5.1 g/dL (6.4-8.2) Albumin 1.5 g/dL (3.4-5.0) Albumin/Globulin Ratio 0.4 (1.0-1.7) Laboratory Tests Test 06/05/20 06:55 06/05/20 07:13 White Blood Count 8.4 x10^3/uL (4.0-11.0) Red Blood Count 2.64 x10^6/uL (4.30-5.70) Hemoglobin 9.2 g/dL (13.0-17.5) Hematocrit 27.3 % (39.0-53.0) Mean Corpuscular Volume 103 fL (79-100) Mean Corpuscular Hemoglobin 35 pg (25-35) Mean Corpuscular Hemoglobin Concent 34 g/dL (31-37) Red Cell Distribution Width 14.7 % (11.5-14.5) Platelet Count 245 x10^3/uL (140-400) Neutrophils (%) (Auto) 70 % (31-73) Lymphocytes (%) (Auto) 17 % (24-48) Monocytes (%) (Auto) 11 % (0-9) Eosinophils (%) (Auto) 2 % (0-3) Basophils (%) (Auto) 1 % (0-3) Neutrophils # (Auto) 5.8 x10^3/uL (1.8-7.7) Lymphocytes # (Auto) 1.4 x10^3/uL (1.0-4.8) Monocytes # (Auto) 0.9 x10^3/uL (0.0-1.1) Eosinophils # (Auto) 0.1 x10^3/uL (0.0-0.7) Basophils # (Auto) 0.1 x10^3/uL (0.0-0.2) Sodium Level 137 mmol/L (136-145) Potassium Level 3.9 mmol/L (3.5-5.1) Chloride Level 102 mmol/L (98-107) Carbon Dioxide Level 28 mmol/L (21-32) Anion Gap 7 (6-14) Blood Urea Nitrogen 10 mg/dL (8-26) Creatinine 0.4 mg/dL (0.7-1.3) Estimated GFR (Cockcroft-Gault) 225.9 BUN/Creatinine Ratio 25 (6-20) Glucose Level 105 mg/dL (70-99) Calcium Level 8.2 mg/dL (8.5-10.1) Total Bilirubin 0.9 mg/dL (0.2-1.0) Aspartate Amino Transf (AST/SGOT) 26 U/L (15-37) Alanine Aminotransferase (ALT/SGPT) 23 U/L (16-63) Alkaline Phosphatase 225 U/L (46-116) Total Protein 5.1 g/dL (6.4-8.2) Albumin 1.5 g/dL (3.4-5.0) Albumin/Globulin Ratio 0.4 (1.0-1.7) Assessment/Plan Status post Whipple procedure drains intact with minimal drainage mostly serous Continue supportive care, no acute changes Justicifation of Admission Dx: Justifications for Admission: Justification of Admission Dx: Yes JEFFREY LOWE MD Jun 05, 2020 09:09
--- NOTE | 2020-06-05 10:26 | PDOC ---
PROGRESS NOTES Date of Service: DATE: 06/05/20 TIME: 10:23 Chief Complaint Chief Complaint impression Postoperative day #4 Whipple procedure with hypokalemia, anemia, transaminitis and hyperglycemia. pancreatic cancer Severe protein-caloric malnutrition Acute electrolyte derangements Transaminitis due to hepatobiliary obstruction Normocytic anemia Thrombocytopenia Pancreatic cancer GERD hypertension Diabetes Previous gastric sleeve 37 MIN PT EXAM, CHART REVIEW, > 50% OF TIME SPENT WITH EXAM, CHART REVIEW, PT CARE COORDINATION History of Present Illness History of Present Illness 06/05/2020 Patient seen and examined bedside He has NG to suction Appears frail and weak Chart reviewed Discussed with RN PAIN NOT WELL CONTROLLED 06/02/2020 Patient seen and examined in the ICU He was up walking with physical therapy Appears very weak and frail but overall stable present Chart reviewed Discussed with RN Vitals Vitals Vital Signs Date Time Temp Pulse Resp B/P (MAP) Pulse Ox O2 Delivery O2 Flow Rate FiO2 06/05/20 08:00 Room Air 06/05/20 07:28 16 06/05/20 07:00 98.2 78 99/60 (73) 99 98.2 Physical Exam General: Alert, Oriented X3, Cooperative, mild distress Heart: Regular rate Lungs: Clear Abdomen: Soft, Other (Incisional tenderness wounds clean dry and intact) Extremities: No cyanosis, No edema Skin: No rashes Labs LABS Laboratory Tests Test 06/05/20 06:55 06/05/20 07:13 White Blood Count 8.4 x10^3/uL (4.0-11.0) Red Blood Count 2.64 x10^6/uL (4.30-5.70) Hemoglobin 9.2 g/dL (13.0-17.5) Hematocrit 27.3 % (39.0-53.0) Mean Corpuscular Volume 103 fL (79-100) Mean Corpuscular Hemoglobin 35 pg (25-35) Mean Corpuscular Hemoglobin Concent 34 g/dL (31-37) Red Cell Distribution Width 14.7 % (11.5-14.5) Platelet Count 245 x10^3/uL (140-400) Neutrophils (%) (Auto) 70 % (31-73) Lymphocytes (%) (Auto) 17 % (24-48) Monocytes (%) (Auto) 11 % (0-9) Eosinophils (%) (Auto) 2 % (0-3) Basophils (%) (Auto) 1 % (0-3) Neutrophils # (Auto) 5.8 x10^3/uL (1.8-7.7) Lymphocytes # (Auto) 1.4 x10^3/uL (1.0-4.8) Monocytes # (Auto) 0.9 x10^3/uL (0.0-1.1) Eosinophils # (Auto) 0.1 x10^3/uL (0.0-0.7) Basophils # (Auto) 0.1 x10^3/uL (0.0-0.2) Sodium Level 137 mmol/L (136-145) Potassium Level 3.9 mmol/L (3.5-5.1) Chloride Level 102 mmol/L (98-107) Carbon Dioxide Level 28 mmol/L (21-32) Anion Gap 7 (6-14) Blood Urea Nitrogen 10 mg/dL (8-26) Creatinine 0.4 mg/dL (0.7-1.3) Estimated GFR (Cockcroft-Gault) 225.9 BUN/Creatinine Ratio 25 (6-20) Glucose Level 105 mg/dL (70-99) Calcium Level 8.2 mg/dL (8.5-10.1) Total Bilirubin 0.9 mg/dL (0.2-1.0) Aspartate Amino Transf (AST/SGOT) 26 U/L (15-37) Alanine Aminotransferase (ALT/SGPT) 23 U/L (16-63) Alkaline Phosphatase 225 U/L (46-116) Total Protein 5.1 g/dL (6.4-8.2) Albumin 1.5 g/dL (3.4-5.0) Albumin/Globulin Ratio 0.4 (1.0-1.7) Comment Review of Relevant I have reviewed the following items derrick (where applicable) has been applied. Labs Laboratory Tests Test 06/04/20 05:20 06/05/20 06:55 06/05/20 07:13 Sodium Level 137 mmol/L (136-145) 137 mmol/L (136-145) Potassium Level 3.5 mmol/L (3.5-5.1) 3.9 mmol/L (3.5-5.1) Chloride Level 102 mmol/L (98-107) 102 mmol/L (98-107) Carbon Dioxide Level 30 mmol/L (21-32) 28 mmol/L (21-32) Anion Gap 5 (6-14) 7 (6-14) Blood Urea Nitrogen 10 mg/dL (8-26) 10 mg/dL (8-26) Creatinine 0.4 mg/dL (0.7-1.3) 0.4 mg/dL (0.7-1.3) Estimated GFR (Cockcroft-Gault) 225.9 225.9 Glucose Level 101 mg/dL (70-99) 105 mg/dL (70-99) Calcium Level 8.1 mg/dL (8.5-10.1) 8.2 mg/dL (8.5-10.1) White Blood Count 8.4 x10^3/uL (4.0-11.0) Red Blood Count 2.64 x10^6/uL (4.30-5.70) Hemoglobin 9.2 g/dL (13.0-17.5) Hematocrit 27.3 % (39.0-53.0) Mean Corpuscular Volume 103 fL (79-100) Mean Corpuscular Hemoglobin 35 pg (25-35) Mean Corpuscular Hemoglobin Concent 34 g/dL (31-37) Red Cell Distribution Width 14.7 % (11.5-14.5) Platelet Count 245 x10^3/uL (140-400) Neutrophils (%) (Auto) 70 % (31-73) Lymphocytes (%) (Auto) 17 % (24-48) Monocytes (%) (Auto) 11 % (0-9) Eosinophils (%) (Auto) 2 % (0-3) Basophils (%) (Auto) 1 % (0-3) Neutrophils # (Auto) 5.8 x10^3/uL (1.8-7.7) Lymphocytes # (Auto) 1.4 x10^3/uL (1.0-4.8) Monocytes # (Auto) 0.9 x10^3/uL (0.0-1.1) Eosinophils # (Auto) 0.1 x10^3/uL (0.0-0.7) Basophils # (Auto) 0.1 x10^3/uL (0.0-0.2) BUN/Creatinine Ratio 25 (6-20) Total Bilirubin 0.9 mg/dL (0.2-1.0) Aspartate Amino Transf (AST/SGOT) 26 U/L (15-37) Alanine Aminotransferase (ALT/SGPT) 23 U/L (16-63) Alkaline Phosphatase 225 U/L (46-116) Total Protein 5.1 g/dL (6.4-8.2) Albumin 1.5 g/dL (3.4-5.0) Albumin/Globulin Ratio 0.4 (1.0-1.7) Laboratory Tests Test 06/05/20 06:55 06/05/20 07:13 White Blood Count 8.4 x10^3/uL (4.0-11.0) Red Blood Count 2.64 x10^6/uL (4.30-5.70) Hemoglobin 9.2 g/dL (13.0-17.5) Hematocrit 27.3 % (39.0-53.0) Mean Corpuscular Volume 103 fL (79-100) Mean Corpuscular Hemoglobin 35 pg (25-35) Mean Corpuscular Hemoglobin Concent 34 g/dL (31-37) Red Cell Distribution Width 14.7 % (11.5-14.5) Platelet Count 245 x10^3/uL (140-400) Neutrophils (%) (Auto) 70 % (31-73) Lymphocytes (%) (Auto) 17 % (24-48) Monocytes (%) (Auto) 11 % (0-9) Eosinophils (%) (Auto) 2 % (0-3) Basophils (%) (Auto) 1 % (0-3) Neutrophils # (Auto) 5.8 x10^3/uL (1.8-7.7) Lymphocytes # (Auto) 1.4 x10^3/uL (1.0-4.8) Monocytes # (Auto) 0.9 x10^3/uL (0.0-1.1) Eosinophils # (Auto) 0.1 x10^3/uL (0.0-0.7) Basophils # (Auto) 0.1 x10^3/uL (0.0-0.2) Sodium Level 137 mmol/L (136-145) Potassium Level 3.9 mmol/L (3.5-5.1) Chloride Level 102 mmol/L (98-107) Carbon Dioxide Level 28 mmol/L (21-32) Anion Gap 7 (6-14) Blood Urea Nitrogen 10 mg/dL (8-26) Creatinine 0.4 mg/dL (0.7-1.3) Estimated GFR (Cockcroft-Gault) 225.9 BUN/Creatinine Ratio 25 (6-20) Glucose Level 105 mg/dL (70-99) Calcium Level 8.2 mg/dL (8.5-10.1) Total Bilirubin 0.9 mg/dL (0.2-1.0) Aspartate Amino Transf (AST/SGOT) 26 U/L (15-37) Alanine Aminotransferase (ALT/SGPT) 23 U/L (16-63) Alkaline Phosphatase 225 U/L (46-116) Total Protein 5.1 g/dL (6.4-8.2) Albumin 1.5 g/dL (3.4-5.0) Albumin/Globulin Ratio 0.4 (1.0-1.7) Medications Current Medications Ondansetron HCl (Zofran) 4 mg PRN Q6HRS PRN IV NAUSEA/VOMITING; Start 05/31/20 at 07:00; Stop 05/31/20 at 20:26; Status DC Fentanyl Citrate (Fentanyl 2ml Vial) 25 mcg PRN Q5MIN PRN IV MILD PAIN 1-3; Start 05/31/20 at 07:00; Stop 05/31/20 at 20:26; Status DC Fentanyl Citrate (Fentanyl 2ml Vial) 50 mcg PRN Q5MIN PRN IV MODERATE TO SEVERE PAIN; Start 05/31/20 at 07:00; Stop 05/31/20 at 20:26; Status DC Morphine Sulfate (Morphine Sulfate) 1 mg PRN Q10MIN PRN IV SEVERE PAIN 7-10; Start 05/31/20 at 07:00; Stop 05/31/20 at 20:26; Status DC Ringer's Solution 1,000 ml @ 30 mls/hr Q24H IV Last administered on 05/31/20at 09:18; Start 05/31/20 at 07:00; Stop 05/31/20 at 18:59; Status DC Hydromorphone HCl (Dilaudid) 0.5 mg PRN Q10MIN PRN IV SEV PAIN, Second choice; Start 05/31/20 at 07:00; Stop 05/31/20 at 20:26; Status DC Prochlorperazine Edisylate (Compazine) 5 mg PACU PRN PRN IV NAUSEA, MRX1; Start 05/31/20 at 07:00; Stop 05/31/20 at 20:26; Status DC Ceftriaxone Sodium (Rocephin) 1 gm 1X PREOP PRN IVP PRIOR TO PROCEDURE; Start 05/31/20 at 08:00; Stop 06/02/20 at 09:36; Status DC Metronidazole 100 ml @ 100 mls/hr 1X PREOP PRN IV PRIOR TO PROCEDURE; Start 05/31/20 at 06:00; Stop 05/31/20 at 18:00; Status DC Propofol (Diprivan) 200 mg STK-MED ONCE IV ; Start 05/31/20 at 08:13; Stop 05/31/20 at 08:14; Status DC Lidocaine HCl (Lidocaine Pf 2% Vial) 5 ml STK-MED ONCE .ROUTE ; Start 05/31/20 at 08:13; Stop 05/31/20 at 08:14; Status DC Fentanyl Citrate (Fentanyl 2ml Vial) 100 mcg STK-MED ONCE .ROUTE ; Start 05/31/20 at 08:14; Stop 05/31/20 at 08:14; Status DC Succinylcholine Chloride (Anectine) 200 mg STK-MED ONCE .ROUTE ; Start 05/31/20 at 08:15; Stop 05/31/20 at 08:16; Status DC Rocuronium [place] (Zemuron) 50 mg STK-MED ONCE .ROUTE ; Start 05/31/20 at 08:15; Stop 05/31/20 at 08:16; Status DC Insulin Human Lispro (HumaLOG VIAL for OP,RR ONLY) 0-10 units PRN Q1HR PRN SQ PER PROTOCOL Last administered on 05/31/20at 09:22; Start 05/31/20 at 09:15; Stop 05/31/20 at 19:58; Status DC Midazolam HCl (Versed) 2 mg STK-MED ONCE .ROUTE ; Start 05/31/20 at 09:27; Stop 05/31/20 at 09:28; Status DC Bupivacaine HCl (Sensorcaine-Mpf 0.25%) 10 ml STK-MED ONCE .ROUTE ; Start 05/31/20 at 09:28; Stop 05/31/20 at 09:28; Status DC Midazolam HCl (Versed) 2 mg STK-MED ONCE .ROUTE ; Start 05/31/20 at 10:03; Stop 05/31/20 at 10:03; Status DC Lidocaine HCl (Lidocaine 1% 20ml Vial) 20 ml STK-MED ONCE .ROUTE ; Start 05/31/20 at 10:04; Stop 05/31/20 at 10:05; Status DC Dexamethasone Sodium Phosphate (Decadron) 4 mg STK-MED ONCE .ROUTE ; Start 05/31/20 at 10:36; Stop 05/31/20 at 10:37; Status DC Desflurane (Suprane) 90 ml STK-MED ONCE IH ; Start 05/31/20 at 10:37; Stop 05/31/20 at 10:37; Status DC Bupivacaine HCl (Sensorcaine Mpf 0.5%) 30 ml STK-MED ONCE .ROUTE ; Start 05/31/20 at 10:41; Stop 05/31/20 at 10:42; Status DC Dexamethasone Sodium Phosphate (Decadron) 4 mg STK-MED ONCE .ROUTE ; Start 05/31/20 at 10:43; Stop 05/31/20 at 10:44; Status DC Phenylephrine HCl (PHENYLEPHRINE in 0.9% NACL PF) 1 mg STK-MED ONCE IV ; Start 05/31/20 at 10:44; Stop 05/31/20 at 10:44; Status DC Ephedrine Sulfate (ePHEDrine PF IN SALINE SYRINGE) 50 mg STK-MED ONCE IV ; Start 05/31/20 at 10:59; Stop 05/31/20 at 11:00; Status DC Sodium Chloride 35 ml/Fentanyl Citrate 250 mcg/ Ropivacaine 10 ml/ Epidural Dosage Infused (Pha) 50 ml @ 0 mls/hr CONT PRN EPID SEE PROTOCOL TABLE Last administered on 06/05/20at 06:58; Start 05/31/20 at 11:00 Insulin Human Lispro (HumaLOG VIAL for OP,RR ONLY) 0-10 units PRN Q1HR PRN SQ PER PROTOCOL; Start 05/31/20 at 11:00; Stop 05/31/20 at 19:58; Status DC Atropine Sulfate (ATROPINE 0.5mg SYRINGE) 0.5 mg PRN 1X PRN IV SEE COMMENTS; Start 05/31/20 at 11:00; Stop 06/01/20 at 10:59; Status DC Naloxone HCl (Narcan) 0.04 mg PRN Q2MIN PRN IV SEE COMMENTS; Start 05/31/20 at 11:00; Stop 05/31/20 at 20:35; Status DC Rocuronium [place] (Zemuron) 50 mg STK-MED ONCE .ROUTE ; Start 05/31/20 at 12:03; Stop 05/31/20 at 12:04; Status DC Rocuronium [place] (Zemuron) 50 mg STK-MED ONCE .ROUTE ; Start 05/31/20 at 14:00; Stop 05/31/20 at 14:00; Status DC Ondansetron HCl (Zofran) 4 mg STK-MED ONCE .ROUTE ; Start 05/31/20 at 15:06; Stop 05/31/20 at 15:06; Status DC Phenylephrine HCl (PHENYLEPHRINE in 0.9% NACL PF) 1 mg STK-MED ONCE IV ; Start 05/31/20 at 15:06; Stop 05/31/20 at 15:06; Status DC Glycopyrrolate (Robinul) 1 mg STK-MED ONCE .ROUTE ; Start 05/31/20 at 15:06; St op 05/31/20 at 15:06; Status DC Neostigmine Methylsulfate (Bloxiverz) 10 mg STK-MED ONCE .ROUTE ; Start 05/31/20 at 15:07; Stop 05/31/20 at 15:07; Status DC Phenylephrine HCl (PHENYLEPHRINE in 0.9% NACL PF) 1 mg STK-MED ONCE IV ; Start 05/31/20 at 15:40; Stop 05/31/20 at 15:40; Status DC Metronidazole 100 ml @ 100 mls/hr 1X ONCE IV Last administered on 05/31/20at 16:14; Start 05/31/20 at 16:15; Stop 05/31/20 at 17:14; Status DC Heparin Sodium (Porcine) (Hep Lock Adult) 500 unit STK-MED ONCE IVP ; Start 05/31/20 at 16:59; Stop 05/31/20 at 16:59; Status DC Heparin Sodium (Porcine) (Hep Lock Adult) 500 unit 1X ONCE IVP Last adm inistered on 05/31/20at 18:00; Start 05/31/20 at 17:00; Stop 05/31/20 at 17:01; Status DC Enoxaparin Sodium (Lovenox 40mg Syringe) 40 mg Q24H SQ ; Start 05/31/20 at 18:00; Stop 05/31/20 at 19:58; Status DC Sodium Chloride (Normal Saline Flush) 3 ml QSHIFT PRN IV AFTER MEDS AND BLOOD DRAWS; Start 05/31/20 at 17:15 Ringer's Solution 1,000 ml @ 100 mls/hr Q10H IV Last administered on 06/02/20at 05:36; Start 05/31/20 at 17:14; Stop 06/02/20 at 11:56; Status DC Naloxone HCl (Narcan) 0.4 mg PRN Q2MIN PRN IV SEE INSTRUCTIONS; Start 05/31/20 at 17:15 Sodium Chloride 1,000 ml @ 25 mls/hr Q24H IV ; Start 05/31/20 at 17:14; Stop 05/31/20 at 20:32; Status DC Ondansetron HCl (Zofran) 4 mg PRN Q6HRS PRN IVP NAUESA, 1ST CHOICE; Start 05/31/20 at 17:15 Enoxaparin Sodium (Lovenox 40mg Syringe) 40 mg Q24H SQ Last administered on 06/05/20at 09:00; Start 06/01/20 at 09:00 Sodium Chloride 1,000 ml @ 250 mls/hr 1X ONCE IV Last administered on 05/31/20at 20:33; Start 05/31/20 at 19:30; Stop 05/31/20 at 23:29; Status DC Insulin Human Lispro (HumaLOG) 0-5 UNITS Q6HRS SQ ; Start 06/01/20 at 00:00 Dextrose (Dextrose 50%-Water Syringe) 12.5 gm PRN Q15MIN PRN IV SEE COMMENTS; Start 05/31/20 at 19:30 Sodium Chloride 1,000 ml @ 1,000 mls/hr 1X ONCE IV Last administered on 06/01/20at 07:23; Start 06/01/20 at 07:00; Stop 06/01/20 at 07:59; Status DC Potassium Chloride/Water 100 ml @ 100 mls/hr Q1H IV Last administered on 06/01/20at 11:39; Start 06/01/20 at 08:30; Stop 06/01/20 at 12:29; Status DC Magnesium Sulfate 100 ml @ 25 mls/hr 1X ONCE IV Last administered on 06/01/20at 08:35; Start 06/01/20 at 08:00; Stop 06/01/20 at 11:59; Status DC Pantoprazole Sodium (PROTONIX VIAL for IV PUSH) 40 mg DAILYAC IVP Last administered on 06/05/20at 08:59; Start 06/01/20 at 10:00 Amino Acids/ Glycerin/ Electrolytes 1,000 ml @ 75 mls/hr [id number] IV Last administered on 06/04/20at 21:28; Start 06/02/20 at 12:30 Insulin Human Lispro (HumaLOG VIAL for OP,RR ONLY) 2 unit STK-MED ONCE SQ ; Start 05/31/20 at 09:30; Stop 06/02/20 at 16:33; Status DC Active Scripts Active Reported Lidocaine-Prilocaine Cream (Lidocaine/Prilocaine) 30 Gm Cream..g. 1 Lashae TP UD Oxycodone HCl 5 Mg Tablet 5 Mg PO PRN Q4-6HRS PRN D3 + K2 Dots 1,000 Units Tab (Vitamin D3/Vitamin K2) 1 Each Tab.rapdis 1 Tab PO DAILY 30 Days Klor-Con M20 (Potassium Chloride) 20 Meq Tab.er.prt 1 Tab PO DAILY 30 Days Metformin Hcl 500 Mg Tablet 500 Mg PO BIDWMEALS Levemir (Insulin Detemir) 100 Unit/1 Ml Vial 15 Unit SQ HS Novolog (Insulin Aspart) 100 Unit/1 Ml Vial 6 Unit SQ DAILYAC Metformin Hcl 500 Mg Tablet 500 Mg PO BIDWMEALS Pantoprazole Sodium (Pantoprazole Sodium) 40 Mg Tablet.dr 40 Mg PO DAILYAC Vitals/I & O Vital Sign - Last 24 Hours 06/04/20 06/04/20 06/04/20 06/04/20 10:46 11:24 15:20 15:31 Temp 98.1 99.2 98.1 99.2 Pulse 74 70 Resp 16 18 16 16 B/P (MAP) 117/72 (87) 109/70 (83) Pulse Ox 99 99 O2 Delivery Room Air Room Air Room Air Room Air 06/04/20 06/04/20 06/04/20 06/04/20 16:01 18:59 20:00 21:15 Temp 98.0 98.0 Pulse 73 Resp 18 16 B/P (MAP) 113/71 (85) Pulse Ox 99 O2 Delivery Room Air Room Air Room Air Room Air 06/04/20 06/05/20 06/05/20 06/05/20 23:15 01:54 02:01 07:00 Temp 99.3 99.2 98.2 99.3 99.2 98.2 Pulse 80 70 78 Resp 16 16 16 B/P (MAP) 104/67 (79) 99/55 (70) 99/60 (73) Pulse Ox 98 98 99 O2 Delivery Room Air Room Air Room Air Room Air 06/05/20 06/05/20 07:28 08:00 Resp 16 O2 Delivery Room Air Room Air Intake and Output 06/04/20 06/04/20 06/05/20 15:00 23:00 07:00 Intake Total 0 ml Output Total 410 ml 400 ml 550 ml Balance -410 ml -400 ml -550 ml Nutrition Consultation Dietary Evaluation: Recommendations by RD: Dietary education by RD, Increase Calorie Intake, Protein supplementation Comments: REC advance diet as able per surgery; recommend Ensure clear (any flavor, TID) if on clears and Glucerna (butter pecan, TID) otherwise Continue w/PPN for short-term nutrition support needs until advanced to PO diet and pt is eating >50% meals and tolerating Expected Outcomes/Goals: diet advancement - not met, goal ongoing Interpretation of weight loss: >10% in 6 months Malnutrition Findings: Food and Nutrition Intake (Sev: <50% est energy req 5days Justicifation of Admission Dx: Justifications for Admission: Justification of Admission Dx: Yes JEFFREY HERNANDEZ MD Jun 05, 2020 10:25
[2020-06-05 10:50] VITALS: BP 108/69
[2020-06-05] MEDS: AMINO AC 3%/ELECTROLYTE/GLYCER 1,000 ML IV SCH ×2 (12:25→23:03)
--- NOTE | 2020-06-05 12:45 | NUR ---
Blood glucose 82 at 1200 via Jonnie scanner.
[2020-06-05 15:00] VITALS: BP 122/67
[2020-06-05] MEDS: HYDROmorphone 2 MG/ML VIAL IVP PRN ×4 (15:43→23:04)
[2020-06-05 19:45] VITALS: BP 115/73
--- NOTE | 2020-06-05 23:07 | NUR ---
Blood sugar check by pt on his Jonnie in presence of this RN result was 98 at this time.
[2020-06-05 23:15] VITALS: BP 102/63
[2020-06-06] MEDS: HYDROmorphone 2 MG/ML VIAL IVP PRN ×7 (02:46→23:25)
[2020-06-06 03:25] VITALS: BP 113/65
[2020-06-06] MEDS: INSULIN LISPRO 300 UNITS/3 ML VIAL. SQ SCH ×3 (05:58→16:52)
--- NOTE | 2020-06-06 06:06 | NUR ---
Jonnie blood sugar for 0600 check was 110.
[2020-06-06 07:50] LABS: CREATININE 0.4 mg/dL (0.7-1.3); GFR 225.9; POTASSIUM 4.4 mmol/L (3.5-5.1)
[2020-06-06 08:30] VITALS: BP 113/71
[2020-06-06] MEDS: PANTOPRAZOLE IV PUSH 40 MG VIAL. IVP SCH (08:56)
[2020-06-06] MEDS: ENOXAPARIN 40 MG/0.4 ML SYRINGE. SQ SCH (08:57)
--- NOTE | 2020-06-06 10:03 | PDOC ---
SURGICAL PROGRESS NOTE DATE: 06/06/20 TIME: 10:00 Subjective pain is better asking about NG some flatus Vital Signs Vital Signs Date Time Temp Pulse Resp B/P (MAP) Pulse Ox O2 Delivery O2 Flow Rate FiO2 06/06/20 09:26 16 Room Air 06/06/20 08:30 97.8 64 113/71 (85) 97 97.8 I&O Intake and Output 06/06/20 07:00 Intake Total 0 ml Output Total 1700 ml Balance -1700 ml Intake Oral 0 ml Output Urine Total 1550 ml Drainage Total 150 ml General: Alert, Oriented X3, Cooperative HEENT: Other (ng in place, clamped ) Abdomen: Soft, Other (drain serous, g tube in place) Labs Laboratory Tests Test 06/05/20 06:55 06/05/20 07:13 06/06/20 07:35 White Blood Count 8.4 x10^3/uL (4.0-11.0) Red Blood Count 2.64 x10^6/uL (4.30-5.70) Hemoglobin 9.2 g/dL (13.0-17.5) Hematocrit 27.3 % (39.0-53.0) Mean Corpuscular Volume 103 fL (79-100) Mean Corpuscular Hemoglobin 35 pg (25-35) Mean Corpuscular Hemoglobin Concent 34 g/dL (31-37) Red Cell Distribution Width 14.7 % (11.5-14.5) Platelet Count 245 x10^3/uL (140-400) Neutrophils (%) (Auto) 70 % (31-73) Lymphocytes (%) (Auto) 17 % (24-48) Monocytes (%) (Auto) 11 % (0-9) Eosinophils (%) (Auto) 2 % (0-3) Basophils (%) (Auto) 1 % (0-3) Neutrophils # (Auto) 5.8 x10^3/uL (1.8-7.7) Lymphocytes # (Auto) 1.4 x10^3/uL (1.0-4.8) Monocytes # (Auto) 0.9 x10^3/uL (0.0-1.1) Eosinophils # (Auto) 0.1 x10^3/uL (0.0-0.7) Basophils # (Auto) 0.1 x10^3/uL (0.0-0.2) Sodium Level 137 mmol/L (136-145) 136 mmol/L (136-145) Potassium Level 3.9 mmol/L (3.5-5.1) 4.4 mmol/L (3.5-5.1) Chloride Level 102 mmol/L (98-107) 101 mmol/L (98-107) Carbon Dioxide Level 28 mmol/L (21-32) 30 mmol/L (21-32) Anion Gap 7 (6-14) 5 (6-14) Blood Urea Nitrogen 10 mg/dL (8-26) 9 mg/dL (8-26) Creatinine 0.4 mg/dL (0.7-1.3) 0.4 mg/dL (0.7-1.3) Estimated GFR (Cockcroft-Gault) 225.9 225.9 BUN/Creatinine Ratio 25 (6-20) Glucose Level 105 mg/dL (70-99) 131 mg/dL (70-99) Calcium Level 8.2 mg/dL (8.5-10.1) 8.0 mg/dL (8.5-10.1) Total Bilirubin 0.9 mg/dL (0.2-1.0) Aspartate Amino Transf (AST/SGOT) 26 U/L (15-37) Alanine Aminotransferase (ALT/SGPT) 23 U/L (16-63) Alkaline Phosphatase 225 U/L (46-116) Total Protein 5.1 g/dL (6.4-8.2) Albumin 1.5 g/dL (3.4-5.0) Albumin/Globulin Ratio 0.4 (1.0-1.7) Laboratory Tests Test 06/06/20 07:35 Sodium Level 136 mmol/L (136-145) Potassium Level 4.4 mmol/L (3.5-5.1) Chloride Level 101 mmol/L (98-107) Carbon Dioxide Level 30 mmol/L (21-32) Anion Gap 5 (6-14) Blood Urea Nitrogen 9 mg/dL (8-26) Creatinine 0.4 mg/dL (0.7-1.3) Estimated GFR (Cockcroft-Gault) 225.9 Glucose Level 131 mg/dL (70-99) Calcium Level 8.0 mg/dL (8.5-10.1) Assessment/Plan will remove NG, g tube to DD and start clears Justicifation of Admission Dx: Justifications for Admission: Justification of Admission Dx: Yes BABATUNDE GUEVARA [employer]LECTIONS MANAGER Jun 06, 2020 10:03
[2020-06-06] MEDS ORDERED: ACETAMINOPHEN 650 MG SUPP.RECT. PR ONE (10:45)
[2020-06-06 11:00] VITALS: BP 117/70
[2020-06-06] MEDS: AMINO AC 3%/ELECTROLYTE/GLYCER 1,000 ML IV SCH (13:13)
--- NOTE | 2020-06-06 14:50 | PDOC ---
PROGRESS NOTES Date of Service: DATE: 06/06/20 TIME: 14:49 Chief Complaint Chief Complaint Postoperative day # 5, Whipple procedure with hypokalemia, anemia, transaminitis and hyperglycemia. pancreatic cancer Severe protein-caloric malnutrition Acute electrolyte derangements Transaminitis due to hepatobiliary obstruction Normocytic anemia Thrombocytopenia Pancreatic cancer GERD hypertension Diabetes Previous gastric sleeve 37 MIN PT EXAM, CHART REVIEW, > 50% OF TIME SPENT WITH EXAM, CHART REVIEW, PT CARE COORDINATION History of Present Illness History of Present Illness 06/06/2020 Patient seen and examined bedside NG ou, Appears frail and weak Chart reviewed Discussed with RN PAIN better, may try to DC soon, try clears, Vitals Vitals Vital Signs Date Time Temp Pulse Resp B/P (MAP) Pulse Ox O2 Delivery O2 Flow Rate FiO2 06/06/20 12:12 16 Room Air 06/06/20 11:00 98.9 69 117/70 (86) 97 98.9 Physical Exam General: Alert, Oriented X3, Cooperative Heart: Regular rate Lungs: Clear Abdomen: Soft, Other (drain serous, g tube in place) Extremities: No cyanosis, No edema Skin: No rashes Labs LABS Laboratory Tests Test 06/06/20 07:35 Sodium Level 136 mmol/L (136-145) Potassium Level 4.4 mmol/L (3.5-5.1) Chloride Level 101 mmol/L (98-107) Carbon Dioxide Level 30 mmol/L (21-32) Anion Gap 5 (6-14) Blood Urea Nitrogen 9 mg/dL (8-26) Creatinine 0.4 mg/dL (0.7-1.3) Estimated GFR (Cockcroft-Gault) 225.9 Glucose Level 131 mg/dL (70-99) Calcium Level 8.0 mg/dL (8.5-10.1) Review of Systems Review of Systems somepain weakness Comment Review of Relevant I have reviewed the following items derrick (where applicable) has been applied. Labs Laboratory Tests Test 06/05/20 06:55 06/05/20 07:13 06/06/20 07:35 White Blood Count 8.4 x10^3/uL (4.0-11.0) Red Blood Count 2.64 x10^6/uL (4.30-5.70) Hemoglobin 9.2 g/dL (13.0-17.5) Hematocrit 27.3 % (39.0-53.0) Mean Corpuscular Volume 103 fL (79-100) Mean Corpuscular Hemoglobin 35 pg (25-35) Mean Corpuscular Hemoglobin Concent 34 g/dL (31-37) Red Cell Distribution Width 14.7 % (11.5-14.5) Platelet Count 245 x10^3/uL (140-400) Neutrophils (%) (Auto) 70 % (31-73) Lymphocytes (%) (Auto) 17 % (24-48) Monocytes (%) (Auto) 11 % (0-9) Eosinophils (%) (Auto) 2 % (0-3) Basophils (%) (Auto) 1 % (0-3) Neutrophils # (Auto) 5.8 x10^3/uL (1.8-7.7) Lymphocytes # (Auto) 1.4 x10^3/uL (1.0-4.8) Monocytes # (Auto) 0.9 x10^3/uL (0.0-1.1) Eosinophils # (Auto) 0.1 x10^3/uL (0.0-0.7) Basophils # (Auto) 0.1 x10^3/uL (0.0-0.2) Sodium Level 137 mmol/L (136-145) 136 mmol/L (136-145) Potassium Level 3.9 mmol/L (3.5-5.1) 4.4 mmol/L (3.5-5.1) Chloride Level 102 mmol/L (98-107) 101 mmol/L (98-107) Carbon Dioxide Level 28 mmol/L (21-32) 30 mmol/L (21-32) Anion Gap 7 (6-14) 5 (6-14) Blood Urea Nitrogen 10 mg/dL (8-26) 9 mg/dL (8-26) Creatinine 0.4 mg/dL (0.7-1.3) 0.4 mg/dL (0.7-1.3) Estimated GFR (Cockcroft-Gault) 225.9 225.9 BUN/Creatinine Ratio 25 (6-20) Glucose Level 105 mg/dL (70-99) 131 mg/dL (70-99) Calcium Level 8.2 mg/dL (8.5-10.1) 8.0 mg/dL (8.5-10.1) Total Bilirubin 0.9 mg/dL (0.2-1.0) Aspartate Amino Transf (AST/SGOT) 26 U/L (15-37) Alanine Aminotransferase (ALT/SGPT) 23 U/L (16-63) Alkaline Phosphatase 225 U/L (46-116) Total Protein 5.1 g/dL (6.4-8.2) Albumin 1.5 g/dL (3.4-5.0) Albumin/Globulin Ratio 0.4 (1.0-1.7) Laboratory Tests Test 06/06/20 07:35 Sodium Level 136 mmol/L (136-145) Potassium Level 4.4 mmol/L (3.5-5.1) Chloride Level 101 mmol/L (98-107) Carbon Dioxide Level 30 mmol/L (21-32) Anion Gap 5 (6-14) Blood Urea Nitrogen 9 mg/dL (8-26) Creatinine 0.4 mg/dL (0.7-1.3) Estimated GFR (Cockcroft-Gault) 225.9 Glucose Level 131 mg/dL (70-99) Calcium Level 8.0 mg/dL (8.5-10.1) Medications Current Medications Ondansetron HCl (Zofran) 4 mg PRN Q6HRS PRN IV NAUSEA/VOMITING; Start 05/31/20 at 07:00; Stop 05/31/20 at 20:26; Status DC Fentanyl Citrate (Fentanyl 2ml Vial) 25 mcg PRN Q5MIN PRN IV MILD PAIN 1-3; Start 05/31/20 at 07:00; Stop 05/31/20 at 20:26; Status DC Fentanyl Citrate (Fentanyl 2ml Vial) 50 mcg PRN Q5MIN PRN IV MODERATE TO SEVERE PAIN; Start 05/31/20 at 07:00; Stop 05/31/20 at 20:26; Status DC Morphine Sulfate (Morphine Sulfate) 1 mg PRN Q10MIN PRN IV SEVERE PAIN 7-10; Start 05/31/20 at 07:00; Stop 05/31/20 at 20:26; Status DC Ringer's Solution 1,000 ml @ 30 mls/hr Q24H IV Last administered on 05/31/20at 09:18; Start 05/31/20 at 07:00; Stop 05/31/20 at 18:59; Status DC Hydromorphone HCl (Dilaudid) 0.5 mg PRN Q10MIN PRN IV SEV PAIN, Second choice; Start 05/31/20 at 07:00; Stop 05/31/20 at 20:26; Status DC Prochlorperazine Edisylate (Compazine) 5 mg PACU PRN PRN IV NAUSEA, MRX1; Start 05/31/20 at 07:00; Stop 05/31/20 at 20:26; Status DC Ceftriaxone Sodium (Rocephin) 1 gm 1X PREOP PRN IVP PRIOR TO PROCEDURE; Start 05/31/20 at 08:00; Stop 06/02/20 at 09:36; Status DC Metronidazole 100 ml @ 100 mls/hr 1X PREOP PRN IV PRIOR TO PROCEDURE; Start 05/31/20 at 06:00; Stop 05/31/20 at 18:00; Status DC Propofol (Diprivan) 200 mg STK-MED ONCE IV ; Start 05/31/20 at 08:13; Stop 05/31/20 at 08:14; Status DC Lidocaine HCl (Lidocaine Pf 2% Vial) 5 ml STK-MED ONCE .ROUTE ; Start 05/31/20 at 08:13; Stop 05/31/20 at 08:14; Status DC Fentanyl Citrate (Fentanyl 2ml Vial) 100 mcg STK-MED ONCE .ROUTE ; Start 05/31 at 08:14; Stop 05/31/20 at 08:14; Status DC Succinylcholine Chloride (Anectine) 200 mg STK-MED ONCE .ROUTE ; Start 05/31/20 at 08:15; Stop 05/31/20 at 08:16; Status DC Rocuronium [place] (Zemuron) 50 mg STK-MED ONCE .ROUTE ; Start 05/31/20 at 08:15; Stop 05/31/20 at 08:16; Status DC Insulin Human Lispro (HumaLOG VIAL for OP,RR ONLY) 0-10 units PRN Q1HR PRN SQ PER PROTOCOL Last administered on 05/31/20at 09:22; Start 05/31/20 at 09:15; Stop 05/31/20 at 19:58; Status DC Midazolam HCl (Versed) 2 mg STK-MED ONCE .ROUTE ; Start 05/31/20 at 09:27; Stop 05/31/20 at 09:28; Status DC Bupivacaine HCl (Sensorcaine-Mpf 0.25%) 10 ml STK-MED ONCE .ROUTE ; Start 05/31/20 at 09:28; Stop 05/31/20 at 09:28; Status DC Midazolam HCl (Versed) 2 mg STK-MED ONCE .ROUTE ; Start 05/31/20 at 10:03; Stop 05/31/20 at 10:03; Status DC Lidocaine HCl (Lidocaine 1% 20ml Vial) 20 ml STK-MED ONCE .ROUTE ; Start 05/31/20 at 10:04; Stop 05/31/20 at 10:05; Status DC Dexamethasone Sodium Phosphate (Decadron) 4 mg STK-MED ONCE .ROUTE ; Start 05/31/20 at 10:36; Stop 05/31/20 at 10:37; Status DC Desflurane (Suprane) 90 ml STK-MED ONCE IH ; Start 05/31/20 at 10:37; Stop 05/31/20 at 10:37; Status DC Bupivacaine HCl (Sensorcaine Mpf 0.5%) 30 ml STK-MED ONCE .ROUTE ; Start 05/31/20 at 10:41; Stop 05/31/20 at 10:42; Status DC Dexamethasone Sodium Phosphate (Decadron) 4 mg STK-MED ONCE .ROUTE ; Start 05/31/20 at 10:43; Stop 05/31/20 at 10:44; Status DC Phenylephrine HCl (PHENYLEPHRINE in 0.9% NACL PF) 1 mg STK-MED ONCE IV ; Start 05/31/20 at 10:44; Stop 05/31/20 at 10:44; Status DC Ephedrine Sulfate (ePHEDrine PF IN SALINE SYRINGE) 50 mg STK-MED ONCE IV ; Start 05/31/20 at 10:59; Stop 05/31/20 at 11:00; Status DC Sodium Chloride 35 ml/Fentanyl Citrate 250 mcg/ Ropivacaine 10 ml/ Epidural Do bret Infused (Pha) 50 ml @ 0 mls/hr CONT PRN EPID SEE PROTOCOL TABLE Last administered on 06/05/20at 06:58; Start 05/31/20 at 11:00 Insulin Human Lispro (HumaLOG VIAL for OP,RR ONLY) 0-10 units PRN Q1HR PRN SQ PER PROTOCOL; Start 05/31/20 at 11:00; Stop 05/31/20 at 19:58; Status DC Atropine Sulfate (ATROPINE 0.5mg SYRINGE) 0.5 mg PRN 1X PRN IV SEE COMMENTS; Start 05/31/20 at 11:00; Stop 06/01/20 at 10:59; Status DC Naloxone HCl (Narcan) 0.04 mg PRN Q2MIN PRN IV SEE COMMENTS; Start 05/31/20 at 11:00; Stop 05/31/20 at 20:35; Status DC Rocuronium Dallas (Zemuron) 50 mg STK-MED ONCE .ROUTE ; Start 05/31/20 at 12:03; Stop 05/31/20 at 12:04; Status DC Rocuronium [place] (Zemuron) 50 mg STK-MED ONCE .ROUTE ; Start 05/31/20 at 14:00; Stop 05/31/20 at 14:00; Status DC Ondansetron HCl (Zofran) 4 mg STK-MED ONCE .ROUTE ; Start 05/31/20 at 15:06; Stop 05/31/20 at 15:06; Status DC Phenylephrine HCl (PHENYLEPHRINE in 0.9% NACL PF) 1 mg STK-MED ONCE IV ; Start 05/31/20 at 15:06; Stop 05/31/20 at 15:06; Status DC Glycopyrrolate (Robinul) 1 mg STK-MED ONCE .ROUTE ; Start 05/31/20 at 15:06; Stop 05/31/20 at 15:06; Status DC Neostigmine Methylsulfate (Bloxiverz) 10 mg STK-MED ONCE .ROUTE ; Start 05/31/20 at 15:07; Stop 05/31/20 at 15:07; Status DC Phenylephrine HCl (PHENYLEPHRINE in 0.9% NACL PF) 1 mg STK-MED ONCE IV ; Start 05/31/20 at 15:40; Stop 05/31/20 at 15:40; Status DC Metronidazole 100 ml @ 100 mls/hr 1X ONCE IV Last administered on 05/31/20at 16:14; Start 05/31/20 at 16:15; Stop 05/31/20 at 17:14; Status DC Heparin Sodium (Porcine) (Hep Lock Adult) 500 unit STK-MED ONCE IVP ; Start 05/31/20 at 16:59; Stop 05/31/20 at 16:59; Status DC Heparin Sodium (Porcine) (Hep Lock Adult) 500 unit 1X ONCE IVP Last administered on 05/31/20at 18:00; Start 05/31/20 at 17:00; Stop 05/31/20 at 17:01; Status DC Enoxaparin Sodium (Lovenox 40mg Syringe) 40 mg Q24H SQ ; Start 05/31/20 at 18:00; Stop 05/31/20 at 19:58; Status DC Sodium Chloride (Normal Saline Flush) 3 ml QSHIFT PRN IV AFTER MEDS AND BLOOD DRAWS; Start 05/31/20 at 17:15 Ringer's Solution 1,000 ml @ 100 mls/hr Q10H IV Last administered on 06/02/20at 05:36; Start 05/31/20 at 17:14; Stop 06/02/20 at 11:56; Status DC Naloxone HCl (Narcan) 0.4 mg PRN Q2MIN PRN IV SEE INSTRUCTIONS; Start 05/31/20 at 17:15 Sodium Chloride 1,000 ml @ 25 mls/hr Q24H IV ; Start 05/31/20 at 17:14; Stop 05/31/20 at 20:32; Status DC Ondansetron HCl (Zofran) 4 mg PRN Q6HRS PRN IVP NAUESA, 1ST CHOICE Last administered on 06/05/20at 20:10; Start 05/31/20 at 17:15 Enoxaparin Sodium (Lovenox 40mg Syringe) 40 mg Q24H SQ Last administered on 06/06/20at 08:57; Start 06/01/20 at 09:00 Sodium Chloride 1,000 ml @ 250 mls/hr 1X ONCE IV Last administered on 05/31/20at 20:33; Start 05/31/20 at 19:30; Stop 05/31/20 at 23:29; Status DC Insulin Human Lispro (HumaLOG) 0-5 UNITS Q6HRS SQ ; Start 06/01/20 at 00:00 Dextrose (Dextrose 50%-Water Syringe) 12.5 gm PRN Q15MIN PRN IV SEE COMMENTS; Start 05/31/20 at 19:30 Sodium Chloride 1,000 ml @ 1,000 mls/hr 1X ONCE IV Last administered on 06/01/20at 07:23; Start 06/01/20 at 07:00; Stop 06/01/20 at 07:59; Status DC Potassium Chloride/Water 100 ml @ 100 mls/hr Q1H IV Last administered on 06/01/20at 11:39; Start 06/01/20 at 08:30; Stop 06/01/20 at 12:29; Status DC Magnesium Sulfate 100 ml @ 25 mls/hr 1X ONCE IV Last administered on 06/01/20at 08:35; Start 06/01/20 at 08:00; Stop 06/01/20 at 11:59; Status DC Pantoprazole Sodium (PROTONIX VIAL for IV PUSH) 40 mg DAILYAC IVP Last administered on 06/06/20at 08:56; Start 06/01/20 at 10:00 Amino Acids/ Glycerin/ Electrolytes 1,000 ml @ 75 mls/hr [id number] IV Last administered on 06/06/20at 13:13; Start 06/02/20 at 12:30 Insulin Human Lispro (HumaLOG VIAL for OP,RR ONLY) 2 unit STK-MED ONCE SQ ; Start 05/31/20 at 09:30; Stop 06/02/20 at 16:33; Status DC Hydromorphone HCl (Dilaudid) 0.7 mg PRN Q3HRS PRN IVP SEVERE PAIN 7-10 Last administered on 06/05/20at 18:36; Start 06/05/20 at 10:30; Stop 06/05/20 at 19:55; Status DC Hydromorphone HCl (Dilaudid) 1.2 mg PRN Q3HRS PRN IVP SEVERE PAIN 7-10 Last administered on 06/06/20at 08:56; Start 06/05/20 at 20:00; Stop 06/06/20 at 10:33; Status DC Hydromorphone HCl (Dilaudid) 2 mg PRN Q3HRS PRN IVP SEVERE PAIN 7-10 Last administered on 06/06/20at 11:42; Start 06/06/20 at 10:45 Acetaminophen (Tylenol Supp) 650 mg 1X ONCE NC ; Start 06/06/20 at 10:45; Stop 06/06/20 at 10:46; Status DC Active Scripts Active Reported Lidocaine-Prilocaine Cream (Lidocaine/Prilocaine) 30 Gm Cream..g. 1 Lashae TP UD Oxycodone HCl 5 Mg Tablet 5 Mg PO PRN Q4-6HRS PRN D3 + K2 Dots 1,000 Units Tab (Vitamin D3/Vitamin K2) 1 Each Tab.rapdis 1 Tab PO DAILY 30 Days Klor-Con M20 (Potassium Chloride) 20 Meq Tab.er.prt 1 Tab PO DAILY 30 Days Metformin Hcl 500 Mg Tablet 500 Mg PO BIDWMEALS Levemir (Insulin Detemir) 100 Unit/1 Ml Vial 15 Unit SQ HS Novolog (Insulin Aspart) 100 Unit/1 Ml Vial 6 Unit SQ DAILYAC Metformin Hcl 500 Mg Tablet 500 Mg PO BIDWMEALS Pantoprazole Sodium (Pantoprazole Sodium) 40 Mg Tablet.dr 40 Mg PO DAILYAC Vitals/I & O Vital Sign - Last 24 Hours 06/05/20 06/05/20 06/05/20 06/05/20 15:00 15:43 16:13 18:36 Temp 97.7 97.7 Pulse 77 Resp 18 16 18 16 B/P (MAP) 122/67 (85) Pulse Ox 100 O2 Delivery Room Air Room Air Room Air Room Air 06/05/20 06/05/20 06/05/20 06/05/20 19:06 19:35 19:45 20:10 Temp 98.0 98.0 Pulse 71 Resp 20 18 20 B/P (MAP) 115/73 (87) Pulse Ox 98 O2 Delivery Room Air Room Air Room Air Room Air 06/05/20 06/05/20 06/05/20 06/05/20 20:40 23:04 23:15 23:34 Temp 98.4 98.4 Pulse 68 Resp 20 18 18 18 B/P (MAP) 102/63 (76) Pulse Ox 97 O2 Delivery Room Air Room Air Room Air Room Air 06/06/20 06/06/20 06/06/20 06/06/20 02:46 03:16 03:25 05:54 Temp 98.4 98.4 Pulse 68 Resp 20 18 18 18 B/P (MAP) 113/65 (81) Pulse Ox 98 O2 Delivery Room Air Room Air Room Air Room Air 06/06/20 06/06/20 06/06/20 06/06/20 06:24 08:00 08:30 08:56 Temp 97.8 97.8 Pulse 64 Resp 20 20 18 B/P (MAP) 113/71 (85) Pulse Ox 97 O2 Delivery Room Air Room Air Room Air 06/06/20 06/06/20 06/06/20 06/06/20 09:26 11:00 11:42 12:12 Temp 98.9 98.9 Pulse 69 Resp 16 20 18 16 B/P (MAP) 117/70 (86) Pulse Ox 97 O2 Delivery Room Air Room Air Room Air Room Air Intake and Output 06/05/20 06/05/20 06/06/20 15:00 23:00 07:00 Intake Total 0 ml 0 ml 0 ml Output Total 750 ml 500 ml 450 ml Balance -750 ml -500 ml -450 ml Nutrition Consultation Dietary Evaluation: Recommendations by RD: Dietary education by RD, Increase Calorie Intake, Protein supplementation Comments: REC advance diet as able per surgery; recommend Ensure clear (any flavor, TID) if on clears and Glucerna (butter pecan, TID) otherwise Continue w/PPN for short-term nutrition support needs until advanced to PO diet and pt is eating >50% meals and tolerating Expected Outcomes/Goals: diet advancement - not met, goal ongoing Interpretation of weight loss: >10% in 6 months Malnutrition Findings: Food and Nutrition Intake (Sev: <50% est energy req 5days Justicifation of Admission Dx: Justifications for Admission: Justification of Admission Dx: Yes JEWELL GALINDO MD Jun 06, 2020 14:50
--- NOTE | 2020-06-06 14:59 | NUR ---
SS following up with discharge planning. SS reviewed pt chart and discussed with pt RN. Pt is currently on room air. Pt on PPN. PT/OT recommended home. SS will continue to follow for discharge planning.
[2020-06-06 15:00] VITALS: BP 104/70
--- NOTE | 2020-06-06 18:22 | NUR ---
Blood sugar results from [facility]: 06/06/20 at 1200- 120 06/06/20 at 1800- 94
[2020-06-06 19:20] VITALS: BP 107/73
[2020-06-06 23:05] VITALS: BP 116/71
[2020-06-07] VITALS (7 sets, daily range): BP systolic 103–124; BP diastolic 62–77
[2020-06-07] MEDS: HYDROmorphone 2 MG/ML VIAL IVP PRN ×7 (02:29→23:13)
[2020-06-07] MEDS: AMINO AC 3%/ELECTROLYTE/GLYCER 1,000 ML IV SCH ×2 (02:29→17:41)
[2020-06-07] MEDS: INSULIN LISPRO 300 UNITS/3 ML VIAL. SQ SCH ×5 (05:52→23:15)
[2020-06-07 08:24] LABS: CALCIUM 8.7 mg/dL (8.5-10.1); CREATININE 0.4 mg/dL (0.7-1.3); GFR 225.9; POTASSIUM 4.6 mmol/L (3.5-5.1)
[2020-06-07] MEDS: PANTOPRAZOLE IV PUSH 40 MG VIAL. IVP SCH (09:03)
[2020-06-07] MEDS: ENOXAPARIN 40 MG/0.4 ML SYRINGE. SQ SCH (09:11)
--- NOTE | 2020-06-07 11:14 | PATHOLOGY ---
[facility] Accession Number: [id number] . 01 Material submitted: . PART A: lymph node - HEPATIC ARTERY LYMPH NODE PART B: gallbladder - GALLBLADDER PART C: pancreas - WHIPPLE - FS PART D: pancreas - ADDITIONAL UNCINATE MARGIN PART E: abdomen - INFERIOR MARGIN MESENTERY. Modifiers: inferior . 01 Clinical history: . PANCREATIC CANCER . 02 Frozen section diagnosis: . FROZEN SECTION DIAGNOSIS . (Matilda Humphreys MD) C. "Whipple": C1 - pancreatic uncinate margin: Positive. C2 - pancreatic neck margin: Negative. . . The case is discussed with Dr. Lezama and a written report is placed in the patient's chart. . . FROZEN SECTION GROSS DESCRIPTION: C. Received fresh from the OR labeled David III, Roger Burrows and Whipple, is an intact Whipple specimen. It consists of a segment of small bowel, pancreas, pancreatic duct and common bile duct with stent. The small bowel measures 11 cm in length x 0.3 cm in diameter. The serosal surface is turk red-brown and smooth. The margins are stapled. From the small bowel extends the common bile duct with stent. The common bile duct measures 2.0 cm in length x 1.0 cm in diameter. The stent extends from the common bile duct opening through the ampulla. The pancreatic duct measures 3.0 cm in length x 0.7 cm in diameter. The pancreas measures 4.0 x 4.5 x 1.5 cm. It is turk-brown lobular and firm. The surgeon has designated the uncinate margin and the pancreatic neck margin. The uncinate margin is inked green. The pancreatic neck margin is inked blue. The uncinate true shave margin is submitted for one frozen section labeled FSC1. The pancreatic neck true shave margin is submitted for a second frozen section as FSC2. The small bowel is opened to reveal a mucosal surface that is turk-brown and folded. The specimen is fixed in formalin. (CLW:leeanna; 06/01/2020) . . Frozen section performed at [facility], [address] [place] [address]. WE/QMS . 02 Diagnosis: A. "Hepatic artery lymph node", excisional biopsy: - LYMPH NODE WITH METASTATIC ADENOCARCINOMA PRESENT IN ONE OF ONE LYMPH NODES (1/1 NODES). . B. "Gallbladder", cholecystectomy: - Acute on chronic cholecystitis with focal epithelial atypia and cholesterolosis. - Cholelithiasis. - Lymph node (1) with no evidence of metastatic carcinoma (1 node). . C. "Whipple", resection: - PANCREAS WITH INVASIVE ADENOCARCINOMA, DUCTAL TYPE, MODERATELY DIFFERENTIATED, MEASURING 2.4 CM GROSSLY, EXTENDING TO AND INVOLVING THE AMPULLA OF VATER, DUODENAL MUSCULAR WALL AND INFERIOR MESENTERIC TISSUE, WITH PERINEURAL INVASION; FOCALLY INVOLVING THE ANTERIOR (YELLOW) PANCREATIC SURGICAL MARGIN. - SMALL BOWEL/DUODENAL MUCOSA, SUBMUCOSA AND MUSCULAR WALL WITH ADENOCARCINOMA, INVOLVEMENT BY DIRECT EXTENSION, WITHIN THE DUODENAL WALL AND AMPULLA OF VATER; MUCOSAL MARGINS FREE OF CARCINOMA. - LYMPH NODES WITH METASTATIC ADENOCARCINOMA PRESENT IN TWO OF ELEVEN PERIPANCREATIC LYMPH NODES (2/11 NODES). . D. "Additional uncinate margin", biopsy: - Fibroadipose connective tissue and lymph nodes (2) with no evidence of carcinoma (2 nodes). . E. "Inferior margin mesentery", biopsy: - FIBROADIPOSE CONNECTIVE TISSUE WITH INVOLVEMENT BY CARCINOMA SHOWING FOCAL PERINEURAL INVASION. . (CLW:whitney; 06/03/2020) . . Surgical Pathology Cancer Case Summary PANCREAS (EXOCRINE): . Procedure ___ Pancreaticoduodenectomy (Whipple resection), partial pancreatectomy . Tumor Site ___ Pancreatic head . Tumor Size Greatest dimension (centimeters): 2.4 cm . Histologic Type Ductal adenocarcinoma ___ Ductal adenocarcinoma (NOS) . Histologic Grade ___ G2: Moderately differentiated . Tumor Extension (select all that apply) ___ Tumor invades ampulla of Vater or sphincter of Oddi ___ Tumor invades duodenal wall ___ Tumor invades peripancreatic soft tissues . Margins For pancreaticoduodenal resection specimens only Pancreatic Neck/Parenchymal Margin ___ Uninvolved by invasive carcinoma and pancreatic high-grade intraepithelial neoplasia . Uncinate (Retroperitoneal/Superior Mesenteric Artery) Margin ___ Uninvolved by invasive carcinoma . Bile Duct Margin ___ Uninvolved by invasive carcinoma and high-grade intraepithelial neoplasia . Proximal Margin (Gastric or Duodenal) ___ Uninvolved by invasive carcinoma and high-grade dysplasia . Distal Margin (Distal Duodenal or Jejunal) ___ Uninvolved by invasive carcinoma and high-grade dysplasia . Other Margin(s) Specify margin(s): Anterior margin-yellow and inferior mesentery margin ___ Involved by invasive carcinoma . Treatment Effect __ Absent + ___ Extensive residual cancer with no evident tumor regression (poor or no response, score 3) . Lymphovascular Invasion ___ Present . Perineural Invasion ___ Present . Regional Lymph Nodes Number of Lymph Nodes Involved: 3 . Number of Lymph Nodes Examined: 15 . Pathologic Stage Classification (pTNM, AJCC 8th Edition) TNM Descriptors ___ y (posttreatment) . Primary Tumor (pT) ___ pT2:Tumor >2 cm and =4 cm in greatest dimension . Regional Lymph Nodes (pN) ___ pN1: Metastasis in one to three regional lymph nodes . . Properly controlled immunohistochemical stains are performed. . Block E1: AE1/AE3 - tumor cells reactive; Calretinin - tumor cells non-reactive. . . Custom Tailor slides are co-reviewed with Dr. Gonzalo Morin. Clinical correlation is required. . (CLW:whitney; 06/03/2020) MBR 06/07/2020 1039 Local . 02 Electronically signed: . Matilda Humphreys MD, Pathologist NPI- [id number] . 01 Gross description: . A. The specimen is received in formalin, labeled "David III, Roger, hepatic artery lymph node" and consists of a lymph node measuring 2.5 x 1.9 x 0.9 cm. Sectioning shows homogeneous pink cat cut surfaces and the specimen is entirely submitted in A1-A4. . B. The specimen is received in formalin, labeled "David III, Roger, gallbladder" and consists of an intact pink-cat gallbladder measuring 11.8 x 4.3 x 3.6 cm. The margin is inked black. Adjacent the gallbladder neck is a lymph node measuring 1.5 x 1.0 cm. Opening reveals a lumen contains the lumen contains soft brown material and multiple black spiculated calculi measuring up to 0.4 cm. The mucosa is turk with focal hemorrhage and scattered yellow flecks and no masses or lesions. The wall averages 0.2 cm. Custom Tailor sections are submitted in B1-B2. . C. The anterior pancreatic margin is inked yellow. The stent is removed and the ampulla of Vater is opened revealing the pancreatic duct and further to the common bile duct. The pancreatic duct is inked blue and the common bile duct green. The pancreas reveals a white firm mass measuring 2.4 x 2.0 cm. The mass is 0.2 cm to the pancreatic neck, grossly approaches/possibly invades small bowel, 0.8 cm proximal small bowel margin, greater than 5 cm distal small bowel margin, grossly approaches anterior pancreatic margin, 1.8 cm bile duct margin, 1.0 cm ampulla of Vater, and grossly abuts the pancreatic duct. The uninvolved parenchyma is pink turk and multilobulated. The peripancreatic fat is removed revealing multiple lymph node candidates which are entirely submitted. Custom Tailor sections are submitted as follows: . C1: Uncinate true shave margin FS C2: Pancreatic neck true shave margin FS C3: Proximal small bowel margin C4: Distal small bowel margin C5: Common bile duct margin C6: Mass to pancreatic duct C7: Mass to anterior pancreas C8: Ampulla of Vater C9: Mass to small bowel C10: Additional mass C11: Mass to uninvolved parenchyma C12: Possible mass/parenchyma to common bile duct C13-C18: Largest lymph node, serially sectioned C19: 2 bisected lymph nodes, one black C20-C21: Peripancreatic fat with lymph node candidates C22: 2 bisected lymph nodes, one black C23: 1 bisected lymph node . D. The specimen is received in formalin, labeled "Roger Hernandez III, additional uncinate margin" and consists of a segment of yellow-turk tissue measuring 2.6 x 1.0 x 0.5 cm. One aspect is inked black. The serially sectioned revealing no distinct gross lesion and entirely submitted in D1. . E. The specimen is received in formalin, labeled "Roger Hernandez III, inferior margin mesentery" and consists of a segment of yellow-brown tissue measuring 1.1 x 0.9 x 0.5 cm. A blue stitch is present on one aspect and this aspect is inked black. It is sectioned and entirely submitted in E1. (SDY; 06/02/2020) SYU/S 06/07/2020 1039 Local . 02 Pathologist provided ICD-10: C77.2, C25.0, K80.12, C17.0, K82.4 . 02 CPT . 809401, [id number], 816143, [id number], 286165, [id number], 823304, [id number], 795312, [id number], [id number] Specimen Comment: A courtesy copy of this report has been sent to [phone], [phone] Specimen Comment: [id number] Specimen Comment: Report sent to ,DR CONTRERAS / DR PEARCE Performed at: 01 [facility] [address] [facility] [address], [place] [id number] MD Jose Márquez MD Phone: [phone] Performed at: 02 [facility] [address] [place], [place] [id number] MD Raulito Morin MD Phone: [phone]
--- NOTE | 2020-06-07 14:46 | PDOC ---
PROGRESS NOTES Date of Service: DATE: 06/07/20 TIME: 14:45 Chief Complaint Chief Complaint Postoperative day # 7, Whipple procedure with hypokalemia, anemia, transaminitis and hyperglycemia. pancreatic cancer Severe protein-caloric malnutrition Acute electrolyte derangements Transaminitis due to hepatobiliary obstruction Normocytic anemia Thrombocytopenia Pancreatic cancer GERD hypertension Diabetes Previous gastric sleeve 37 MIN PT EXAM, CHART REVIEW, > 50% OF TIME SPENT WITH EXAM, CHART REVIEW, PT CARE COORDINATION History of Present Illness History of Present Illness 06/07, still having a lot of pain , needed additional pain meds, able to walk some, may be able to DC when able to control pain Patient seen and examined bedside still frail and weak Discussed with RN PAIN had previously been better, Vitals Vitals Vital Signs Date Time Temp Pulse Resp B/P (MAP) Pulse Ox O2 Delivery O2 Flow Rate FiO2 06/07/20 12:12 Room Air 06/07/20 10:48 98.3 101 18 118/77 (91) 98 98.3 06/07/20 05:53 2.0 Physical Exam General: Alert, Oriented X3, Cooperative Heart: Regular rate Lungs: Clear Abdomen: Soft, Other (drain serous, g tube in place) Extremities: No cyanosis, No edema Skin: No rashes Labs LABS Laboratory Tests Test 06/07/20 07:46 Sodium Level 136 mmol/L (136-145) Potassium Level 4.6 mmol/L (3.5-5.1) Chloride Level 100 mmol/L (98-107) Carbon Dioxide Level 30 mmol/L (21-32) Anion Gap 6 (6-14) Blood Urea Nitrogen 9 mg/dL (8-26) Creatinine 0.4 mg/dL (0.7-1.3) Estimated GFR (Cockcroft-Gault) 225.9 Glucose Level 126 mg/dL (70-99) Calcium Level 8.7 mg/dL (8.5-10.1) Comment Review of Relevant I have reviewed the following items derrick (where applicable) has been applied. Labs Laboratory Tests Test 06/06/20 07:35 06/07/20 07:46 Sodium Level 136 mmol/L (136-145) 136 mmol/L (136-145) Potassium Level 4.4 mmol/L (3.5-5.1) 4.6 mmol/L (3.5-5.1) Chloride Level 101 mmol/L (98-107) 100 mmol/L (98-107) Carbon Dioxide Level 30 mmol/L (21-32) 30 mmol/L (21-32) Anion Gap 5 (6-14) 6 (6-14) Blood Urea Nitrogen 9 mg/dL (8-26) 9 mg/dL (8-26) Creatinine 0.4 mg/dL (0.7-1.3) 0.4 mg/dL (0.7-1.3) Estimated GFR (Cockcroft-Gault) 225.9 225.9 Glucose Level 131 mg/dL (70-99) 126 mg/dL (70-99) Calcium Level 8.0 mg/dL (8.5-10.1) 8.7 mg/dL (8.5-10.1) Laboratory Tests Test 06/07/20 07:46 Sodium Level 136 mmol/L (136-145) Potassium Level 4.6 mmol/L (3.5-5.1) Chloride Level 100 mmol/L (98-107) Carbon Dioxide Level 30 mmol/L (21-32) Anion Gap 6 (6-14) Blood Urea Nitrogen 9 mg/dL (8-26) Creatinine 0.4 mg/dL (0.7-1.3) Estimated GFR (Cockcroft-Gault) 225.9 Glucose Level 126 mg/dL (70-99) Calcium Level 8.7 mg/dL (8.5-10.1) Medications Current Medications Ondansetron HCl (Zofran) 4 mg PRN Q6HRS PRN IV NAUSEA/VOMITING; Start 05/31/20 at 07:00; Stop 05/31/20 at 20:26; Status DC Fentanyl Citrate (Fentanyl 2ml Vial) 25 mcg PRN Q5MIN PRN IV MILD PAIN 1-3; S tart 05/31/20 at 07:00; Stop 05/31/20 at 20:26; Status DC Fentanyl Citrate (Fentanyl 2ml Vial) 50 mcg PRN Q5MIN PRN IV MODERATE TO SEVERE PAIN; Start 05/31/20 at 07:00; Stop 05/31/20 at 20:26; Status DC Morphine Sulfate (Morphine Sulfate) 1 mg PRN Q10MIN PRN IV SEVERE PAIN 7-10; Start 05/31/20 at 07:00; Stop 05/31/20 at 20:26; Status DC Ringer's Solution 1,000 ml @ 30 mls/hr Q24H IV Last administered on 05/31/20at 09:18; Start 05/31/20 at 07:00; Stop 05/31/20 at 18:59; Status DC Hydromorphone HCl (Dilaudid) 0.5 mg PRN Q10MIN PRN IV SEV PAIN, Second choice; Start 05/31/20 at 07:00; Stop 05/31/20 at 20:26; Status DC Prochlorperazine Edisylate (Compazine) 5 mg PACU PRN PRN IV NAUSEA, MRX1; Start 05/31/20 at 07:00; Stop 05/31/20 at 20:26; Status DC Ceftriaxone Sodium (Rocephin) 1 gm 1X PREOP PRN IVP PRIOR TO PROCEDURE; Start 05/31/20 at 08:00; Stop 06/02/20 at 09:36; Status DC Metronidazole 100 ml @ 100 mls/hr 1X PREOP PRN IV PRIOR TO PROCEDURE; Start 05/31/20 at 06:00; Stop 05/31/20 at 18:00; Status DC Propofol (Diprivan) 200 mg STK-MED ONCE IV ; Start 05/31/20 at 08:13; Stop 05/31/20 at 08:14; Status DC Lidocaine HCl (Lidocaine Pf 2% Vial) 5 ml STK-MED ONCE .ROUTE ; Start 05/31/20 at 08:13; Stop 05/31/20 at 08:14; Status DC Fentanyl Citrate (Fentanyl 2ml Vial) 100 mcg STK-MED ONCE .ROUTE ; Start 05/31/20 at 08:14; Stop 05/31/20 at 08:14; Status DC Succinylcholine Chloride (Anectine) 200 mg STK-MED ONCE .ROUTE ; Start 05/31/20 at 08:15; Stop 05/31/20 at 08:16; Status DC Rocuronium [place] (Zemuron) 50 mg STK-MED ONCE .ROUTE ; Start 05/31/20 at 08:15; Stop 05/31/20 at 08:16; Status DC Insulin Human Lispro (HumaLOG VIAL for OP,RR ONLY) 0-10 units PRN Q1HR PRN SQ PER PROTOCOL Last administered on 05/31/20at 09:22; Start 05/31/20 at 09:15; Stop 05/31/20 at 19:58; Status DC Midazolam HCl (Versed) 2 mg STK-MED ONCE .ROUTE ; Start 05/31/20 at 09:27; Stop 05/31/20 at 09:28; Status DC Bupivacaine HCl (Sensorcaine-Mpf 0.25%) 10 ml STK-MED ONCE .ROUTE ; Start 05/31/20 at 09:28; Stop 05/31/20 at 09:28; Status DC Midazolam HCl (Versed) 2 mg STK-MED ONCE .ROUTE ; Start 05/31/20 at 10:03; Stop 05/31/20 at 10:03; Status DC Lidocaine HCl (Lidocaine 1% 20ml Vial) 20 ml STK-MED ONCE .ROUTE ; Start 05/31/20 at 10:04; Stop 05/31/20 at 10:05; Status DC Dexamethasone Sodium Phosphate (Decadron) 4 mg STK-MED ONCE .ROUTE ; Start 05/31/20 at 10:36; Stop 05/31/20 at 10:37; Status DC Desflurane (Suprane) 90 ml STK-MED ONCE IH ; Start 05/31/20 at 10:37; Stop 05/31/20 at 10:37; Status DC Bupivacaine HCl (Sensorcaine Mpf 0.5%) 30 ml STK-MED ONCE .ROUTE ; Start 05/31/20 at 10:41; Stop 05/31/20 at 10:42; Status DC Dexamethasone Sodium Phosphate (Decadron) 4 mg STK-MED ONCE .ROUTE ; Start 05/31/20 at 10:43; Stop 05/31/20 at 10:44; Status DC Phenylephrine HCl (PHENYLEPHRINE in 0.9% NACL PF) 1 mg STK-MED ONCE IV ; Start 05/31/20 at 10:44; Stop 05/31/20 at 10:44; Status DC Ephedrine Sulfate (ePHEDrine PF IN SALINE SYRINGE) 50 mg STK-MED ONCE IV ; Start 05/31/20 at 10:59; Stop 05/31/20 at 11:00; Status DC Sodium Chloride 35 ml/Fentanyl Citrate 250 mcg/ Ropivacaine 10 ml/ Epidural Dosage Infused (Pha) 50 ml @ 0 mls/hr CONT PRN EPID SEE PROTOCOL TABLE Last administered on 06/05/20at 06:58; Start 05/31/20 at 11:00 Insulin Human Lispro (HumaLOG VIAL for OP,RR ONLY) 0-10 units PRN Q1HR PRN SQ PER PROTOCOL; Start 05/31/20 at 11:00; Stop 05/31/20 at 19:58; Status DC Atropine Sulfate (ATROPINE 0.5mg SYRINGE) 0.5 mg PRN 1X PRN IV SEE COMMENTS; Start 05/31/20 at 11:00; Stop 06/01/20 at 10:59; Status DC Naloxone HCl (Narcan) 0.04 mg PRN Q2MIN PRN IV SEE COMMENTS; Start 05/31/20 at 11:00; Stop 05/31/20 at 20:35; Status DC Rocuronium [place] (Zemuron) 50 mg STK-MED ONCE .ROUTE ; Start 05/31/20 at 12:03; Stop 05/31/20 at 12:04; Status DC Rocuronium [place] (Zemuron) 50 mg STK-MED ONCE .ROUTE ; Start 05/31/20 at 14:00; Stop 05/31/20 at 14:00; Status DC Ondansetron HCl (Zofran) 4 mg STK-MED ONCE .ROUTE ; Start 05/31/20 at 15:06; Stop 05/31/20 at 15:06; Status DC Phenylephrine HCl (PHENYLEPHRINE in 0.9% NACL PF) 1 mg STK-MED ONCE IV ; Start 05/31/20 at 15:06; Stop 05/31/20 at 15:06; Status DC Glycopyrrolate (Robinul) 1 mg STK-MED ONCE .ROUTE ; Start 05/31/20 at 15:06; Stop 05/31/20 at 15:06; Status DC Neostigmine Methylsulfate (Bloxiverz) 10 mg STK-MED ONCE .ROUTE ; Start 05/31/20 at 15:07; Stop 05/31/20 at 15:07; Status DC Phenylephrine HCl (PHENYLEPHRINE in 0.9% NACL PF) 1 mg STK-MED ONCE IV ; Start 05/31/20 at 15:40; Stop 05/31/20 at 15:40; Status DC Metronidazole 100 ml @ 100 mls/hr 1X ONCE IV Last administered on 05/31/20at 16:14; Start 05/31/20 at 16:15; Stop 05/31/20 at 17:14; Status DC Heparin Sodium (Porcine) (Hep Lock Adult) 500 unit STK-MED ONCE IVP ; Start 05/31/20 at 16:59; Stop 05/31/20 at 16:59; Status DC Heparin Sodium (Porcine) (Hep Lock Adult) 500 unit 1X ONCE IVP Last administered on 05/31/20at 18:00; Start 05/31/20 at 17:00; Stop 05/31/20 at 17:01; Status DC Enoxaparin Sodium (Lovenox 40mg Syringe) 40 mg Q24H SQ ; Start 05/31/20 at 18:00; Stop 05/31/20 at 19:58; Status DC Sodium Chloride (Normal Saline Flush) 3 ml QSHIFT PRN IV AFTER MEDS AND BLOOD DRAWS; Start 05/31/20 at 17:15 Ringer's Solution 1,000 ml @ 100 mls/hr Q10H IV Last administered on 06/02/20at 05:36; Start 05/31/20 at 17:14; Stop 06/02/20 at 11:56; Status DC Naloxone HCl (Narcan) 0.4 mg PRN Q2MIN PRN IV SEE INSTRUCTIONS; Start 05/31/20 at 17:15 Sodium Chloride 1,000 ml @ 25 mls/hr Q24H IV ; Start 05/31/20 at 17:14; Stop 05/31/20 at 20:32; Status DC Ondansetron HCl (Zofran) 4 mg PRN Q6HRS PRN IVP NAUESA, 1ST CHOICE Last administered on 06/05/20at 20:10; Start 05/31/20 at 17:15 Enoxaparin Sodium (Lovenox 40mg Syringe) 40 mg Q24H SQ Last administered on 06/07/20at 09:11; Start 06/01/20 at 09:00 Sodium Chloride 1,000 ml @ 250 mls/hr 1X ONCE IV Last administered on 05/31/20at 20:33; Start 05/31/20 at 19:30; Stop 05/31/20 at 23:29; Status DC Insulin Human Lispro (HumaLOG) 0-5 UNITS Q6HRS SQ ; Start 06/01/20 at 00:00 Dextrose (Dextrose 50%-Water Syringe) 12.5 gm PRN Q15MIN PRN IV SEE COMMENTS; Start 05/31/20 at 19:30 Sodium Chloride 1,000 ml @ 1,000 mls/hr 1X ONCE IV Last administered on 06/01/20at 07:23; Start 06/01/20 at 07:00; Stop 06/01/20 at 07:59; Status DC Potassium Chloride/Water 100 ml @ 100 mls/hr Q1H IV Last administered on 06/01/20at 11:39; Start 06/01/20 at 08:30; Stop 06/01/20 at 12:29; Status DC Magnesium Sulfate 100 ml @ 25 mls/hr 1X ONCE IV Last administered on 06/01/20at 08:35; Start 06/01/20 at 08:00; Stop 06/01/20 at 11:59; Status DC Pantoprazole Sodium (PROTONIX VIAL for IV PUSH) 40 mg DAILYAC IVP Last administered on 06/07/20at 09:03; Start 06/01/20 at 10:00 Amino Acids/ Glycerin/ Electrolytes 1,000 ml @ 75 mls/hr [id number] IV Last administered on 06/07/20at 02:29; Start 06/02/20 at 12:30 Insulin Human Lispro (HumaLOG VIAL for OP,RR ONLY) 2 unit STK-MED ONCE SQ ; Start 05/31/20 at 09:30; Stop 06/02/20 at 16:33; Status DC Hydromorphone HCl (Dilaudid) 0.7 mg PRN Q3HRS PRN IVP SEVERE PAIN 7-10 Last administered on 06/05/20at 18:36; Start 06/05/20 at 10:30; Stop 06/05/20 at 19:55; Status DC Hydromorphone HCl (Dilaudid) 1.2 mg PRN Q3HRS PRN IVP SEVERE PAIN 7-10 Last administered on 06/06/20at 08:56; Start 06/05/20 at 20:00; Stop 06/06/20 at 10:33; Status DC Hydromorphone HCl (Dilaudid) 2 mg PRN Q3HRS PRN IVP SEVERE PAIN 7-10 Last administered on 06/07/20at 12:12; Start 06/06/20 at 10:45 Acetaminophen (Tylenol Supp) 650 mg 1X ONCE HI ; Start 06/06/20 at 10:45; Stop 06/06/20 at 10:46; Status DC Active Scripts Active Reported Lidocaine-Prilocaine Cream (Lidocaine/Prilocaine) 30 Gm Cream..g. 1 Lashae TP UD Oxycodone HCl 5 Mg Tablet 5 Mg PO PRN Q4-6HRS PRN D3 + K2 Dots 1,000 Units Tab (Vitamin D3/Vitamin K2) 1 Each Tab.rapdis 1 Tab PO DAILY 30 Days Klor-Con M20 (Potassium Chloride) 20 Meq Tab.er.prt 1 Tab PO DAILY 30 Days Metformin Hcl 500 Mg Tablet 500 Mg PO BIDWMEALS Levemir (Insulin Detemir) 100 Unit/1 Ml Vial 15 Unit SQ HS Novolog (Insulin Aspart) 100 Unit/1 Ml Vial 6 Unit SQ DAILYAC Metformin Hcl 500 Mg Tablet 500 Mg PO BIDWMEALS Pantoprazole Sodium (Pantoprazole Sodium) 40 Mg Tablet.dr 40 Mg PO DAILYAC Vitals/I & O Vital Sign - Last 24 Hours 06/06/20 06/06/20 06/06/20 06/06/20 15:00 16:04 16:34 19:20 Temp 98.1 99.2 98.1 99.2 Pulse 85 79 Resp 19 18 18 18 B/P (MAP) 104/70 (81) 107/73 (84) Pulse Ox 97 98 O2 Delivery Room Air Room Air Room Air Room Air 06/06/20 06/06/20 06/06/20 06/06/20 20:00 20:10 20:40 23:05 Temp 99.2 99.2 Pulse 78 Resp 18 B/P (MAP) 116/71 (86) Pulse Ox 98 98 O2 Delivery Room Air Room Air Room Air Room Air O2 Flow Rate 2.0 06/06/20 06/06/20 06/07/20 06/07/20 23:25 23:55 02:29 02:59 Pulse Ox 98 98 98 O2 Delivery Room Air Room Air Room Air Room Air O2 Flow Rate 2.0 2.0 2.0 06/07/20 06/07/20 06/07/20 06/07/20 03:40 05:53 07:54 08:00 Temp 98.5 98.6 98.5 98.6 Pulse 76 78 Resp 18 18 B/P (MAP) 105/71 (82) 103/65 (78) Pulse Ox 97 97 97 O2 Delivery Room Air Room Air Room Air Room Air O2 Flow Rate 2.0 06/07/20 06/07/20 06/07/20 08:58 10:48 12:12 Temp 98.3 98.3 Pulse 101 Resp 18 B/P (MAP) 118/77 (91) Pulse Ox 98 O2 Delivery Room Air Room Air Room Air Intake and Output 06/06/20 06/06/20 06/07/20 15:00 23:00 07:00 Intake Total 200 ml 200 ml Output Total 1375 ml 1325 ml Balance 200 ml -1175 ml -1325 ml Nutrition Consultation Dietary Evaluation: Recommendations by RD: Dietary education by RD, Increase Calorie Intake, Protein supplementation Comments: REC advance diet as able per surgery; recommend Ensure clear (any flavor, TID) if on clears and Glucerna (butter pecan, TID) otherwise Continue w/PPN for short-term nutrition support needs until advanced to PO diet and pt is eating >50% meals and tolerating Expected Outcomes/Goals: diet advancement - not met, goal ongoing Interpretation of weight loss: >10% in 6 months Malnutrition Findings: Food and Nutrition Intake (Sev: <50% est energy req 5days Justicifation of Admission Dx: Justifications for Admission: Justification of Admission Dx: Yes JEWELL GALINDO MD Jun 07, 2020 14:46
--- NOTE | 2020-06-07 14:47 | PDOC ---
SURGICAL PROGRESS NOTE DATE: 06/07/20 TIME: 14:45 Subjective tolerating clears pain managed Vital Signs Vital Signs Date Time Temp Pulse Resp B/P (MAP) Pulse Ox O2 Delivery O2 Flow Rate FiO2 06/07/20 12:12 Room Air 06/07/20 10:48 98.3 101 18 118/77 (91) 98 98.3 06/07/20 05:53 2.0 I&O Intake and Output 06/07/20 07:00 Intake Total 400 ml Output Total 2700 ml Balance -2300 ml Intake Oral 400 ml Output Urine Total 1600 ml Stool Total 300 ml Gastric Drainage Total 300 ml Drainage Total 500 ml # Voids 2 General: Alert, Oriented X3, Cooperative Abdomen: Soft, Other (drains serous, g tube to drainage ) Labs Laboratory Tests Test 06/06/20 07:35 06/07/20 07:46 Sodium Level 136 mmol/L (136-145) 136 mmol/L (136-145) Potassium Level 4.4 mmol/L (3.5-5.1) 4.6 mmol/L (3.5-5.1) Chloride Level 101 mmol/L (98-107) 100 mmol/L (98-107) Carbon Dioxide Level 30 mmol/L (21-32) 30 mmol/L (21-32) Anion Gap 5 (6-14) 6 (6-14) Blood Urea Nitrogen 9 mg/dL (8-26) 9 mg/dL (8-26) Creatinine 0.4 mg/dL (0.7-1.3) 0.4 mg/dL (0.7-1.3) Estimated GFR (Cockcroft-Gault) 225.9 225.9 Glucose Level 131 mg/dL (70-99) 126 mg/dL (70-99) Calcium Level 8.0 mg/dL (8.5-10.1) 8.7 mg/dL (8.5-10.1) Laboratory Tests Test 06/07/20 07:46 Sodium Level 136 mmol/L (136-145) Potassium Level 4.6 mmol/L (3.5-5.1) Chloride Level 100 mmol/L (98-107) Carbon Dioxide Level 30 mmol/L (21-32) Anion Gap 6 (6-14) Blood Urea Nitrogen 9 mg/dL (8-26) Creatinine 0.4 mg/dL (0.7-1.3) Estimated GFR (Cockcroft-Gault) 225.9 Glucose Level 126 mg/dL (70-99) Calcium Level 8.7 mg/dL (8.5-10.1) Assessment/Plan continue clears g tube to DD Justicifation of Admission Dx: Justifications for Admission: Justification of Admission Dx: Yes BABATUNDE GUEVARA [employer]NAG[employer] PROFESSION[employer] Jun 07, 2020 14:47
--- NOTE | 2020-06-07 15:19 | NUR ---
SS following up with discharge planning. SS reviewed pt chart and discussed with pt RN. Pt is currently on room air. Pt on Dilaudid and PPN. Pt has drains. PT/OT recommending home. SS will continue to follow for discharge planning.
[2020-06-08] MEDS: HYDROmorphone 2 MG/ML VIAL IVP PRN ×4 (03:07→19:32)
[2020-06-08] MEDS: AMINO AC 3%/ELECTROLYTE/GLYCER 1,000 ML IV SCH ×2 (03:08→17:43)
[2020-06-08 03:13] VITALS: BP 110/67
[2020-06-08 04:06] LABS: CALCIUM 8.2 mg/dL (8.5-10.1); CREATININE 0.4 mg/dL (0.7-1.3); GFR 225.9; POTASSIUM 4.1 mmol/L (3.5-5.1)
[2020-06-08] MEDS: INSULIN LISPRO 300 UNITS/3 ML VIAL. SQ SCH ×3 (06:00→18:00)
[2020-06-08] MEDS: PANTOPRAZOLE IV PUSH 40 MG VIAL. IVP SCH (06:38)
[2020-06-08 07:14] VITALS: BP 101/59
[2020-06-08] MEDS: ENOXAPARIN 40 MG/0.4 ML SYRINGE. SQ SCH (08:05)
[2020-06-08 10:35] VITALS: BP 113/71
--- NOTE | 2020-06-08 11:12 | NUR ---
SW following. Discussed with RN, pt from home, room air, tolerating clear liquid diet. PT/OT recommending home. SW will continue to follow for any discharge planning needs..
[2020-06-08] MEDS: ACETAMINOPHEN 325 MG TABLET. PO SCH ×2 (12:15→19:31)
[2020-06-08 14:17] VITALS: BP 110/66
[2020-06-08] MEDS: oxyCODONE IR 5 MG TABLET PO PRN (17:43)
[2020-06-08 19:00] VITALS: BP 105/66
--- NOTE | 2020-06-08 19:16 | PDOC ---
SURGICAL PROGRESS NOTE DATE: 06/08/20 TIME: 19:14 Subjective Pt with c/o incisional pain, but controlled, jasmin clears, passing flatus, no N/V Vital Signs Vital Signs Date Time Temp Pulse Resp B/P (MAP) Pulse Ox O2 Delivery O2 Flow Rate FiO2 06/08/20 18:43 Room Air 06/08/20 14:17 98.8 77 18 110/66 (81) 99 98.8 I&O Intake and Output 06/08/20 07:00 Intake Total 1380 ml Output Total 130 ml Balance 1250 ml Intake Oral 1380 ml Drainage Total 130 ml # Voids 2 PATIENT HAS A IVERSON: No General: Alert, Oriented X3, Cooperative, No acute distress Abdomen: Soft, No tenderness, Other (drains serous) Labs Laboratory Tests Test 06/07/20 07:46 06/08/20 03:25 Sodium Level 136 mmol/L (136-145) 136 mmol/L (136-145) Potassium Level 4.6 mmol/L (3.5-5.1) 4.1 mmol/L (3.5-5.1) Chloride Level 100 mmol/L (98-107) 100 mmol/L (98-107) Carbon Dioxide Level 30 mmol/L (21-32) 27 mmol/L (21-32) Anion Gap 6 (6-14) 9 (6-14) Blood Urea Nitrogen 9 mg/dL (8-26) 8 mg/dL (8-26) Creatinine 0.4 mg/dL (0.7-1.3) 0.4 mg/dL (0.7-1.3) Estimated GFR (Cockcroft-Gault) 225.9 225.9 Glucose Level 126 mg/dL (70-99) 130 mg/dL (70-99) Calcium Level 8.7 mg/dL (8.5-10.1) 8.2 mg/dL (8.5-10.1) Laboratory Tests Test 06/08/20 03:25 Sodium Level 136 mmol/L (136-145) Potassium Level 4.1 mmol/L (3.5-5.1) Chloride Level 100 mmol/L (98-107) Carbon Dioxide Level 27 mmol/L (21-32) Anion Gap 9 (6-14) Blood Urea Nitrogen 8 mg/dL (8-26) Creatinine 0.4 mg/dL (0.7-1.3) Estimated GFR (Cockcroft-Gault) 225.9 Glucose Level 130 mg/dL (70-99) Calcium Level 8.2 mg/dL (8.5-10.1) Problem List s/p whipple will try full liquids cont supportive care Justicifation of Admission Dx: Justifications for Admission: Justification of Admission Dx: Yes SANG AVENDANO MD Jun 08, 2020 19:16
[2020-06-08 23:00] VITALS: BP 103/56
[2020-06-09] MEDS: oxyCODONE IR 5 MG TABLET PO PRN ×4 (00:43→18:25)
[2020-06-09] MEDS: AMINO AC 3%/ELECTROLYTE/GLYCER 1,000 ML IV SCH ×2 (00:52→20:17)
[2020-06-09 03:00] VITALS: BP 106/71
[2020-06-09] MEDS: INSULIN LISPRO 300 UNITS/3 ML VIAL. SQ SCH ×5 (06:00→22:32)
[2020-06-09 07:00] VITALS: BP 102/67
[2020-06-09] MEDS: PANTOPRAZOLE IV PUSH 40 MG VIAL. IVP SCH (07:57)
[2020-06-09] MEDS: ACETAMINOPHEN 325 MG TABLET. PO SCH ×2 (07:57→20:17)
[2020-06-09] MEDS: ENOXAPARIN 40 MG/0.4 ML SYRINGE. SQ SCH (07:57)
[2020-06-09] MEDS: DOCUSATE SODIUM 100 MG CAPSULE. PO SCH (09:00)
--- NOTE | 2020-06-09 10:03 | PDOC2 ---
CONSULT Date of Consult Date of Consult DATE: 06/09/20 TIME: 09:56 Reason for Consult Reason for Consult: Pancreatic cancer status post Whipple surgery Referring Physician Referring Physician: Dr. Lezama Identification/Chief Complaint Chief Complaint I just had surgery Source Source: Chart review, Patient History of Present Illness Reason for Visit: Roger Hernandez (Trey ) is a 54-year-old male who has been admitted for Whip ple's resection for pancreatic cancer. Marcell was initially diagnosed in December 2019 after presenting with obstructive jaundice. He was found to have borderline resectable disease and started neoadjuvant chemotherapy with an FOLFIRINOX therapy on 02/17/2020. He has received 6 cycles of FOLFIRINOX with radiologic response noted on repeat CT scans after 6 cycles of chemotherapy. He was subsequently taken to the operating room and received Whipple's resection on 05/31/2020. He continues to recover from surgery at this time. Oncology consultation has been sought given his pancreas cancer. Past Medical History Cardiovascular: No pertinent hx Pulmonary: No pertinent hx GI: No pertinent hx Heme/Onc: No pertinent hx Hepatobiliary: No pertinent hx Musculoskeletal: low back pain Past Surgical History Past Surgical History: Other, No pertinent history Family History Family History: Other Social History ALCOHOL: other Drugs: None Current Medications Current Medications Current Medications Ondansetron HCl (Zofran) 4 mg PRN Q6HRS PRN IV NAUSEA/VOMITING; Start 05/31/20 at 07:00; Stop 05/31/20 at 20:26; Status DC Fentanyl Citrate (Fentanyl 2ml Vial) 25 mcg PRN Q5MIN PRN IV MILD PAIN 1-3; Start 05/31/20 at 07:00; Stop 05/31/20 at 20:26; Status DC Fentanyl Citrate (Fentanyl 2ml Vial) 50 mcg PRN Q5MIN PRN IV MODERATE TO SEVERE PAIN; Start 05/31/20 at 07:00; Stop 05/31/20 at 20:26; Status DC Morphine Sulfate (Morphine Sulfate) 1 mg PRN Q10MIN PRN IV SEVERE PAIN 7-10; Start 05/31/20 at 07:00; Stop 05/31/20 at 20:26; Status DC Ringer's Solution 1,000 ml @ 30 mls/hr Q24H IV Last administered on 05/31/20at 09:18; Start 05/31/20 at 07:00; Stop 05/31/20 at 18:59; Status DC Hydromorphone HCl (Dilaudid) 0.5 mg PRN Q10MIN PRN IV SEV PAIN, Second choice; Start 05/31/20 at 07:00; Stop 05/31/20 at 20:26; Status DC Prochlorperazine Edisylate (Compazine) 5 mg PACU PRN PRN IV NAUSEA, MRX1; Start 05/31/20 at 07:00; Stop 05/31/20 at 20:26; Status DC Ceftriaxone Sodium (Rocephin) 1 gm 1X PREOP PRN IVP PRIOR TO PROCEDURE; Start 05/31/20 at 08:00; Stop 06/02/20 at 09:36; Status DC Metronidazole 100 ml @ 100 mls/hr 1X PREOP PRN IV PRIOR TO PROCEDURE; Start 05/31/20 at 06:00; Stop 05/31/20 at 18:00; Status DC Propofol (Diprivan) 200 mg STK-MED ONCE IV ; Start 05/31/20 at 08:13; Stop 05/31/20 at 08:14; Status DC Lidocaine HCl (Lidocaine Pf 2% Vial) 5 ml STK-MED ONCE .ROUTE ; Start 05/31/20 at 08:13; Stop 05/31/20 at 08:14; Status DC Fentanyl Citrate (Fentanyl 2ml Vial) 100 mcg STK-MED ONCE .ROUTE ; Start 05/31/20 at 08:14; Stop 05/31/20 at 08:14; Status DC Succinylcholine Chloride (Anectine) 200 mg STK-MED ONCE .ROUTE ; Start 05/31/20 at 08:15; Stop 05/31/20 at 08:16; Status DC Rocuronium Redmon (Zemuron) 50 mg STK-MED ONCE .ROUTE ; Start 05/31/20 at 08:15; Stop 05/31/20 at 08:16; Status DC Insulin Human Lispro (HumaLOG VIAL for OP,RR ONLY) 0-10 units PRN Q1HR PRN SQ PER PROTOCOL Last administered on 05/31/20at 09:22; Start 05/31/20 at 09:15; Stop 05/31/20 at 19:58; Status DC Midazolam HCl (Versed) 2 mg STK-MED ONCE .ROUTE ; Start 05/31/20 at 09:27; Stop 05/31/20 at 09:28; Status DC Bupivacaine HCl (Sensorcaine-Mpf 0.25%) 10 ml STK-MED ONCE .ROUTE ; Start 05/31/20 at 09:28; Stop 05/31/20 at 09:28; Status DC Midazolam HCl (Versed) 2 mg STK-MED ONCE .ROUTE ; Start 05/31/20 at 10:03; Stop 05/31/20 at 10:03; Status DC Lidocaine HCl (Lidocaine 1% 20ml Vial) 20 ml STK-MED ONCE .ROUTE ; Start 05/31/20 at 10:04; Stop 05/31/20 at 10:05; Status DC Dexamethasone Sodium Phosphate (Decadron) 4 mg STK-MED ONCE .ROUTE ; Start 05/31/20 at 10:36; Stop 05/31/20 at 10:37; Status DC Desflurane (Suprane) 90 ml STK-MED ONCE IH ; Start 05/31/20 at 10:37; Stop 05/31/20 at 10:37; Status DC Bupivacaine HCl (Sensorcaine Mpf 0.5%) 30 ml STK-MED ONCE .ROUTE ; Start 05/31/20 at 10:41; Stop 05/31/20 at 10:42; Status DC Dexamethasone Sodium Phosphate (Decadron) 4 mg STK-MED ONCE .ROUTE ; Start 05/31/20 at 10:43; Stop 05/31/20 at 10:44; Status DC Phenylephrine HCl (PHENYLEPHRINE in 0.9% NACL PF) 1 mg STK-MED ONCE IV ; Start 05/31/20 at 10:44; Stop 05/31/20 at 10:44; Status DC Ephedrine Sulfate (ePHEDrine PF IN SALINE SYRINGE) 50 mg STK-MED ONCE IV ; Start 05/31/20 at 10:59; Stop 05/31/20 at 11:00; Status DC Sodium Chloride 35 ml/Fentanyl Citrate 250 mcg/ Ropivacaine 10 ml/ Epidural Dosage Infused (Pha) 50 ml @ 0 mls/hr CONT PRN EPID SEE PROTOCOL TABLE Last administered on 06/05/20at 06:58; Start 05/31/20 at 11:00; Stop 06/07/20 at 15:10; Status DC Insulin Human Lispro (HumaLOG VIAL for OP,RR ONLY) 0-10 units PRN Q1HR PRN SQ PER PROTOCOL; Start 05/31/20 at 11:00; Stop 05/31/20 at 19:58; Status DC Atropine Sulfate (ATROPINE 0.5mg SYRINGE) 0.5 mg PRN 1X PRN IV SEE COMMENTS; Start 05/31/20 at 11:00; Stop 06/01/20 at 10:59; Status DC Naloxone HCl (Narcan) 0.04 mg PRN Q2MIN PRN IV SEE COMMENTS; Start 05/31/20 at 11:00; Stop 05/31/20 at 20:35; Status DC Rocuronium Redmon (Zemuron) 50 mg STK-MED ONCE .ROUTE ; Start 05/31/20 at 12:03; Stop 05/31/20 at 12:04; Status DC Rocuronium Redmon (Zemuron) 50 mg STK-MED ONCE .ROUTE ; Start 05/31/20 at 14:00; Stop 05/31/20 at 14:00; Status DC Ondansetron HCl (Zofran) 4 mg STK-MED ONCE .ROUTE ; Start 05/31/20 at 15:06; Stop 05/31/20 at 15:06; Status DC Phenylephrine HCl (PHENYLEPHRINE in 0.9% NACL PF) 1 mg STK-MED ONCE IV ; Start 05/31/20 at 15:06; Stop 05/31/20 at 15:06; Status DC Glycopyrrolate (Robinul) 1 mg STK-MED ONCE .ROUTE ; Start 05/31/20 at 15:06; Stop 05/31/20 at 15:06; Status DC Neostigmine Methylsulfate (Bloxiverz) 10 mg STK-MED ONCE .ROUTE ; Start 05/31/20 at 15:07; Stop 05/31/20 at 15:07; Status DC Phenylephrine HCl (PHENYLEPHRINE in 0.9% NACL PF) 1 mg STK-MED ONCE IV ; Start 05/31/20 at 15:40; Stop 05/31/20 at 15:40; Status DC Metronidazole 100 ml @ 100 mls/hr 1X ONCE IV Last administered on 05/31/20at 16:14; Start 05/31/20 at 16:15; Stop 05/31/20 at 17:14; Status DC Heparin Sodium (Porcine) (Hep Lock Adult) 500 unit STK-MED ONCE IVP ; Start 05/31/20 at 16:59; Stop 05/31/20 at 16:59; Status DC Heparin Sodium (Porcine) (Hep Lock Adult) 500 unit 1X ONCE IVP Last administered on 05/31/20at 18:00; Start 05/31/20 at 17:00; Stop 05/31/20 at 17:01; Status DC Enoxaparin Sodium (Lovenox 40mg Syringe) 40 mg Q24H SQ ; Start 05/31/20 at 18:00; Stop 05/31/20 at 19:58; Status DC Sodium Chloride (Normal Saline Flush) 3 ml QSHIFT PRN IV AFTER MEDS AND BLOOD DRAWS; Start 05/31/20 at 17:15 Ringer's Solution 1,000 ml @ 100 mls/hr Q10H IV Last administered on 06/02/20at 05:36; Start 05/31/20 at 17:14; Stop 06/02/20 at 11:56; Status DC Naloxone HCl (Narcan) 0.4 mg PRN Q2MIN PRN IV SEE INSTRUCTIONS; Start 05/31/20 at 17:15 Sodium Chloride 1,000 ml @ 25 mls/hr Q24H IV ; Start 05/31/20 at 17:14; Stop 05/31/20 at 20:32; Status DC Ondansetron HCl (Zofran) 4 mg PRN Q6HRS PRN IVP NAUESA, 1ST CHOICE Last adm inistered on 06/05/20at 20:10; Start 05/31/20 at 17:15 Enoxaparin Sodium (Lovenox 40mg Syringe) 40 mg Q24H SQ Last administered on 06/09/20at 07:57; Start 06/01/20 at 09:00 Sodium Chloride 1,000 ml @ 250 mls/hr 1X ONCE IV Last administered on 05/31/20at 20:33; Start 05/31/20 at 19:30; Stop 05/31/20 at 23:29; Status DC Insulin Human Lispro (HumaLOG) 0-5 UNITS Q6HRS SQ ; Start 06/01/20 at 00:00 Dextrose (Dextrose 50%-Water Syringe) 12.5 gm PRN Q15MIN PRN IV SEE COMMENTS; Start 05/31/20 at 19:30 Sodium Chloride 1,000 ml @ 1,000 mls/hr 1X ONCE IV Last administered on 06/01/20at 07:23; Start 06/01/20 at 07:00; Stop 06/01/20 at 07:59; Status DC Potassium Chloride/Water 100 ml @ 100 mls/hr Q1H IV Last administered on 06/01/20at 11:39; Start 06/01/20 at 08:30; Stop 06/01/20 at 12:29; Status DC Magnesium Sulfate 100 ml @ 25 mls/hr 1X ONCE IV Last administered on 06/01/20at 08:35; Start 06/01/20 at 08:00; Stop 06/01/20 at 11:59; Status DC Pantoprazole Sodium (PROTONIX VIAL for IV PUSH) 40 mg DAILYAC IVP Last administered on 06/09/20at 07:57; Start 06/01/20 at 10:00 Amino Acids/ Glycerin/ Electrolytes 1,000 ml @ 75 mls/hr [id number] IV Last administered on 06/09/20at 00:52; Start 06/02/20 at 12:30 Insulin Human Lispro (HumaLOG VIAL for OP,RR ONLY) 2 unit STK-MED ONCE SQ ; Start 05/31/20 at 09:30; Stop 06/02/20 at 16:33; Status DC Hydromorphone HCl (Dilaudid) 0.7 mg PRN Q3HRS PRN IVP SEVERE PAIN 7-10 Last administered on 06/05/20at 18:36; Start 06/05/20 at 10:30; Stop 06/05/20 at 19:55; Status DC Hydromorphone HCl (Dilaudid) 1.2 mg PRN Q3HRS PRN IVP SEVERE PAIN 7-10 Last administered on 06/06/20at 08:56; Start 06/05/20 at 20:00; Stop 06/06/20 at 10:33; Status DC Hydromorphone HCl (Dilaudid) 2 mg PRN Q3HRS PRN IVP SEVERE PAIN 7-10 Last administered on 06/08/20at 19:32; Start 06/06/20 at 10:45 Acetaminophen (Tylenol Supp) 650 mg 1X ONCE WA ; Start 06/06/20 at 10:45; Stop 06/06/20 at 10:46; Status DC Oxycodone HCl (Roxicodone) 10 mg PRN Q4HRS PRN PO PAIN Last administered on 06/09/20at 07:58; Start 06/08/20 at 12:15 Acetaminophen (Tylenol) 650 mg BID PO Last administered on 06/09/20at 07:57; Start 06/08/20 at 12:15 Docusate Sodium (Colace) 100 mg DAILY PO ; Start 06/09/20 at 09:00 Active Scripts Active Reported Lidocaine-Prilocaine Cream (Lidocaine/Prilocaine) 30 Gm Cream..g. 1 Lashae TP UD Oxycodone HCl 5 Mg Tablet 5 Mg PO PRN Q4-6HRS PRN D3 + K2 Dots 1,000 Units Tab (Vitamin D3/Vitamin K2) 1 Each Tab.rapdis 1 Tab PO DAILY 30 Days Klor-Con M20 (Potassium Chloride) 20 Meq Tab.er.prt 1 Tab PO DAILY 30 Days Metformin Hcl 500 Mg Tablet 500 Mg PO BIDWMEALS Levemir (Insulin Detemir) 100 Unit/1 Ml Vial 15 Unit SQ HS Novolog (Insulin Aspart) 100 Unit/1 Ml Vial 6 Unit SQ DAILYAC Metformin Hcl 500 Mg Tablet 500 Mg PO BIDWMEALS Pantoprazole Sodium (Pantoprazole Sodium) 40 Mg Tablet.dr 40 Mg PO DAILYAC Allergies Allergies: Coded Allergies: No Known Drug Allergies (Unverified , 05/31/20) ROS General: YES: Fatigue, Malaise PSYCHOLOGICAL ROS: No: Hallucinations, Hostility Eyes: No Eye Pain, No Itchy Eyes HEENT: No: Oral lesions, Sinus pain ALLERGY AND IMMUNOLOGY: No: Nasal Congestion, Post Nasal Drip Hematological and Lymphatic: No: Brusing, Night Sweats ENDOCRINE: YES: Malaise/lethargy; No: Mood Swings Respiratory: No: Cough, Hemoptysis, Shortness of breath Cardiovascular: No Chest Pain, No Palpitations Gastrointestinal: Yes Nausea, Yes Abdominal Pain; No Vomiting, No Diarrhea Genitourinary: No Dysuria, No Frequency Musculoskeletal: No Gait Disturbance, No Joint Pain Neurological: No Behavorial Changes Skin: No Dry Skin, No Eczema Physical Exam General: Alert, Oriented X3 HEENT: Atraumatic Lungs: Clear to auscultation Heart: Regular rate Abdomen: Normal bowel sounds Extremities: No clubbing Skin: No rashes Neuro: Normal speech Psych/Mental Status: Mental status NL MUSCULOSKELETAL: No joint tenderness Vitals VITALS Vital Signs Date Time Temp Pulse Resp B/P (MAP) Pulse Ox O2 Delivery O2 Flow Rate FiO2 06/09/20 07:58 Room Air 06/09/20 07:00 06/09/20 07:00 98.5 72 18 98 98.5 06/09/20 01:43 2.0 Labs Labs Laboratory Tests Test 06/08/20 03:25 Sodium Level 136 mmol/L (136-145) Potassium Level 4.1 mmol/L (3.5-5.1) Chloride Level 100 mmol/L (98-107) Carbon Dioxide Level 27 mmol/L (21-32) Anion Gap 9 (6-14) Blood Urea Nitrogen 8 mg/dL (8-26) Creatinine 0.4 mg/dL (0.7-1.3) Estimated GFR (Cockcroft-Gault) 225.9 Glucose Level 130 mg/dL (70-99) Calcium Level 8.2 mg/dL (8.5-10.1) Assessment/Plan Assessment/Plan Assessment: Pancreatic cancer, T2N1, with lymphovascular and perineural invasion and positive anterior resection and inferior mesenteric margin Type 1 diabetes Macrocytic anemia Recommendations: -Continue with supportive care postoperatively per Dr. Lezama -Continue management of diabetes -We will discuss adjuvant chemotherapy at his return visit with me. We will plan on starting adjuvant chemotherapy approximately 6 weeks after surgery. -While restaging CT scans after 6 cycles of FOLFIRINOX showed response to therapy, surgical pathology does not indicate tumor regression. We will discuss further in tumor board -Can consider mFOLFIRINOX or Gemcitabine Abraxane for adjuvant chemotherapy given lack of tumor response noted on surgical pathology. -Can consider adjuvant radiotherapy. Will discuss further with radiation oncology -We will follow and arrange outpatient return appointment based on clinical course Vasu Rey MD Medical Oncology/Hematology Ph: [phone] RAGHU REY MD Jun 09, 2020 10:03
--- NOTE | 2020-06-09 10:49 | NUR ---
SW following. Discussed with RN, pt on room air, full liquid diet. Pt has complaints of pain. PT/OT recommending home, pt declined to work with therapy today due to pain. Pt still has drains in. Plans to follow up with Oncology as an outpatient for pancreatic cancer. HARLEY will continue to follow.
[2020-06-09 11:00] VITALS: BP 97/73
--- NOTE | 2020-06-09 13:12 | PDOC ---
PROGRESS NOTES Date of Service: DATE: 06/09/20 TIME: 13:11 Chief Complaint Chief Complaint Postoperative day # 9, Whipple procedure with hypokalemia, anemia, transaminitis and hyperglycemia. pancreatic cancer Severe protein-caloric malnutrition Acute electrolyte derangements Transaminitis due to hepatobiliary obstruction Normocytic anemia Thrombocytopenia Pancreatic cancer GERD hypertension Diabetes Previous gastric sleeve 37 MIN PT EXAM, CHART REVIEW, > 50% OF TIME SPENT WITH EXAM, CHART REVIEW, PT CARE COORDINATION History of Present Illness History of Present Illness started oral pain meds yesterday, 10mg oxy doesnt cut it will increased to 15 prn he describes the pain as coming in waves, not constant, "like the ocean" Patient seen and examined bedside still frail and weak Discussed with RN PAIN better, Vitals Vitals Vital Signs Date Time Temp Pulse Resp B/P (MAP) Pulse Ox O2 Delivery O2 Flow Rate FiO2 06/09/20 13:02 Room Air 06/09/20 11:00 97.7 85 18 97/73 (81) 99 97.7 06/09/20 01:43 2.0 Physical Exam General: Alert, Oriented X3 Heart: Regular rate Lungs: Clear Abdomen: Normal bowel sounds Extremities: No clubbing Skin: No rashes Review of Systems Review of Systems abd pain nausea n o Comment Review of Relevant I have reviewed the following items derrick (where applicable) has been applied. Labs Laboratory Tests Test 06/08/20 03:25 Sodium Level 136 mmol/L (136-145) Potassium Level 4.1 mmol/L (3.5-5.1) Chloride Level 100 mmol/L (98-107) Carbon Dioxide Level 27 mmol/L (21-32) Anion Gap 9 (6-14) Blood Urea Nitrogen 8 mg/dL (8-26) Creatinine 0.4 mg/dL (0.7-1.3) Estimated GFR (Cockcroft-Gault) 225.9 Glucose Level 130 mg/dL (70-99) Calcium Level 8.2 mg/dL (8.5-10.1) Medications Current Medications Ondansetron HCl (Zofran) 4 mg PRN Q6HRS PRN IV NAUSEA/VOMITING; Start 05/31/20 at 07:00; Stop 05/31/20 at 20:26; Status DC Fentanyl Citrate (Fentanyl 2ml Vial) 25 mcg PRN Q5MIN PRN IV MILD PAIN 1-3; Start 05/31/20 at 07:00; Stop 05/31/20 at 20:26; Status DC Fentanyl Citrate (Fentanyl 2ml Vial) 50 mcg PRN Q5MIN PRN IV MODERATE TO SEVERE PAIN; Start 05/31/20 at 07:00; Stop 05/31/20 at 20:26; Status DC Morphine Sulfate (Morphine Sulfate) 1 mg PRN Q10MIN PRN IV SEVERE PAIN 7-10; Start 05/31/20 at 07:00; Stop 05/31/20 at 20:26; Status DC Ringer's Solution 1,000 ml @ 30 mls/hr Q24H IV Last administered on 05/31/20at 09:18; Start 05/31/20 at 07:00; Stop 05/31/20 at 18:59; Status DC Hydromorphone HCl (Dilaudid) 0.5 mg PRN Q10MIN PRN IV SEV PAIN, Second choice; Start 05/31/20 at 07:00; Stop 05/31/20 at 20:26; Status DC Prochlorperazine Edisylate (Compazine) 5 mg PACU PRN PRN IV NAUSEA, MRX1; Start 05/31/20 at 07:00; Stop 05/31/20 at 20:26; Status DC Ceftriaxone Sodium (Rocephin) 1 gm 1X PREOP PRN IVP PRIOR TO PROCEDURE; Start 05/31/20 at 08:00; Stop 06/02/20 at 09:36; Status DC Metronidazole 100 ml @ 100 mls/hr 1X PREOP PRN IV PRIOR TO PROCEDURE; Start 05/31/20 at 06:00; Stop 05/31/20 at 18:00; Status DC Propofol (Diprivan) 200 mg STK-MED ONCE IV ; Start 05/31/20 at 08:13; Stop 05/31/20 at 08:14; Status DC Lidocaine HCl (Lidocaine Pf 2% Vial) 5 ml STK-MED ONCE .ROUTE ; Start 05/31/20 at 08:13; Stop 05/31/20 at 08:14; Status DC Fentanyl Citrate (Fentanyl 2ml Vial) 100 mcg STK-MED ONCE .ROUTE ; Start 05/31/20 at 08:14; Stop 05/31/20 at 08:14; Status DC Succinylcholine Chloride (Anectine) 200 mg STK-MED ONCE .ROUTE ; Start 05/31/20 at 08:15; Stop 05/31/20 at 08:16; Status DC Rocuronium [place] (Zemuron) 50 mg STK-MED ONCE .ROUTE ; Start 05/31/20 at 08:15; Stop 05/31/20 at 08:16; Status DC Insulin Human Lispro (HumaLOG VIAL for OP,RR ONLY) 0-10 units PRN Q1HR PRN SQ PER PROTOCOL Last administered on 05/31/20at 09:22; Start 05/31/20 at 09:15; Stop 05/31/20 at 19:58; Status DC Midazolam HCl (Versed) 2 mg STK-MED ONCE .ROUTE ; Start 05/31/20 at 09:27; Stop 05/31/20 at 09:28; Status DC Bupivacaine HCl (Sensorcaine-Mpf 0.25%) 10 ml STK-MED ONCE .ROUTE ; Start 05/31/20 at 09:28; Stop 05/31/20 at 09:28; Status DC Midazolam HCl (Versed) 2 mg STK-MED ONCE .ROUTE ; Start 05/31/20 at 10:03; Stop 05/31/20 at 10:03; Status DC Lidocaine HCl (Lidocaine 1% 20ml Vial) 20 ml STK-MED ONCE .ROUTE ; Start 05/31/20 at 10:04; Stop 05/31/20 at 10:05; Status DC Dexamethasone Sodium Phosphate (Decadron) 4 mg STK-MED ONCE .ROUTE ; Start 05/31/20 at 10:36; Stop 05/31/20 at 10:37; Status DC Desflurane (Suprane) 90 ml STK-MED ONCE IH ; Start 05/31/20 at 10:37; Stop 05/31/20 at 10:37; Status DC Bupivacaine HCl (Sensorcaine Mpf 0.5%) 30 ml STK-MED ONCE .ROUTE ; Start 05/31/20 at 10:41; Stop 05/31/20 at 10:42; Status DC Dexamethasone Sodium Phosphate (Decadron) 4 mg STK-MED ONCE .ROUTE ; Start 05/31/20 at 10:43; Stop 05/31/20 at 10:44; Status DC Phenylephrine HCl (PHENYLEPHRINE in 0.9% NACL PF) 1 mg STK-MED ONCE IV ; Start 05/31/20 at 10:44; Stop 05/31/20 at 10:44; Status DC Ephedrine Sulfate (ePHEDrine PF IN SALINE SYRINGE) 50 mg STK-MED ONCE IV ; Start 05/31/20 at 10:59; Stop 05/31/20 at 11:00; Status DC Sodium Chloride 35 ml/Fentanyl Citrate 250 mcg/ Ropivacaine 10 ml/ Epidural Dosage Infused (Pha) 50 ml @ 0 mls/hr CONT PRN EPID SEE PROTOCOL TABLE Last administered on 06/05/20at 06:58; Start 05/31/20 at 11:00; Stop 06/07/20 at 15:10; Status DC Insulin Human Lispro (HumaLOG VIAL for OP,RR ONLY) 0-10 units PRN Q1HR PRN SQ PER PROTOCOL; Start 05/31/20 at 11:00; Stop 05/31/20 at 19:58; Status DC Atropine Sulfate (ATROPINE 0.5mg SYRINGE) 0.5 mg PRN 1X PRN IV SEE COMMENTS; Start 05/31/20 at 11:00; Stop 06/01/20 at 10:59; Status DC Naloxone HCl (Narcan) 0.04 mg PRN Q2MIN PRN IV SEE COMMENTS; Start 05/31/20 at 11:00; Stop 05/31/20 at 20:35; Status DC Rocuronium [place] (Zemuron) 50 mg STK-MED ONCE .ROUTE ; Start 05/31/20 at 12:03; Stop 05/31/20 at 12:04; Status DC Rocuronium [place] (Zemuron) 50 mg STK-MED ONCE .ROUTE ; Start 05/31/20 at 14:00; Stop 05/31/20 at 14:00; Status DC Ondansetron HCl (Zofran) 4 mg STK-MED ONCE .ROUTE ; Start 05/31/20 at 15:06; Stop 05/31/20 at 15:06; Status DC Phenylephrine HCl (PHENYLEPHRINE in 0.9% NACL PF) 1 mg STK-MED ONCE IV ; Start 05/31/20 at 15:06; Stop 05/31/20 at 15:06; Status DC Glycopyrrolate (Robinul) 1 mg STK-MED ONCE .ROUTE ; Start 05/31/20 at 15:06; Stop 05/31/20 at 15:06; Status DC Neostigmine Methylsulfate (Bloxiverz) 10 mg STK-MED ONCE .ROUTE ; Start 05/31/20 at 15:07; Stop 05/31/20 at 15:07; Status DC Phenylephrine HCl (PHENYLEPHRINE in 0.9% NACL PF) 1 mg STK-MED ONCE IV ; Start 05/31/20 at 15:40; Stop 05/31/20 at 15:40; Status DC Metronidazole 100 ml @ 100 mls/hr 1X ONCE IV Last administered on 05/31/20at 16:14; Start 05/31/20 at 16:15; Stop 05/31/20 at 17:14; Status DC Heparin Sodium (Porcine) (Hep Lock Adult) 500 unit STK-MED ONCE IVP ; Start 05/31/20 at 16:59; Stop 05/31/20 at 16:59; Status DC Heparin Sodium (Porcine) (Hep Lock Adult) 500 unit 1X ONCE IVP Last administered on 05/31/20at 18:00; Start 05/31/20 at 17:00; Stop 05/31/20 at 17:01; Status DC Enoxaparin Sodium (Lovenox 40mg Syringe) 40 mg Q24H SQ ; Start 05/31/20 at 18:00; Stop 05/31/20 at 19:58; Status DC Sodium Chloride (Normal Saline Flush) 3 ml QSHIFT PRN IV AFTER MEDS AND BLOOD DRAWS; Start 05/31/20 at 17:15 Ringer's Solution 1,000 ml @ 100 mls/hr Q10H IV Last administered on 06/02/20at 05:36; Start 05/31/20 at 17:14; Stop 06/02/20 at 11:56; Status DC Naloxone HCl (Narcan) 0.4 mg PRN Q2MIN PRN IV SEE INSTRUCTIONS; Start 05/31/20 at 17:15 Sodium Chloride 1,000 ml @ 25 mls/hr Q24H IV ; Start 05/31/20 at 17:14; Stop 05/31/20 at 20:32; Status DC Ondansetron HCl (Zofran) 4 mg PRN Q6HRS PRN IVP NAUESA, 1ST CHOICE Last administered on 06/05/20at 20:10; Start 05/31/20 at 17:15 Enoxaparin Sodium (Lovenox 40mg Syringe) 40 mg Q24H SQ Last administered on 06/09/20at 07:57; Start 06/01/20 at 09:00 Sodium Chloride 1,000 ml @ 250 mls/hr 1X ONCE IV Last administered on 05/31/20at 20:33; Start 05/31/20 at 19:30; Stop 05/31/20 at 23:29; Status DC Insulin Human Lispro (HumaLOG) 0-5 UNITS Q6HRS SQ ; Start 06/01/20 at 00:00 Dextrose (Dextrose 50%-Water Syringe) 12.5 gm PRN Q15MIN PRN IV SEE COMMENTS; Start 05/31/20 at 19:30 Sodium Chloride 1,000 ml @ 1,000 mls/hr 1X ONCE IV Last administered on 06/01/20at 07:23; Start 06/01/20 at 07:00; Stop 06/01/20 at 07:59; Status DC Potassium Chloride/Water 100 ml @ 100 mls/hr Q1H IV Last administered on at 11:39; Start 06/01/20 at 08:30; Stop 06/01/20 at 12:29; Status DC Magnesium Sulfate 100 ml @ 25 mls/hr 1X ONCE IV Last administered on 06/01/20at 08:35; Start 06/01/20 at 08:00; Stop 06/01/20 at 11:59; Status DC Pantoprazole Sodium (PROTONIX VIAL for IV PUSH) 40 mg DAILYAC IVP Last administered on 06/09/20at 07:57; Start 06/01/20 at 10:00 Amino Acids/ Glycerin/ Electrolytes 1,000 ml @ 75 mls/hr [id number] IV Last administered on 06/09/20at 00:52; Start 06/02/20 at 12:30 Insulin Human Lispro (HumaLOG VIAL for OP,RR ONLY) 2 unit STK-MED ONCE SQ ; Start 05/31/20 at 09:30; Stop 06/02/20 at 16:33; Status DC Hydromorphone HCl (Dilaudid) 0.7 mg PRN Q3HRS PRN IVP SEVERE PAIN 7-10 Last administered on 06/05/20at 18:36; Start 06/05/20 at 10:30; Stop 06/05/20 at 19:55; Status DC Hydromorphone HCl (Dilaudid) 1.2 mg PRN Q3HRS PRN IVP SEVERE PAIN 7-10 Last administered on 06/06/20at 08:56; Start 06/05/20 at 20:00; Stop 06/06/20 at 10:33; Status DC Hydromorphone HCl (Dilaudid) 2 mg PRN Q3HRS PRN IVP SEVERE PAIN 7-10 Last administered on 06/08/20at 19:32; Start 06/06/20 at 10:45 Acetaminophen (Tylenol Supp) 650 mg 1X ONCE UT ; Start 06/06/20 at 10:45; Stop 06/06/20 at 10:46; Status DC Oxycodone HCl (Roxicodone) 10 mg PRN Q4HRS PRN PO PAIN Last administered on 06/09/20at 07:58; Start 06/08/20 at 12:15; Stop 06/09/20 at 10:05; Status DC Acetaminophen (Tylenol) 650 mg BID PO Last administered on 06/09/20at 07:57; Start 06/08/20 at 12:15 Docusate Sodium (Colace) 100 mg DAILY PO ; Start 06/09/20 at 09:00 Oxycodone HCl (Roxicodone) 15 mg PRN Q4HRS PRN PO PAIN Last administered on 06/09/20at 13:02; Start 06/09/20 at 10:15 Active Scripts Active Reported Lidocaine-Prilocaine Cream (Lidocaine/Prilocaine) 30 Gm Cream..g. 1 Lashae TP UD Oxycodone HCl 5 Mg Tablet 5 Mg PO PRN Q4-6HRS PRN D3 + K2 Dots 1,000 Units Tab (Vitamin D3/Vitamin K2) 1 Each Tab.rapdis 1 Tab PO DAILY 30 Days Klor-Con M20 (Potassium Chloride) 20 Meq Tab.er.prt 1 Tab PO DAILY 30 Days Metformin Hcl 500 Mg Tablet 500 Mg PO BIDWMEALS Levemir (Insulin Detemir) 100 Unit/1 Ml Vial 15 Unit SQ HS Novolog (Insulin Aspart) 100 Unit/1 Ml Vial 6 Unit SQ DAILYAC Metformin Hcl 500 Mg Tablet 500 Mg PO BIDWMEALS Pantoprazole Sodium (Pantoprazole Sodium) 40 Mg Tablet.dr 40 Mg PO DAILYAC Vitals/I & O Vital Sign - Last 24 Hours 06/08/20 06/08/20 06/08/20 06/08/20 14:17 17:43 18:43 19:00 Temp 98.8 99.3 98.8 99.3 Pulse 77 82 Resp 18 18 B/P (MAP) 110/66 (81) 105/66 (79) Pulse Ox 99 99 O2 Delivery Room Air Room Air Room Air Room Air 06/08/20 06/08/20 06/08/20 06/08/20 19:32 20:00 20:02 23:00 Temp 98.1 98.1 Pulse 68 Resp 20 B/P (MAP) 103/56 (72) Pulse Ox 99 99 99 O2 Delivery Room Air Room Air Room Air Room Air 06/09/20 06/09/20 06/09/20 06/09/20 00:43 01:43 03:00 07:00 Temp 98.6 98.5 98.6 98.5 Pulse 76 72 Resp 20 20 18 18 B/P (MAP) 106/71 (83) 102/67 (79) Pulse Ox 99 99 99 98 O2 Delivery Room Air Room Air Room Air Room Air O2 Flow Rate 2.0 06/09/20 06/09/20 06/09/20 06/09/20 07:00 07:58 08:00 08:58 B/P (MAP) O2 Delivery Room Air Room Air Room Air 06/09/20 06/09/20 11:00 13:02 Temp 97.7 97.7 Pulse 85 Resp 18 B/P (MAP) 97/73 (81) Pulse Ox 99 O2 Delivery Room Air Room Air Intake and Output 06/08/20 06/08/20 06/09/20 15:00 23:00 07:00 Intake Total 300 ml 360 ml 1100 ml Output Total 665 ml Balance 300 ml -305 ml 1100 ml Nutrition Consultation Dietary Evaluation: Recommendations by RD: Dietary education by RD, Increase Calorie Intake, Protein supplementation Comments: REC Ensure clear BID or TID while on clear liquids when pt able to tolerate supplements REC continue advancing diet as able per GI/surgery, goal diet ADA w/glucerna supplements Continue w/PPN for short-term nutrition support needs until advanced to PO diet (full liquids) and pt is eating >50% meals and tolerating Expected Outcomes/Goals: diet advancement - not met, goal ongoing Interpretation of weight loss: >10% in 6 months Malnutrition Findings: Food and Nutrition Intake (Sev: <50% est energy req 5days Justicifation of Admission Dx: Justifications for Admission: Justification of Admission Dx: Yes JEWELL GALINDO MD Jun 09, 2020 13:12
--- NOTE | 2020-06-09 14:23 | PDOC ---
SURGICAL PROGRESS NOTE DATE: 06/09/20 TIME: 14:22 Subjective taking fulls no nausea g tube keeps coming apart Vital Signs Vital Signs Date Time Temp Pulse Resp B/P (MAP) Pulse Ox O2 Delivery O2 Flow Rate FiO2 06/09/20 13:02 Room Air 06/09/20 11:00 97.7 85 18 97/73 (81) 99 97.7 06/09/20 01:43 2.0 I&O Intake and Output 06/09/20 07:00 Intake Total 1760 ml Output Total 665 ml Balance 1095 ml Intake Oral 760 ml IV Total 1000 ml Output Urine Total 200 ml Gastric Drainage Total 450 ml Drainage Total 15 ml # Voids 5 General: Alert, Oriented X3, Cooperative Abdomen: Soft, Other (g tube in place) Labs Laboratory Tests Test 06/08/20 03:25 Sodium Level 136 mmol/L (136-145) Potassium Level 4.1 mmol/L (3.5-5.1) Chloride Level 100 mmol/L (98-107) Carbon Dioxide Level 27 mmol/L (21-32) Anion Gap 9 (6-14) Blood Urea Nitrogen 8 mg/dL (8-26) Creatinine 0.4 mg/dL (0.7-1.3) Estimated GFR (Cockcroft-Gault) 225.9 Glucose Level 130 mg/dL (70-99) Calcium Level 8.2 mg/dL (8.5-10.1) Assessment/Plan will clamp g tube continue fulls Justicifation of Admission Dx: Justifications for Admission: Justification of Admission Dx: Yes BABATUNDE GUEVARA APRN Jun 09, 2020 14:23
[2020-06-09 14:59] VITALS: BP 105/69
[2020-06-09 19:25] VITALS: BP 109/68
[2020-06-09 23:07] VITALS: BP 111/61
[2020-06-10 03:12] VITALS: BP 112/75
[2020-06-10] MEDS: HYDROmorphone 2 MG/ML VIAL IVP PRN ×3 (03:37→22:40)
[2020-06-10] MEDS: INSULIN LISPRO 300 UNITS/3 ML VIAL. SQ SCH ×3 (05:26→18:00)
[2020-06-10 07:00] VITALS: BP 101/70
[2020-06-10] MEDS: ACETAMINOPHEN 325 MG TABLET. PO SCH ×3 (08:16→20:24)
[2020-06-10] MEDS: ENOXAPARIN 40 MG/0.4 ML SYRINGE. SQ SCH (08:16)
[2020-06-10] MEDS: PANTOPRAZOLE IV PUSH 40 MG VIAL. IVP SCH (08:17)
[2020-06-10] MEDS: AMINO AC 3%/ELECTROLYTE/GLYCER 1,000 ML IV SCH ×2 (08:17→20:18)
[2020-06-10] MEDS: DOCUSATE SODIUM 100 MG CAPSULE. PO SCH (08:17)
--- NOTE | 2020-06-10 09:46 | NUR ---
SW following. Discussed with RN, pt from home with gf, room air, full liquid diet. Pt very tired and lethargic today. G tube was clamped yesterday. SW will continue to follow.
[2020-06-10 11:00] VITALS: BP 106/70
[2020-06-10] MEDS: oxyCODONE IR 5 MG TABLET PO PRN (11:17)
--- NOTE | 2020-06-10 13:08 | PDOC ---
SURGICAL PROGRESS NOTE DATE: 06/10/20 TIME: 13:07 Subjective not feeling great today no emesis no appetite pain intermittently Vital Signs Vital Signs Date Time Temp Pulse Resp B/P (MAP) Pulse Ox O2 Delivery O2 Flow Rate FiO2 06/10/20 12:10 Room Air 06/10/20 11:00 100.2 77 18 106/70 (82) 100 100.2 I&O Intake and Output 06/10/20 07:00 Intake Total 1540 ml Output Total 565 ml Balance 975 ml Intake Oral 540 ml IV Total 1000 ml Output Urine Total 350 ml Gastric Drainage Total 50 ml Drainage Total 165 ml # Voids 6 General: Cooperative, Other (tired ) Abdomen: Soft, Other (right Nathaniel purulent turk fluid, left serosang ) Assessment/Plan reviewed with nurse--lethargic today low grade fevers >160cc from drain, purulent CT today Justicifation of Admission Dx: Justifications for Admission: Justification of Admission Dx: Yes BABATUNDE GUEVARA APRN Jun 10, 2020 13:08
[2020-06-10] MEDS ORDERED: IOHEXOL 300 MG/ML 100ML VIAL. IV ONE (13:15)
[2020-06-10] MEDS ORDERED: IOHEXOL 240 MG/ML 50ML VIAL. PO ONE (13:15)
[2020-06-10] MEDS ORDERED: CONTRAST GIVEN. MC PRN (13:30)
[2020-06-10 14:09] LABS: BASO # 0.1 x10^3/uL (0.0-0.2); BASO % 1 % (0-3); EOS # 0.1 x10^3/uL (0.0-0.7); EOS % 1 % (0-3); HEMATOCRIT 31.6 % (39.0-53.0); HEMOGLOBIN 10.7 g/dL (13.0-17.5); LYMPH # 1.3 x10^3/uL (1.0-4.8); LYMPH % 11 % (24-48); MEAN CORPUSCULAR HEMOGLOBIN 34 pg (25-35); MEAN CORPUSCULAR HGB CONC 34 g/dL (31-37); MEAN CORPUSCULAR VOLUME 101 fL (79-100); MONO # 0.9 x10^3/uL (0.0-1.1); MONO % 7 % (0-9); NEUT # 10.3 x10^3/uL (1.8-7.7); NEUT % 81 % (31-73); PLATELET COUNT 353 x10^3/uL (140-400); RED BLOOD COUNT 3.15 x10^6/uL (4.30-5.70); RED CELL DISTRIBUTION WIDTH 14.2 % (11.5-14.5); WHITE BLOOD COUNT 12.7 x10^3/uL (4.0-11.0)
--- NOTE | 2020-06-10 14:53 | PDOC ---
PROGRESS NOTES Date of Service: DATE: 06/10/20 TIME: 14:51 Chief Complaint Chief Complaint , Whipple procedure (Nov 3) with hypokalemia, anemia, transaminitis and hyperglycemia. pancreatic cancer Severe protein-caloric malnutrition Acute electrolyte derangements Transaminitis due to hepatobiliary obstruction Normocytic anemia Thrombocytopenia Pancreatic cancer GERD hypertension Diabetes Previous gastric sleeve 37 MIN PT EXAM, CHART REVIEW, > 50% OF TIME SPENT WITH EXAM, CHART REVIEW, PT CARE COORDINATION History of Present Illness History of Present Illness started oral pain meds a couple days ago, doing bettter on 15 prn still haivng bouts of pain, CT scan ordered by gen surg Patient seen and examined bedside still frail and weak Discussed with RN PAIN better, Vitals Vitals Vital Signs Date Time Temp Pulse Resp B/P (MAP) Pulse Ox O2 Delivery O2 Flow Rate FiO2 06/10/20 12:10 Room Air 06/10/20 11:00 100.2 77 18 106/70 (82) 100 100.2 Physical Exam General: Cooperative, Other (tired ) Heart: Regular rate Lungs: Clear Abdomen: Soft, Other (right Nathaniel purulent turk fluid, left serosang ) Extremities: No clubbing Skin: No rashes Labs LABS Laboratory Tests Test 06/10/20 14:00 White Blood Count 12.7 x10^3/uL (4.0-11.0) Red Blood Count 3.15 x10^6/uL (4.30-5.70) Hemoglobin 10.7 g/dL (13.0-17.5) Hematocrit 31.6 % (39.0-53.0) Mean Corpuscular Volume 101 fL (79-100) Mean Corpuscular Hemoglobin 34 pg (25-35) Mean Corpuscular Hemoglobin Concent 34 g/dL (31-37) Red Cell Distribution Width 14.2 % (11.5-14.5) Platelet Count 353 x10^3/uL (140-400) Neutrophils (%) (Auto) 81 % (31-73) Lymphocytes (%) (Auto) 11 % (24-48) Monocytes (%) (Auto) 7 % (0-9) Eosinophils (%) (Auto) 1 % (0-3) Basophils (%) (Auto) 1 % (0-3) Neutrophils # (Auto) 10.3 x10^3/uL (1.8-7.7) Lymphocytes # (Auto) 1.3 x10^3/uL (1.0-4.8) Monocytes # (Auto) 0.9 x10^3/uL (0.0-1.1) Eosinophils # (Auto) 0.1 x10^3/uL (0.0-0.7) Basophils # (Auto) 0.1 x10^3/uL (0.0-0.2) Comment Review of Relevant I have reviewed the following items derrick (where applicable) has been applied. Labs Laboratory Tests Test 06/10/20 14:00 White Blood Count 12.7 x10^3/uL (4.0-11.0) Red Blood Count 3.15 x10^6/uL (4.30-5.70) Hemoglobin 10.7 g/dL (13.0-17.5) Hematocrit 31.6 % (39.0-53.0) Mean Corpuscular Volume 101 fL (79-100) Mean Corpuscular Hemoglobin 34 pg (25-35) Mean Corpuscular Hemoglobin Concent 34 g/dL (31-37) Red Cell Distribution Width 14.2 % (11.5-14.5) Platelet Count 353 x10^3/uL (140-400) Neutrophils (%) (Auto) 81 % (31-73) Lymphocytes (%) (Auto) 11 % (24-48) Monocytes (%) (Auto) 7 % (0-9) Eosinophils (%) (Auto) 1 % (0-3) Basophils (%) (Auto) 1 % (0-3) Neutrophils # (Auto) 10.3 x10^3/uL (1.8-7.7) Lymphocytes # (Auto) 1.3 x10^3/uL (1.0-4.8) Monocytes # (Auto) 0.9 x10^3/uL (0.0-1.1) Eosinophils # (Auto) 0.1 x10^3/uL (0.0-0.7) Basophils # (Auto) 0.1 x10^3/uL (0.0-0.2) Laboratory Tests Test 06/10/20 14:00 White Blood Count 12.7 x10^3/uL (4.0-11.0) Red Blood Count 3.15 x10^6/uL (4.30-5.70) Hemoglobin 10.7 g/dL (13.0-17.5) Hematocrit 31.6 % (39.0-53.0) Mean Corpuscular Volume 101 fL (79-100) Mean Corpuscular Hemoglobin 34 pg (25-35) Mean Corpuscular Hemoglobin Concent 34 g/dL (31-37) Red Cell Distribution Width 14.2 % (11.5-14.5) Platelet Count 353 x10^3/uL (140-400) Neutrophils (%) (Auto) 81 % (31-73) Lymphocytes (%) (Auto) 11 % (24-48) Monocytes (%) (Auto) 7 % (0-9) Eosinophils (%) (Auto) 1 % (0-3) Basophils (%) (Auto) 1 % (0-3) Neutrophils # (Auto) 10.3 x10^3/uL (1.8-7.7) Lymphocytes # (Auto) 1.3 x10^3/uL (1.0-4.8) Monocytes # (Auto) 0.9 x10^3/uL (0.0-1.1) Eosinophils # (Auto) 0.1 x10^3/uL (0.0-0.7) Basophils # (Auto) 0.1 x10^3/uL (0.0-0.2) Medications Current Medications Ondansetron HCl (Zofran) 4 mg PRN Q6HRS PRN IV NAUSEA/VOMITING; Start 05/31/20 at 07:00; Stop 05/31/20 at 20:26; Status DC Fentanyl Citrate (Fentanyl 2ml Vial) 25 mcg PRN Q5MIN PRN IV MILD PAIN 1-3; Start 05/31/20 at 07:00; Stop 05/31/20 at 20:26; Status DC Fentanyl Citrate (Fentanyl 2ml Vial) 50 mcg PRN Q5MIN PRN IV MODERATE TO SEVERE PAIN; Start 05/31/20 at 07:00; Stop 05/31/20 at 20:26; Status DC Morphine Sulfate (Morphine Sulfate) 1 mg PRN Q10MIN PRN IV SEVERE PAIN 7-10; Start 05/31/20 at 07:00; Stop 05/31/20 at 20:26; Status DC Ringer's Solution 1,000 ml @ 30 mls/hr Q24H IV Last administered on 05/31/20at 09:18; Start 05/31/20 at 07:00; Stop 05/31/20 at 18:59; Status DC Hydromorphone HCl (Dilaudid) 0.5 mg PRN Q10MIN PRN IV SEV PAIN, Second choice; Start 05/31/20 at 07:00; Stop 05/31/20 at 20:26; Status DC Prochlorperazine Edisylate (Compazine) 5 mg PACU PRN PRN IV NAUSEA, MRX1; Start 05/31/20 at 07:00; Stop 05/31/20 at 20:26; Status DC Ceftriaxone Sodium (Rocephin) 1 gm 1X PREOP PRN IVP PRIOR TO PROCEDURE; Start 05/31/20 at 08:00; Stop 06/02/20 at 09:36; Status DC Metronidazole 100 ml @ 100 mls/hr 1X PREOP PRN IV PRIOR TO PROCEDURE; Start 05/31/20 at 06:00; Stop 05/31/20 at 18:00; Status DC Propofol (Diprivan) 200 mg STK-MED ONCE IV ; Start 05/31/20 at 08:13; Stop 05/31/20 at 08:14; Status DC Lidocaine HCl (Lidocaine Pf 2% Vial) 5 ml STK-MED ONCE .ROUTE ; Start 05/31/20 at 08:13; Stop 05/31/20 at 08:14; Status DC Fentanyl Citrate (Fentanyl 2ml Vial) 100 mcg STK-MED ONCE .ROUTE ; Start 05/31/20 at 08:14; Stop 05/31/20 at 08:14; Status DC Succinylcholine Chloride (Anectine) 200 mg STK-MED ONCE .ROUTE ; Start 05/31/20 at 08:15; Stop 05/31/20 at 08:16; Status DC Rocuronium [place] (Zemuron) 50 mg STK-MED ONCE .ROUTE ; Start 05/31/20 at 08:15; Stop 05/31/20 at 08:16; Status DC Insulin Human Lispro (HumaLOG VIAL for OP,RR ONLY) 0-10 units PRN Q1HR PRN SQ PER PROTOCOL Last administered on 05/31/20at 09:22; Start 05/31/20 at 09:15; Stop 05/31/20 at 19:58; Status DC Midazolam HCl (Versed) 2 mg STK-MED ONCE .ROUTE ; Start 05/31/20 at 09:27; Stop 05/31/20 at 09:28; Status DC Bupivacaine HCl (Sensorcaine-Mpf 0.25%) 10 ml STK-MED ONCE .ROUTE ; Start at 09:28; Stop 05/31/20 at 09:28; Status DC Midazolam HCl (Versed) 2 mg STK-MED ONCE .ROUTE ; Start 05/31/20 at 10:03; Stop 05/31/20 at 10:03; Status DC Lidocaine HCl (Lidocaine 1% 20ml Vial) 20 ml STK-MED ONCE .ROUTE ; Start 05/31/20 at 10:04; Stop 05/31/20 at 10:05; Status DC Dexamethasone Sodium Phosphate (Decadron) 4 mg STK-MED ONCE .ROUTE ; Start 05/31/20 at 10:36; Stop 05/31/20 at 10:37; Status DC Desflurane (Suprane) 90 ml STK-MED ONCE IH ; Start 05/31/20 at 10:37; Stop 05/31/20 at 10:37; Status DC Bupivacaine HCl (Sensorcaine Mpf 0.5%) 30 ml STK-MED ONCE .ROUTE ; Start 05/31/20 at 10:41; Stop 05/31/20 at 10:42; Status DC Dexamethasone Sodium Phosphate (Decadron) 4 mg STK-MED ONCE .ROUTE ; Start 05/31/20 at 10:43; Stop 05/31/20 at 10:44; Status DC Phenylephrine HCl (PHENYLEPHRINE in 0.9% NACL PF) 1 mg STK-MED ONCE IV ; Start 05/31/20 at 10:44; Stop 05/31/20 at 10:44; Status DC Ephedrine Sulfate (ePHEDrine PF IN SALINE SYRINGE) 50 mg STK-MED ONCE IV ; Start 05/31/20 at 10:59; Stop 05/31/20 at 11:00; Status DC Sodium Chloride 35 ml/Fentanyl Citrate 250 mcg/ Ropivacaine 10 ml/ Epidural Dosage Infused (Pha) 50 ml @ 0 mls/hr CONT PRN EPID SEE PROTOCOL TABLE Last administered on 06/05/20at 06:58; Start 05/31/20 at 11:00; Stop 06/07/20 at 15:10; Status DC Insulin Human Lispro (HumaLOG VIAL for OP,RR ONLY) 0-10 units PRN Q1HR PRN SQ PER PROTOCOL; Start 05/31/20 at 11:00; Stop 05/31/20 at 19:58; Status DC Atropine Sulfate (ATROPINE 0.5mg SYRINGE) 0.5 mg PRN 1X PRN IV SEE COMMENTS; Start 05/31/20 at 11:00; Stop 06/01/20 at 10:59; Status DC Naloxone HCl (Narcan) 0.04 mg PRN Q2MIN PRN IV SEE COMMENTS; Start 05/31/20 at 11:00; Stop 05/31/20 at 20:35; Status DC Rocuronium [place] (Zemuron) 50 mg STK-MED ONCE .ROUTE ; Start 05/31/20 at 12:03; Stop 05/31/20 at 12:04; Status DC Rocuronium [place] (Zemuron) 50 mg STK-MED ONCE .ROUTE ; Start 05/31/20 at 14:00; Stop 05/31/20 at 14:00; Status DC Ondansetron HCl (Zofran) 4 mg STK-MED ONCE .ROUTE ; Start 05/31/20 at 15:06; Stop 05/31/20 at 15:06; Status DC Phenylephrine HCl (PHENYLEPHRINE in 0.9% NACL PF) 1 mg STK-MED ONCE IV ; Start 05/31/20 at 15:06; Stop 05/31/20 at 15:06; Status DC Glycopyrrolate (Robinul) 1 mg STK-MED ONCE .ROUTE ; Start 05/31/20 at 15:06; Stop 05/31/20 at 15:06; Status DC Neostigmine Methylsulfate (Bloxiverz) 10 mg STK-MED ONCE .ROUTE ; Start 05/31/20 at 15:07; Stop 05/31/20 at 15:07; Status DC Phenylephrine HCl (PHENYLEPHRINE in 0.9% NACL PF) 1 mg STK-MED ONCE IV ; Start 05/31/20 at 15:40; Stop 05/31/20 at 15:40; Status DC Metronidazole 100 ml @ 100 mls/hr 1X ONCE IV Last administered on 05/31/20at 16:14; Start 05/31/20 at 16:15; Stop 05/31/20 at 17:14; Status DC Heparin Sodium (Porcine) (Hep Lock Adult) 500 unit STK-MED ONCE IVP ; Start 05/31/20 at 16:59; Stop 05/31/20 at 16:59; Status DC Heparin Sodium (Porcine) (Hep Lock Adult) 500 unit 1X ONCE IVP Last administered on 05/31/20at 18:00; Start 05/31/20 at 17:00; Stop 05/31/20 at 17:01; Status DC Enoxaparin Sodium (Lovenox 40mg Syringe) 40 mg Q24H SQ ; Start 05/31/20 at 18 :00; Stop 05/31/20 at 19:58; Status DC Sodium Chloride (Normal Saline Flush) 3 ml QSHIFT PRN IV AFTER MEDS AND BLOOD DRAWS; Start 05/31/20 at 17:15 Ringer's Solution 1,000 ml @ 100 mls/hr Q10H IV Last administered on 06/02/20at 05:36; Start 05/31/20 at 17:14; Stop 06/02/20 at 11:56; Status DC Naloxone HCl (Narcan) 0.4 mg PRN Q2MIN PRN IV SEE INSTRUCTIONS; Start 05/31/20 at 17:15 Sodium Chloride 1,000 ml @ 25 mls/hr Q24H IV ; Start 05/31/20 at 17:14; Stop 05/31/20 at 20:32; Status DC Ondansetron HCl (Zofran) 4 mg PRN Q6HRS PRN IVP NAUESA, 1ST CHOICE Last administered on 06/05/20at 20:10; Start 05/31/20 at 17:15 Enoxaparin Sodium (Lovenox 40mg Syringe) 40 mg Q24H SQ Last administered on 06/10/20at 08:16; Start 06/01/20 at 09:00 Sodium Chloride 1,000 ml @ 250 mls/hr 1X ONCE IV Last administered on 05/31/20at 20:33; Start 05/31/20 at 19:30; Stop 05/31/20 at 23:29; Status DC Insulin Human Lispro (HumaLOG) 0-5 UNITS Q6HRS SQ ; Start 06/01/20 at 00:00 Dextrose (Dextrose 50%-Water Syringe) 12.5 gm PRN Q15MIN PRN IV SEE COMMENTS; Start 05/31/20 at 19:30 Sodium Chloride 1,000 ml @ 1,000 mls/hr 1X ONCE IV Last administered on 06/01at 07:23; Start 06/01/20 at 07:00; Stop 06/01/20 at 07:59; Status DC Potassium Chloride/Water 100 ml @ 100 mls/hr Q1H IV Last administered on 06/01/20at 11:39; Start 06/01/20 at 08:30; Stop 06/01/20 at 12:29; Status DC Magnesium Sulfate 100 ml @ 25 mls/hr 1X ONCE IV Last administered on 06/01/20at 08:35; Start 06/01/20 at 08:00; Stop 06/01/20 at 11:59; Status DC Pantoprazole Sodium (PROTONIX VIAL for IV PUSH) 40 mg DAILYAC IVP Last administered on 06/10/20at 08:17; Start 06/01/20 at 10:00 Amino Acids/ Glycerin/ Electrolytes 1,000 ml @ 75 mls/hr [id number] IV Last administered on 06/10/20at 08:17; Start 06/02/20 at 12:30 Insulin Human Lispro (HumaLOG VIAL for OP,RR ONLY) 2 unit STK-MED ONCE SQ ; Start 05/31/20 at 09:30; Stop 06/02/20 at 16:33; Status DC Hydromorphone HCl (Dilaudid) 0.7 mg PRN Q3HRS PRN IVP SEVERE PAIN 7-10 Last administered on 06/05/20at 18:36; Start 06/05/20 at 10:30; Stop 06/05/20 at 19:55; Status DC Hydromorphone HCl (Dilaudid) 1.2 mg PRN Q3HRS PRN IVP SEVERE PAIN 7-10 Last administered on 06/06/20at 08:56; Start 06/05/20 at 20:00; Stop 06/06/20 at 10:33; Status DC Hydromorphone HCl (Dilaudid) 2 mg PRN Q3HRS PRN IVP SEVERE PAIN 7-10 Last administered on 06/10/20at 03:37; Start 06/06/20 at 10:45 Acetaminophen (Tylenol Supp) 650 mg 1X ONCE [place] ; Start 06/06/20 at 10:45; Stop 06/06/20 at 10:46; Status DC Oxycodone HCl (Roxicodone) 10 mg PRN Q4HRS PRN PO PAIN Last administered on 06/09/20at 07:58; Start 06/08/20 at 12:15; Stop 06/09/20 at 10:05; Status DC Acetaminophen (Tylenol) 650 mg BID PO Last administered on 06/10/20at 08:16; Start 06/08/20 at 12:15 Docusate Sodium (Colace) 100 mg DAILY PO Last administered on 06/10/20at 08:17; Start 06/09/20 at 09:00 Oxycodone HCl (Roxicodone) 15 mg PRN Q4HRS PRN PO PAIN Last administered on 06/10/20at 11:17; Start 06/09/20 at 10:15 Iohexol (Omnipaque 240 Mg/ml) 30 ml 1X ONCE PO ; Start 06/10/20 at 13:15; S top 06/10/20 at 13:16; Status DC Iohexol (Omnipaque 300 Mg/ml) 75 ml 1X ONCE IV ; Start 06/10/20 at 13:15; Stop 06/10/20 at 13:16; Status DC Info (CONTRAST GIVEN -- Rx MONITORING) 1 each PRN DAILY PRN MC SEE COMMENTS; Start 06/10/20 at 13:30; Stop 06/12/20 at 13:29 Active Scripts Active Reported Lidocaine-Prilocaine Cream (Lidocaine/Prilocaine) 30 Gm Cream..g. 1 Alshae TP UD Oxycodone HCl 5 Mg Tablet 5 Mg PO PRN Q4-6HRS PRN D3 + K2 Dots 1,000 Units Tab (Vitamin D3/Vitamin K2) 1 Each Tab.rapdis 1 Tab PO DAILY 30 Days Klor-Con M20 (Potassium Chloride) 20 Meq Tab.er.prt 1 Tab PO DAILY 30 Days Metformin Hcl 500 Mg Tablet 500 Mg PO BIDWMEALS Levemir (Insulin Detemir) 100 Unit/1 Ml Vial 15 Unit SQ HS Novolog (Insulin Aspart) 100 Unit/1 Ml Vial 6 Unit SQ DAILYAC Metformin Hcl 500 Mg Tablet 500 Mg PO BIDWMEALS Pantoprazole Sodium (Pantoprazole Sodium) 40 Mg Tablet.dr 40 Mg PO DAILYAC Vitals/I & O Vital Sign - Last 24 Hours 06/09/20 06/09/20 06/09/20 06/09/20 14:59 18:25 19:25 19:27 Temp 98.5 98.7 98.5 98.7 Pulse 69 76 Resp 20 18 B/P (MAP) 105/69 (81) 109/68 (82) Pulse Ox 100 98 O2 Delivery Room Air Room Air Room Air Room Air 06/09/20 06/09/20 06/10/20 06/10/20 20:00 23:07 03:12 03:37 Temp 98.3 98.1 98.3 98.1 Pulse 71 74 Resp 18 18 B/P (MAP) 111/61 (78) 112/75 (87) Pulse Ox 98 97 O2 Delivery Room Air Room Air Room Air Room Air 06/10/20 06/10/20 06/10/20 06/10/20 04:04 07:00 11:00 11:17 Temp 98.7 100.2 98.7 100.2 Pulse 69 77 Resp 16 18 B/P (MAP) 101/70 (80) 106/70 (82) Pulse Ox 99 100 O2 Delivery Room Air Room Air Room Air Room Air 06/10/20 12:10 O2 Delivery Room Air Intake and Output 06/09/20 06/09/20 06/10/20 15:00 23:00 07:00 Intake Total 1300 ml 240 ml Output Total 85 ml 120 ml 360 ml Balance -85 ml 1180 ml -120 ml Nutrition Consultation Dietary Evaluation: Recommendations by RD: Dietary education by RD, Increase Calorie Intake, Protein supplementation Comments: REC Pt to choose supplements while on full liquid diet REC continue advancing diet as able per GI/surgery, goal diet ADA w/glucerna supplements Continue w/PPN for short-term nutrition support needs until advanced to solid foods and pt is eating >50% meals and tolerating Expected Outcomes/Goals: diet advancement - goal ongoing Interpretation of weight loss: >10% in 6 months Malnutrition Findings: Food and Nutrition Intake (Sev: <50% est energy req 5days Justicifation of Admission Dx: Justifications for Admission: Justification of Admission Dx: Yes JEWELL GALINDO MD Jun 10, 2020 14:52
[2020-06-10 15:00] VITALS: BP 110/73
--- NOTE | 2020-06-10 16:17 | RAD ---
EXAM: CT Abdomen and Pelvis with IV contrast INDICATION: Reason: fevers, purulent surgical drain drainage / Spl. Instructions: INJ 75ML OMNI 300 30 ML OMNI 240 PO / History: TECHNIQUE: Multi-detector row CT images were acquired from the lung bases through the abdomen and pelvis with the use of IV contrast. Sagittal and coronal images were acquired from the transaxial data. All CT scans performed at this facility utilize dose optimization techniques as appropriate to the exam, including the following: Automated exposure control and adjustment of the mA and/or KV according to patient size (this includes techniques or standardized protocols for targeted exams where dose is indication/reason for exam). IV CONTRAST: Administered ORAL CONTRAST: Administered (via PEG tube) COMPARISON: Chest abdomen pelvis CT of 05/02/2020 FINDINGS: LOWER CHEST: Unremarkable LIVER: Unremarkable BILIARY SYSTEM: Gallbladder is absent. There is extensive pneumobilia now present. PANCREAS: The residual pancreatic parenchyma is unremarkable status post interval Whipple. No ductal dilation. SPLEEN: Unremarkable ADRENALS: Unremarkable KIDNEYS & URETERS: Unremarkable BLADDER: There is gas and fluid in the urinary bladder. No bladder catheter is present. REPRODUCTIVE ORGANS: Prostate measures 5 cm in diameter. GASTROINTESTINAL: Interval postoperative changes compatible with Whipple procedure are present with enteric contrast in the proximal small bowel, likely administered through the patient's percutaneous gastrostomy tube. No dilated fluid-filled bowel loops are present. The appendix is normal. MESENTERY/PERITONEUM/RETROPERITONEUM: Soft tissue stranding in the right upper quadrant retroperitoneum anterior to the IVC is compatible with recent postoperative change. No free air or fluid collection is apparent. There is a surgical drainage tube entering from the right mid abdomen coursing cephalad into the gallbladder fossa and coursing across midline to terminate beneath the diaphragm in the left upper quadrant abdomen. There are some gas tracking along the length of this drainage tube from close to midline towards left distally. There is question of a small amount of enteric contrast surrounding the tube on image 31 of axial series 2. VASCULAR: Unremarkable LYMPH NODES: Mildly enlarged gastrohepatic ligament and periportal lymph nodes. OSSEOUS & SOFT TISSUES: Subcutaneous tissues soft tissues also show a drain along the midline ventral abdominal incision in the subcutaneous fat as well as a second drain exiting via the left lower quadrant abdomen after looping superiorly underneath the stomach and terminating in the right lower quadrant abdomen. IMPRESSION: Postop changes from Whipple with gas around the drainage catheter that exits from the right abdomen, which courses near the pancreaticobiliary anastomosis and gastric lumen, raising question of possible anastomotic dehiscence. No drainable fluid collection demonstrated. Discussed with Dr. Kat in person at 3:55 PM on 06/10/2020 Electronically signed by: Brenda Lindsay MD (06/10/2020 4:13 PM) [id number]
[2020-06-10] MEDS: PIPERACILLIN/TAZOBACTAM 3.375 GM in IV NORMAL SALINE 50ML 50 ML IV SCH (17:36)
[2020-06-10 19:35] VITALS: BP 110/63
[2020-06-10 23:23] VITALS: BP 97/64
[2020-06-11 03:11] VITALS: BP 112/73
[2020-06-11] MEDS: HYDROmorphone 2 MG/ML VIAL IVP PRN ×4 (04:20→22:20)
[2020-06-11] MEDS: PIPERACILLIN/TAZOBACTAM 3.375 GM in IV NORMAL SALINE 50ML 50 ML IV SCH ×4 (05:19→17:22)
[2020-06-11] MEDS: PANTOPRAZOLE IV PUSH 40 MG VIAL. IVP SCH (05:19)
[2020-06-11] MEDS: INSULIN LISPRO 300 UNITS/3 ML VIAL. SQ SCH ×4 (06:00→18:00)
[2020-06-11 07:59] VITALS: BP 101/65
[2020-06-11] MEDS: ENOXAPARIN 40 MG/0.4 ML SYRINGE. SQ SCH (08:39)
[2020-06-11] MEDS: ACETAMINOPHEN 325 MG TABLET. PO SCH ×2 (09:00→21:00)
[2020-06-11] MEDS: DOCUSATE SODIUM 100 MG CAPSULE. PO SCH (09:00)
--- NOTE | 2020-06-11 09:37 | PDOC ---
SURGICAL PROGRESS NOTE DATE: 06/11/20 TIME: 09:35 Subjective doing ok pain slightly better no emesis Vital Signs Vital Signs Date Time Temp Pulse Resp B/P (MAP) Pulse Ox O2 Delivery O2 Flow Rate FiO2 06/11/20 07:59 98.0 73 16 101/65 (77) 100 Room Air 98.0 I&O Intake and Output 06/11/20 07:00 Intake Total 250 ml Output Total 990 ml Balance -740 ml Intake Oral 250 ml Output Urine Total 750 ml Gastric Drainage Total 200 ml Drainage Total 40 ml # Voids 2 General: Alert, Cooperative, Other (frail) Abdomen: Soft, Other (dressing dry, g tube to LIS, right urmila turk purulent drainage, Left urmila serosang) Labs Laboratory Tests Test 06/10/20 14:00 White Blood Count 12.7 x10^3/uL (4.0-11.0) Red Blood Count 3.15 x10^6/uL (4.30-5.70) Hemoglobin 10.7 g/dL (13.0-17.5) Hematocrit 31.6 % (39.0-53.0) Mean Corpuscular Volume 101 fL (79-100) Mean Corpuscular Hemoglobin 34 pg (25-35) Mean Corpuscular Hemoglobin Concent 34 g/dL (31-37) Red Cell Distribution Width 14.2 % (11.5-14.5) Platelet Count 353 x10^3/uL (140-400) Neutrophils (%) (Auto) 81 % (31-73) Lymphocytes (%) (Auto) 11 % (24-48) Monocytes (%) (Auto) 7 % (0-9) Eosinophils (%) (Auto) 1 % (0-3) Basophils (%) (Auto) 1 % (0-3) Neutrophils # (Auto) 10.3 x10^3/uL (1.8-7.7) Lymphocytes # (Auto) 1.3 x10^3/uL (1.0-4.8) Monocytes # (Auto) 0.9 x10^3/uL (0.0-1.1) Eosinophils # (Auto) 0.1 x10^3/uL (0.0-0.7) Basophils # (Auto) 0.1 x10^3/uL (0.0-0.2) Laboratory Tests Test 06/10/20 14:00 White Blood Count 12.7 x10^3/uL (4.0-11.0) Red Blood Count 3.15 x10^6/uL (4.30-5.70) Hemoglobin 10.7 g/dL (13.0-17.5) Hematocrit 31.6 % (39.0-53.0) Mean Corpuscular Volume 101 fL (79-100) Mean Corpuscular Hemoglobin 34 pg (25-35) Mean Corpuscular Hemoglobin Concent 34 g/dL (31-37) Red Cell Distribution Width 14.2 % (11.5-14.5) Platelet Count 353 x10^3/uL (140-400) Neutrophils (%) (Auto) 81 % (31-73) Lymphocytes (%) (Auto) 11 % (24-48) Monocytes (%) (Auto) 7 % (0-9) Eosinophils (%) (Auto) 1 % (0-3) Basophils (%) (Auto) 1 % (0-3) Neutrophils # (Auto) 10.3 x10^3/uL (1.8-7.7) Lymphocytes # (Auto) 1.3 x10^3/uL (1.0-4.8) Monocytes # (Auto) 0.9 x10^3/uL (0.0-1.1) Eosinophils # (Auto) 0.1 x10^3/uL (0.0-0.7) Basophils # (Auto) 0.1 x10^3/uL (0.0-0.2) Assessment/Plan CT noted, g tube to suction, drains, NPO, abx Justicifation of Admission Dx: Justifications for Admission: Justification of Admission Dx: Yes BABATUNDE GUEVARA UROLOGIC NURSE Jun 11, 2020 09:37
[2020-06-11 11:00] VITALS: BP 106/69
[2020-06-11] MEDS: AMINO AC 3%/ELECTROLYTE/GLYCER 1,000 ML IV SCH (12:44)
--- NOTE | 2020-06-11 13:41 | PDOC ---
PROGRESS NOTES Date of Service: DATE: 06/11/20 TIME: 13:40 Chief Complaint Chief Complaint s/p Whipple procedure 05/31 hypokalemia, anemia, transaminitis and hyperglycemia. pancreatic cancer Severe protein-caloric malnutrition Acute electrolyte derangements Transaminitis due to hepatobiliary obstruction Normocytic anemia Thrombocytopenia Pancreatic cancer GERD hypertension Diabetes Previous gastric sleeve 37 MIN PT EXAM, CHART REVIEW, > 50% OF TIME SPENT WITH EXAM, CHART REVIEW, PT CARE COORDINATION History of Present Illness History of Present Illness 06/11, still having pain CT scan abd yesterday, drainage had changed, with new sediment, tired by feels OK Vitals Vitals Vital Signs Date Time Temp Pulse Resp B/P (MAP) Pulse Ox O2 Delivery O2 Flow Rate FiO2 06/11/20 11:13 Room Air 06/11/20 11:00 98.0 77 16 106/69 (81) 97 98.0 Physical Exam General: Alert, Cooperative, Other Heart: Regular rate Lungs: Clear Abdomen: Soft, Other Extremities: No clubbing Skin: No rashes Labs LABS Laboratory Tests Test 06/10/20 14:00 White Blood Count 12.7 x10^3/uL (4.0-11.0) Red Blood Count 3.15 x10^6/uL (4.30-5.70) Hemoglobin 10.7 g/dL (13.0-17.5) Hematocrit 31.6 % (39.0-53.0) Mean Corpuscular Volume 101 fL (79-100) Mean Corpuscular Hemoglobin 34 pg (25-35) Mean Corpuscular Hemoglobin Concent 34 g/dL (31-37) Red Cell Distribution Width 14.2 % (11.5-14.5) Platelet Count 353 x10^3/uL (140-400) Neutrophils (%) (Auto) 81 % (31-73) Lymphocytes (%) (Auto) 11 % (24-48) Monocytes (%) (Auto) 7 % (0-9) Eosinophils (%) (Auto) 1 % (0-3) Basophils (%) (Auto) 1 % (0-3) Neutrophils # (Auto) 10.3 x10^3/uL (1.8-7.7) Lymphocytes # (Auto) 1.3 x10^3/uL (1.0-4.8) Monocytes # (Auto) 0.9 x10^3/uL (0.0-1.1) Eosinophils # (Auto) 0.1 x10^3/uL (0.0-0.7) Basophils # (Auto) 0.1 x10^3/uL (0.0-0.2) Comment Review of Relevant I have reviewed the following items derrick (where applicable) has been applied. Labs Laboratory Tests Test 06/10/20 14:00 White Blood Count 12.7 x10^3/uL (4.0-11.0) Red Blood Count 3.15 x10^6/uL (4.30-5.70) Hemoglobin 10.7 g/dL (13.0-17.5) Hematocrit 31.6 % (39.0-53.0) Mean Corpuscular Volume 101 fL (79-100) Mean Corpuscular Hemoglobin 34 pg (25-35) Mean Corpuscular Hemoglobin Concent 34 g/dL (31-37) Red Cell Distribution Width 14.2 % (11.5-14.5) Platelet Count 353 x10^3/uL (140-400) Neutrophils (%) (Auto) 81 % (31-73) Lymphocytes (%) (Auto) 11 % (24-48) Monocytes (%) (Auto) 7 % (0-9) Eosinophils (%) (Auto) 1 % (0-3) Basophils (%) (Auto) 1 % (0-3) Neutrophils # (Auto) 10.3 x10^3/uL (1.8-7.7) Lymphocytes # (Auto) 1.3 x10^3/uL (1.0-4.8) Monocytes # (Auto) 0.9 x10^3/uL (0.0-1.1) Eosinophils # (Auto) 0.1 x10^3/uL (0.0-0.7) Basophils # (Auto) 0.1 x10^3/uL (0.0-0.2) Laboratory Tests Test 06/10/20 14:00 White Blood Count 12.7 x10^3/uL (4.0-11.0) Red Blood Count 3.15 x10^6/uL (4.30-5.70) Hemoglobin 10.7 g/dL (13.0-17.5) Hematocrit 31.6 % (39.0-53.0) Mean Corpuscular Volume 101 fL (79-100) Mean Corpuscular Hemoglobin 34 pg (25-35) Mean Corpuscular Hemoglobin Concent 34 g/dL (31-37) Red Cell Distribution Width 14.2 % (11.5-14.5) Platelet Count 353 x10^3/uL (140-400) Neutrophils (%) (Auto) 81 % (31-73) Lymphocytes (%) (Auto) 11 % (24-48) Monocytes (%) (Auto) 7 % (0-9) Eosinophils (%) (Auto) 1 % (0-3) Basophils (%) (Auto) 1 % (0-3) Neutrophils # (Auto) 10.3 x10^3/uL (1.8-7.7) Lymphocytes # (Auto) 1.3 x10^3/uL (1.0-4.8) Monocytes # (Auto) 0.9 x10^3/uL (0.0-1.1) Eosinophils # (Auto) 0.1 x10^3/uL (0.0-0.7) Basophils # (Auto) 0.1 x10^3/uL (0.0-0.2) Medications Current Medications Ondansetron HCl (Zofran) 4 mg PRN Q6HRS PRN IV NAUSEA/VOMITING; Start 05/31/20 at 07:00; Stop 05/31/20 at 20:26; Status DC Fentanyl Citrate (Fentanyl 2ml Vial) 25 mcg PRN Q5MIN PRN IV MILD PAIN 1-3; Start 05/31/20 at 07:00; Stop 05/31/20 at 20:26; Status DC Fentanyl Citrate (Fentanyl 2ml Vial) 50 mcg PRN Q5MIN PRN IV MODERATE TO SEVERE PAIN; Start 05/31/20 at 07:00; Stop 05/31/20 at 20:26; Status DC Morphine Sulfate (Morphine Sulfate) 1 mg PRN Q10MIN PRN IV SEVERE PAIN 7-10; Start 05/31/20 at 07:00; Stop 05/31/20 at 20:26; Status DC Ringer's Solution 1,000 ml @ 30 mls/hr Q24H IV Last administered on 05/31/20at 09:18; Start 05/31/20 at 07:00; Stop 05/31/20 at 18:59; Status DC Hydromorphone HCl (Dilaudid) 0.5 mg PRN Q10MIN PRN IV SEV PAIN, Second choice; Start 05/31/20 at 07:00; Stop 05/31/20 at 20:26; Status DC Prochlorperazine Edisylate (Compazine) 5 mg PACU PRN PRN IV NAUSEA, MRX1; Start 05/31/20 at 07:00; Stop 05/31/20 at 20:26; Status DC Ceftriaxone Sodium (Rocephin) 1 gm 1X PREOP PRN IVP PRIOR TO PROCEDURE; Start 05/31/20 at 08:00; Stop 06/02/20 at 09:36; Status DC Metronidazole 100 ml @ 100 mls/hr 1X PREOP PRN IV PRIOR TO PROCEDURE; Start 05/31/20 at 06:00; Stop 05/31/20 at 18:00; Status DC Propofol (Diprivan) 200 mg STK-MED ONCE IV ; Start 05/31/20 at 08:13; Stop 05/31/20 at 08:14; Status DC Lidocaine HCl (Lidocaine Pf 2% Vial) 5 ml STK-MED ONCE .ROUTE ; Start 05/31/20 at 08:13; Stop 05/31/20 at 08:14; Status DC Fentanyl Citrate (Fentanyl 2ml Vial) 100 mcg STK-MED ONCE .ROUTE ; Start 05/31/20 at 08:14; Stop 05/31/20 at 08:14; Status DC Succinylcholine Chloride (Anectine) 200 mg STK-MED ONCE .ROUTE ; Start 05/31/20 at 08:15; Stop 05/31/20 at 08:16; Status DC Rocuronium [place] (Zemuron) 50 mg STK-MED ONCE .ROUTE ; Start 05/31/20 at 08:15; Stop 05/31/20 at 08:16; Status DC Insulin Human Lispro (HumaLOG VIAL for OP,RR ONLY) 0-10 units PRN Q1HR PRN SQ PER PROTOCOL Last administered on 05/31/20at 09:22; Start 05/31/20 at 09:15; Stop 05/31/20 at 19:58; Status DC Midazolam HCl (Versed) 2 mg STK-MED ONCE .ROUTE ; Start 05/31/20 at 09:27; Stop 05/31/20 at 09:28; Status DC Bupivacaine HCl (Sensorcaine-Mpf 0.25%) 10 ml STK-MED ONCE .ROUTE ; Start 05/31/20 at 09:28; Stop 05/31/20 at 09:28; Status DC Midazolam HCl (Versed) 2 mg STK-MED ONCE .ROUTE ; Start 05/31/20 at 10:03; Stop 05/31/20 at 10:03; Status DC Lidocaine HCl (Lidocaine 1% 20ml Vial) 20 ml STK-MED ONCE .ROUTE ; Start 05/31/20 at 10:04; Stop 05/31/20 at 10:05; Status DC Dexamethasone Sodium Phosphate (Decadron) 4 mg STK-MED ONCE .ROUTE ; Start 05/31/20 at 10:36; Stop 05/31/20 at 10:37; Status DC Desflurane (Suprane) 90 ml STK-MED ONCE IH ; Start 05/31/20 at 10:37; Stop 05/31/20 at 10:37; Status DC Bupivacaine HCl (Sensorcaine Mpf 0.5%) 30 ml STK-MED ONCE .ROUTE ; Start 05/31/20 at 10:41; Stop 05/31/20 at 10:42; Status DC Dexamethasone Sodium Phosphate (Decadron) 4 mg STK-MED ONCE .ROUTE ; Start 05/31/20 at 10:43; Stop 05/31/20 at 10:44; Status DC Phenylephrine HCl (PHENYLEPHRINE in 0.9% NACL PF) 1 mg STK-MED ONCE IV ; Start 05/31/20 at 10:44; Stop 05/31/20 at 10:44; Status DC Ephedrine Sulfate (ePHEDrine PF IN SALINE SYRINGE) 50 mg STK-MED ONCE IV ; Start 05/31/20 at 10:59; Stop 05/31/20 at 11:00; Status DC Sodium Chloride 35 ml/Fentanyl Citrate 250 mcg/ Ropivacaine 10 ml/ Epidural Dosage Infused (Pha) 50 ml @ 0 mls/hr CONT PRN EPID SEE PROTOCOL TABLE Last administered on 06/05/20at 06:58; Start 05/31/20 at 11:00; Stop 06/07/20 at 15:10; Status DC Insulin Human Lispro (HumaLOG VIAL for OP,RR ONLY) 0-10 units PRN Q1HR PRN SQ PER PROTOCOL; Start 05/31/20 at 11:00; Stop 05/31/20 at 19:58; Status DC Atropine Sulfate (ATROPINE 0.5mg SYRINGE) 0.5 mg PRN 1X PRN IV SEE COMMENTS; Start 05/31/20 at 11:00; Stop 06/01/20 at 10:59; Status DC Naloxone HCl (Narcan) 0.04 mg PRN Q2MIN PRN IV SEE COMMENTS; Start 05/31/20 at 11:00; Stop 05/31/20 at 20:35; Status DC Rocuronium [place] (Zemuron) 50 mg STK-MED ONCE .ROUTE ; Start 05/31/20 at 12:03; Stop 05/31/20 at 12:04; Status DC Rocuronium [place] (Zemuron) 50 mg STK-MED ONCE .ROUTE ; Start 05/31/20 at 14:00; Stop 05/31/20 at 14:00; Status DC Ondansetron HCl (Zofran) 4 mg STK-MED ONCE .ROUTE ; Start 05/31/20 at 15:06; Stop 05/31/20 at 15:06; Status DC Phenylephrine HCl (PHENYLEPHRINE in 0.9% NACL PF) 1 mg STK-MED ONCE IV ; Start 05/31/20 at 15:06; Stop 05/31/20 at 15:06; Status DC Glycopyrrolate (Robinul) 1 mg STK-MED ONCE .ROUTE ; Start 05/31/20 at 15:06; Stop 05/31/20 at 15:06; Status DC Neostigmine Methylsulfate (Bloxiverz) 10 mg STK-MED ONCE .ROUTE ; Start 05/31/20 at 15:07; Stop 05/31/20 at 15:07; Status DC Phenylephrine HCl (PHENYLEPHRINE in 0.9% NACL PF) 1 mg STK-MED ONCE IV ; Start 05/31/20 at 15:40; Stop 05/31/20 at 15:40; Status DC Metronidazole 100 ml @ 100 mls/hr 1X ONCE IV Last administered on 05/31/20at 16:14; Start 05/31/20 at 16:15; Stop 05/31/20 at 17:14; Status DC Heparin Sodium (Porcine) (Hep Lock Adult) 500 unit STK-MED ONCE IVP ; Start 05/31/20 at 16:59; Stop 05/31/20 at 16:59; Status DC Heparin Sodium (Porcine) (Hep Lock Adult) 500 unit 1X ONCE IVP Last administered on 05/31/20at 18:00; Start 05/31/20 at 17:00; Stop 05/31/20 at 17:01; Status DC Enoxaparin Sodium (Lovenox 40mg Syringe) 40 mg Q24H SQ ; Start 05/31/20 at 18:00; Stop 05/31/20 at 19:58; Status DC Sodium Chloride (Normal Saline Flush) 3 ml QSHIFT PRN IV AFTER MEDS AND BLOOD DRAWS; Start 05/31/20 at 17:15 Ringer's Solution 1,000 ml @ 100 mls/hr Q10H IV Last administered on 06/02/20at 05:36; Start 05/31/20 at 17:14; Stop 06/02/20 at 11:56; Status DC Naloxone HCl (Narcan) 0.4 mg PRN Q2MIN PRN IV SEE INSTRUCTIONS; Start 05/31/20 at 17:15 Sodium Chloride 1,000 ml @ 25 mls/hr Q24H IV ; Start 05/31/20 at 17:14; Stop 05/31/20 at 20:32; Status DC Ondansetron HCl (Zofran) 4 mg PRN Q6HRS PRN IVP NAUESA, 1ST CHOICE Last administered on 06/05/20at 20:10; Start 05/31/20 at 17:15 Enoxaparin Sodium (Lovenox 40mg Syringe) 40 mg Q24H SQ Last administered on 06/11/20at 08:39; Start 06/01/20 at 09:00 Sodium Chloride 1,000 ml @ 250 mls/hr 1X ONCE IV Last administered on 05/31/20at 20:33; Start 05/31/20 at 19:30; Stop 05/31/20 at 23:29; Status DC Insulin Human Lispro (HumaLOG) 0-5 UNITS Q6HRS SQ ; Start 06/01/20 at 00:00 Dextrose (Dextrose 50%-Water Syringe) 12.5 gm PRN Q15MIN PRN IV SEE COMMENTS; Start 05/31/20 at 19:30 Sodium Chloride 1,000 ml @ 1,000 mls/hr 1X ONCE IV Last administered on 06/01/20at 07:23; Start 06/01/20 at 07:00; Stop 06/01/20 at 07:59; Status DC Potassium Chloride/Water 100 ml @ 100 mls/hr Q1H IV Last administered on 06/01/20at 11:39; Start 06/01/20 at 08:30; Stop 06/01/20 at 12:29; Status DC Magnesium Sulfate 100 ml @ 25 mls/hr 1X ONCE IV Last administered on 06/01/20at 08:35; Start 06/01/20 at 08:00; Stop 06/01/20 at 11:59; Status DC Pantoprazole Sodium (PROTONIX VIAL for IV PUSH) 40 mg DAILYAC IVP Last administered on 06/11/20at 05:19; Start 06/01/20 at 10:00 Amino Acids/ Glycerin/ Electrolytes 1,000 ml @ 75 mls/hr [id number] IV Last administered on 06/11/20at 12:44; Start 06/02/20 at 12:30 Insulin Human Lispro (HumaLOG VIAL for OP,RR ONLY) 2 unit STK-MED ONCE SQ ; Start 05/31/20 at 09:30; Stop 06/02/20 at 16:33; Status DC Hydromorphone HCl (Dilaudid) 0.7 mg PRN Q3HRS PRN IVP SEVERE PAIN 7-10 Last administered on 06/05/20at 18:36; Start 06/05/20 at 10:30; Stop 06/05/20 at 19: 55; Status DC Hydromorphone HCl (Dilaudid) 1.2 mg PRN Q3HRS PRN IVP SEVERE PAIN 7-10 Last administered on 06/06/20at 08:56; Start 06/05/20 at 20:00; Stop 06/06/20 at 10:33; Status DC Hydromorphone HCl (Dilaudid) 2 mg PRN Q3HRS PRN IVP SEVERE PAIN 7-10 Last administered on 06/11/20at 10:43; Start 06/06/20 at 10:45 Acetaminophen (Tylenol Supp) 650 mg 1X ONCE W[place] ; Start 06/06/20 at 10:45; Stop 06/06/20 at 10:46; Status DC Oxycodone HCl (Roxicodone) 10 mg PRN Q4HRS PRN PO PAIN Last administered on 06/09/20at 07:58; Start 06/08/20 at 12:15; Stop 06/09/20 at 10:05; Status DC Acetaminophen (Tylenol) 650 mg BID PO Last administered on 06/10/20at 08:16; Start 06/08/20 at 12:15 Docusate Sodium (Colace) 100 mg DAILY PO Last administered on 06/10/20at 08:17; Start 06/09/20 at 09:00 Oxycodone HCl (Roxicodone) 15 mg PRN Q4HRS PRN PO PAIN Last administered on 06/10/20at 11:17; Start 06/09/20 at 10:15 Iohexol (Omnipaque 240 Mg/ml) 30 ml 1X ONCE PO ; Start 06/10/20 at 13:15; Stop 06/10/20 at 13:16; Status DC Iohexol (Omnipaque 300 Mg/ml) 75 ml 1X ONCE IV ; Start 06/10/20 at 13:15; Stop 06/10/20 at 13:16; Status DC Info (CONTRAST GIVEN -- Rx MONITORING) 1 each PRN DAILY PRN MC SEE COMMENTS; Start 06/10/20 at 13:30; Stop 06/12/20 at 13:29 Piperacillin Sod/ Tazobactam Sod 3.375 gm/Sodium Chloride 50 ml @ 100 mls/hr Q6HRS IV Last administered on 06/11/20at 12:43; Start 06/10/20 at 16:00 Active Scripts Active Reported Lidocaine-Prilocaine Cream (Lidocaine/Prilocaine) 30 Gm Cream..g. 1 Lashae TP UD Oxycodone HCl 5 Mg Tablet 5 Mg PO PRN Q4-6HRS PRN D3 + K2 Dots 1,000 Units Tab (Vitamin D3/Vitamin K2) 1 Each Tab.rapdis 1 Tab PO DAILY 30 Days Klor-Con M20 (Potassium Chloride) 20 Meq Tab.er.prt 1 Tab PO DAILY 30 Days Metformin Hcl 500 Mg Tablet 500 Mg PO BIDWMEALS Levemir (Insulin Detemir) 100 Unit/1 Ml Vial 15 Unit SQ HS Novolog (Insulin Aspart) 100 Unit/1 Ml Vial 6 Unit SQ DAILYAC Metformin Hcl 500 Mg Tablet 500 Mg PO BIDWMEALS Pantoprazole Sodium (Pantoprazole Sodium) 40 Mg Tablet.dr 40 Mg PO DAILYAC Vitals/I & O Vital Sign - Last 24 Hours 06/10/20 06/10/20 06/10/20 06/10/20 15:00 17:49 18:19 19:35 Temp 98.6 98.8 98.6 98.8 Pulse 82 89 Resp 18 18 B/P (MAP) 110/73 (85) 110/63 (79) Pulse Ox 100 100 O2 Delivery Room Air Room Air Room Air Room Air 06/10/20 06/10/20 06/10/20 06/11/20 20:00 23:10 23:23 03:11 Temp 98.3 98.0 98.3 98.0 Pulse 64 74 Resp 18 18 B/P (MAP) 97/64 (75) 112/73 (86) Pulse Ox 97 97 O2 Delivery Room Air Room Air Room Air Room Air 06/11/20 06/11/20 06/11/20 06/11/20 04:20 05:00 07:59 08:00 Temp 98.0 98.0 Pulse 73 Resp 16 B/P (MAP) 101/65 (77) Pulse Ox 100 O2 Delivery Room Air Room Air Room Air Room Air 06/11/20 06/11/20 06/11/20 10:43 11:00 11:13 Temp 98.0 98.0 Pulse 77 Resp 16 B/P (MAP) 106/69 (81) Pulse Ox 97 O2 Delivery Room Air Room Air Room Air Intake and Output 06/10/20 06/10/20 06/11/20 15:00 23:00 07:00 Intake Total 250 ml Output Total 750 ml 40 ml 200 ml Balance -750 ml 210 ml -200 ml Nutrition Consultation Dietary Evaluation: Recommendations by RD: Dietary education by RD, Increase Calorie Intake, Protein supplementation Comments: REC Pt to choose supplements while on full liquid diet REC continue advancing diet as able per GI/surgery, goal diet ADA w/glucerna supplements Continue w/PPN for short-term nutrition support needs until advanced to solid foods and pt is eating >50% meals and tolerating Expected Outcomes/Goals: diet advancement - goal ongoing Interpretation of weight loss: >10% in 6 months Malnutrition Findings: Food and Nutrition Intake (Sev: <50% est energy req 5days Justicifation of Admission Dx: Justifications for Admission: Justification of Admission Dx: Yes JEWELL GALINDO MD Jun 11, 2020 13:41
[2020-06-11 15:59] VITALS: BP 102/70
[2020-06-11] MEDS ORDERED: SALIVA STIMULANT AGENT 44ML SPRAY BOTTLE. PO PRN (18:00)
[2020-06-11 19:22] VITALS: BP 94/60
[2020-06-11 23:00] VITALS: BP 112/64
[2020-06-12] MEDS: AMINO AC 3%/ELECTROLYTE/GLYCER 1,000 ML IV SCH ×2 (00:12→15:11)
[2020-06-12] MEDS: PIPERACILLIN/TAZOBACTAM 3.375 GM in IV NORMAL SALINE 50ML 50 ML IV SCH ×5 (00:12→23:35)
[2020-06-12 03:00] VITALS: BP 98/49
[2020-06-12] MEDS: HYDROmorphone 2 MG/ML VIAL IVP PRN ×4 (04:39→21:36)
[2020-06-12 04:59] LABS: BASO # 0.1 x10^3/uL (0.0-0.2); BASO % 1 % (0-3); EOS # 0.1 x10^3/uL (0.0-0.7); EOS % 2 % (0-3); HEMATOCRIT 29.2 % (39.0-53.0); HEMOGLOBIN 9.9 g/dL (13.0-17.5); LYMPH # 1.7 x10^3/uL (1.0-4.8); LYMPH % 23 % (24-48); MEAN CORPUSCULAR HEMOGLOBIN 34 pg (25-35); MEAN CORPUSCULAR HGB CONC 34 g/dL (31-37); MEAN CORPUSCULAR VOLUME 99 fL (79-100); MONO # 0.7 x10^3/uL (0.0-1.1); MONO % 9 % (0-9); NEUT # 4.8 x10^3/uL (1.8-7.7); NEUT % 64 % (31-73); PLATELET COUNT 327 x10^3/uL (140-400); RED BLOOD COUNT 2.94 x10^6/uL (4.30-5.70); RED CELL DISTRIBUTION WIDTH 14.2 % (11.5-14.5); WHITE BLOOD COUNT 7.4 x10^3/uL (4.0-11.0)
[2020-06-12 05:22] LABS: ALBUMIN/GLOBULIN RATIO 0.5 (1.0-1.7); CALCIUM 9.1 mg/dL (8.5-10.1); CREATININE 0.5 mg/dL (0.7-1.3); GFR 174.6; POTASSIUM 4.2 mmol/L (3.5-5.1); TOTAL BILIRUBIN 0.7 mg/dL (0.2-1.0)
[2020-06-12] MEDS: INSULIN LISPRO 300 UNITS/3 ML VIAL. SQ SCH ×5 (05:57→23:51)
[2020-06-12] MEDS: PANTOPRAZOLE IV PUSH 40 MG VIAL. IVP SCH (05:58)
[2020-06-12 07:00] VITALS: BP 103/64
[2020-06-12] MEDS: DOCUSATE SODIUM 100 MG CAPSULE. PO SCH (09:00)
[2020-06-12] MEDS: ACETAMINOPHEN 325 MG TABLET. PO SCH ×2 (09:00→21:00)
[2020-06-12] MEDS: ENOXAPARIN 40 MG/0.4 ML SYRINGE. SQ SCH (09:07)
--- NOTE | 2020-06-12 11:22 | PDOC ---
SURGICAL PROGRESS NOTE DATE: 06/12/20 TIME: 11:17 Subjective Pt with c/o fatigue, awake at night, no N/V, some soreness Vital Signs Vital Signs Date Time Temp Pulse Resp B/P (MAP) Pulse Ox O2 Delivery O2 Flow Rate FiO2 06/12/20 10:59 Room Air 06/12/20 07:00 97.9 65 18 103/64 (77) 100 97.9 06/12/20 03:00 2.0 I&O Intake and Output 06/12/20 06:59 Intake Total 1250 ml Output Total 105 ml Balance 1145 ml Intake Oral 0 ml IV Total 1250 ml Drainage Total 105 ml # Voids 3 General: Alert, Oriented X3, Cooperative, mild distress Abdomen: Soft, No tenderness, Other (min turk drainage LUQ CONCHIS, G tube bilious, RUQ CONCHIS min serosang) Labs Laboratory Tests Test 06/10/20 14:00 06/12/20 04:20 White Blood Count 12.7 x10^3/uL (4.0-11.0) 7.4 x10^3/uL (4.0-11.0) Red Blood Count 3.15 x10^6/uL (4.30-5.70) 2.94 x10^6/uL (4.30-5.70) Hemoglobin 10.7 g/dL (13.0-17.5) 9.9 g/dL (13.0-17.5) Hematocrit 31.6 % (39.0-53.0) 29.2 % (39.0-53.0) Mean Corpuscular Volume 101 fL (79-100) 99 fL (79-100) Mean Corpuscular Hemoglobin 34 pg (25-35) 34 pg (25-35) Mean Corpuscular Hemoglobin Concent 34 g/dL (31-37) 34 g/dL (31-37) Red Cell Distribution Width 14.2 % (11.5-14.5) 14.2 % (11.5-14.5) Platelet Count 353 x10^3/uL (140-400) 327 x10^3/uL (140-400) Neutrophils (%) (Auto) 81 % (31-73) 64 % (31-73) Lymphocytes (%) (Auto) 11 % (24-48) 23 % (24-48) Monocytes (%) (Auto) 7 % (0-9) 9 % (0-9) Eosinophils (%) (Auto) 1 % (0-3) 2 % (0-3) Basophils (%) (Auto) 1 % (0-3) 1 % (0-3) Neutrophils # (Auto) 10.3 x10^3/uL (1.8-7.7) 4.8 x10^3/uL (1.8-7.7) Lymphocytes # (Auto) 1.3 x10^3/uL (1.0-4.8) 1.7 x10^3/uL (1.0-4.8) Monocytes # (Auto) 0.9 x10^3/uL (0.0-1.1) 0.7 x10^3/uL (0.0-1.1) Eosinophils # (Auto) 0.1 x10^3/uL (0.0-0.7) 0.1 x10^3/uL (0.0-0.7) Basophils # (Auto) 0.1 x10^3/uL (0.0-0.2) 0.1 x10^3/uL (0.0-0.2) Sodium Level 133 mmol/L (136-145) Potassium Level 4.2 mmol/L (3.5-5.1) Chloride Level 98 mmol/L (98-107) Carbon Dioxide Level 27 mmol/L (21-32) Anion Gap 8 (6-14) Blood Urea Nitrogen 11 mg/dL (8-26) Creatinine 0.5 mg/dL (0.7-1.3) Estimated GFR (Cockcroft-Gault) 174.6 BUN/Creatinine Ratio 22 (6-20) Glucose Level 111 mg/dL (70-99) Calcium Level 9.1 mg/dL (8.5-10.1) Total Bilirubin 0.7 mg/dL (0.2-1.0) Aspartate Amino Transf (AST/SGOT) 18 U/L (15-37) Alanine Aminotransferase (ALT/SGPT) 13 U/L (16-63) Alkaline Phosphatase 156 U/L (46-116) Total Protein 6.0 g/dL (6.4-8.2) Albumin 2.0 g/dL (3.4-5.0) Albumin/Globulin Ratio 0.5 (1.0-1.7) Laboratory Tests Test 06/12/20 04:20 White Blood Count 7.4 x10^3/uL (4.0-11.0) Red Blood Count 2.94 x10^6/uL (4.30-5.70) Hemoglobin 9.9 g/dL (13.0-17.5) Hematocrit 29.2 % (39.0-53.0) Mean Corpuscular Volume 99 fL (79-100) Mean Corpuscular Hemoglobin 34 pg (25-35) Mean Corpuscular Hemoglobin Concent 34 g/dL (31-37) Red Cell Distribution Width 14.2 % (11.5-14.5) Platelet Count 327 x10^3/uL (140-400) Neutrophils (%) (Auto) 64 % (31-73) Lymphocytes (%) (Auto) 23 % (24-48) Monocytes (%) (Auto) 9 % (0-9) Eosinophils (%) (Auto) 2 % (0-3) Basophils (%) (Auto) 1 % (0-3) Neutrophils # (Auto) 4.8 x10^3/uL (1.8-7.7) Lymphocytes # (Auto) 1.7 x10^3/uL (1.0-4.8) Monocytes # (Auto) 0.7 x10^3/uL (0.0-1.1) Eosinophils # (Auto) 0.1 x10^3/uL (0.0-0.7) Basophils # (Auto) 0.1 x10^3/uL (0.0-0.2) Sodium Level 133 mmol/L (136-145) Potassium Level 4.2 mmol/L (3.5-5.1) Chloride Level 98 mmol/L (98-107) Carbon Dioxide Level 27 mmol/L (21-32) Anion Gap 8 (6-14) Blood Urea Nitrogen 11 mg/dL (8-26) Creatinine 0.5 mg/dL (0.7-1.3) Estimated GFR (Cockcroft-Gault) 174.6 BUN/Creatinine Ratio 22 (6-20) Glucose Level 111 mg/dL (70-99) Calcium Level 9.1 mg/dL (8.5-10.1) Total Bilirubin 0.7 mg/dL (0.2-1.0) Aspartate Amino Transf (AST/SGOT) 18 U/L (15-37) Alanine Aminotransferase (ALT/SGPT) 13 U/L (16-63) Alkaline Phosphatase 156 U/L (46-116) Total Protein 6.0 g/dL (6.4-8.2) Albumin 2.0 g/dL (3.4-5.0) Albumin/Globulin Ratio 0.5 (1.0-1.7) Problem List s/p whipple will try clears but continue G-tube to sxn will convert to formal TPN Justicifation of Admission Dx: Justifications for Admission: Justification of Admission Dx: Yes SANG AVENDANO MD Jun 12, 2020 11:22
[2020-06-12 11:59] VITALS: BP 103/67
[2020-06-12] MEDS: TPN PER PHARMACY MC PRN (13:40)
--- NOTE | 2020-06-12 13:44 | NUR ---
Pharmacy TPN Dosing Note S: YANNIRYAN is a 54 year old M Currently receiving Central Continuous TPN started 06/12/20 B:Pertinent PMH: s/p michellejay Height: 5 feet, 8 inches Weight: 76.0 kg Current diet: clear liquid diet LABS: Sodium: 133 Potassium: 4.2 Chloride: 98 Calcium: 9.1 Corrected Calcium: 10.70 Magnesium: 1.9 CO2: 27 SCr: 0.5 Glucose: 111 Albumin: 2.0 AST: 18 ALT: 13 TPN FORMULA: TPN TYPE: Central Continuous AMINO ACIDS: 60 gm DEXTROSE: 195 gm LIPIDS: 20 gm SODIUM CHLORIDE: 90 mEq POTASSIUM CHLORIDE: 50 mEq POTASSIUM PHOSPHATE: 13.6 mmol MAGNESIUM: 10 mEq MULTIPLE VITAMIN: 10 ml TRACE ELEMENTS: 1 ml(s) TPN PLAN: Corrected calcium is elevated, omit calcium gluconate from TPN. Otherwise start standard formula. -BMP, Mag, Phos and Trig labs in AM. R: Begin TPN as noted above. Will monitor electrolytes, glucose, and tolerance to TPN. VICTORIANO LOPES FORMERLY [facility] [place], 06/12/20 [id number]
--- NOTE | 2020-06-12 13:52 | PDOC ---
PROGRESS NOTES Date of Service: DATE: 06/12/20 TIME: 13:51 Chief Complaint Chief Complaint s/p Whipple procedure 05/31 hypokalemia, anemia, transaminitis and hyperglycemia. pancreatic cancer Severe protein-caloric malnutrition Acute electrolyte derangements Transaminitis due to hepatobiliary obstruction Normocytic anemia Thrombocytopenia Pancreatic cancer GERD hypertension Diabetes Previous gastric sleeve 37 MIN PT EXAM, CHART REVIEW, > 50% OF TIME SPENT WITH EXAM, CHART REVIEW, PT CARE COORDINATION History of Present Illness History of Present Illness 06/12, pain a little better, sitll with drainage some lethargy gen surg following on PPN, my be able to eat again soon no stool recently 06/11, still having pain CT scan abd yesterday, drainage had changed, with new sediment, tired by feels OK Vitals Vitals Vital Signs Date Time Temp Pulse Resp B/P (MAP) Pulse Ox O2 Delivery O2 Flow Rate FiO2 06/12/20 11:59 98.4 63 16 103/67 (79) 97 Room Air 98.4 06/12/20 03:00 2.0 Physical Exam General: Alert, Oriented X3, Cooperative, mild distress Heart: Regular rate Lungs: Clear Abdomen: Soft, No tenderness, Other (min turk drainage LUQ CONCHIS, G tube bilious, RUQ CONCHIS min serosang) Extremities: No clubbing Skin: No rashes Labs LABS Laboratory Tests Test 06/12/20 04:20 White Blood Count 7.4 x10^3/uL (4.0-11.0) Red Blood Count 2.94 x10^6/uL (4.30-5.70) Hemoglobin 9.9 g/dL (13.0-17.5) Hematocrit 29.2 % (39.0-53.0) Mean Corpuscular Volume 99 fL (79-100) Mean Corpuscular Hemoglobin 34 pg (25-35) Mean Corpuscular Hemoglobin Concent 34 g/dL (31-37) Red Cell Distribution Width 14.2 % (11.5-14.5) Platelet Count 327 x10^3/uL (140-400) Neutrophils (%) (Auto) 64 % (31-73) Lymphocytes (%) (Auto) 23 % (24-48) Monocytes (%) (Auto) 9 % (0-9) Eosinophils (%) (Auto) 2 % (0-3) Basophils (%) (Auto) 1 % (0-3) Neutrophils # (Auto) 4.8 x10^3/uL (1.8-7.7) Lymphocytes # (Auto) 1.7 x10^3/uL (1.0-4.8) Monocytes # (Auto) 0.7 x10^3/uL (0.0-1.1) Eosinophils # (Auto) 0.1 x10^3/uL (0.0-0.7) Basophils # (Auto) 0.1 x10^3/uL (0.0-0.2) Sodium Level 133 mmol/L (136-145) Potassium Level 4.2 mmol/L (3.5-5.1) Chloride Level 98 mmol/L (98-107) Carbon Dioxide Level 27 mmol/L (21-32) Anion Gap 8 (6-14) Blood Urea Nitrogen 11 mg/dL (8-26) Creatinine 0.5 mg/dL (0.7-1.3) Estimated GFR (Cockcroft-Gault) 174.6 BUN/Creatinine Ratio 22 (6-20) Glucose Level 111 mg/dL (70-99) Calcium Level 9.1 mg/dL (8.5-10.1) Total Bilirubin 0.7 mg/dL (0.2-1.0) Aspartate Amino Transf (AST/SGOT) 18 U/L (15-37) Alanine Aminotransferase (ALT/SGPT) 13 U/L (16-63) Alkaline Phosphatase 156 U/L (46-116) Total Protein 6.0 g/dL (6.4-8.2) Albumin 2.0 g/dL (3.4-5.0) Albumin/Globulin Ratio 0.5 (1.0-1.7) Review of Systems Review of Systems pain 10/05, more constant, no event Comment Review of Relevant I have reviewed the following items derrick (where applicable) has been applied. Labs Laboratory Tests Test 06/10/20 14:00 06/12/20 04:20 White Blood Count 12.7 x10^3/uL (4.0-11.0) 7.4 x10^3/uL (4.0-11.0) Red Blood Count 3.15 x10^6/uL (4.30-5.70) 2.94 x10^6/uL (4.30-5.70) Hemoglobin 10.7 g/dL (13.0-17.5) 9.9 g/dL (13.0-17.5) Hematocrit 31.6 % (39.0-53.0) 29.2 % (39.0-53.0) Mean Corpuscular Volume 101 fL (79-100) 99 fL (79-100) Mean Corpuscular Hemoglobin 34 pg (25-35) 34 pg (25-35) Mean Corpuscular Hemoglobin Concent 34 g/dL (31-37) 34 g/dL (31-37) Red Cell Distribution Width 14.2 % (11.5-14.5) 14.2 % (11.5-14.5) Platelet Count 353 x10^3/uL (140-400) 327 x10^3/uL (140-400) Neutrophils (%) (Auto) 81 % (31-73) 64 % (31-73) Lymphocytes (%) (Auto) 11 % (24-48) 23 % (24-48) Monocytes (%) (Auto) 7 % (0-9) 9 % (0-9) Eosinophils (%) (Auto) 1 % (0-3) 2 % (0-3) Basophils (%) (Auto) 1 % (0-3) 1 % (0-3) Neutrophils # (Auto) 10.3 x10^3/uL (1.8-7.7) 4.8 x10^3/uL (1.8-7.7) Lymphocytes # (Auto) 1.3 x10^3/uL (1.0-4.8) 1.7 x10^3/uL (1.0-4.8) Monocytes # (Auto) 0.9 x10^3/uL (0.0-1.1) 0.7 x10^3/uL (0.0-1.1) Eosinophils # (Auto) 0.1 x10^3/uL (0.0-0.7) 0.1 x10^3/uL (0.0-0.7) Basophils # (Auto) 0.1 x10^3/uL (0.0-0.2) 0.1 x10^3/uL (0.0-0.2) Sodium Level 133 mmol/L (136-145) Potassium Level 4.2 mmol/L (3.5-5.1) Chloride Level 98 mmol/L (98-107) Carbon Dioxide Level 27 mmol/L (21-32) Anion Gap 8 (6-14) Blood Urea Nitrogen 11 mg/dL (8-26) Creatinine 0.5 mg/dL (0.7-1.3) Estimated GFR (Cockcroft-Gault) 174.6 BUN/Creatinine Ratio 22 (6-20) Glucose Level 111 mg/dL (70-99) Calcium Level 9.1 mg/dL (8.5-10.1) Total Bilirubin 0.7 mg/dL (0.2-1.0) Aspartate Amino Transf (AST/SGOT) 18 U/L (15-37) Alanine Aminotransferase (ALT/SGPT) 13 U/L (16-63) Alkaline Phosphatase 156 U/L (46-116) Total Protein 6.0 g/dL (6.4-8.2) Albumin 2.0 g/dL (3.4-5.0) Albumin/Globulin Ratio 0.5 (1.0-1.7) Laboratory Tests Test 06/12/20 04:20 White Blood Count 7.4 x10^3/uL (4.0-11.0) Red Blood Count 2.94 x10^6/uL (4.30-5.70) Hemoglobin 9.9 g/dL (13.0-17.5) Hematocrit 29.2 % (39.0-53.0) Mean Corpuscular Volume 99 fL (79-100) Mean Corpuscular Hemoglobin 34 pg (25-35) Mean Corpuscular Hemoglobin Concent 34 g/dL (31-37) Red Cell Distribution Width 14.2 % (11.5-14.5) Platelet Count 327 x10^3/uL (140-400) Neutrophils (%) (Auto) 64 % (31-73) Lymphocytes (%) (Auto) 23 % (24-48) Monocytes (%) (Auto) 9 % (0-9) Eosinophils (%) (Auto) 2 % (0-3) Basophils (%) (Auto) 1 % (0-3) Neutrophils # (Auto) 4.8 x10^3/uL (1.8-7.7) Lymphocytes # (Auto) 1.7 x10^3/uL (1.0-4.8) Monocytes # (Auto) 0.7 x10^3/uL (0.0-1.1) Eosinophils # (Auto) 0.1 x10^3/uL (0.0-0.7) Basophils # (Auto) 0.1 x10^3/uL (0.0-0.2) Sodium Level 133 mmol/L (136-145) Potassium Level 4.2 mmol/L (3.5-5.1) Chloride Level 98 mmol/L (98-107) Carbon Dioxide Level 27 mmol/L (21-32) Anion Gap 8 (6-14) Blood Urea Nitrogen 11 mg/dL (8-26) Creatinine 0.5 mg/dL (0.7-1.3) Estimated GFR (Cockcroft-Gault) 174.6 BUN/Creatinine Ratio 22 (6-20) Glucose Level 111 mg/dL (70-99) Calcium Level 9.1 mg/dL (8.5-10.1) Total Bilirubin 0.7 mg/dL (0.2-1.0) Aspartate Amino Transf (AST/SGOT) 18 U/L (15-37) Alanine Aminotransferase (ALT/SGPT) 13 U/L (16-63) Alkaline Phosphatase 156 U/L (46-116) Total Protein 6.0 g/dL (6.4-8.2) Albumin 2.0 g/dL (3.4-5.0) Albumin/Globulin Ratio 0.5 (1.0-1.7) Medications Current Medications Ondansetron HCl (Zofran) 4 mg PRN Q6HRS PRN IV NAUSEA/VOMITING; Start 05/31/20 at 07:00; Stop 05/31/20 at 20:26; Status DC Fentanyl Citrate (Fentanyl 2ml Vial) 25 mcg PRN Q5MIN PRN IV MILD PAIN 1-3; Start 05/31/20 at 07:00; Stop 05/31/20 at 20:26; Status DC Fentanyl Citrate (Fentanyl 2ml Vial) 50 mcg PRN Q5MIN PRN IV MODERATE TO SEVERE PAIN; Start 05/31/20 at 07:00; Stop 05/31/20 at 20:26; Status DC Morphine Sulfate (Morphine Sulfate) 1 mg PRN Q10MIN PRN IV SEVERE PAIN 7-10; Start 05/31/20 at 07:00; Stop 05/31/20 at 20:26; Status DC Ringer's Solution 1,000 ml @ 30 mls/hr Q24H IV Last administered on 05/31/20at 09:18; Start 05/31/20 at 07:00; Stop 05/31/20 at 18:59; Status DC Hydromorphone HCl (Dilaudid) 0.5 mg PRN Q10MIN PRN IV SEV PAIN, Second choice; Start 05/31/20 at 07:00; Stop 05/31/20 at 20:26; Status DC Prochlorperazine Edisylate (Compazine) 5 mg PACU PRN PRN IV NAUSEA, MRX1; Start 05/31/20 at 07:00; Stop 05/31/20 at 20:26; Status DC Ceftriaxone Sodium (Rocephin) 1 gm 1X PREOP PRN IVP PRIOR TO PROCEDURE; Start 05/31/20 at 08:00; Stop 06/02/20 at 09:36; Status DC Metronidazole 100 ml @ 100 mls/hr 1X PREOP PRN IV PRIOR TO PROCEDURE; Start 05/31/20 at 06:00; Stop 05/31/20 at 18:00; Status DC Propofol (Diprivan) 200 mg STK-MED ONCE IV ; Start 05/31/20 at 08:13; Stop 05/31/20 at 08:14; Status DC Lidocaine HCl (Lidocaine Pf 2% Vial) 5 ml STK-MED ONCE .ROUTE ; Start 05/31/20 at 08:13; Stop 05/31/20 at 08:14; Status DC Fentanyl Citrate (Fentanyl 2ml Vial) 100 mcg STK-MED ONCE .ROUTE ; Start 05/31/20 at 08:14; Stop 05/31/20 at 08:14; Status DC Succinylcholine Chloride (Anectine) 200 mg STK-MED ONCE .ROUTE ; Start 05/31/20 at 08:15; Stop 05/31/20 at 08:16; Status DC Rocuronium [place] (Zemuron) 50 mg STK-MED ONCE .ROUTE ; Start 05/31/20 at 08:15; Stop 05/31/20 at 08:16; Status DC Insulin Human Lispro (HumaLOG VIAL for OP,RR ONLY) 0-10 units PRN Q1HR PRN SQ PER PROTOCOL Last administered on 05/31/20at 09:22; Start 05/31/20 at 09:15; Stop 05/31/20 at 19:58; Status DC Midazolam HCl (Versed) 2 mg STK-MED ONCE .ROUTE ; Start 05/31/20 at 09:27; Stop 05/31/20 at 09:28; Status DC Bupivacaine HCl (Sensorcaine-Mpf 0.25%) 10 ml STK-MED ONCE .ROUTE ; Start 05/31/20 at 09:28; Stop 05/31/20 at 09:28; Status DC Midazolam HCl (Versed) 2 mg STK-MED ONCE .ROUTE ; Start 05/31/20 at 10:03; Stop 05/31/20 at 10:03; Status DC Lidocaine HCl (Lidocaine 1% 20ml Vial) 20 ml STK-MED ONCE .ROUTE ; Start 05/31/20 at 10:04; Stop 05/31/20 at 10:05; Status DC Dexamethasone Sodium Phosphate (Decadron) 4 mg STK-MED ONCE .ROUTE ; Start 05/31/20 at 10:36; Stop 05/31/20 at 10:37; Status DC Desflurane (Suprane) 90 ml STK-MED ONCE IH ; Start 05/31/20 at 10:37; Stop 05/31/20 at 10:37; Status DC Bupivacaine HCl (Sensorcaine Mpf 0.5%) 30 ml STK-MED ONCE .ROUTE ; Start 05/31/20 at 10:41; Stop 05/31/20 at 10:42; Status DC Dexamethasone Sodium Phosphate (Decadron) 4 mg STK-MED ONCE .ROUTE ; Start 05/31/20 at 10:43; Stop 05/31/20 at 10:44; Status DC Phenylephrine HCl (PHENYLEPHRINE in 0.9% NACL PF) 1 mg STK-MED ONCE IV ; Start 05/31/20 at 10:44; Stop 05/31/20 at 10:44; Status DC Ephedrine Sulfate (ePHEDrine PF IN SALINE SYRINGE) 50 mg STK-MED ONCE IV ; Start 05/31/20 at 10:59; Stop 05/31/20 at 11:00; Status DC Sodium Chloride 35 ml/Fentanyl Citrate 250 mcg/ Ropivacaine 10 ml/ Epidural Dosage Infused (Pha) 50 ml @ 0 mls/hr CONT PRN EPID SEE PROTOCOL TABLE Last administered on 06/05/20at 06:58; Start 05/31/20 at 11:00; Stop 06/07/20 at 15:10; Status DC Insulin Human Lispro (HumaLOG VIAL for OP,RR ONLY) 0-10 units PRN Q1HR PRN SQ PER PROTOCOL; Start 05/31/20 at 11:00; Stop 05/31/20 at 19:58; Status DC Atropine Sulfate (ATROPINE 0.5mg SYRINGE) 0.5 mg PRN 1X PRN IV SEE COMMENTS; Start 05/31/20 at 11:00; Stop 06/01/20 at 10:59; Status DC Naloxone HCl (Narcan) 0.04 mg PRN Q2MIN PRN IV SEE COMMENTS; Start 05/31/20 at 11:00; Stop 05/31/20 at 20:35; Status DC Rocuronium [place] (Zemuron) 50 mg STK-MED ONCE .ROUTE ; Start 05/31/20 at 12:03; Stop 05/31/20 at 12:04; Status DC Rocuronium [place] (Zemuron) 50 mg STK-MED ONCE .ROUTE ; Start 05/31/20 at 14:00; Stop 05/31/20 at 14:00; Status DC Ondansetron HCl (Zofran) 4 mg STK-MED ONCE .ROUTE ; Start 05/31/20 at 15:06; Stop 05/31/20 at 15:06; Status DC Phenylephrine HCl (PHENYLEPHRINE in 0.9% NACL PF) 1 mg STK-MED ONCE IV ; Start 05/31/20 at 15:06; Stop 05/31/20 at 15:06; Status DC Glycopyrrolate (Robinul) 1 mg STK-MED ONCE .ROUTE ; Start 05/31/20 at 15:06; Stop 05/31/20 at 15:06; Status DC Neostigmine Methylsulfate (Bloxiverz) 10 mg STK-MED ONCE .ROUTE ; Start 05/31/20 at 15:07; Stop 05/31/20 at 15:07; Status DC Phenylephrine HCl (PHENYLEPHRINE in 0.9% NACL PF) 1 mg STK-MED ONCE IV ; Start 05/31/20 at 15:40; Stop 05/31/20 at 15:40; Status DC Metronidazole 100 ml @ 100 mls/hr 1X ONCE IV Last administered on 05/31/20at 16:14; Start 05/31/20 at 16:15; Stop 05/31/20 at 17:14; Status DC Heparin Sodium (Porcine) (Hep Lock Adult) 500 unit STK-MED ONCE IVP ; Start 05/31/20 at 16:59; Stop 05/31/20 at 16:59; Status DC Heparin Sodium (Porcine) (Hep Lock Adult) 500 unit 1X ONCE IVP Last administered on 05/31/20at 18:00; Start 05/31/20 at 17:00; Stop 05/31/20 at 17:01; Status DC Enoxaparin Sodium (Lovenox 40mg Syringe) 40 mg Q24H SQ ; Start 05/31/20 at 18:00; Stop 05/31/20 at 19:58; Status DC Sodium Chloride (Normal Saline Flush) 3 ml QSHIFT PRN IV AFTER MEDS AND BLOOD DRAWS; Start 05/31/20 at 17:15 Ringer's Solution 1,000 ml @ 100 mls/hr Q10H IV Last administered on 06/02/20at 05:36; Start 05/31/20 at 17:14; Stop 06/02/20 at 11:56; Status DC Naloxone HCl (Narcan) 0.4 mg PRN Q2MIN PRN IV SEE INSTRUCTIONS; Start 05/31/20 at 17:15 Sodium Chloride 1,000 ml @ 25 mls/hr Q24H IV ; Start 05/31/20 at 17:14; Stop 05/31/20 at 20:32; Status DC Ondansetron HCl (Zofran) 4 mg PRN Q6HRS PRN IVP NAUESA, 1ST CHOICE Last administered on 06/05/20at 20:10; Start 05/31/20 at 17:15 Enoxaparin Sodium (Lovenox 40mg Syringe) 40 mg Q24H SQ Last administered on 06/12/20at 09:07; Start 06/01/20 at 09:00 Sodium Chloride 1,000 ml @ 250 mls/hr 1X ONCE IV Last administered on 05/31/20at 20:33; Start 05/31/20 at 19:30; Stop 05/31/20 at 23:29; Status DC Insulin Human Lispro (HumaLOG) 0-5 UNITS Q6HRS SQ ; Start 06/01/20 at 00:00 Dextrose (Dextrose 50%-Water Syringe) 12.5 gm PRN Q15MIN PRN IV SEE COMMENTS; Start 05/31/20 at 19:30 Sodium Chloride 1,000 ml @ 1,000 mls/hr 1X ONCE IV Last administered on 06/01/20at 07:23; Start 06/01/20 at 07:00; Stop 06/01/20 at 07:59; Status DC Potassium Chloride/Water 100 ml @ 100 mls/hr Q1H IV Last administered on at 11:39; Start 06/01/20 at 08:30; Stop 06/01/20 at 12:29; Status DC Magnesium Sulfate 100 ml @ 25 mls/hr 1X ONCE IV Last administered on 06/01/20at 08:35; Start 06/01/20 at 08:00; Stop 06/01/20 at 11:59; Status DC Pantoprazole Sodium (PROTONIX VIAL for IV PUSH) 40 mg DAILYAC IVP Last administered on 06/12/20at 05:58; Start 06/01/20 at 10:00 Amino Acids/ Glycerin/ Electrolytes 1,000 ml @ 75 mls/hr [id number] IV Last administered on 06/12/20at 00:12; Start 06/02/20 at 12:30; Stop 06/12/20 at 21:59 Insulin Human Lispro (HumaLOG VIAL for OP,RR ONLY) 2 unit STK-MED ONCE SQ ; Start 05/31/20 at 09:30; Stop 06/02/20 at 16:33; Status DC Hydromorphone HCl (Dilaudid) 0.7 mg PRN Q3HRS PRN IVP SEVERE PAIN 7-10 Last administered on 06/05/20at 18:36; Start 06/05/20 at 10:30; Stop 06/05/20 at 19:55; Status DC Hydromorphone HCl (Dilaudid) 1.2 mg PRN Q3HRS PRN IVP SEVERE PAIN 7-10 Last a dministered on 06/06/20at 08:56; Start 06/05/20 at 20:00; Stop 06/06/20 at 10:33; Status DC Hydromorphone HCl (Dilaudid) 2 mg PRN Q3HRS PRN IVP SEVERE PAIN 7-10 Last administered on 06/12/20at 10:59; Start 06/06/20 at 10:45 Acetaminophen (Tylenol Supp) [address] ; Start 06/06/20 at 10:45; Stop 06/06/20 at 10:46; Status DC Oxycodone HCl (Roxicodone) 10 mg PRN Q4HRS PRN PO PAIN Last administered on 06/09/20at 07:58; Start 06/08/20 at 12:15; Stop 06/09/20 at 10:05; Status DC Acetaminophen (Tylenol) 650 mg BID PO Last administered on 06/10/20at 08:16; Start 06/08/20 at 12:15 Docusate Sodium (Colace) 100 mg DAILY PO Last administered on 06/10/20at 08:17; Start 06/09/20 at 09:00 Oxycodone HCl (Roxicodone) 15 mg PRN Q4HRS PRN PO PAIN Last administered on 06/10/20at 11:17; Start 06/09/20 at 10:15 Iohexol (Omnipaque 240 Mg/ml) 30 ml 1X ONCE PO ; Start 06/10/20 at 13:15; Stop 06/10/20 at 13:16; Status DC Iohexol (Omnipaque 300 Mg/ml) 75 ml 1X ONCE IV ; Start 06/10/20 at 13:15; Stop 06/10/20 at 13:16; Status DC Info (CONTRAST GIVEN -- Rx MONITORING) 1 each PRN DAILY PRN MC SEE COMMENTS; Start 06/10/20 at 13:30; Stop 06/12/20 at 13:29; Status DC Piperacillin Sod/ Tazobactam Sod 3.375 gm/Sodium Chloride 50 ml @ 100 mls/hr Q6HRS IV Last administered on 06/12/20at 10:59; Start 06/10/20 at 16:00 Saliva Substitute (Biotene Moisturizing Mouth) 2 spray PRN Q15MIN PRN PO DRY MOUTH; Start 06/11/20 at 18:00 Info (Tpn Per Pharmacy) 1 each PRN DAILY PRN MC SEE COMMENTS Last administered on 06/12/20at 13:40; Start 06/12/20 at 13:30 Sodium Chloride 90 meq/Potassium Chloride 50 meq/ Potassium Phosphate 13.6 mmol/Magnesium Sulfate 10 meq/ Multivitamins 10 ml/Chromium/ Copper/Manganese/ Seleni/Zn 1 ml/ Total Parenteral Nutrition/Amino Acids/Dextrose/ Fat Emulsion Intravenous 1,512 ml @ 63 mls/hr TPN CONT IV ; Start 06/12/20 at 22:00; Stop 06/13/20 at 21:59 Active Scripts Active Reported Lidocaine-Prilocaine Cream (Lidocaine/Prilocaine) 30 Gm Cream..g. 1 Lashae TP UD Oxycodone HCl 5 Mg Tablet 5 Mg PO PRN Q4-6HRS PRN D3 + K2 Dots 1,000 Units Tab (Vitamin D3/Vitamin K2) 1 Each Tab.rapdis 1 Tab PO DAILY 30 Days Klor-Con M20 (Potassium Chloride) 20 Meq Tab.er.prt 1 Tab PO DAILY 30 Days Metformin Hcl 500 Mg Tablet 500 Mg PO BIDWMEALS Levemir (Insulin Detemir) 100 Unit/1 Ml Vial 15 Unit SQ HS Novolog (Insulin Aspart) 100 Unit/1 Ml Vial 6 Unit SQ DAILYAC Metformin Hcl 500 Mg Tablet 500 Mg PO BIDWMEALS Pantoprazole Sodium (Pantoprazole Sodium) 40 Mg Tablet.dr 40 Mg PO DAILYAC Vitals/I & O Vital Sign - Last 24 Hours 06/11/20 06/11/20 06/11/20 06/11/20 15:59 16:20 16:50 19:22 Temp 98.2 98.2 98.2 98.2 Pulse 68 70 Resp 16 16 B/P (MAP) 102/70 (81) 94/60 (71) Pulse Ox 98 98 O2 Delivery Room Air Room Air Room Air Room Air 06/11/20 06/11/20 06/11/20 06/11/20 20:00 22:20 22:59 23:00 Temp 98.3 98.3 Pulse 70 Resp 14 14 18 B/P (MAP) 112/64 (80) Pulse Ox 100 O2 Delivery Room Air Room Air Room Air Room Air O2 Flow Rate 2.0 06/12/20 06/12/20 06/12/20 06/12/20 03:00 04:39 05:20 07:00 Temp 98.4 97.9 98.4 97.9 Pulse 78 65 Resp 18 14 14 18 B/P (MAP) 98/49 (65) 103/64 (77) Pulse Ox 99 100 O2 Delivery Room Air Room Air Room Air Room Air O2 Flow Rate 2.0 06/12/20 06/12/20 06/12/20 10:59 11:29 11:59 Temp 98.4 98.4 Pulse 63 Resp 16 B/P (MAP) 103/67 (79) Pulse Ox 97 O2 Delivery Room Air Room Air Room Air Intake and Output 06/11/20 06/11/20 06/12/20 15:00 23:00 07:00 Intake Total 1250 ml Output Total 65 ml 40 ml Balance -65 ml 1210 ml Nutrition Consultation Dietary Evaluation: Recommendations by RD: Dietary education by RD, Increase Calorie Intake, Protein supplementation Comments: REC Pt to choose supplements while on full liquid diet REC continue advancing diet as able per GI/surgery, goal diet ADA w/glucerna supplements Continue w/PPN for short-term nutrition support needs until advanced to solid foods and pt is eating >50% meals and tolerating Expected Outcomes/Goals: diet advancement - goal ongoing Interpretation of weight loss: >10% in 6 months Malnutrition Findings: Food and Nutrition Intake (Sev: <50% est energy req 5days Justicifation of Admission Dx: Justifications for Admission: Justification of Admission Dx: Yes JEWELL GALINDO MD Jun 12, 2020 13:52
--- NOTE | 2020-06-12 15:03 | RAD ---
Examination: CHEST AP ONLY History: Reason: check PICC placement / Spl. Instructions: / History: Comparison: 02/24/2020. Findings: AP portable upright frontal view of the chest was obtained. Left-sided PICC is present terminating overlying the superior vena cava. Right internal jugular infusion port catheter again seen. Heart size within normal limits. The cardiomediastinal silhouette is normal. Lungs are clear. There is no pneumothorax. No pleural effusion is appreciated. No acute bone abnormality. IMPRESSION: No acute cardiopulmonary process. Left-sided PICC terminates overlying the superior vena cava. Electronically signed by: Jhonatan Colno MD (06/12/2020 3:00 PM) [id number]
[2020-06-12 15:52] VITALS: BP 133/54
[2020-06-12 19:00] VITALS: BP 113/67
[2020-06-12] MEDS ORDERED: TOTAL PARENTERAL NUTRITION 1,446.4667 ML, AMINO ACID 15% 60 GM, DEXTROSE 70 % IN WATER ... IV SCH (22:00)
[2020-06-12 22:33] VITALS: BP 109/65
[2020-06-13 03:11] VITALS: BP 100/62
[2020-06-13] MEDS: HYDROmorphone 2 MG/ML VIAL IVP PRN ×3 (05:21→23:51)
[2020-06-13] MEDS: INSULIN LISPRO 300 UNITS/3 ML VIAL. SQ SCH ×4 (05:21→23:49)
[2020-06-13] MEDS: PIPERACILLIN/TAZOBACTAM 3.375 GM in IV NORMAL SALINE 50ML 50 ML IV SCH ×4 (05:21→23:50)
[2020-06-13] MEDS: PANTOPRAZOLE IV PUSH 40 MG VIAL. IVP SCH (05:24)
[2020-06-13 07:00] VITALS: BP 108/69
[2020-06-13] MEDS: DOCUSATE SODIUM 100 MG CAPSULE. PO SCH (07:08)
[2020-06-13] MEDS: ACETAMINOPHEN 325 MG TABLET. PO SCH ×2 (08:02→21:00)
[2020-06-13] MEDS: ENOXAPARIN 40 MG/0.4 ML SYRINGE. SQ SCH (08:02)
[2020-06-13 09:16] LABS: CALCIUM 9.3 mg/dL (8.5-10.1); CREATININE 0.5 mg/dL (0.7-1.3); GFR 174.6; MAGNESIUM 2.2 mg/dL (1.8-2.4); PHOSPHORUS 4.4 mg/dL (2.6-4.7)
[2020-06-13 10:57] VITALS: BP 113/67
[2020-06-13] MEDS: oxyCODONE IR 5 MG TABLET PO PRN ×2 (11:14→21:42)
--- NOTE | 2020-06-13 11:29 | PDOC ---
[employer] PROGRESS NOTE Date of Service DOS: DATE: 06/13/20 TIME: 11:23 Chief Complaint Chief Complaint s/p Whipple procedure 05/31 hypokalemia, anemia, transaminitis and hyperglycemia. pancreatic cancer Severe protein-caloric malnutrition Acute electrolyte derangements Transaminitis due to hepatobiliary obstruction Normocytic anemia Thrombocytopenia Pancreatic cancer GERD hypertension Diabetes Previous gastric sleeve History of Present Illness History of Present Illness Pt is post whipple procedure patient with Dr. Lezama 05/31. Has stayed in hospital for recovery care. 06/13 Seen and examined Pt. QUENTIN RN and DW case management. Wound was clean and dry and dressing was intact. Awake and laying down in bed. Vitals/I&O Vitals/I&O: Vital Signs Date Time Temp Pulse Resp B/P (MAP) Pulse Ox O2 Delivery O2 Flow Rate FiO2 06/13/20 11:14 Room Air 06/13/20 10:57 98.2 60 19 113/67 (82) 98 98.2 I & O 06/12/20 06/12/20 06/13/20 15:00 23:00 07:00 Intake Total 2850 ml 450 ml Output Total 550 ml 850 ml 475 ml Balance -550 ml 2000 ml -25 ml Physical Exam General: Alert, Oriented X3, Cooperative, mild distress Heart: Regular rate Lungs: Clear Abdomen: Soft, No tenderness, Other (min turk drainage LUQ CONCHIS, G tube bilious, RUQ CONCHIS min serosang) Extremities: No clubbing Skin: No rashes Labs Labs: Laboratory Tests Test 06/13/20 08:16 Sodium Level 136 mmol/L (136-145) Potassium Level 5.0 mmol/L (3.5-5.1) Chloride Level 100 mmol/L (98-107) Carbon Dioxide Level 29 mmol/L (21-32) Anion Gap 7 (6-14) Blood Urea Nitrogen 10 mg/dL (8-26) Creatinine 0.5 mg/dL (0.7-1.3) Estimated GFR (Cockcroft-Gault) 174.6 Glucose Level 155 mg/dL (70-99) Calcium Level 9.3 mg/dL (8.5-10.1) Phosphorus Level 4.4 mg/dL (2.6-4.7) Magnesium Level 2.2 mg/dL (1.8-2.4) Triglycerides Level 138 mg/dL (0-150) Review of Systems Review of Systems: NO headaches. No SOA Assessment and Plan Assessmemt and Plan s/p Whipple procedure 05/31 hypokalemia, anemia, transaminitis and hyperglycemia. pancreatic cancer Severe protein-caloric malnutrition Acute electrolyte derangements Transaminitis due to hepatobiliary obstruction Normocytic anemia Thrombocytopenia Pancreatic cancer GERD hypertension Diabetes Previous gastric sleeve Plan: Continue IV antibiotics PT/OT Home meds Trend Labs TPN G feeding tube CONCHIS drain Wound Care DVT prophylaxis Full Code Comment Review of Relevant I have reviewed the following items derrick (where applicable) has been applied. Medications: Current Medications Medications (Trade) Dose Ordered Sig/Renuka Route PRN Reason Start Time Stop Time Status Last Admin Dose Admin Info (Tpn Per Pharmacy) 1 each PRN DAILY PRN MC SEE COMMENTS 06/12/20 13:30 06/12/20 13:40 Sodium Chloride 90 meq/Potassium Chloride 50 meq/ Potassium Phosphate 13.6 mmol/Magnesium Sulfate 10 meq/ Multivitamins 10 ml/Chromium/ Copper/Manganese/ Seleni/Zn 1 ml/ Total Parenteral Nutrition/Amino Acids/Dextrose/ Fat Emulsion Intravenous 1,512 ml @ 63 mls/hr TPN CONT IV 06/12/20 22:00 06/13/20 21:59 06/12/20 21:37 Justifications for Admission Other Justification SUSAN GARNICA III DO Jun 13, 2020 11:29
--- NOTE | 2020-06-13 12:28 | PDOC ---
SURGICAL PROGRESS NOTE DATE: 06/13/20 TIME: 12:26 Subjective doing ok taking some clears sleepy Vital Signs Vital Signs Date Time Temp Pulse Resp B/P (MAP) Pulse Ox O2 Delivery O2 Flow Rate FiO2 06/13/20 12:19 Room Air 06/13/20 10:57 98.2 60 19 113/67 (82) 98 98.2 I&O Intake and Output 06/13/20 07:00 Intake Total 3300 ml Output Total 1875 ml Balance 1425 ml Intake Oral 400 ml IV Total 2900 ml Output Urine Total 1750 ml Gastric Drainage Total 100 ml Drainage Total 25 ml # Voids 2 # Bowel Movements 2 General: Alert, Oriented X3, Cooperative Abdomen: Soft, Other (drains in place, g tube to drainage ) Labs Laboratory Tests Test 06/12/20 04:20 06/13/20 08:16 White Blood Count 7.4 x10^3/uL (4.0-11.0) Red Blood Count 2.94 x10^6/uL (4.30-5.70) Hemoglobin 9.9 g/dL (13.0-17.5) Hematocrit 29.2 % (39.0-53.0) Mean Corpuscular Volume 99 fL (79-100) Mean Corpuscular Hemoglobin 34 pg (25-35) Mean Corpuscular Hemoglobin Concent 34 g/dL (31-37) Red Cell Distribution Width 14.2 % (11.5-14.5) Platelet Count 327 x10^3/uL (140-400) Neutrophils (%) (Auto) 64 % (31-73) Lymphocytes (%) (Auto) 23 % (24-48) Monocytes (%) (Auto) 9 % (0-9) Eosinophils (%) (Auto) 2 % (0-3) Basophils (%) (Auto) 1 % (0-3) Neutrophils # (Auto) 4.8 x10^3/uL (1.8-7.7) Lymphocytes # (Auto) 1.7 x10^3/uL (1.0-4.8) Monocytes # (Auto) 0.7 x10^3/uL (0.0-1.1) Eosinophils # (Auto) 0.1 x10^3/uL (0.0-0.7) Basophils # (Auto) 0.1 x10^3/uL (0.0-0.2) Sodium Level 133 mmol/L (136-145) 136 mmol/L (136-145) Potassium Level 4.2 mmol/L (3.5-5.1) 5.0 mmol/L (3.5-5.1) Chloride Level 98 mmol/L (98-107) 100 mmol/L (98-107) Carbon Dioxide Level 27 mmol/L (21-32) 29 mmol/L (21-32) Anion Gap 8 (6-14) 7 (6-14) Blood Urea Nitrogen 11 mg/dL (8-26) 10 mg/dL (8-26) Creatinine 0.5 mg/dL (0.7-1.3) 0.5 mg/dL (0.7-1.3) Estimated GFR (Cockcroft-Gault) 174.6 174.6 BUN/Creatinine Ratio 22 (6-20) Glucose Level 111 mg/dL (70-99) 155 mg/dL (70-99) Calcium Level 9.1 mg/dL (8.5-10.1) 9.3 mg/dL (8.5-10.1) Total Bilirubin 0.7 mg/dL (0.2-1.0) Aspartate Amino Transf (AST/SGOT) 18 U/L (15-37) Alanine Aminotransferase (ALT/SGPT) 13 U/L (16-63) Alkaline Phosphatase 156 U/L (46-116) Total Protein 6.0 g/dL (6.4-8.2) Albumin 2.0 g/dL (3.4-5.0) Albumin/Globulin Ratio 0.5 (1.0-1.7) Phosphorus Level 4.4 mg/dL (2.6-4.7) Magnesium Level 2.2 mg/dL (1.8-2.4) Triglycerides Level 138 mg/dL (0-150) Laboratory Tests Test 06/13/20 08:16 Sodium Level 136 mmol/L (136-145) Potassium Level 5.0 mmol/L (3.5-5.1) Chloride Level 100 mmol/L (98-107) Carbon Dioxide Level 29 mmol/L (21-32) Anion Gap 7 (6-14) Blood Urea Nitrogen 10 mg/dL (8-26) Creatinine 0.5 mg/dL (0.7-1.3) Estimated GFR (Cockcroft-Gault) 174.6 Glucose Level 155 mg/dL (70-99) Calcium Level 9.3 mg/dL (8.5-10.1) Phosphorus Level 4.4 mg/dL (2.6-4.7) Magnesium Level 2.2 mg/dL (1.8-2.4) Triglycerides Level 138 mg/dL (0-150) Problem List will need alf tpn I discussed with SW Justicifation of Admission Dx: Justifications for Admission: Justification of Admission Dx: Yes BABATUNDE GUEVARA [employer] SUPER[employer] Jun 13, 2020 12:28
[2020-06-13] MEDS: TPN PER PHARMACY MC PRN ×2 (12:44→14:48)
--- NOTE | 2020-06-13 13:32 | NUR ---
HARLEY following. Discussed with RN, pt from home with kenzie. Corina (surgical LEAD PROCESS ENGINEER) advised pt will need to have TPN at discharge. HARLEY questioned RE [facility] referral, Corina advised she is not sure if he needs this but can try. HARLEY met with pt, pt agreeable to HARLEY faxing information to home TPN to check home benefits. Pt also agreeable to HARLEY faxing referral to [facility] to determine if he would qualify. Corina advised pt is not ready to discharge yet regardless of plan. HARLEY faxed TPN referral to [facility], faxed LTAC referral to [facility]. Awaiting benefits. HARLEY will continue to follow. Addendum: 06/13/20 at 1354 by ROB SOUZA Michell from [facility] advised they do not do TPN, however [facility] does, so she can forward the referral to [facility]. HARLEY awaiting benefits. Addendum: 06/13/20 at 1618 by ROB SOUZA [facility] has been trying to reach pt's insurance to determine benefits. They have called multiple times with no success. Still awaiting decision from [facility]. SW will continue to follow.
[2020-06-13 14:47] VITALS: BP 105/75
--- NOTE | 2020-06-13 14:55 | NUR ---
Pharmacy TPN Dosing Note S: YANNIRYAN is a 54 year old M Currently receiving Central Continuous TPN started 06/12/20 B:Pertinent PMH: s/p lanie Height: 5 feet, 8 inches Weight: 76.0 kg Current diet: clear liquid diet LABS: Sodium: 136 Potassium: 5 Chloride: 100 Calcium: 9.3 Corrected Calcium: 10.90 Magnesium: 2.2 CO2: 29 SCr: 0.5 Glucose: 155 Albumin: 2.0 AST: 18 ALT: 13 TPN FORMULA: TPN TYPE: Central Continuous AMINO ACIDS: 115 gm DEXTROSE: 265 gm LIPIDS: 40 gm SODIUM CHLORIDE: 90 mEq SODIUM ACETATE: -- mEq SODIUM PHOSPHATE: -- mmol POTASSIUM CHLORIDE: 25 mEq POTASSIUM ACETATE: -- mEq POTASSIUM PHOSPHATE: 13.6 mmol MAGNESIUM: 10 mEq CALCIUM: -- mEq INSULIN: -- units MULTIPLE VITAMIN: 10 ml TRACE ELEMENTS: 1 ml(s) TPN PLAN: -Macros per director trade recommendations: 265 grams Dextrose, 115 grams AA, and 40 grams lipids -Corrected calcium remains elevated, omit calcium gluconate from TPN at this time. -Electrolytes remain WNL, however potassium is trending up (increased from 4.2 to 5). Will reduce amount of KCl in TPN at this time. Phos and Mag ordered for tomorrow to follow trend. -BMP, Mag, and Phos labs in AM. R: Continue TPN with adjustments made to macros per director trade recommendations and with reduction in KCl. Will monitor electrolytes, glucose, and tolerance to TPN. LIUDMILA MEAD, [facility], 06/13/20 [id number]
[2020-06-13 19:30] VITALS: BP 114/68
[2020-06-13] MEDS ORDERED: [UNRECOGNIZED DRUG - OTHER] IV SCH (22:00)
[2020-06-13] MEDS ORDERED: DEXTROSE 70% IV SCH (22:00)
[2020-06-13] MEDS ORDERED: AMINO ACID IV SCH (22:00)
[2020-06-13] MEDS ORDERED: TOTAL PARENTERAL NUTRITION IV SCH (22:00)
[2020-06-13 22:49] VITALS: BP 123/69
[2020-06-14 02:44] VITALS: BP 108/68
[2020-06-14] MEDS: oxyCODONE IR 5 MG TABLET PO PRN ×3 (05:48→17:38)
[2020-06-14] MEDS: PANTOPRAZOLE IV PUSH 40 MG VIAL. IVP SCH (05:49)
[2020-06-14] MEDS: INSULIN LISPRO 300 UNITS/3 ML VIAL. SQ SCH ×3 (05:49→17:38)
[2020-06-14] MEDS: PIPERACILLIN/TAZOBACTAM 3.375 GM in IV NORMAL SALINE 50ML 50 ML IV SCH ×3 (05:50→17:38)
[2020-06-14 06:22] LABS: BASO # 0.1 x10^3/uL (0.0-0.2); BASO % 1 % (0-3); EOS # 0.2 x10^3/uL (0.0-0.7); EOS % 2 % (0-3); HEMOGLOBIN 10.3 g/dL (13.0-17.5); LYMPH # 1.9 x10^3/uL (1.0-4.8); LYMPH % 20 % (24-48); MEAN CORPUSCULAR HEMOGLOBIN 35 pg (25-35); MEAN CORPUSCULAR HGB CONC 35 g/dL (31-37); MEAN CORPUSCULAR VOLUME 98 fL (79-100); MONO % 10 % (0-9); NEUT # 6.6 x10^3/uL (1.8-7.7); NEUT % 68 % (31-73); PLATELET COUNT 337 x10^3/uL (140-400); RED BLOOD COUNT 2.95 x10^6/uL (4.30-5.70); RED CELL DISTRIBUTION WIDTH 14.5 % (11.5-14.5); WHITE BLOOD COUNT 9.7 x10^3/uL (4.0-11.0)
[2020-06-14 06:44] LABS: CALCIUM 8.6 mg/dL (8.5-10.1); CREATININE 0.5 mg/dL (0.7-1.3); GFR 174.6; MAGNESIUM 1.9 mg/dL (1.8-2.4); POTASSIUM 4.3 mmol/L (3.5-5.1)
[2020-06-14 07:00] VITALS: BP 100/63
[2020-06-14] MEDS: HYDROmorphone 2 MG/ML VIAL IVP PRN ×2 (07:16→22:46)
[2020-06-14] MEDS: ENOXAPARIN 40 MG/0.4 ML SYRINGE. SQ SCH (09:09)
[2020-06-14] MEDS: DOCUSATE SODIUM 100 MG CAPSULE. PO SCH (09:11)
[2020-06-14] MEDS: ACETAMINOPHEN 325 MG TABLET. PO SCH ×2 (09:12→21:26)
--- NOTE | 2020-06-14 10:30 | PDOC ---
SURGICAL PROGRESS NOTE DATE: 06/14/20 TIME: 10:28 Subjective Pt up ambulating, no N/V, jasmin clears, feels better, more awake Vital Signs Vital Signs Date Time Temp Pulse Resp B/P (MAP) Pulse Ox O2 Delivery O2 Flow Rate FiO2 06/14/20 08:30 Room Air 06/14/20 07:40 2.0 06/14/20 07:16 14 06/14/20 07:00 98.7 64 100/63 (75) 98 98.7 I&O Intake and Output 06/14/20 07:00 Intake Total 3012 ml Output Total 1375 ml Balance 1637 ml Intake Oral 1300 ml IV Total 1712 ml Output Urine Total 800 ml Gastric Drainage Total 550 ml Drainage Total 25 ml # Bowel Movements 1 PATIENT HAS A IVERSON: No General: Alert, Oriented X3, Cooperative, No acute distress Abdomen: Soft, Other (CONCHIS with tannish drainage) Labs Laboratory Tests Test 06/13/20 08:16 06/14/20 06:00 Sodium Level 136 mmol/L (136-145) 135 mmol/L (136-145) Potassium Level 5.0 mmol/L (3.5-5.1) 4.3 mmol/L (3.5-5.1) Chloride Level 100 mmol/L (98-107) 101 mmol/L (98-107) Carbon Dioxide Level 29 mmol/L (21-32) 28 mmol/L (21-32) Anion Gap 7 (6-14) 6 (6-14) Blood Urea Nitrogen 10 mg/dL (8-26) 14 mg/dL (8-26) Creatinine 0.5 mg/dL (0.7-1.3) 0.5 mg/dL (0.7-1.3) Estimated GFR (Cockcroft-Gault) 174.6 174.6 Glucose Level 155 mg/dL (70-99) 138 mg/dL (70-99) Calcium Level 9.3 mg/dL (8.5-10.1) 8.6 mg/dL (8.5-10.1) Phosphorus Level 4.4 mg/dL (2.6-4.7) 4.0 mg/dL (2.6-4.7) Magnesium Level 2.2 mg/dL (1.8-2.4) 1.9 mg/dL (1.8-2.4) Triglycerides Level 138 mg/dL (0-150) White Blood Count 9.7 x10^3/uL (4.0-11.0) Red Blood Count 2.95 x10^6/uL (4.30-5.70) Hemoglobin 10.3 g/dL (13.0-17.5) Hematocrit 29.0 % (39.0-53.0) Mean Corpuscular Volume 98 fL (79-100) Mean Corpuscular Hemoglobin 35 pg (25-35) Mean Corpuscular Hemoglobin Concent 35 g/dL (31-37) Red Cell Distribution Width 14.5 % (11.5-14.5) Platelet Count 337 x10^3/uL (140-400) Neutrophils (%) (Auto) 68 % (31-73) Lymphocytes (%) (Auto) 20 % (24-48) Monocytes (%) (Auto) 10 % (0-9) Eosinophils (%) (Auto) 2 % (0-3) Basophils (%) (Auto) 1 % (0-3) Neutrophils # (Auto) 6.6 x10^3/uL (1.8-7.7) Lymphocytes # (Auto) 1.9 x10^3/uL (1.0-4.8) Monocytes # (Auto) 1.0 x10^3/uL (0.0-1.1) Eosinophils # (Auto) 0.2 x10^3/uL (0.0-0.7) Basophils # (Auto) 0.1 x10^3/uL (0.0-0.2) Laboratory Tests Test 06/14/20 06:00 White Blood Count 9.7 x10^3/uL (4.0-11.0) Red Blood Count 2.95 x10^6/uL (4.30-5.70) Hemoglobin 10.3 g/dL (13.0-17.5) Hematocrit 29.0 % (39.0-53.0) Mean Corpuscular Volume 98 fL (79-100) Mean Corpuscular Hemoglobin 35 pg (25-35) Mean Corpuscular Hemoglobin Concent 35 g/dL (31-37) Red Cell Distribution Width 14.5 % (11.5-14.5) Platelet Count 337 x10^3/uL (140-400) Neutrophils (%) (Auto) 68 % (31-73) Lymphocytes (%) (Auto) 20 % (24-48) Monocytes (%) (Auto) 10 % (0-9) Eosinophils (%) (Auto) 2 % (0-3) Basophils (%) (Auto) 1 % (0-3) Neutrophils # (Auto) 6.6 x10^3/uL (1.8-7.7) Lymphocytes # (Auto) 1.9 x10^3/uL (1.0-4.8) Monocytes # (Auto) 1.0 x10^3/uL (0.0-1.1) Eosinophils # (Auto) 0.2 x10^3/uL (0.0-0.7) Basophils # (Auto) 0.1 x10^3/uL (0.0-0.2) Sodium Level 135 mmol/L (136-145) Potassium Level 4.3 mmol/L (3.5-5.1) Chloride Level 101 mmol/L (98-107) Carbon Dioxide Level 28 mmol/L (21-32) Anion Gap 6 (6-14) Blood Urea Nitrogen 14 mg/dL (8-26) Creatinine 0.5 mg/dL (0.7-1.3) Estimated GFR (Cockcroft-Gault) 174.6 Glucose Level 138 mg/dL (70-99) Calcium Level 8.6 mg/dL (8.5-10.1) Phosphorus Level 4.0 mg/dL (2.6-4.7) Magnesium Level 1.9 mg/dL (1.8-2.4) Problem List s/p whipple gradual improvement, cont bowel rest and TPN. 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 D/C turnaround planner working on [facility] vs home. Justicifation of Admission Dx: Justifications for Admission: Justification of Admission Dx: Yes SANG AVENDANO MD Jun 14, 2020 10:30
[2020-06-14] MEDS: TPN PER PHARMACY MC PRN ×2 (10:58→11:00)
[2020-06-14 11:00] VITALS: BP 108/72
--- NOTE | 2020-06-14 11:04 | NUR ---
Pharmacy TPN Dosing Note S: YANNIRYAN is a 54 year old M Currently receiving Central Continuous TPN started 06/12/20 B:Pertinent PMH: s/p lanie. TPN for 6 weeks for bowel rest. Height: 5 feet, 8 inches Weight: 76.0 kg Current diet: clear liquid diet LABS: Sodium: 135 Potassium: 4.3 Chloride: 101 Calcium: 8.6 Corrected Calcium: 10.20 Magnesium: 1.9 CO2: 28 SCr: 0.5 Glucose: 138 Albumin: 2.0 AST: 18 ALT: 13 TPN FORMULA: TPN TYPE: Central Continuous AMINO ACIDS: 115 gm DEXTROSE: 265 gm LIPIDS: 40 gm SODIUM CHLORIDE: 90 mEq POTASSIUM CHLORIDE: 25 mEq POTASSIUM PHOSPHATE: 13.6 mmol MAGNESIUM: 10 mEq MULTIPLE VITAMIN: 10 ml TRACE ELEMENTS: 1 ml(s) TPN PLAN: All electrolyes stable. Continue TPN. R: Continue TPN Will monitor electrolytes, glucose, and tolerance to TPN. Hill Joshi, [facility], 06/14/20 [id number]
--- NOTE | 2020-06-14 12:32 | PDOC ---
[employer] PROGRESS NOTE Date of Service DOS: DATE: 06/14/20 TIME: 12:26 Chief Complaint Chief Complaint s/p Whipple procedure 05/31 hypokalemia, anemia, transaminitis and hyperglycemia. pancreatic cancer Severe protein-caloric malnutrition Acute electrolyte derangements Transaminitis due to hepatobiliary obstruction Normocytic anemia Thrombocytopenia Pancreatic cancer GERD hypertension Diabetes Previous gastric sleeve History of Present Illness History of Present Illness Pt is a Post-OP whipple procedure patient with Dr. Lezama that was done on 05/31. Has stayed in hospital for recovery care. 06/14 Pt seen and examined. QUENTIN RN and DW case management. Up and walking around in the jansen. He is feeling better today than yesterday. 06/13 Seen and examined Pt. QUENTIN RN and DW case management. Wound was clean and dry and dressing was intact. Awake and laying down in bed. Vitals/I&O Vitals/I&O: Vital Signs Date Time Temp Pulse Resp B/P (MAP) Pulse Ox O2 Delivery O2 Flow Rate FiO2 06/14/20 11:55 Room Air 06/14/20 11:00 98.2 84 16 108/72 (84) 100 98.2 06/14/20 07:40 2.0 I & O 06/13/20 06/13/20 06/14/20 15:00 23:00 07:00 Intake Total 400 ml 2262 ml 350 ml Output Total 50 ml 1325 ml Balance 400 ml 2212 ml -975 ml Physical Exam General: Alert, Oriented X3, Cooperative, No acute distress Heart: Regular rate Lungs: Clear Abdomen: Soft, Other (CONCHIS with tannish drainage) Extremities: No clubbing Skin: No rashes Labs Labs: Laboratory Tests Test 06/14/20 06:00 White Blood Count 9.7 x10^3/uL (4.0-11.0) Red Blood Count 2.95 x10^6/uL (4.30-5.70) Hemoglobin 10.3 g/dL (13.0-17.5) Hematocrit 29.0 % (39.0-53.0) Mean Corpuscular Volume 98 fL (79-100) Mean Corpuscular Hemoglobin 35 pg (25-35) Mean Corpuscular Hemoglobin Concent 35 g/dL (31-37) Red Cell Distribution Width 14.5 % (11.5-14.5) Platelet Count 337 x10^3/uL (140-400) Neutrophils (%) (Auto) 68 % (31-73) Lymphocytes (%) (Auto) 20 % (24-48) Monocytes (%) (Auto) 10 % (0-9) Eosinophils (%) (Auto) 2 % (0-3) Basophils (%) (Auto) 1 % (0-3) Neutrophils # (Auto) 6.6 x10^3/uL (1.8-7.7) Lymphocytes # (Auto) 1.9 x10^3/uL (1.0-4.8) Monocytes # (Auto) 1.0 x10^3/uL (0.0-1.1) Eosinophils # (Auto) 0.2 x10^3/uL (0.0-0.7) Basophils # (Auto) 0.1 x10^3/uL (0.0-0.2) Sodium Level 135 mmol/L (136-145) Potassium Level 4.3 mmol/L (3.5-5.1) Chloride Level 101 mmol/L (98-107) Carbon Dioxide Level 28 mmol/L (21-32) Anion Gap 6 (6-14) Blood Urea Nitrogen 14 mg/dL (8-26) Creatinine 0.5 mg/dL (0.7-1.3) Estimated GFR (Cockcroft-Gault) 174.6 Glucose Level 138 mg/dL (70-99) Calcium Level 8.6 mg/dL (8.5-10.1) Phosphorus Level 4.0 mg/dL (2.6-4.7) Magnesium Level 1.9 mg/dL (1.8-2.4) Review of Systems Review of Systems: No headaches. No SOA. Assessment and Plan Assessmemt and Plan POST OP Whipple procedure 05/31 Hypokalemia, Anemia Hyperglycemia. Pancreatic cancer Severe protein-caloric malnutrition Acute electrolyte derangements Transaminitis due to hepatobiliary obstruction Normocytic anemia Thrombocytopenia Pancreatic cancer GERD Hypertension Diabetes Previous gastric sleeve Plan: Appreciate Subspecialty Input Continue IV antibiotics TPN TPN at discharge G feeding tube CONCHIS drain Wound Care PT/OT Home meds Trend Labs DVT prophylaxis Full Code Comment Review of Relevant I have reviewed the following items derrick (where applicable) has been applied. Medications: Current Medications Medications (Trade) Dose Ordered Sig/Renuka Route PRN Reason Start Time Stop Time Status Last Admin Dose Admin Sodium Chloride 90 meq/Potassium Chloride 25 meq/ Potassium Phosphate 13.6 mmol/Magnesium Sulfate 10 meq/ Multivitamins 10 ml/Chromium/ Copper/Manganese/ Seleni/Zn 1 ml/ Total Parenteral Nutrition/Amino Acids/Dextrose/ Fat Emulsion Intravenous 1,512 ml @ 63 mls/hr TPN CONT IV 06/13/20 22:00 06/14/20 21:59 06/13/20 21:41 Justifications for Admission Other Justification SUSAN GARNICA III DO Jun 14, 2020 12:32
--- NOTE | 2020-06-14 13:45 | NUR ---
HARLEY following. Discussed with RN, pt feeling a bit better today. [facility] is not in network with pt's insurance, they advised SW try [facility] or [facility]. SW left voicemail for [facility] (ph: [phone]). [facility] does not do TPN. HARLEY spoke with Anthony at [facility], faxed clinicals, awaiting confirmation of whether pt is in network and what the benefits are. HARLEY spoke with Erika at [facility], pt does qualify for LTAC, however [facility] can only take 4 BCBS patients at a time and they will not have a bed for quite some time. SW to discuss with pt if he wants referral to [facility] or [place]. HARLEY will continue to follow. Addendum: 06/14/20 at 1429 by ROB SOUZA [facility] contacted SW to advise they are in network and it appears pt is covered at 100% for home TPN. Lyndsey at [facility] advised they need some sort of documentation about whether enteral feeding was tried and if not why TPN is the preferred treatment method. HARLEY spoke with Dr. Lezama regarding this - Dr. Lezama will include a note with the requested information. HARLEY will continue to follow. Addendum: 06/14/20 at 1553 by ROB SOUZA HARLEY faxed Dr. Russell's note to [facility]. Awaiting confirmation of whether pt qualifies for home TPN. PT/OT recommending home with assistance. HARLEY will continue to follow.
--- NOTE | 2020-06-14 14:54 | PDOC ---
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 As such, TPN is favored for nutrition with associated bowel rest for 6 weeks to allow this to heal. Vital Signs Vital Signs Date Time Temp Pulse Resp B/P (MAP) Pulse Ox O2 Delivery O2 Flow Rate FiO2 06/14/20 14:14 Room Air 06/14/20 11:00 98.2 84 16 108/72 (84) 100 98.2 06/14/20 07:40 2.0 I&O Intake and Output 06/14/20 07:00 Intake Total 3012 ml Output Total 1375 ml Balance 1637 ml Intake Oral 1300 ml IV Total 1712 ml Output Urine Total 800 ml Gastric Drainage Total 550 ml Drainage Total 25 ml # Bowel Movements 1 Labs Laboratory Tests Test 06/13/20 08:16 06/14/20 06:00 Sodium Level 136 mmol/L (136-145) 135 mmol/L (136-145) Potassium Level 5.0 mmol/L (3.5-5.1) 4.3 mmol/L (3.5-5.1) Chloride Level 100 mmol/L (98-107) 101 mmol/L (98-107) Carbon Dioxide Level 29 mmol/L (21-32) 28 mmol/L (21-32) Anion Gap 7 (6-14) 6 (6-14) Blood Urea Nitrogen 10 mg/dL (8-26) 14 mg/dL (8-26) Creatinine 0.5 mg/dL (0.7-1.3) 0.5 mg/dL (0.7-1.3) Estimated GFR (Cockcroft-Gault) 174.6 174.6 Glucose Level 155 mg/dL (70-99) 138 mg/dL (70-99) Calcium Level 9.3 mg/dL (8.5-10.1) 8.6 mg/dL (8.5-10.1) Phosphorus Level 4.4 mg/dL (2.6-4.7) 4.0 mg/dL (2.6-4.7) Magnesium Level 2.2 mg/dL (1.8-2.4) 1.9 mg/dL (1.8-2.4) Triglycerides Level 138 mg/dL (0-150) White Blood Count 9.7 x10^3/uL (4.0-11.0) Red Blood Count 2.95 x10^6/uL (4.30-5.70) Hemoglobin 10.3 g/dL (13.0-17.5) Hematocrit 29.0 % (39.0-53.0) Mean Corpuscular Volume 98 fL (79-100) Mean Corpuscular Hemoglobin 35 pg (25-35) Mean Corpuscular Hemoglobin Concent 35 g/dL (31-37) Red Cell Distribution Width 14.5 % (11.5-14.5) Platelet Count 337 x10^3/uL (140-400) Neutrophils (%) (Auto) 68 % (31-73) Lymphocytes (%) (Auto) 20 % (24-48) Monocytes (%) (Auto) 10 % (0-9) Eosinophils (%) (Auto) 2 % (0-3) Basophils (%) (Auto) 1 % (0-3) Neutrophils # (Auto) 6.6 x10^3/uL (1.8-7.7) Lymphocytes # (Auto) 1.9 x10^3/uL (1.0-4.8) Monocytes # (Auto) 1.0 x10^3/uL (0.0-1.1) Eosinophils # (Auto) 0.2 x10^3/uL (0.0-0.7) Basophils # (Auto) 0.1 x10^3/uL (0.0-0.2) Laboratory Tests Test 06/14/20 06:00 White Blood Count 9.7 x10^3/uL (4.0-11.0) Red Blood Count 2.95 x10^6/uL (4.30-5.70) Hemoglobin 10.3 g/dL (13.0-17.5) Hematocrit 29.0 % (39.0-53.0) Mean Corpuscular Volume 98 fL (79-100) Mean Corpuscular Hemoglobin 35 pg (25-35) Mean Corpuscular Hemoglobin Concent 35 g/dL (31-37) Red Cell Distribution Width 14.5 % (11.5-14.5) Platelet Count 337 x10^3/uL (140-400) Neutrophils (%) (Auto) 68 % (31-73) Lymphocytes (%) (Auto) 20 % (24-48) Monocytes (%) (Auto) 10 % (0-9) Eosinophils (%) (Auto) 2 % (0-3) Basophils (%) (Auto) 1 % (0-3) Neutrophils # (Auto) 6.6 x10^3/uL (1.8-7.7) Lymphocytes # (Auto) 1.9 x10^3/uL (1.0-4.8) Monocytes # (Auto) 1.0 x10^3/uL (0.0-1.1) Eosinophils # (Auto) 0.2 x10^3/uL (0.0-0.7) Basophils # (Auto) 0.1 x10^3/uL (0.0-0.2) Sodium Level 135 mmol/L (136-145) Potassium Level 4.3 mmol/L (3.5-5.1) Chloride Level 101 mmol/L (98-107) Carbon Dioxide Level 28 mmol/L (21-32) Anion Gap 6 (6-14) Blood Urea Nitrogen 14 mg/dL (8-26) Creatinine 0.5 mg/dL (0.7-1.3) Estimated GFR (Cockcroft-Gault) 174.6 Glucose Level 138 mg/dL (70-99) Calcium Level 8.6 mg/dL (8.5-10.1) Phosphorus Level 4.0 mg/dL (2.6-4.7) Magnesium Level 1.9 mg/dL (1.8-2.4) Justicifation of Admission Dx: Justifications for Admission: Justification of Admission Dx: Yes SANG AVENDANO MD Jun 14, 2020 14:54
[2020-06-14 15:00] VITALS: BP 100/68
[2020-06-14 19:20] VITALS: BP 109/67
[2020-06-14] MEDS ORDERED: [UNRECOGNIZED DRUG - OTHER] IV SCH (22:00)
[2020-06-14] MEDS ORDERED: TOTAL PARENTERAL NUTRITION IV SCH (22:00)
[2020-06-14] MEDS ORDERED: DEXTROSE 70% IV SCH (22:00)
[2020-06-14] MEDS ORDERED: AMINO ACID IV SCH (22:00)
[2020-06-14 23:20] VITALS: BP 114/64
[2020-06-15] MEDS: PIPERACILLIN/TAZOBACTAM 3.375 GM in IV NORMAL SALINE 50ML 50 ML IV SCH ×4 (00:02→18:00)
[2020-06-15 02:56] VITALS: BP 112/65
[2020-06-15] MEDS: INSULIN LISPRO 300 UNITS/3 ML VIAL. SQ SCH ×4 (05:59→17:22)
[2020-06-15 06:25] LABS: CALCIUM 8.5 mg/dL (8.5-10.1); CREATININE 0.5 mg/dL (0.7-1.3); GFR 174.6; MAGNESIUM 1.9 mg/dL (1.8-2.4); PHOSPHORUS 3.7 mg/dL (2.6-4.7); POTASSIUM 4.1 mmol/L (3.5-5.1)
[2020-06-15] MEDS: PANTOPRAZOLE IV PUSH 40 MG VIAL. IVP SCH (06:28)
[2020-06-15] MEDS: HYDROmorphone 2 MG/ML VIAL IVP PRN ×2 (06:29→18:36)
[2020-06-15 06:30] LABS: BASO # 0.1 x10^3/uL (0.0-0.2); BASO % 1 % (0-3); EOS # 0.2 x10^3/uL (0.0-0.7); EOS % 2 % (0-3); HEMATOCRIT 28.9 % (39.0-53.0); HEMOGLOBIN 9.9 g/dL (13.0-17.5); LYMPH # 2.3 x10^3/uL (1.0-4.8); LYMPH % 28 % (24-48); MEAN CORPUSCULAR HEMOGLOBIN 34 pg (25-35); MEAN CORPUSCULAR HGB CONC 34 g/dL (31-37); MEAN CORPUSCULAR VOLUME 99 fL (79-100); MONO # 0.8 x10^3/uL (0.0-1.1); MONO % 10 % (0-9); NEUT # 4.8 x10^3/uL (1.8-7.7); NEUT % 59 % (31-73); PLATELET COUNT 316 x10^3/uL (140-400); RED BLOOD COUNT 2.93 x10^6/uL (4.30-5.70); RED CELL DISTRIBUTION WIDTH 14.4 % (11.5-14.5); WHITE BLOOD COUNT 8.1 x10^3/uL (4.0-11.0)
[2020-06-15 07:00] VITALS: BP 106/62
[2020-06-15] MEDS: ENOXAPARIN 40 MG/0.4 ML SYRINGE. SQ SCH (08:48)
[2020-06-15] MEDS: DOCUSATE SODIUM 100 MG CAPSULE. PO SCH (08:48)
[2020-06-15] MEDS: ACETAMINOPHEN 325 MG TABLET. PO SCH ×2 (08:48→21:56)
--- NOTE | 2020-06-15 10:19 | NUR ---
HARLEY following. Discussed with RN, pt covered at 100% for home TPN through [employer], pending insurance auth. HARLEY met with pt, he would prefer to go home rather than to a facility. Pt would like his fiancee to be present for the teach from [facility]. HARLEY sent message to [facility] to schedule at time for tomorrow afternoon, awaiting confirmation back. Pt still has drains, unsure of whether these will be removed prior to discharge or not. Pt agreeable to home health if need be, does not have a preference of provider. Choice of vendor form completed. RN notified. HARLEY will continue to follow. Addendum: 06/15/20 at [address] [facility] arranged with pt and pt's fiancee to do the teach at 1300 tomorrow (06/16/2020). RN notified.
--- NOTE | 2020-06-15 10:30 | PDOC ---
[employer] PROGRESS NOTE Date of Service DOS: DATE: 06/15/20 TIME: 10:23 Chief Complaint Chief Complaint POST OP Whipple procedure 05/31 Hypokalemia Anemia Hyperglycemia Pancreatic cancer Severe protein-caloric malnutrition Acute electrolyte derangements Transaminitis due to hepatobiliary obstruction Normocytic anemia Thrombocytopenia Pancreatic cancer GERD Hypertension Diabetes Previous gastric sleeve History of Present Illness History of Present Illness 06/15 Pt seen and examined. QUENTIN RN and QUENTIN case management Wound is clean and dry intact dressing. 06/14 Pt seen and examined. QUENTIN RN and QUENTIN case management. Up and walking around in the [place]. He is feeling better today than yesterday. 06/13 Seen and examined Pt. QUENTIN RN and QUENTIN case management. Wound was clean and dry and dressing was intact. Awake and laying down in bed. Pt is a Post-OP whipple procedure patient with Dr. Lezama that was done on 05/31. Has stayed in hospital for recovery care. Vitals/I&O Vitals/I&O: Vital Signs Date Time Temp Pulse Resp B/P (MAP) Pulse Ox O2 Delivery O2 Flow Rate FiO2 06/15/20 07:00 97.9 67 17 106/62 (77) 99 Room Air 97.9 06/14/20 07:40 2.0 I & O 06/14/20 06/14/20 06/15/20 15:00 23:00 07:00 Intake Total 1662 ml 710 ml Output Total 355 ml 425 ml Balance 1307 ml 285 ml Physical Exam General: Alert, Oriented X3, Cooperative, No acute distress Heart: Regular rate, Normal S1, Normal S2 Lungs: Clear Abdomen: Soft, No hepatosplenomegaly, Other (CONCHIS with tannish drainage) Extremities: No clubbing, No cyanosis Skin: No rashes, No breakdown Labs Labs: Laboratory Tests Test 06/15/20 05:55 White Blood Count 8.1 x10^3/uL (4.0-11.0) Red Blood Count 2.93 x10^6/uL (4.30-5.70) Hemoglobin 9.9 g/dL (13.0-17.5) Hematocrit 28.9 % (39.0-53.0) Mean Corpuscular Volume 99 fL (79-100) Mean Corpuscular Hemoglobin 34 pg (25-35) Mean Corpuscular Hemoglobin Concent 34 g/dL (31-37) Red Cell Distribution Width 14.4 % (11.5-14.5) Platelet Count 316 x10^3/uL (140-400) Neutrophils (%) (Auto) 59 % (31-73) Lymphocytes (%) (Auto) 28 % (24-48) Monocytes (%) (Auto) 10 % (0-9) Eosinophils (%) (Auto) 2 % (0-3) Basophils (%) (Auto) 1 % (0-3) Neutrophils # (Auto) 4.8 x10^3/uL (1.8-7.7) Lymphocytes # (Auto) 2.3 x10^3/uL (1.0-4.8) Monocytes # (Auto) 0.8 x10^3/uL (0.0-1.1) Eosinophils # (Auto) 0.2 x10^3/uL (0.0-0.7) Basophils # (Auto) 0.1 x10^3/uL (0.0-0.2) Sodium Level 133 mmol/L (136-145) Potassium Level 4.1 mmol/L (3.5-5.1) Chloride Level 101 mmol/L (98-107) Carbon Dioxide Level 27 mmol/L (21-32) Anion Gap 5 (6-14) Blood Urea Nitrogen 17 mg/dL (8-26) Creatinine 0.5 mg/dL (0.7-1.3) Estimated GFR (Cockcroft-Gault) 174.6 Glucose Level 163 mg/dL (70-99) Calcium Level 8.5 mg/dL (8.5-10.1) Phosphorus Level 3.7 mg/dL (2.6-4.7) Magnesium Level 1.9 mg/dL (1.8-2.4) Review of Systems Review of Systems: No chest pain. No SOA. Assessment and Plan Assessmemt and Plan POST OP Whipple procedure 05/31 Hypokalemia Anemia Hyperglycemia Pancreatic cancer Severe protein-caloric malnutrition Acute electrolyte derangements Transaminitis due to hepatobiliary obstruction Normocytic anemia Thrombocytopenia Pancreatic cancer GERD Hypertension Diabetes Previous gastric sleeve Plan: Continue IV antibiotics TPN TPN at discharge G feeding tube CONCHIS drain Wound Care PT/OT Home meds Trend Labs DVT prophylaxis Full Code Discharge to Home with Home health pending discharge approval from surgery Comment Review of Relevant I have reviewed the following items derrick (where applicable) has been applied. Medications: Current Medications Medications (Trade) Dose Ordered Sig/Renuka Route PRN Reason Start Time Stop Time Status Last Admin Dose Admin Sodium Chloride 90 meq/Potassium Chloride 25 meq/ Potassium Phosphate 13.6 mmol/Magnesium Sulfate 10 meq/ Multivitamins 10 ml/Chromium/ Copper/Manganese/ Seleni/Zn 1 ml/ Total Parenteral Nutrition/Amino Acids/Dextrose/ Fat Emulsion Intravenous 1,512 ml @ 63 mls/hr TPN CONT IV 06/14/20 22:00 06/15/20 21:59 06/14/20 21:41 Justifications for Admission Other Justification SUSAN GARNICA III DO Jun 15, 2020 10:30
[2020-06-15 10:58] VITALS: BP 118/70
--- NOTE | 2020-06-15 13:21 | PDOC ---
SURGICAL PROGRESS NOTE DATE: 06/15/20 TIME: 13:19 Subjective Pt without c/o, jasmin clears Vital Signs Vital Signs Date Time Temp Pulse Resp B/P (MAP) Pulse Ox O2 Delivery O2 Flow Rate FiO2 06/15/20 10:58 98.5 62 17 118/70 (86) 98 Room Air 98.5 06/14/20 07:40 2.0 I&O Intake and Output 06/15/20 07:00 Intake Total 2372 ml Output Total 780 ml Balance 1592 ml Intake Oral 660 ml IV Total 1712 ml Gastric Drainage Total 650 ml Drainage Total 130 ml # Voids 6 General: Alert, Oriented X3, Cooperative, No acute distress Abdomen: Soft, No tenderness, Other (G-tube to suction, RUQ CONCHIS with some tannish drainage, LUQ CONCHIS min serosang) Labs Laboratory Tests Test 06/14/20 06:00 06/15/20 05:55 White Blood Count 9.7 x10^3/uL (4.0-11.0) 8.1 x10^3/uL (4.0-11.0) Red Blood Count 2.95 x10^6/uL (4.30-5.70) 2.93 x10^6/uL (4.30-5.70) Hemoglobin 10.3 g/dL (13.0-17.5) 9.9 g/dL (13.0-17.5) Hematocrit 29.0 % (39.0-53.0) 28.9 % (39.0-53.0) Mean Corpuscular Volume 98 fL (79-100) 99 fL (79-100) Mean Corpuscular Hemoglobin 35 pg (25-35) 34 pg (25-35) Mean Corpuscular Hemoglobin Concent 35 g/dL (31-37) 34 g/dL (31-37) Red Cell Distribution Width 14.5 % (11.5-14.5) 14.4 % (11.5-14.5) Platelet Count 337 x10^3/uL (140-400) 316 x10^3/uL (140-400) Neutrophils (%) (Auto) 68 % (31-73) 59 % (31-73) Lymphocytes (%) (Auto) 20 % (24-48) 28 % (24-48) Monocytes (%) (Auto) 10 % (0-9) 10 % (0-9) Eosinophils (%) (Auto) 2 % (0-3) 2 % (0-3) Basophils (%) (Auto) 1 % (0-3) 1 % (0-3) Neutrophils # (Auto) 6.6 x10^3/uL (1.8-7.7) 4.8 x10^3/uL (1.8-7.7) Lymphocytes # (Auto) 1.9 x10^3/uL (1.0-4.8) 2.3 x10^3/uL (1.0-4.8) Monocytes # (Auto) 1.0 x10^3/uL (0.0-1.1) 0.8 x10^3/uL (0.0-1.1) Eosinophils # (Auto) 0.2 x10^3/uL (0.0-0.7) 0.2 x10^3/uL (0.0-0.7) Basophils # (Auto) 0.1 x10^3/uL (0.0-0.2) 0.1 x10^3/uL (0.0-0.2) Sodium Level 135 mmol/L (136-145) 133 mmol/L (136-145) Potassium Level 4.3 mmol/L (3.5-5.1) 4.1 mmol/L (3.5-5.1) Chloride Level 101 mmol/L (98-107) 101 mmol/L (98-107) Carbon Dioxide Level 28 mmol/L (21-32) 27 mmol/L (21-32) Anion Gap 6 (6-14) 5 (6-14) Blood Urea Nitrogen 14 mg/dL (8-26) 17 mg/dL (8-26) Creatinine 0.5 mg/dL (0.7-1.3) 0.5 mg/dL (0.7-1.3) Estimated GFR (Cockcroft-Gault) 174.6 174.6 Glucose Level 138 mg/dL (70-99) 163 mg/dL (70-99) Calcium Level 8.6 mg/dL (8.5-10.1) 8.5 mg/dL (8.5-10.1) Phosphorus Level 4.0 mg/dL (2.6-4.7) 3.7 mg/dL (2.6-4.7) Magnesium Level 1.9 mg/dL (1.8-2.4) 1.9 mg/dL (1.8-2.4) Laboratory Tests Test 06/15/20 05:55 White Blood Count 8.1 x10^3/uL (4.0-11.0) Red Blood Count 2.93 x10^6/uL (4.30-5.70) Hemoglobin 9.9 g/dL (13.0-17.5) Hematocrit 28.9 % (39.0-53.0) Mean Corpuscular Volume 99 fL (79-100) Mean Corpuscular Hemoglobin 34 pg (25-35) Mean Corpuscular Hemoglobin Concent 34 g/dL (31-37) Red Cell Distribution Width 14.4 % (11.5-14.5) Platelet Count 316 x10^3/uL (140-400) Neutrophils (%) (Auto) 59 % (31-73) Lymphocytes (%) (Auto) 28 % (24-48) Monocytes (%) (Auto) 10 % (0-9) Eosinophils (%) (Auto) 2 % (0-3) Basophils (%) (Auto) 1 % (0-3) Neutrophils # (Auto) 4.8 x10^3/uL (1.8-7.7) Lymphocytes # (Auto) 2.3 x10^3/uL (1.0-4.8) Monocytes # (Auto) 0.8 x10^3/uL (0.0-1.1) Eosinophils # (Auto) 0.2 x10^3/uL (0.0-0.7) Basophils # (Auto) 0.1 x10^3/uL (0.0-0.2) Sodium Level 133 mmol/L (136-145) Potassium Level 4.1 mmol/L (3.5-5.1) Chloride Level 101 mmol/L (98-107) Carbon Dioxide Level 27 mmol/L (21-32) Anion Gap 5 (6-14) Blood Urea Nitrogen 17 mg/dL (8-26) Creatinine 0.5 mg/dL (0.7-1.3) Estimated GFR (Cockcroft-Gault) 174.6 Glucose Level 163 mg/dL (70-99) Calcium Level 8.5 mg/dL (8.5-10.1) Phosphorus Level 3.7 mg/dL (2.6-4.7) Magnesium Level 1.9 mg/dL (1.8-2.4) Problem List s/p whipple continued improvement plan d/c home with TPN and bowel rest soon will d/c MARCELO BALDERRAMA Justicifation of Admission Dx: Justifications for Admission: Justification of Admission Dx: Yes SANG AVENDANO MD Jun 15, 2020 13:21
[2020-06-15] MEDS: TPN PER PHARMACY MC PRN (14:07)
--- NOTE | 2020-06-15 14:13 | NUR ---
Pharmacy TPN Dosing Note S: YANNIRYAN is a 54 year old M Currently receiving Central Continuous TPN started 06/12/20 B:Pertinent PMH: s/p lanie. TPN for 6 weeks for bowel rest. Height: 5 feet, 8 inches Weight: 76.0 kg Current diet: clear liquid diet LABS: Sodium: 133 Potassium: 4.1 Chloride: 101 Calcium: 8.6 Corrected Calcium: 10.20 Magnesium: 1.9 CO2: 27 SCr: 0.5 Glucose: 163 Albumin: 2.0 AST: 18 ALT: 13 TPN FORMULA: TPN TYPE: Central Continuous AMINO ACIDS: 115 gm DEXTROSE: 265 gm LIPIDS: 40 gm SODIUM CHLORIDE: 90 mEq POTASSIUM CHLORIDE: 25 mEq POTASSIUM PHOSPHATE: 13.6 mmol MAGNESIUM: 10 mEq MULTIPLE VITAMIN: 10 ml TRACE ELEMENTS: 1 ml(s) TPN PLAN: All electrolyes stable. Continue TPN. R: Continue TPN Will monitor electrolytes, glucose, and tolerance to TPN. Hill Joshi, [facility], 06/15/20 [id number]
[2020-06-15 15:07] VITALS: BP 105/64
[2020-06-15 19:14] VITALS: BP 113/68
[2020-06-15] MEDS ORDERED: AMINO ACID IV SCH (22:00)
[2020-06-15] MEDS ORDERED: [UNRECOGNIZED DRUG - OTHER] IV SCH (22:00)
[2020-06-15] MEDS ORDERED: TOTAL PARENTERAL NUTRITION IV SCH (22:00)
[2020-06-15] MEDS ORDERED: DEXTROSE 70% IV SCH (22:00)
[2020-06-15 22:38] VITALS: BP 114/66
[2020-06-16] MEDS: HYDROmorphone 2 MG/ML VIAL IVP PRN ×3 (00:25→22:24)
[2020-06-16] MEDS: PIPERACILLIN/TAZOBACTAM 3.375 GM in IV NORMAL SALINE 50ML 50 ML IV SCH ×4 (00:25→17:17)
[2020-06-16 02:16] VITALS: BP 105/59
[2020-06-16 07:00] VITALS: BP 112/60
[2020-06-16 09:47] LABS: BASO # 0.1 x10^3/uL (0.0-0.2); BASO % 1 % (0-3); EOS # 0.2 x10^3/uL (0.0-0.7); EOS % 3 % (0-3); HEMATOCRIT 28.1 % (39.0-53.0); HEMOGLOBIN 9.4 g/dL (13.0-17.5); LYMPH % 27 % (24-48); MEAN CORPUSCULAR HEMOGLOBIN 34 pg (25-35); MEAN CORPUSCULAR HGB CONC 34 g/dL (31-37); MEAN CORPUSCULAR VOLUME 100 fL (79-100); MONO # 0.7 x10^3/uL (0.0-1.1); MONO % 9 % (0-9); NEUT # 4.5 x10^3/uL (1.8-7.7); NEUT % 60 % (31-73); PLATELET COUNT 278 x10^3/uL (140-400); RED BLOOD COUNT 2.81 x10^6/uL (4.30-5.70); RED CELL DISTRIBUTION WIDTH 14.4 % (11.5-14.5); WHITE BLOOD COUNT 7.5 x10^3/uL (4.0-11.0)
[2020-06-16 09:57] LABS: CALCIUM 8.4 mg/dL (8.5-10.1); CREATININE 0.5 mg/dL (0.7-1.3); GFR 174.6; MAGNESIUM 1.7 mg/dL (1.8-2.4); PHOSPHORUS 3.3 mg/dL (2.6-4.7); POTASSIUM 3.7 mmol/L (3.5-5.1)
[2020-06-16] MEDS: PANTOPRAZOLE IV PUSH 40 MG VIAL. IVP SCH (10:02)
[2020-06-16] MEDS: ENOXAPARIN 40 MG/0.4 ML SYRINGE. SQ SCH (10:02)
[2020-06-16] MEDS: ACETAMINOPHEN 325 MG TABLET. PO SCH ×2 (10:02→21:59)
[2020-06-16] MEDS: DOCUSATE SODIUM 100 MG CAPSULE. PO SCH (10:02)
--- NOTE | 2020-06-16 10:13 | NUR ---
HARLEY following. Discussed with RN, possible discharge in the next day or two. HARLEY spoke with Corina (surgical CUSTOMER ENGAGEMENT ANALYST), pt will discharge with the drains in place. Yann coming at 1300 today for TPN teach. HARLEY faxed home health referral to [facility], awaiting acceptance decision. HARLEY will continue to follow. Addendum: 06/16/20 at 1330 by ROB SOUZA [facility] has accepted pt for home health services. RN notified.
--- NOTE | 2020-06-16 10:21 | PDOC ---
SURGICAL PROGRESS NOTE DATE: 06/16/20 TIME: 10:20 Subjective resting taking some clears Vital Signs Vital Signs Date Time Temp Pulse Resp B/P (MAP) Pulse Ox O2 Delivery O2 Flow Rate FiO2 06/16/20 07:00 98.1 74 17 112/60 (77) 100 Room Air 98.1 I&O Intake and Output 06/16/20 07:00 Intake Total 530 ml Output Total 1200 ml Balance -670 ml Intake Oral 480 ml IV Total 50 ml Output Urine Total 1200 ml # Voids 1 # Bowel Movements 1 General: Alert, Oriented X3, Cooperative Abdomen: Soft, Other (drain turk drainage, g tube to LIS) Labs Laboratory Tests Test 06/15/20 05:55 06/16/20 09:35 White Blood Count 8.1 x10^3/uL (4.0-11.0) 7.5 x10^3/uL (4.0-11.0) Red Blood Count 2.93 x10^6/uL (4.30-5.70) 2.81 x10^6/uL (4.30-5.70) Hemoglobin 9.9 g/dL (13.0-17.5) 9.4 g/dL (13.0-17.5) Hematocrit 28.9 % (39.0-53.0) 28.1 % (39.0-53.0) Mean Corpuscular Volume 99 fL (79-100) 100 fL (79-100) Mean Corpuscular Hemoglobin 34 pg (25-35) 34 pg (25-35) Mean Corpuscular Hemoglobin Concent 34 g/dL (31-37) 34 g/dL (31-37) Red Cell Distribution Width 14.4 % (11.5-14.5) 14.4 % (11.5-14.5) Platelet Count 316 x10^3/uL (140-400) 278 x10^3/uL (140-400) Neutrophils (%) (Auto) 59 % (31-73) 60 % (31-73) Lymphocytes (%) (Auto) 28 % (24-48) 27 % (24-48) Monocytes (%) (Auto) 10 % (0-9) 9 % (0-9) Eosinophils (%) (Auto) 2 % (0-3) 3 % (0-3) Basophils (%) (Auto) 1 % (0-3) 1 % (0-3) Neutrophils # (Auto) 4.8 x10^3/uL (1.8-7.7) 4.5 x10^3/uL (1.8-7.7) Lymphocytes # (Auto) 2.3 x10^3/uL (1.0-4.8) 2.0 x10^3/uL (1.0-4.8) Monocytes # (Auto) 0.8 x10^3/uL (0.0-1.1) 0.7 x10^3/uL (0.0-1.1) Eosinophils # (Auto) 0.2 x10^3/uL (0.0-0.7) 0.2 x10^3/uL (0.0-0.7) Basophils # (Auto) 0.1 x10^3/uL (0.0-0.2) 0.1 x10^3/uL (0.0-0.2) Sodium Level 133 mmol/L (136-145) 136 mmol/L (136-145) Potassium Level 4.1 mmol/L (3.5-5.1) 3.7 mmol/L (3.5-5.1) Chloride Level 101 mmol/L (98-107) 103 mmol/L (98-107) Carbon Dioxide Level 27 mmol/L (21-32) 25 mmol/L (21-32) Anion Gap 5 (6-14) 8 (6-14) Blood Urea Nitrogen 17 mg/dL (8-26) 15 mg/dL (8-26) Creatinine 0.5 mg/dL (0.7-1.3) 0.5 mg/dL (0.7-1.3) Estimated GFR (Cockcroft-Gault) 174.6 174.6 Glucose Level 163 mg/dL (70-99) 263 mg/dL (70-99) Calcium Level 8.5 mg/dL (8.5-10.1) 8.4 mg/dL (8.5-10.1) Phosphorus Level 3.7 mg/dL (2.6-4.7) 3.3 mg/dL (2.6-4.7) Magnesium Level 1.9 mg/dL (1.8-2.4) 1.7 mg/dL (1.8-2.4) Laboratory Tests Test 06/16/20 09:35 White Blood Count 7.5 x10^3/uL (4.0-11.0) Red Blood Count 2.81 x10^6/uL (4.30-5.70) Hemoglobin 9.4 g/dL (13.0-17.5) Hematocrit 28.1 % (39.0-53.0) Mean Corpuscular Volume 100 fL (79-100) Mean Corpuscular Hemoglobin 34 pg (25-35) Mean Corpuscular Hemoglobin Concent 34 g/dL (31-37) Red Cell Distribution Width 14.4 % (11.5-14.5) Platelet Count 278 x10^3/uL (140-400) Neutrophils (%) (Auto) 60 % (31-73) Lymphocytes (%) (Auto) 27 % (24-48) Monocytes (%) (Auto) 9 % (0-9) Eosinophils (%) (Auto) 3 % (0-3) Basophils (%) (Auto) 1 % (0-3) Neutrophils # (Auto) 4.5 x10^3/uL (1.8-7.7) Lymphocytes # (Auto) 2.0 x10^3/uL (1.0-4.8) Monocytes # (Auto) 0.7 x10^3/uL (0.0-1.1) Eosinophils # (Auto) 0.2 x10^3/uL (0.0-0.7) Basophils # (Auto) 0.1 x10^3/uL (0.0-0.2) Sodium Level 136 mmol/L (136-145) Potassium Level 3.7 mmol/L (3.5-5.1) Chloride Level 103 mmol/L (98-107) Carbon Dioxide Level 25 mmol/L (21-32) Anion Gap 8 (6-14) Blood Urea Nitrogen 15 mg/dL (8-26) Creatinine 0.5 mg/dL (0.7-1.3) Estimated GFR (Cockcroft-Gault) 174.6 Glucose Level 263 mg/dL (70-99) Calcium Level 8.4 mg/dL (8.5-10.1) Phosphorus Level 3.3 mg/dL (2.6-4.7) Magnesium Level 1.7 mg/dL (1.8-2.4) Assessment/Plan continue tpn possible home tomorrow with TPN, urmila and g tube to dependent drainage Justicifation of Admission Dx: Justifications for Admission: Justification of Admission Dx: Yes BABATUNDE GUEVARA PUBLIC HEALTH TRAINING ASSISTANT Jun 16, 2020 10:21
[2020-06-16] MEDS: INSULIN LISPRO 300 UNITS/3 ML VIAL. SQ SCH ×4 (10:25→17:17)
[2020-06-16 11:00] VITALS: BP 107/57
--- NOTE | 2020-06-16 11:24 | PDOC ---
[employer] PROGRESS NOTE Date of Service DOS: DATE: 06/16/20 TIME: 11:18 Chief Complaint Chief Complaint POST OP Whipple procedure 05/31 Hypokalemia Anemia Hyperglycemia Pancreatic cancer Severe protein-caloric malnutrition Acute electrolyte derangements Transaminitis due to hepatobiliary obstruction Normocytic anemia Thrombocytopenia Pancreatic cancer GERD Hypertension Diabetes Previous gastric sleeve History of Present Illness History of Present Illness 06/16/2020 Pt seen and examined. QUENTIN RN and QUENTIN case management. Wound is clean and dry intact dressing. Awake and lying down in bed. 06/15/2020 Pt seen and examined. QUENTIN RN and QUENTIN case management Wound is clean and dry intact dressing. 06/14/2020 Pt seen and examined. QUENTIN RN and QUENTIN case management. Up and walking around in the [place]. He is feeling better today than yesterday. 06/13/2020 Seen and examined Pt. QUENTIN RN and QUENTIN case management. Wound was clean and dry and dressing was intact. Awake and laying down in bed. Pt is a Post-OP whipple procedure patient with Dr. Lezama that was done on 05/31. Has stayed in hospital for recovery care. Vitals/I&O Vitals/I&O: Vital Signs Date Time Temp Pulse Resp B/P (MAP) Pulse Ox O2 Delivery O2 Flow Rate FiO2 06/16/20 07:00 98.1 74 17 112/60 (77) 100 Room Air 98.1 I & O 06/15/20 06/15/20 06/16/20 15:00 23:00 07:00 Intake Total 290 ml 240 ml Output Total 1200 ml Balance 290 ml 240 ml -1200 ml Physical Exam General: Alert, Oriented X3, Cooperative Heart: Regular rate, Normal S1, Normal S2 Lungs: Clear Abdomen: Soft, Other (drain utrk drainage, g tube to LIS) Extremities: No clubbing, No cyanosis Skin: No rashes, No breakdown Labs Labs: Laboratory Tests Test 06/16/20 09:35 White Blood Count 7.5 x10^3/uL (4.0-11.0) Red Blood Count 2.81 x10^6/uL (4.30-5.70) Hemoglobin 9.4 g/dL (13.0-17.5) Hematocrit 28.1 % (39.0-53.0) Mean Corpuscular Volume 100 fL (79-100) Mean Corpuscular Hemoglobin 34 pg (25-35) Mean Corpuscular Hemoglobin Concent 34 g/dL (31-37) Red Cell Distribution Width 14.4 % (11.5-14.5) Platelet Count 278 x10^3/uL (140-400) Neutrophils (%) (Auto) 60 % (31-73) Lymphocytes (%) (Auto) 27 % (24-48) Monocytes (%) (Auto) 9 % (0-9) Eosinophils (%) (Auto) 3 % (0-3) Basophils (%) (Auto) 1 % (0-3) Neutrophils # (Auto) 4.5 x10^3/uL (1.8-7.7) Lymphocytes # (Auto) 2.0 x10^3/uL (1.0-4.8) Monocytes # (Auto) 0.7 x10^3/uL (0.0-1.1) Eosinophils # (Auto) 0.2 x10^3/uL (0.0-0.7) Basophils # (Auto) 0.1 x10^3/uL (0.0-0.2) Sodium Level 136 mmol/L (136-145) Potassium Level 3.7 mmol/L (3.5-5.1) Chloride Level 103 mmol/L (98-107) Carbon Dioxide Level 25 mmol/L (21-32) Anion Gap 8 (6-14) Blood Urea Nitrogen 15 mg/dL (8-26) Creatinine 0.5 mg/dL (0.7-1.3) Estimated GFR (Cockcroft-Gault) 174.6 Glucose Level 263 mg/dL (70-99) Calcium Level 8.4 mg/dL (8.5-10.1) Phosphorus Level 3.3 mg/dL (2.6-4.7) Magnesium Level 1.7 mg/dL (1.8-2.4) Review of Systems Review of Systems: No headaches. No chest pain. Assessment and Plan Assessmemt and Plan POST OP Whipple procedure 05/31 Hypokalemia Anemia Hyperglycemia Pancreatic cancer Severe protein-caloric malnutrition Acute electrolyte derangements Transaminitis due to hepatobiliary obstruction Normocytic anemia Thrombocytopenia Pancreatic cancer GERD Hypertension Diabetes Previous gastric sleeve Plan: Continue IV antibiotics Continue TPN Home TPN G feeding tube CONCHIS drain Wound Care PT/OT Home meds Trend Labs DVT prophylaxis Full Code Discharge to Home with Home health pending discharge approval from surgery Comment Review of Relevant I have reviewed the following items derrick (where applicable) has been applied. Medications: Current Medications Medications (Trade) Dose Ordered Sig/Renuka Route PRN Reason Start Time Stop Time Status Last Admin Dose Admin Sodium Chloride 90 meq/Potassium Chloride 25 meq/ Potassium Phosphate 13.6 mmol/Magnesium Sulfate 10 meq/ Multivitamins 10 ml/Chromium/ Copper/Manganese/ Seleni/Zn 1 ml/ Total Parenteral Nutrition/Amino Acids/Dextrose/ Fat Emulsion Intravenous 1,512 ml @ 63 mls/hr TPN CONT IV 06/15/20 22:00 06/16/20 21:59 06/15/20 21:56 Justifications for Admission Other Justification SUSAN GARNICA III DO Jun 16, 2020 11:24
[2020-06-16] MEDS: TPN PER PHARMACY MC PRN (11:53)
--- NOTE | 2020-06-16 11:53 | NUR ---
Pharmacy TPN Dosing Note S: YANNIRYAN is a 54 year old M Currently receiving Central Continuous TPN started 06/12/20 B:Pertinent PMH: s/p lanie. TPN for 6 weeks for bowel rest. Height: 5 feet, 8 inches Weight: 76.0 kg Current diet: clear liquid diet LABS: Sodium: 136 Potassium: 3.7 Chloride: 103 Calcium: 8.4 Corrected Calcium: 10.00 Magnesium: 1.7 CO2: 25 SCr: 0.5 Glucose: 263 Albumin: 2.0 AST: 18 ALT: 13 TPN FORMULA: TPN TYPE: Central Continuous AMINO ACIDS: 115 gm DEXTROSE: 265 gm LIPIDS: 40 gm SODIUM CHLORIDE: 90 mEq POTASSIUM CHLORIDE: 25 mEq POTASSIUM PHOSPHATE: 13.6 mmol MAGNESIUM: 15 mEq MULTIPLE VITAMIN: 10 ml TRACE ELEMENTS: 1 ml(s) TPN PLAN: Magnesium 1.7 - will increase in TPN. -BMP, Mag in AM. R: Change TPN as noted above. Will monitor electrolytes, glucose, and tolerance to TPN. VICTORIANO LOPES [facility], 06/16/20 [id number]
[2020-06-16] MEDS: oxyCODONE IR 5 MG TABLET PO PRN (14:47)
[2020-06-16 15:00] VITALS: BP 123/69
[2020-06-16 19:37] VITALS: BP 112/67
[2020-06-16] MEDS ORDERED: [UNRECOGNIZED DRUG - OTHER] IV SCH (22:00)
[2020-06-16] MEDS ORDERED: DEXTROSE 70% IV SCH (22:00)
[2020-06-16] MEDS ORDERED: TOTAL PARENTERAL NUTRITION IV SCH (22:00)
[2020-06-16] MEDS ORDERED: AMINO ACID IV SCH (22:00)
[2020-06-16 23:00] VITALS: BP 115/68
[2020-06-17 03:46] VITALS: BP 102/59
[2020-06-17 05:22] LABS: BASO # 0.1 x10^3/uL (0.0-0.2); BASO % 1 % (0-3); EOS # 0.2 x10^3/uL (0.0-0.7); EOS % 3 % (0-3); HEMATOCRIT 29.1 % (39.0-53.0); LYMPH # 2.3 x10^3/uL (1.0-4.8); LYMPH % 31 % (24-48); MEAN CORPUSCULAR HEMOGLOBIN 34 pg (25-35); MEAN CORPUSCULAR HGB CONC 34 g/dL (31-37); MEAN CORPUSCULAR VOLUME 99 fL (79-100); MONO # 0.6 x10^3/uL (0.0-1.1); MONO % 8 % (0-9); NEUT # 4.3 x10^3/uL (1.8-7.7); NEUT % 57 % (31-73); PLATELET COUNT 298 x10^3/uL (140-400); RED BLOOD COUNT 2.93 x10^6/uL (4.30-5.70); RED CELL DISTRIBUTION WIDTH 14.4 % (11.5-14.5); WHITE BLOOD COUNT 7.5 x10^3/uL (4.0-11.0)
[2020-06-17] MEDS: PIPERACILLIN/TAZOBACTAM 3.375 GM in IV NORMAL SALINE 50ML 50 ML IV SCH ×4 (05:26→18:00)
[2020-06-17] MEDS: INSULIN LISPRO 300 UNITS/3 ML VIAL. SQ SCH ×4 (05:44→18:00)
[2020-06-17 05:52] LABS: CALCIUM 8.9 mg/dL (8.5-10.1); CREATININE 0.4 mg/dL (0.7-1.3); GFR 225.9; POTASSIUM 3.8 mmol/L (3.5-5.1)
[2020-06-17 07:00] VITALS: BP 110/71
[2020-06-17] MEDS: PANTOPRAZOLE IV PUSH 40 MG VIAL. IVP SCH (08:54)
[2020-06-17] MEDS: ACETAMINOPHEN 325 MG TABLET. PO SCH (08:55)
[2020-06-17] MEDS: ENOXAPARIN 40 MG/0.4 ML SYRINGE. SQ SCH (08:55)
[2020-06-17] MEDS: DOCUSATE SODIUM 100 MG CAPSULE. PO SCH (08:57)
--- NOTE | 2020-06-17 09:37 | NUR ---
HARLEY following. Discussed with RN, possible discharge home today with [employer] and [facility] for home TPN. HARLEY will continue to follow. Addendum: 06/17/20 at 1244 by ROB SOUZA HARLEY faxed most recent TPN formula to [facility]. Discharge orders faxed to [facility] and [facility]. [facility] will deliver the TPN to pt here at [facility] and hook him up prior to discharge. RN notified.
--- NOTE | 2020-06-17 10:36 | PDOC ---
SURGICAL PROGRESS NOTE DATE: 06/17/20 TIME: 10:35 Subjective doing ok no current complaints Vital Signs Vital Signs Date Time Temp Pulse Resp B/P (MAP) Pulse Ox O2 Delivery O2 Flow Rate FiO2 06/17/20 07:00 98.0 67 18 110/71 (84) 100 Room Air 98.0 I&O l Intake and Output 06/17/20 07:00 Intake Total 1080 ml Balance 1080 ml Intake Oral 1080 ml # Voids 6 # Bowel Movements 3 General: Alert, Oriented X3, Cooperative Abdomen: Soft, Other (drain with turk drainage) Labs Laboratory Tests Test 06/16/20 09:35 06/17/20 05:00 White Blood Count 7.5 x10^3/uL (4.0-11.0) 7.5 x10^3/uL (4.0-11.0) Red Blood Count 2.81 x10^6/uL (4.30-5.70) 2.93 x10^6/uL (4.30-5.70) Hemoglobin 9.4 g/dL (13.0-17.5) 10.0 g/dL (13.0-17.5) Hematocrit 28.1 % (39.0-53.0) 29.1 % (39.0-53.0) Mean Corpuscular Volume 100 fL (79-100) 99 fL (79-100) Mean Corpuscular Hemoglobin 34 pg (25-35) 34 pg (25-35) Mean Corpuscular Hemoglobin Concent 34 g/dL (31-37) 34 g/dL (31-37) Red Cell Distribution Width 14.4 % (11.5-14.5) 14.4 % (11.5-14.5) Platelet Count 278 x10^3/uL (140-400) 298 x10^3/uL (140-400) Neutrophils (%) (Auto) 60 % (31-73) 57 % (31-73) Lymphocytes (%) (Auto) 27 % (24-48) 31 % (24-48) Monocytes (%) (Auto) 9 % (0-9) 8 % (0-9) Eosinophils (%) (Auto) 3 % (0-3) 3 % (0-3) Basophils (%) (Auto) 1 % (0-3) 1 % (0-3) Neutrophils # (Auto) 4.5 x10^3/uL (1.8-7.7) 4.3 x10^3/uL (1.8-7.7) Lymphocytes # (Auto) 2.0 x10^3/uL (1.0-4.8) 2.3 x10^3/uL (1.0-4.8) Monocytes # (Auto) 0.7 x10^3/uL (0.0-1.1) 0.6 x10^3/uL (0.0-1.1) Eosinophils # (Auto) 0.2 x10^3/uL (0.0-0.7) 0.2 x10^3/uL (0.0-0.7) Basophils # (Auto) 0.1 x10^3/uL (0.0-0.2) 0.1 x10^3/uL (0.0-0.2) Sodium Level 136 mmol/L (136-145) 137 mmol/L (136-145) Potassium Level 3.7 mmol/L (3.5-5.1) 3.8 mmol/L (3.5-5.1) Chloride Level 103 mmol/L (98-107) 103 mmol/L (98-107) Carbon Dioxide Level 25 mmol/L (21-32) 27 mmol/L (21-32) Anion Gap 8 (6-14) 7 (6-14) Blood Urea Nitrogen 15 mg/dL (8-26) 16 mg/dL (8-26) Creatinine 0.5 mg/dL (0.7-1.3) 0.4 mg/dL (0.7-1.3) Estimated GFR (Cockcroft-Gault) 174.6 225.9 Glucose Level 263 mg/dL (70-99) 223 mg/dL (70-99) Calcium Level 8.4 mg/dL (8.5-10.1) 8.9 mg/dL (8.5-10.1) Phosphorus Level 3.3 mg/dL (2.6-4.7) Magnesium Level 1.7 mg/dL (1.8-2.4) 2.0 mg/dL (1.8-2.4) Laboratory Tests Test 06/17/20 05:00 White Blood Count 7.5 x10^3/uL (4.0-11.0) Red Blood Count 2.93 x10^6/uL (4.30-5.70) Hemoglobin 10.0 g/dL (13.0-17.5) Hematocrit 29.1 % (39.0-53.0) Mean Corpuscular Volume 99 fL (79-100) Mean Corpuscular Hemoglobin 34 pg (25-35) Mean Corpuscular Hemoglobin Concent 34 g/dL (31-37) Red Cell Distribution Width 14.4 % (11.5-14.5) Platelet Count 298 x10^3/uL (140-400) Neutrophils (%) (Auto) 57 % (31-73) Lymphocytes (%) (Auto) 31 % (24-48) Monocytes (%) (Auto) 8 % (0-9) Eosinophils (%) (Auto) 3 % (0-3) Basophils (%) (Auto) 1 % (0-3) Neutrophils # (Auto) 4.3 x10^3/uL (1.8-7.7) Lymphocytes # (Auto) 2.3 x10^3/uL (1.0-4.8) Monocytes # (Auto) 0.6 x10^3/uL (0.0-1.1) Eosinophils # (Auto) 0.2 x10^3/uL (0.0-0.7) Basophils # (Auto) 0.1 x10^3/uL (0.0-0.2) Sodium Level 137 mmol/L (136-145) Potassium Level 3.8 mmol/L (3.5-5.1) Chloride Level 103 mmol/L (98-107) Carbon Dioxide Level 27 mmol/L (21-32) Anion Gap 7 (6-14) Blood Urea Nitrogen 16 mg/dL (8-26) Creatinine 0.4 mg/dL (0.7-1.3) Estimated GFR (Cockcroft-Gault) 225.9 Glucose Level 223 mg/dL (70-99) Calcium Level 8.9 mg/dL (8.5-10.1) Magnesium Level 2.0 mg/dL (1.8-2.4) Assessment/Plan tentative plan for home with TPN, possible today Justicifation of Admission Dx: Justifications for Admission: Justification of Admission Dx: Yes BABATUNDE GUEVARA [employer] Jun 17, 2020 10:36
[2020-06-17 10:49] VITALS: BP 116/71
[2020-06-17] MEDS ORDERED: INSU100V35 SQ (12:27)
[2020-06-17] MEDS ORDERED: DOCU-153 PO (12:27)
[2020-06-17] MEDS ORDERED: OXYC5TAB4 PO (12:27)
--- NOTE | 2020-06-17 12:35 | SNU/HH DC ---
DISCHARGE WITH HOME HEALTH DISCHARGE INFORMATION: Discharge Date: Jun 17, 2020 Final Diagnosis: pancreatic cancer Condition on Discharge: Stable HOME HEALTH: Face to Face: I certify this patient is under my care and that I, or a nurse practitioner or physician's assistant clinical director working with me, had a face to face encounter that meets the physician face to face encounter requirements with this patient on []. Medical Complications: DM, Other (pancreatic cancer ) Assisted For: Diabetic Care, IV Infusion Therapy (TPN), Wound Care, Other: (Nathaniel and G tube management ) RN For Eval/Treatment: Yes Physical Therapy For: Evalulation/Treatment Occupational Therapy For: Evaluation/Treatment Home Health Aide For: Self-care Pt Meets Homebound Status: Limited distance walking, Other: (TPN infusion, drains ) POST DISCHARGE ORDERS: Activity Instructions for Disc: Activity as tolerated Weight Bearing Status after Di: As tolerated DIET AFTER DISCHARGE: NPO (clears liquids and oral meds ) Wound/Incision Care: Change dressing, May get incision wet Other wound/incision instructi: g tube to dependent drainage bag, clamp g tube 2 hours after meds CHECKS AFTER DISCHARGE: Checks after discharge: Check blood press - daily, Check blood sugar, ac/hs FOLLOW-UP: PCP to follow Home Health: Dr Lezama Follow up with: Dr Lezama 06/29 at 945 am [id number] Follow Up With: Please FU with PCP and Blood sugar readings TREATMENT/EQUIPMENT ORDERS: Infusion Equipment, home use: PICC Line CERTIFICATION STATEMENT: Certification Statement: Certification Statement: Based on the above finding, I certify that this patient is confined to the home and needs intermittent detention care, physical therapy and/or speech therapy, or continues to need occupational therapy.~ This patient is under my care, and I have initiated the establishment of the plan of care.~ This patient will be followed by myself or a community physician who will periodically review the plan of care. Home Meds Active Scripts Insulin Lispro (Admelog) 100 Unit/1 Ml Vial, 0 UNITS SQ Q6HRS for tpn glucose for 14 Days, #14 EACH Prov:NICKELDEANDREBABATUNDE L CONSTRUCTION LABORER 06/17/20 Docusate Sodium (DOK) 100 Mg Capsule, 100 MG PO DAILY for constipation, #60 CAP Prov:NICKEL,BABATUNDE L CONSTRUCTION LABORER 06/17/20 Oxycodone Hcl (OXYCODONE HCL IMMED.RELEASE ) 5 Mg Tablet, 5 MG PO PRN Q4HRS PRN for PAIN MOD-SEVERE 1ST CHOICE, #30 TAB 0 Refills Prov:PAOLABABATUNDE Pérez CONSTRUCTION LABORER 06/17/20 Reported Medications Pantoprazole Sodium (PANTOPRAZOLE SODIUM ) 40 Mg Tablet.dr, 40 MG PO DAILYAC for GERD, TAB 02/12/20 Discontinued Reported Medications Lidocaine/Prilocaine (LIDOCAINE-PRILOCAINE CREAM) 30 Gm Cream..g., 1 ZENON TP UD for 30 minutes prior to chemo visi, #30 GM 1 Refill 06/01/20 Oxycodone HCl (Oxycodone HCl) 5 Mg Tablet, 5 MG PO PRN Q4-6HRS PRN for PAIN, TAB 06/01/20 Vitamin D3/Vitamin K2 (D3 + K2 DOTS 1,000 UNITS TAB) 1 Each Tab.rapdis, 1 TAB PO DAILY for Vitamin for 30 Days, #30 TAB 0 Refills 06/01/20 Potassium Chloride (KLOR-CON M20) 20 Meq Tab.er.prt, 1 TAB PO DAILY for Electrolyte Replacement for 30 Days, #30 TAB 0 Refills 06/01/20 Metformin Hcl (METFORMIN HCL) 500 Mg Tablet, 500 MG PO BIDWMEALS for ANTI- DIABETIC, TAB 0 Refills 06/01/20 Insulin Detemir (LEVEMIR) 100 Unit/1 Ml Vial, 15 UNIT SQ HS for DM, VIAL 06/01/20 Insulin Aspart (NOVOLOG) 100 Unit/1 Ml Vial, 6 UNIT SQ DAILYAC for control diabetes, VIAL 05/19/20 Metformin Hcl (METFORMIN HCL) 500 Mg Tablet, 500 MG PO BIDWMEALS for ANTI- DIABETIC, TAB 0 Refills 02/25/20 BABATUNDE GUEVARA CONSTRUCTION LABORER Jun 17, 2020 12:35
--- NOTE | 2020-06-17 12:42 | PDOC ---
[employer] [facility] PROGRESS NOTE Date of Service DOS: DATE: 06/17/20 TIME: 12:39 Chief Complaint Chief Complaint POST OP Whipple procedure 05/31 Hypokalemia Anemia Hyperglycemia Pancreatic cancer Severe protein-caloric malnutrition Acute electrolyte derangements Transaminitis due to hepatobiliary obstruction Normocytic anemia Thrombocytopenia Pancreatic cancer GERD Hypertension Diabetes Previous gastric sleeve History of Present Illness History of Present Illness 06/17/2020 Pt seen and examined. QUENTIN RN and QUENTIN case management. Wound is clean and dry intact dressing. Pt is in good mood and ready to go home. 06/16/2020 Pt seen and examined. QUENTIN RN and QUENTIN case management. Wound is clean and dry intact dressing. Awake and lying down in bed. 06/15/2020 Pt seen and examined. QUENTIN RN and QUENTIN case management Wound is clean and dry intact dressing. 06/14/2020 Pt seen and examined. QUENTIN RN and QUENTIN case management. Up and walking around in the [place]. He is feeling better today than yesterday. 06/13/2020 Seen and examined Pt. QUENTIN RN and QUENTIN case management. Wound was clean and dry and dressing was intact. Awake and laying down in bed. Pt is a Post-OP whipple procedure patient with Dr. Lezama that was done on 05/31. Has stayed in hospital for recovery care. Vitals/I&O Vitals/I&O: Vital Signs Date Time Temp Pulse Resp B/P (MAP) Pulse Ox O2 Delivery O2 Flow Rate FiO2 06/17/20 10:49 98.0 73 16 116/71 (86) 100 Room Air 98.0 06/17/20 07:55 2.0 I & O 06/16/20 06/16/20 06/17/20 15:00 23:00 07:00 Intake Total 480 ml 300 ml 300 ml Balance 480 ml 300 ml 300 ml Physical Exam General: Alert, Oriented X3, Cooperative Heart: Regular rate, Normal S1, Normal S2 Lungs: Clear Abdomen: Soft, Other (drain with turk drainage) Extremities: No clubbing, No cyanosis Skin: No rashes, No breakdown Labs Labs: Laboratory Tests Test 06/17/20 05:00 White Blood Count 7.5 x10^3/uL (4.0-11.0) Red Blood Count 2.93 x10^6/uL (4.30-5.70) Hemoglobin 10.0 g/dL (13.0-17.5) Hematocrit 29.1 % (39.0-53.0) Mean Corpuscular Volume 99 fL (79-100) Mean Corpuscular Hemoglobin 34 pg (25-35) Mean Corpuscular Hemoglobin Concent 34 g/dL (31-37) Red Cell Distribution Width 14.4 % (11.5-14.5) Platelet Count 298 x10^3/uL (140-400) Neutrophils (%) (Auto) 57 % (31-73) Lymphocytes (%) (Auto) 31 % (24-48) Monocytes (%) (Auto) 8 % (0-9) Eosinophils (%) (Auto) 3 % (0-3) Basophils (%) (Auto) 1 % (0-3) Neutrophils # (Auto) 4.3 x10^3/uL (1.8-7.7) Lymphocytes # (Auto) 2.3 x10^3/uL (1.0-4.8) Monocytes # (Auto) 0.6 x10^3/uL (0.0-1.1) Eosinophils # (Auto) 0.2 x10^3/uL (0.0-0.7) Basophils # (Auto) 0.1 x10^3/uL (0.0-0.2) Sodium Level 137 mmol/L (136-145) Potassium Level 3.8 mmol/L (3.5-5.1) Chloride Level 103 mmol/L (98-107) Carbon Dioxide Level 27 mmol/L (21-32) Anion Gap 7 (6-14) Blood Urea Nitrogen 16 mg/dL (8-26) Creatinine 0.4 mg/dL (0.7-1.3) Estimated GFR (Cockcroft-Gault) 225.9 Glucose Level 223 mg/dL (70-99) Calcium Level 8.9 mg/dL (8.5-10.1) Magnesium Level 2.0 mg/dL (1.8-2.4) Review of Systems Review of Systems: No SOA. No chest pain. Assessment and Plan Assessmemt and Plan POST OP Whipple procedure 05/31 Hypokalemia Anemia Hyperglycemia Pancreatic cancer Severe protein-caloric malnutrition Acute electrolyte derangements Transaminitis due to hepatobiliary obstruction Normocytic anemia Thrombocytopenia Pancreatic cancer GERD Hypertension Diabetes Previous gastric sleeve Plan: Continue IV antibiotics Continue TPN Home TPN G feeding tube CONCHIS drain Wound Care PT/OT Home meds Trend Labs DVT prophylaxis Full Code Discharge to Home with Home health today or tomorrow pending discharge approval from surgery Comment Review of Relevant I have reviewed the following items derrick (where applicable) has been applied. Medications: Current Medications Medications (Trade) Dose Ordered Sig/Renuka Route PRN Reason Start Time Stop Time Status Last Admin Dose Admin Sodium Chloride 90 meq/Potassium Chloride 25 meq/ Potassium Phosphate 13.6 mmol/Magnesium Sulfate 15 meq/ Multivitamins 10 ml/Chromium/ Copper/Manganese/ Seleni/Zn 1 ml/ Total Parenteral Nutrition/Amino Acids/Dextrose/ Fat Emulsion Intravenous 1,512 ml @ 63 mls/hr TPN CONT IV 06/16/20 22:00 06/17/20 21:59 06/16/20 22:00 Justifications for Admission Other Justification SUSAN GARNICA III DO Jun 17, 2020 12:42
[2020-06-17] MEDS: HYDROmorphone 2 MG/ML VIAL IVP PRN ×2 (13:05→18:31)
[2020-06-17 15:00] VITALS: BP 99/65
== END 2020-06-17 18:55 | disposition home health service (06) | DRG 405 ==
LOC: OPSVCIP 08:09 → 1 WEST ICU 15:11 → 2 SOUTH 06-03 17:40 → 4 NORTH 06-07 16:11
PROVIDERS: ADMIT Surgery; ATTEND Surgery
PROC: 0FT40ZZ Resection of Gallbladder, Open Approach (ICD-10-PCS; 2020-05-31)
PROC: 0FBG0ZZ Excision of Pancreas, Open Approach (ICD-10-PCS; principal; 2020-05-31 10:00)
DX: C25.9 Malignant neoplasm of pancreas, unspecified (principal); E43 Unspecified severe protein-calorie malnutrition; K83.1 Obstruction of bile duct; I10 Essential (primary) hypertension; D53.9 Nutritional anemia, unspecified; D69.6 Thrombocytopenia, unspecified; E10.65 Type 1 diabetes mellitus with hyperglycemia; E87.6 Hypokalemia; F17.200 Nicotine dependence, unspecified, uncomplicated; K21.9 Gastro-esophageal reflux disease without esophagitis; Z68.25 Body mass index [BMI] 25.0-25.9, adult; Z79.4 Long term (current) use of insulin; Z98.84 Bariatric surgery status; Z83.3 Family history of diabetes mellitus
CPT/HCPCS: 36415; 36569; 71045; 74018; 74177; 80048; 80053; 82962; 83735; 84100; 84478; 85025; 86850; 86900; 86901; 88304; 88305; 88307; 88309; 88331; 88332; 88341; 88342; C1769; C9113; J0330; J1100; J1170; J1642; J1650; J1815; J2250; J2370; J2405; J2543; J2704; J2710; J2795; J3010; J3475; J3480; J3490; J7030; J7120; 97110-GO; 97116-GP; 97530-GO; 97530-GP; 97535-GO; G0378

== ENCOUNTER → 2020-07-06 | Outpatient (CLI) | payer BC ==
[2020-06-02 09:00] VITALS: BP 110/64
[~2020-07-06] MED LIST changes: +DOCU-153 PO; -HYDROmorphone 2 MG/ML VIAL IV PRN; +INSU100V35 SQ; -IV RINGERS,LACTATED 1000ML 1,000 ML IV SCH; +LIDO30CR TP; -MORPHINE SULFATE 2 MG/ML VIAL. IV PRN; -ONDANSETRON PF 4 MG/2 ML VIAL. IV PRN; +OXYC5TAB2 PO; +OXYC5TAB4 PO; +POTA20TA4 PO; -PROCHLORPERAZINE 10 MG/2 ML VIAL. IV PRN; +VITA1TAB31 PO; -cefTRIAXone IV Push 1 GM VIAL. IVP PRN; -fentaNYL PF VIAL 100 MCG/2 ML VIAL IV PRN
[2020-07-06 12:27] LABS: BASO % 0 % (0-3); EOS # 0.1 x10^3/uL (0.0-0.7); EOS % 1 % (0-3); HEMATOCRIT 31.7 % (39.0-53.0); HEMOGLOBIN 10.9 g/dL (13.0-17.5); LYMPH # 1.5 x10^3/uL (1.0-4.8); LYMPH % 17 % (24-48); MEAN CORPUSCULAR HEMOGLOBIN 33 pg (25-35); MEAN CORPUSCULAR HGB CONC 34 g/dL (31-37); MEAN CORPUSCULAR VOLUME 96 fL (79-100); MONO % 11 % (0-9); NEUT % 70 % (31-73); PLATELET COUNT 190 x10^3/uL (140-400); RED BLOOD COUNT 3.31 x10^6/uL (4.30-5.70); RED CELL DISTRIBUTION WIDTH 14.6 % (11.5-14.5); WHITE BLOOD COUNT 8.5 x10^3/uL (4.0-11.0)
[2020-07-06 12:41] LABS: CALCIUM 9.3 mg/dL (8.5-10.1); CREATININE 0.4 mg/dL (0.7-1.3); GFR 225.9; POTASSIUM 3.6 mmol/L (3.5-5.1)
[2020-07-06 12:47] LABS: ALBUMIN 2.4 g/dL (3.4-5.0); ALBUMIN/GLOBULIN RATIO 0.5 (1.0-1.7); TOTAL BILIRUBIN 0.5 mg/dL (0.2-1.0)
== END ==
LOC: SPEC 12:16
PROVIDERS: ATTEND Internal Medicine Hematology & Oncology
DX: C25.0 Malignant neoplasm of head of pancreas (principal)
CPT/HCPCS: 36415; 80053; 82378; 85025; 86301

== ENCOUNTER → 2020-08-08 | Outpatient (CLI) | payer BC ==
[2020-06-02 09:00] VITALS: BP 110/64
[2020-08-08 13:04] LABS: BASO # 0.1 x10^3/uL (0.0-0.2); BASO % 1 % (0-3); EOS # 0.1 x10^3/uL (0.0-0.7); EOS % 1 % (0-3); HEMATOCRIT 30.7 % (39.0-53.0); HEMOGLOBIN 10.6 g/dL (13.0-17.5); LYMPH % 27 % (24-48); MEAN CORPUSCULAR HEMOGLOBIN 32 pg (25-35); MEAN CORPUSCULAR HGB CONC 35 g/dL (31-37); MEAN CORPUSCULAR VOLUME 93 fL (79-100); MONO # 0.6 x10^3/uL (0.0-1.1); MONO % 8 % (0-9); NEUT # 4.6 x10^3/uL (1.8-7.7); NEUT % 63 % (31-73); PLATELET COUNT 232 x10^3/uL (140-400); RED CELL DISTRIBUTION WIDTH 15.5 % (11.5-14.5); WHITE BLOOD COUNT 7.4 x10^3/uL (4.0-11.0)
[2020-08-08 13:13] LABS: CALCIUM 9.1 mg/dL (8.5-10.1); CREATININE 0.5 mg/dL (0.7-1.3); GFR 174.6; POTASSIUM 3.8 mmol/L (3.5-5.1)
[2020-08-08 13:18] LABS: ALBUMIN 2.7 g/dL (3.4-5.0); ALBUMIN/GLOBULIN RATIO 0.6 (1.0-1.7); TOTAL BILIRUBIN 0.5 mg/dL (0.2-1.0)
== END ==
LOC: ONCLAB 12:47
PROVIDERS: ATTEND Internal Medicine Hematology & Oncology
DX: C25.0 Malignant neoplasm of head of pancreas (principal)
CPT/HCPCS: 36415; 80053; 85025; 86301

== ENCOUNTER → 2020-08-22 | Outpatient (CLI) | payer BC ==
[2020-06-02 09:00] VITALS: BP 110/64
[~2020-08-22] MED LIST changes: +IOHEXOL 240 MG/ML 50ML VIAL. PO ONE; +IOHEXOL 300 MG/ML 100ML VIAL. IV ONE
--- NOTE | 2020-08-22 09:46 | RAD ---
EXAM: CT OF THE CHEST, ABDOMEN AND PELVIS WITH CONTRAST. HISTORY: Pancreatic adenocarcinoma. TECHNIQUE: Computed tomography of the chest, abdomen and pelvis was performed after the intravenous a dministration of iodinated contrast. One or more of the following individualized dose reduction techn iques were utilized for this examination: 1. Automated exposure control. 2. Adjustment of the mA and/or kV according to patient size. 3. Use of iterative reconstruction technique. COMPARISON: 06/10/2020, 05/02/2020. FINDINGS: Bone windows reveal no suspicious lesions. There is moderate central canal stenosis in the lower lumbar spine. A right-sided port catheter has its tip in the superior cavoatrial junction. There are no pathologically enlarged mediastinal or axillary lymph nodes. Calcified mediastinal lymph nodes are likely secondary to old granulomatous disease. There is no pleural or pericardial effusion . The heart is not enlarged. Lung windows reveal no infiltrates or suspicious nodules. There are scattered calcified granulomas bi laterally. There are changes of body and tail sparing Whipple procedure. There is soft tissue density just anter ior to the left renal vein, and posterior to the portal vein and superior mesenteric artery, spanning approximately 19 x 8 mm. This has decreased since the prior study and may reflect postprocedural mendy nge rather than local recurrence. No definitive recurrent disease is identified. There are no suspicious hepatic lesions. Pneumobilia is noted. Oral contrast refluxes into the depend ent biliary tree. The adrenal glands are unremarkable. There are calcified granulomas in the spleen. A calculus in the left proximal ureter measures 3 mm. There is mild left pelvic caliectasis. An addit ional left renal calculus measures approximately 2 mm. There are no right renal or ureteral calculi. There are no pathologically enlarged lymph nodes. There is no ascites. Stool throughout the colon is consistent with mild constipation. The appendix is not inflamed. There is no small bowel obstruction. IMPRESSION: 1. Soft tissue density just anterior to the left renal vein has decreased since the prior study and m ay reflect posttreatment change rather than recurrence. Correlation with CA-19-9 levels and ongoing f ollow-up are recommended. 2. No definitive recurrent or metastatic disease. 3. 3 mm left proximal ureteral calculus with mild left pelvocaliectasis. 4. Oral contrast refluxes into the biliary tree via the hepaticojejunostomy. 5. Correlate for mild constipation. Electronically signed by: Jese Meier MD (08/22/2020 9:43 AM) [id number]
== END ==
LOC: CT 08:44
PROVIDERS: ATTEND Internal Medicine Hematology & Oncology
DX: C25.0 Malignant neoplasm of head of pancreas (principal); N20.1 Calculus of ureter
CPT/HCPCS: 71260; 74177; Q9966; Q9967

== ENCOUNTER → 2020-08-24 | Outpatient (CLI) | payer BC ==
[2020-06-02 09:00] VITALS: BP 110/64
[~2020-08-24] MED LIST changes: -IOHEXOL 240 MG/ML 50ML VIAL. PO ONE; -IOHEXOL 300 MG/ML 100ML VIAL. IV ONE
[2020-08-24 12:42] LABS: BASO % 1 % (0-3); EOS # 0.1 x10^3/uL (0.0-0.7); EOS % 2 % (0-3); HEMATOCRIT 30.5 % (39.0-53.0); HEMOGLOBIN 10.5 g/dL (13.0-17.5); LYMPH # 1.7 x10^3/uL (1.0-4.8); LYMPH % 30 % (24-48); MEAN CORPUSCULAR HEMOGLOBIN 32 pg (25-35); MEAN CORPUSCULAR HGB CONC 34 g/dL (31-37); MEAN CORPUSCULAR VOLUME 93 fL (79-100); MONO # 0.5 x10^3/uL (0.0-1.1); MONO % 8 % (0-9); NEUT # 3.4 x10^3/uL (1.8-7.7); NEUT % 59 % (31-73); PLATELET COUNT 200 x10^3/uL (140-400); RED BLOOD COUNT 3.28 x10^6/uL (4.30-5.70); RED CELL DISTRIBUTION WIDTH 15.7 % (11.5-14.5); WHITE BLOOD COUNT 5.7 x10^3/uL (4.0-11.0)
[2020-08-24 12:56] LABS: CALCIUM 8.6 mg/dL (8.5-10.1); CREATININE 0.6 mg/dL (0.7-1.3); GFR 141.5; POTASSIUM 3.3 mmol/L (3.5-5.1)
[2020-08-24 13:02] LABS: ALBUMIN 2.7 g/dL (3.4-5.0); ALBUMIN/GLOBULIN RATIO 0.7 (1.0-1.7); TOTAL BILIRUBIN 0.5 mg/dL (0.2-1.0); TOTAL PROTEIN 6.4 g/dL (6.4-8.2)
== END ==
LOC: ONCLAB 11:38
PROVIDERS: ATTEND Internal Medicine Hematology & Oncology
DX: C25.0 Malignant neoplasm of head of pancreas (principal)
CPT/HCPCS: 36415; 80053; 85025; 86301

== ENCOUNTER → 2020-08-29 | Outpatient (CLI) | payer BC ==
[2020-06-02 09:00] VITALS: BP 110/64
[~2020-08-29] MED LIST changes: -LIDO30CR TP; +LIDO30CR2 TP
[2020-08-29 08:19] LABS: BASO % 0 % (0-3); EOS # 0.1 x10^3/uL (0.0-0.7); EOS % 1 % (0-3); HEMATOCRIT 31.8 % (39.0-53.0); HEMOGLOBIN 10.7 g/dL (13.0-17.5); LYMPH # 1.9 x10^3/uL (1.0-4.8); LYMPH % 28 % (24-48); MEAN CORPUSCULAR HEMOGLOBIN 32 pg (25-35); MEAN CORPUSCULAR HGB CONC 34 g/dL (31-37); MEAN CORPUSCULAR VOLUME 94 fL (79-100); MONO # 0.7 x10^3/uL (0.0-1.1); MONO % 10 % (0-9); NEUT # 4.1 x10^3/uL (1.8-7.7); NEUT % 60 % (31-73); PLATELET COUNT 199 x10^3/uL (140-400); RED CELL DISTRIBUTION WIDTH 16.1 % (11.5-14.5); WHITE BLOOD COUNT 6.8 x10^3/uL (4.0-11.0)
[2020-08-29 08:35] LABS: CALCIUM 8.7 mg/dL (8.5-10.1); CREATININE 0.6 mg/dL (0.7-1.3); GFR 141.5; POTASSIUM 3.4 mmol/L (3.5-5.1)
[2020-08-29 08:41] LABS: ALBUMIN 2.7 g/dL (3.4-5.0); ALBUMIN/GLOBULIN RATIO 0.7 (1.0-1.7); TOTAL BILIRUBIN 0.7 mg/dL (0.2-1.0); TOTAL PROTEIN 6.4 g/dL (6.4-8.2)
== END ==
LOC: ONCLAB 08:09
PROVIDERS: ATTEND Internal Medicine Hematology & Oncology
DX: C25.0 Malignant neoplasm of head of pancreas (principal)
CPT/HCPCS: 36415; 80053; 85025; 86301

== ENCOUNTER → 2020-09-05 | Outpatient (CLI) | payer BC ==
[2020-06-02 09:00] VITALS: BP 110/64
[~2020-09-05] MED LIST changes: +LIDO30CR TP; -LIDO30CR2 TP
[2020-09-05 08:44] LABS: BASO % 0 % (0-3); EOS # 0.1 x10^3/uL (0.0-0.7); EOS % 1 % (0-3); HEMATOCRIT 31.2 % (39.0-53.0); HEMOGLOBIN 10.7 g/dL (13.0-17.5); LYMPH # 1.9 x10^3/uL (1.0-4.8); LYMPH % 20 % (24-48); MEAN CORPUSCULAR HEMOGLOBIN 32 pg (25-35); MEAN CORPUSCULAR HGB CONC 34 g/dL (31-37); MEAN CORPUSCULAR VOLUME 92 fL (79-100); MONO # 0.6 x10^3/uL (0.0-1.1); MONO % 6 % (0-9); NEUT # 6.7 x10^3/uL (1.8-7.7); NEUT % 72 % (31-73); PLATELET COUNT 145 x10^3/uL (140-400); RED BLOOD COUNT 3.38 x10^6/uL (4.30-5.70); RED CELL DISTRIBUTION WIDTH 15.8 % (11.5-14.5); WHITE BLOOD COUNT 9.3 x10^3/uL (4.0-11.0)
[2020-09-05 08:50] LABS: CALCIUM 9.3 mg/dL (8.5-10.1); CREATININE 0.6 mg/dL (0.7-1.3); GFR 141.5; POTASSIUM 3.5 mmol/L (3.5-5.1)
[2020-09-05 08:56] LABS: ALBUMIN 3.1 g/dL (3.4-5.0); ALBUMIN/GLOBULIN RATIO 0.8 (1.0-1.7); TOTAL BILIRUBIN 0.7 mg/dL (0.2-1.0); TOTAL PROTEIN 6.8 g/dL (6.4-8.2)
== END ==
LOC: ONCLAB 08:20
PROVIDERS: ATTEND Physician Assistant
DX: C25.0 Malignant neoplasm of head of pancreas (principal)
CPT/HCPCS: 80053; 84402; 84403; 85025

== ENCOUNTER → 2020-09-12 | Outpatient (CLI) | payer BC ==
[2020-06-02 09:00] VITALS: BP 110/64
[2020-09-12 08:29] LABS: BASO % 1 % (0-3); EOS # 0.1 x10^3/uL (0.0-0.7); EOS % 2 % (0-3); HEMATOCRIT 29.7 % (39.0-53.0); HEMOGLOBIN 10.3 g/dL (13.0-17.5); LYMPH # 1.6 x10^3/uL (1.0-4.8); LYMPH % 43 % (24-48); MEAN CORPUSCULAR HEMOGLOBIN 32 pg (25-35); MEAN CORPUSCULAR HGB CONC 35 g/dL (31-37); MEAN CORPUSCULAR VOLUME 91 fL (79-100); MONO # 0.5 x10^3/uL (0.0-1.1); MONO % 13 % (0-9); NEUT # 1.6 x10^3/uL (1.8-7.7); NEUT % 41 % (31-73); PLATELET COUNT 187 x10^3/uL (140-400); RED BLOOD COUNT 3.26 x10^6/uL (4.30-5.70); RED CELL DISTRIBUTION WIDTH 15.6 % (11.5-14.5); WHITE BLOOD COUNT 3.8 x10^3/uL (4.0-11.0)
[2020-09-12 08:38] LABS: CALCIUM 8.7 mg/dL (8.5-10.1); CREATININE 0.6 mg/dL (0.7-1.3); GFR 141.5; POTASSIUM 3.4 mmol/L (3.5-5.1)
[2020-09-12 08:43] LABS: ALBUMIN 2.7 g/dL (3.4-5.0); ALBUMIN/GLOBULIN RATIO 0.8 (1.0-1.7); TOTAL BILIRUBIN 0.4 mg/dL (0.2-1.0); TOTAL PROTEIN 6.1 g/dL (6.4-8.2)
== END ==
LOC: ONCLAB 08:07
PROVIDERS: ATTEND Physician Assistant
DX: C25.0 Malignant neoplasm of head of pancreas (principal)
CPT/HCPCS: 36415; 80053; 85025

== ENCOUNTER → 2020-09-26 | Outpatient (CLI) | payer BC ==
[2020-06-02 09:00] VITALS: BP 110/64
[~2020-09-26] MED LIST changes: -LIDO30CR TP; +LIDO30CR2 TP
[2020-09-26 08:49] LABS: BASO % 0 % (0-3); EOS # 0.1 x10^3/uL (0.0-0.7); EOS % 1 % (0-3); HEMATOCRIT 29.9 % (39.0-53.0); HEMOGLOBIN 10.3 g/dL (13.0-17.5); LYMPH # 1.8 x10^3/uL (1.0-4.8); LYMPH % 33 % (24-48); MEAN CORPUSCULAR HEMOGLOBIN 32 pg (25-35); MEAN CORPUSCULAR HGB CONC 34 g/dL (31-37); MEAN CORPUSCULAR VOLUME 92 fL (79-100); MONO # 0.7 x10^3/uL (0.0-1.1); MONO % 13 % (0-9); NEUT # 2.9 x10^3/uL (1.8-7.7); NEUT % 52 % (31-73); PLATELET COUNT 157 x10^3/uL (140-400); RED BLOOD COUNT 3.25 x10^6/uL (4.30-5.70); RED CELL DISTRIBUTION WIDTH 16.5 % (11.5-14.5); WHITE BLOOD COUNT 5.5 x10^3/uL (4.0-11.0)
[2020-09-26 08:54] LABS: CALCIUM 8.2 mg/dL (8.5-10.1); CREATININE 0.6 mg/dL (0.7-1.3); GFR 141.5; POTASSIUM 3.3 mmol/L (3.5-5.1)
[2020-09-26 09:01] LABS: ALBUMIN 2.7 g/dL (3.4-5.0); ALBUMIN/GLOBULIN RATIO 0.9 (1.0-1.7); TOTAL BILIRUBIN 0.3 mg/dL (0.2-1.0); TOTAL PROTEIN 5.7 g/dL (6.4-8.2)
== END ==
LOC: ONCLAB 08:27
PROVIDERS: ATTEND Internal Medicine Hematology & Oncology
DX: C25.0 Malignant neoplasm of head of pancreas (principal)
CPT/HCPCS: 36415; 80053; 83735; 85025; 86301

== ENCOUNTER → 2020-10-10 | Outpatient (CLI) | payer BC ==
[2020-06-02 09:00] VITALS: BP 110/64
[~2020-10-10] MED LIST changes: +LIDO30CR TP; -LIDO30CR2 TP
[2020-10-10 08:24] LABS: BASO % 0 % (0-3); EOS # 0.1 x10^3/uL (0.0-0.7); EOS % 1 % (0-3); HEMATOCRIT 28.1 % (39.0-53.0); HEMOGLOBIN 9.8 g/dL (13.0-17.5); LYMPH # 1.8 x10^3/uL (1.0-4.8); LYMPH % 29 % (24-48); MEAN CORPUSCULAR HEMOGLOBIN 32 pg (25-35); MEAN CORPUSCULAR HGB CONC 35 g/dL (31-37); MEAN CORPUSCULAR VOLUME 93 fL (79-100); MONO # 0.9 x10^3/uL (0.0-1.1); MONO % 14 % (0-9); NEUT # 3.5 x10^3/uL (1.8-7.7); NEUT % 56 % (31-73); PLATELET COUNT 183 x10^3/uL (140-400); RED BLOOD COUNT 3.01 x10^6/uL (4.30-5.70); RED CELL DISTRIBUTION WIDTH 18.1 % (11.5-14.5); WHITE BLOOD COUNT 6.3 x10^3/uL (4.0-11.0)
[2020-10-10 08:49] LABS: CALCIUM 8.4 mg/dL (8.5-10.1); CREATININE 0.6 mg/dL (0.7-1.3); GFR 141.5
[2020-10-10 08:53] LABS: ALBUMIN 2.6 g/dL (3.4-5.0); ALBUMIN/GLOBULIN RATIO 0.8 (1.0-1.7); TOTAL BILIRUBIN 0.3 mg/dL (0.2-1.0); TOTAL PROTEIN 5.9 g/dL (6.4-8.2)
== END ==
LOC: ONCLAB 07:56
PROVIDERS: ATTEND Internal Medicine Hematology & Oncology
DX: C25.0 Malignant neoplasm of head of pancreas (principal)
CPT/HCPCS: 36415; 80053; 85025; 86301

== ENCOUNTER → 2020-10-24 | Outpatient (CLI) | payer BC ==
[2020-06-02 09:00] VITALS: BP 110/64
[2020-10-24 08:37] LABS: BASO % 1 % (0-3); EOS # 0.1 x10^3/uL (0.0-0.7); EOS % 1 % (0-3); HEMATOCRIT 26.7 % (39.0-53.0); HEMOGLOBIN 9.2 g/dL (13.0-17.5); LYMPH # 1.6 x10^3/uL (1.0-4.8); LYMPH % 32 % (24-48); MEAN CORPUSCULAR HEMOGLOBIN 33 pg (25-35); MEAN CORPUSCULAR HGB CONC 34 g/dL (31-37); MEAN CORPUSCULAR VOLUME 95 fL (79-100); MONO # 0.7 x10^3/uL (0.0-1.1); MONO % 14 % (0-9); NEUT # 2.7 x10^3/uL (1.8-7.7); NEUT % 53 % (31-73); PLATELET COUNT 161 x10^3/uL (140-400); RED BLOOD COUNT 2.82 x10^6/uL (4.30-5.70); RED CELL DISTRIBUTION WIDTH 18.2 % (11.5-14.5)
[2020-10-24 08:40] LABS: CALCIUM 8.1 mg/dL (8.5-10.1); CREATININE 0.6 mg/dL (0.7-1.3); GFR 140.9; POTASSIUM 3.4 mmol/L (3.5-5.1)
[2020-10-24 08:46] LABS: ALBUMIN 2.5 g/dL (3.4-5.0); ALBUMIN/GLOBULIN RATIO 0.8 (1.0-1.7); TOTAL BILIRUBIN 0.4 mg/dL (0.2-1.0); TOTAL PROTEIN 5.6 g/dL (6.4-8.2)
== END ==
LOC: ONCLAB 08:16
PROVIDERS: ATTEND Internal Medicine Hematology & Oncology
DX: C25.0 Malignant neoplasm of head of pancreas (principal)
CPT/HCPCS: 36415; 80053; 82607; 82728; 82746; 83540; 83550; 83735; 83921; 85025

== ENCOUNTER → 2020-11-07 | Outpatient (CLI) | payer BC ==
[2020-06-02 09:00] VITALS: BP 110/64
[2020-11-07 08:35] LABS: BASO % 0 % (0-3); EOS % 1 % (0-3); HEMATOCRIT 26.3 % (39.0-53.0); LYMPH # 1.6 x10^3/uL (1.0-4.8); LYMPH % 25 % (24-48); MEAN CORPUSCULAR HEMOGLOBIN 33 pg (25-35); MEAN CORPUSCULAR HGB CONC 34 g/dL (31-37); MEAN CORPUSCULAR VOLUME 96 fL (79-100); MONO # 0.9 x10^3/uL (0.0-1.1); MONO % 14 % (0-9); NEUT # 3.8 x10^3/uL (1.8-7.7); NEUT % 60 % (31-73); PLATELET COUNT 173 x10^3/uL (140-400); RED BLOOD COUNT 2.74 x10^6/uL (4.30-5.70); RED CELL DISTRIBUTION WIDTH 19.3 % (11.5-14.5); WHITE BLOOD COUNT 6.4 x10^3/uL (4.0-11.0)
[2020-11-07 08:51] LABS: CALCIUM 7.9 mg/dL (8.5-10.1); CREATININE 0.5 mg/dL (0.7-1.3); GFR 173.9; POTASSIUM 3.2 mmol/L (3.5-5.1)
[2020-11-07 08:58] LABS: ALBUMIN 2.3 g/dL (3.4-5.0); ALBUMIN/GLOBULIN RATIO 0.7 (1.0-1.7); TOTAL BILIRUBIN 0.3 mg/dL (0.2-1.0); TOTAL PROTEIN 5.6 g/dL (6.4-8.2)
== END ==
LOC: ONCLAB 08:21
PROVIDERS: ATTEND Internal Medicine Hematology & Oncology
DX: C25.0 Malignant neoplasm of head of pancreas (principal)
CPT/HCPCS: 36415; 80053; 85025; 86301

== ENCOUNTER → 2021-02-22 | Outpatient (CLI) | payer BC ==
[2020-06-02 09:00] VITALS: BP 110/64
[~2021-02-22] MED LIST changes: -LIDO30CR TP; +LIDO30CR2 TP
[2021-02-22 08:59] LABS: BASO % 0 % (0-3); EOS # 0.1 x10^3/uL (0.0-0.7); EOS % 1 % (0-3); HEMATOCRIT 35.5 % (39.0-53.0); HEMOGLOBIN 12.3 g/dL (13.0-17.5); LYMPH # 1.3 x10^3/uL (1.0-4.8); LYMPH % 21 % (24-48); MEAN CORPUSCULAR HEMOGLOBIN 35 pg (25-35); MEAN CORPUSCULAR HGB CONC 35 g/dL (31-37); MEAN CORPUSCULAR VOLUME 102 fL (79-100); MONO # 0.7 x10^3/uL (0.0-1.1); MONO % 12 % (0-9); NEUT # 4.2 x10^3/uL (1.8-7.7); NEUT % 66 % (31-73); PLATELET COUNT 201 x10^3/uL (140-400); RED BLOOD COUNT 3.49 x10^6/uL (4.30-5.70); RED CELL DISTRIBUTION WIDTH 13.6 % (11.5-14.5); WHITE BLOOD COUNT 6.3 x10^3/uL (4.0-11.0)
[2021-02-22 09:23] LABS: CALCIUM 8.4 mg/dL (8.5-10.1); CREATININE 0.8 mg/dL (0.7-1.3); GFR 101.1; POTASSIUM 3.7 mmol/L (3.5-5.1)
[2021-02-22 09:29] LABS: ALBUMIN 2.8 g/dL (3.4-5.0); ALBUMIN/GLOBULIN RATIO 0.8 (1.0-1.7); MAGNESIUM 2.1 mg/dL (1.8-2.4); TOTAL BILIRUBIN 0.6 mg/dL (0.2-1.0); TOTAL PROTEIN 6.1 g/dL (6.4-8.2)
== END ==
LOC: ONCLAB 08:35
PROVIDERS: ATTEND Internal Medicine Hematology & Oncology
DX: C25.0 Malignant neoplasm of head of pancreas (principal)
CPT/HCPCS: 80053; 83735; 85025; 86301

== ENCOUNTER 2021-04-17 12:00 | Inpatient (IN) | payer BC ==
[~2021-04-17] VITALS: Ht 172.7 cm; Wt 75.7 kg
[2021-04-17 12:00] VITALS: BP 105/64
[~2021-04-17 12:00] MED LIST changes: +DOCU-148 PO; -DOCU-153 PO; +POTA-121 PO; -POTA20TA4 PO
[2021-04-17] MEDS ORDERED: oxyCODONE/APAP 5/325 1 TAB TABLET PO PRN (13:00)
[2021-04-17] MEDS ORDERED: ELECTROLYTE (NON-ICU) PROTOCOL. MC PRN (13:00)
[2021-04-17] MEDS ORDERED: ONDANSETRON PF 4 MG/2 ML VIAL. IVP PRN (13:00)
[2021-04-17] MEDS ORDERED: oxyCODONE IR 5 MG TABLET PO PRN (13:00)
[2021-04-17] MEDS ORDERED: PROCHLORPERAZINE 10 MG/2 ML VIAL. IVP PRN (13:00)
[2021-04-17] MEDS ORDERED: MORPHINE SULFATE 2 MG/ML INJ. IV PRN ×2 (13:00)
[2021-04-17] MEDS ORDERED: ACETAMINOPHEN 325 MG TABLET. PO PRN (13:00)
[2021-04-17] MEDS ORDERED: CALCIUM CARBONATE 500 MG TAB.CHEW PO PRN (13:00)
[2021-04-17] MEDS ORDERED: ZOLPIDEM 5 MG TABLET. PO PRN (13:00)
[2021-04-17] MEDS ORDERED: PIP/TAZO PER PHARMACY MC PRN (13:30)
--- NOTE | 2021-04-17 13:30 | PDOC2 ---
CONSULT Date of Consult Date of Consult DATE: 04/17/21 TIME: 13:27 Reason for Consult Reason for Consult: s/p lanie Referring Physician Referring Physician: ER Identification/Chief Complaint Chief Complaint abdominal pain Source Source: Chart review, Patient History of Present Illness Reason for Visit: Patient known from previous admissions. S/p lanie presented to ER at [facility] lower abdominal pain and nausea. Pain not improving, intermittent similar symptoms past few weeks Past Medical History Cardiovascular: No pertinent hx Pulmonary: No pertinent hx GI: No pertinent hx Heme/Onc: No pertinent hx Hepatobiliary: No pertinent hx Musculoskeletal: low back pain Past Surgical History Past Surgical History: Other, No pertinent history Family History Family History: Other Social History ALCOHOL: other Drugs: None Current Medications Current Medications Current Medications Ondansetron HCl (Zofran) 4 mg PRN Q6HRS PRN IVP NAUSEA/VOMITING; Start 04/17/21 at 13:00 Prochlorperazine Edisylate (Compazine) 10 mg PRN Q6HRS PRN IVP NAUSEA/VOMITING- 2ND CHOICE; Start 04/17/21 at 13:00 Calcium Carbonate/ Glycine (Tums) 500 mg PRN Q3HRS PRN PO UPSET STOMACH; Start 04/17/21 at 13:00 Zolpidem Tartrate (Ambien) 5 mg PRN QHS PRN PO INSOMNIA, MAY REPEAT IN 1HR; Start 04/17/21 at 13:00 Info (Non-Icu Electrolyte Protocol) 1 ea PRN DAILY PRN MC SEE COMMENTS; Start 04/17/21 at 13:00 Oxycodone HCl (Roxicodone) 5 mg PRN Q3HRS PRN PO BREAKTHROUGH PAIN; Start 04/17/21 at 13:00 Morphine Sulfate (Morphine Sulfate) 1 mg PRN Q1HR PRN IV MODERATE PAIN; Start 04/17/21 at 13:00 Morphine Sulfate (Morphine Sulfate) 2 mg PRN Q1HR PRN IV SEVERE PAIN; Start 04/17/21 at 13:00 Oxycodone/ Acetaminophen (Percocet 5/325) 1 tab PRN Q4HRS PRN PO MILD PAIN, 1ST CHOICE; Start 04/17/21 at 13:00 Oxycodone/ Acetaminophen (Percocet 5/325) 2 tab PRN Q4HRS PRN PO MODERATE PAIN, SEVERE PAIN; Start 04/17/21 at 13:00 Acetaminophen (Tylenol) 650 mg PRN Q6HRS PRN PO Headaches, Temp > 101.5F; Start 04/17/21 at 13:00 Senna/Docusate Sodium (Senna Plus) 1 tab BID PO ; Start 04/17/21 at 21:00 Heparin Sodium (Porcine) (Heparin Sodium) 5,000 unit Q8HRS SQ ; Start 04/17/21 a t 14:00 Pantoprazole Sodium (Protonix) 40 mg DAILYAC PO ; Start 04/18/21 at 07:30 Piperacillin Sod/ Tazobactam Sod (Zosyn Per Pharmacy) 1 each PRN DAILY PRN MC SEE COMMENTS; Start 04/17/21 at 13:30; Status UNV Active Scripts Active Admelog (Insulin Lispro) 100 Unit/1 Ml Vial 0 Units SQ Q6HRS 14 Days Dok (Docusate Sodium) 100 Mg Capsule 100 Mg PO DAILY Oxycodone Hcl Immed.release (Oxycodone Hcl) 5 Mg Tablet 5 Mg PO PRN Q4HRS PRN Reported Pantoprazole Sodium (Pantoprazole Sodium) 40 Mg Tablet.dr 40 Mg PO DAILYAC Allergies Allergies: Coded Allergies: No Known Drug Allergies (Unverified , 05/31/20) ROS General: YES: Chills, Fatigue PSYCHOLOGICAL ROS: No: Anxiety, Depression Eyes: No Blurry vision, No Double vision HEENT: No: Heacaches, Sore Throat Hematological and Lymphatic: No: Bleeding Problems, Blood Clots Respiratory: No: Cough, Shortness of breath Cardiovascular: No Chest Pain, No Palpitations Gastrointestinal: Yes Other (see hpi) Genitourinary: No Dysuria, No Retention Musculoskeletal: No Joint Pain, No Muscle Pain Neurological: No Impaired Coord/balance, No Numbness/Tingling Skin: No Pruritus, No Rash Physical Exam General: Alert, Cooperative, Other (chronic ill appearing ) HEENT: Atraumatic, Mucous membr. moist/pink Lungs: Clear to auscultation, Normal air movement Heart: Regular rate, Normal S1, Normal S2 Abdomen: Soft, Other (thin) Extremities: No clubbing, No cyanosis Skin: No rashes, No breakdown Neuro: Normal gait, Normal speech Psych/Mental Status: Mental status NL, Mood NL MUSCULOSKELETAL: No deformity, No swelling Vitals VITALS Vital Signs Date Time Temp Pulse Resp B/P (MAP) Pulse Ox O2 Delivery O2 Flow Rate FiO2 04/17/21 13:06 Room Air 04/17/21 12:00 99.5 92 18 105/64 (78) 99 99.5 Assessment/Plan Assessment/Plan Ct with liver mets, hepatocolic fistula will ask oncology to eval consider hospice BABATUNDE GUEVARA BI SOLUTIONS ARCHITECT Apr 17, 2021 13:30
--- NOTE | 2021-04-17 13:39 | PDOC1 ---
History and Physical Date of Service: DOS: DATE: 04/17/21 TIME: 13:25 Chief Complaint: Problems: (1) Abdominal pain (2) Pancreatic cancer Chief Complain: Abdominal pain History of Present Illness: HPI: Patient is a 55-year-old male transferred from [place] emergency room after presenting there for lower abdominal pain. Patient has pancreatic adenocarcinoma and underwent a Whipple surgery in May 2020. Said he completed 3 rounds of chemotherapy after that and has not been on any since. Follows with Dr. Moise here. Patient reports that since about 1 month ago he was treated for intra-abdominal infection and completed his antibiotics last Saturday and said this completely resolved his condition. However yesterday woke up around 2 AM with vague lower abdominal pain. He took at home Zofran and [place] without any improvement. Unable to go back to sleep presented to the emergency room this morning. 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 Due to the finding patient was transferred here for surgical evaluation, oncology consult. When evaluated patient was reporting abdominal pain. He was denying any sort of headache, dizziness, vision changes, fevers, chest pain, shortness of breath, dysuria. Past Medical/Surgical History: PMH/PSH: Pancreatic adenocarcinoma Allergies: Allergies: Coded Allergies: No Known Drug Allergies (Unverified , 05/31/20) Family History: Family History: Unknown Social History: Social History: Denies alcohol tobacco drug Current Medications: Current Medications Current Medications Ondansetron HCl (Zofran) 4 mg PRN Q6HRS PRN IVP NAUSEA/VOMITING; Start 04/17/21 at 13:00 Prochlorperazine Edisylate (Compazine) 10 mg PRN Q6HRS PRN IVP NAUSEA/VOMITING- 2ND CHOICE; Start 04/17/21 at 13:00 Calcium Carbonate/ Glycine (Tums) 500 mg PRN Q3HRS PRN PO UPSET STOMACH; Start 04/17/21 at 13:00 Zolpidem Tartrate (Ambien) 5 mg PRN QHS PRN PO INSOMNIA, MAY REPEAT IN 1HR; Start 04/17/21 at 13:00 Info (Non-Icu Electrolyte Protocol) 1 ea PRN DAILY PRN MC SEE COMMENTS; Start 04/17/21 at 13:00 Oxycodone HCl (Roxicodone) 5 mg PRN Q3HRS PRN PO BREAKTHROUGH PAIN; Start 04/17/21 at 13:00 Morphine Sulfate (Morphine Sulfate) 1 mg PRN Q1HR PRN IV MODERATE PAIN; Start 04/17/21 at 13:00 Morphine Sulfate (Morphine Sulfate) 2 mg PRN Q1HR PRN IV SEVERE PAIN; Start 04/17/21 at 13:00 Oxycodone/ Acetaminophen (Percocet 5/325) 1 tab PRN Q4HRS PRN PO MILD PAIN, 1ST CHOICE; Start 04/17/21 at 13:00 Oxycodone/ Acetaminophen (Percocet 5/325) 2 tab PRN Q4HRS PRN PO MODERATE PAIN, SEVERE PAIN; Start 04/17/21 at 13:00 Acetaminophen (Tylenol) 650 mg PRN Q6HRS PRN PO Headaches, Temp > 101.5F; Start 04/17/21 at 13:00 Senna/Docusate Sodium (Senna Plus) 1 tab BID PO ; Start 04/17/21 at 21:00 Heparin Sodium (Porcine) (Heparin Sodium) 5,000 unit Q8HRS SQ ; Start 04/17/21 at 14:00 Pantoprazole Sodium (Protonix) 40 mg DAILYAC PO ; Start 04/18/21 at 07:30 Active Scripts Active Admelog (Insulin Lispro) 100 Unit/1 Ml Vial 0 Units SQ Q6HRS 14 Days Dok (Docusate Sodium) 100 Mg Capsule 100 Mg PO DAILY Oxycodone Hcl Immed.release (Oxycodone Hcl) 5 Mg Tablet 5 Mg PO PRN Q4HRS PRN Reported Pantoprazole Sodium (Pantoprazole Sodium) 40 Mg Tablet.dr 40 Mg PO DAILYAC ROS: Review of Systems Negative unless noted in HPI Physical Exam: Vital Signs: Vital Signs Date Time Temp Pulse Resp B/P (MAP) Pulse Ox O2 Delivery O2 Flow Rate FiO2 04/17/21 13:06 Room Air 04/17/21 12:00 99.5 92 18 105/64 (78) 99 99.5 Physcial Exam: GEN: No apparent distress. Alert and oriented HEENT: Normal cephalic, atraumatic, external auditory canals are patent EYES: Extraocular muscles are intact, pupil are equally round and reactive to light and accommodation MUSCULOSKELETAL: Well developed , well nourished, good range of motion ENDOCRINE: No thyromegaly was palpated LYMPHATICS: No cervical chain or axillary nodes were noted HEMATOPOIETIC: No bruising NECK: Supple, no JVD, no thyromegaly was noted LUNGS: Clear to auscultation in all lung sharif without rhonchi or wheezing HEART: RRR, S1, S2 present. Peripheral pulses intact, no obvious murmurs noted ABDOMEN: Scars from previous surgical intervention apparent. Tender to palpation in lower quadrants, normal bowel sounds. EXTREMITIES: Without clubbing, cyanosis, or edema. Pedal pulses intact. Negative Homans sign NEUROLOGIC: Normal speech and tone. A&O x 3, moves all extremities, no obvious focal deficits PSYCHIATRIC: Normal affect, normal mood. Stable SKIN: No ulcerations or rashes, good skin turgor, no jaundice VASCULAR: Good capillary refill, neurovascular bundle appears to be intact Labs: Labs: CBC and CMP from outside facility overall unremarkable Assessment/Plan Assessment/Plan Abdominal pain secondary to pancreatic adenocarcinoma, hepatocolic fistula -1 day history abdominal pain. Similar to previous episode. Intra-abdominal infection -CT scan performed at outside facility showing hepatocolic fistula along with hepatic mets -Patient still reporting abdominal pain on presentation here -We will provide pain control, IV pain control -General surgery consulted -Oncology consulted -We will keep n.p.o. for now until surgical intervention in place -Suspecting patient may need a hospice conversation but will wait for subspecialist input -DVT prophylaxis -Home meds resumed as indicated -Starting Zosyn for intra-abdominal coverage Justifications for Admission Other Justification PINA MARCOS MD Apr 17, 2021 13:39
[2021-04-17] MEDS ORDERED: MAGN250T10 PO (13:44)
[2021-04-17] MEDS ORDERED: HYDR-2759 PO (13:44)
[2021-04-17] MEDS ORDERED: LIPA1CAP6 PO ×2 (13:44→14:09)
[2021-04-17] MEDS ORDERED: PROC10TA57 PO (13:44)
[2021-04-17] MEDS ORDERED: MV-M1TAB7 PO (13:44)
[2021-04-17] MEDS ORDERED: DRON5SOL PO (13:44)
[2021-04-17] MEDS ORDERED: INSU100V13 SQ (14:09)
[2021-04-17] MEDS ORDERED: INSU100I17 SQ (14:09)
--- NOTE | 2021-04-17 14:13 | NUR ---
Consult called to Dr. Lancaster. Message left with Marlene
[2021-04-17 14:48] VITALS: BP 95/53
[2021-04-17] MEDS ORDERED: HYDROmorphone 2 MG/ML VIAL IVP PRN (16:00)
[2021-04-17] MEDS: IV NORMAL SALINE 1000ML BAG 1,000 ML IV SCH (17:34)
[2021-04-17] MEDS: PIPERACILLIN/TAZOBACTAM 3.375 GM in IV NORMAL SALINE 50ML 50 ML IV SCH (17:34)
[2021-04-17] MEDS: HEPARIN for SUB-Q USE 5,000 UNIT/ML VIAL. SQ SCH ×2 (17:44→22:34)
[2021-04-17 19:00] VITALS: BP 92/51
[2021-04-17] MEDS ORDERED: DEXTROSE 50% 25 GM / 50ML DISP.SYRIN. IV PRN (19:00)
[2021-04-17] MEDS: SENNOSIDES/DOCUSATE 8.6/50MG TABLET. PO SCH (20:11)
[2021-04-17] MEDS: oxyCODONE/APAP 5/325 1 TAB TABLET PO PRN (20:32)
[2021-04-17 23:00] VITALS: BP 82/49
[2021-04-18] MEDS: PIPERACILLIN/TAZOBACTAM 3.375 GM in IV NORMAL SALINE 50ML 50 ML IV SCH ×4 (00:24→17:25)
[2021-04-18] MEDS: oxyCODONE/APAP 5/325 1 TAB TABLET PO PRN ×3 (02:17→20:27)
[2021-04-18 02:47] VITALS: BP 82/50
[2021-04-18] MEDS: IV NORMAL SALINE 1000ML BAG 1,000 ML IV SCH ×2 (03:48→12:11)
[2021-04-18] MEDS: HEPARIN for SUB-Q USE 5,000 UNIT/ML VIAL. SQ SCH ×3 (06:27→20:29)
[2021-04-18 07:12] VITALS: BP 89/50
[2021-04-18] MEDS: PANTOPRAZOLE 40 MG TABLET.DR. PO SCH (08:43)
[2021-04-18] MEDS: SENNOSIDES/DOCUSATE 8.6/50MG TABLET. PO SCH ×2 (08:43→20:26)
--- NOTE | 2021-04-18 10:32 | NUR ---
SW following. Discussed with RN, pt from home with significant other, room air, NPO. Surgery and Oncology following. SW will continue to follow.
[2021-04-18 10:48] VITALS: BP 89/55
--- NOTE | 2021-04-18 12:40 | PDOC ---
BABATUNDE GUEVARA PNEUMATIC HOIST OPERATOR 04/18/21 1240: SURGICAL PROGRESS NOTE DATE: 04/18/21 TIME: 12:39 Subjective taking some Popsicle pain there, improvement with meds Vital Signs Vital Signs Date Time Temp Pulse Resp B/P (MAP) Pulse Ox O2 Delivery O2 Flow Rate FiO2 04/18/21 10:48 98.2 77 18 89/55 (66) 97 Room Air 98.2 I&O Intake and Output 04/18/21 07:00 Intake Total 1430 ml Balance 1430 ml Intake Oral 380 ml IV Total 1050 ml # Voids 1 General: Alert, Oriented X3, Cooperative Abdomen: Soft Assessment/Plan liver bx planned for tomorrow Dr Lezama to FU Justicifation of Admission Dx: Justifications for Admission: Justification of Admission Dx: Yes SANG LEZAMA MD 04/18/21 1605: SURGICAL PROGRESS NOTE Assessment/Plan Pt seen and examined. Agree with Ms. Guevara's note Pt feels a little better, jasmin clears abd soft, mild TTP RUQ agree with liver biopsy and abx. BABATUNDE GUEVARA APRN Apr 18, 2021 12:40 SANG LEZAMA MD Apr 18, 2021 16:05
--- NOTE | 2021-04-18 12:51 | PDOC2 ---
CONSULT Date of Consult Date of Consult DATE: 04/18/21 TIME: 12:44 Reason for Consult Reason for Consult: History of pancreatic cancer. Suspected recurrence Referring Physician Referring Physician: Dr. Lezama Identification/Chief Complaint Chief Complaint Abdominal pain Source Source: Chart review, Patient History of Present Illness Reason for Visit: Roger Hernandez is a 55-year-old male with history of pancreatic adenocarc inoma. He was initially diagnosed with pancreatic adenocarcinoma in December 2019. He received preoperative/neoadjuvant chemotherapy with FOLFIRINOX with downstaging of disease relapse surgical resection. In May 2020, Dr. Lezama performed Whipple resection. He recovered appropriately from surgery and went on to complete adjuvant chemotherapy. He received a total of 12 cycles of FOLFIRINOX. Surveillance CT scans as recently as January 2021 showed no evidence of disease recurrence. He reports developing abdominal discomfort earlier this month and went to the emergency room at [facility]. CT showed enteritis. He was dismissed home with a prescription for antibiotics. He reports feeling well up until yesterday morning when he noticed sharp abdominal pain in the right upper quadrant. He went to the emergency room at [facility] once again. 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 Medical oncology consultation has been requested for further recommendations regarding management. Surgical oncology consultation has also been sought. Past Medical History Cardiovascular: No pertinent hx Pulmonary: No pertinent hx GI: No pertinent hx Heme/Onc: No pertinent hx Hepatobiliary: No pertinent hx Musculoskeletal: low back pain Past Surgical History Past Surgical History: Other, No pertinent history Family History Family History: Other Social History ALCOHOL: other Drugs: None Current Medications Current Medications Current Medications Ondansetron HCl (Zofran) 4 mg PRN Q6HRS PRN IVP NAUSEA/VOMITING; Start 04/17/21 at 13:00 Prochlorperazine Edisylate (Compazine) 10 mg PRN Q6HRS PRN IVP NAUSEA/VOMITING- 2ND CHOICE; Start 04/17/21 at 13:00 Calcium Carbonate/ Glycine (Tums) 500 mg PRN Q3HRS PRN PO UPSET STOMACH; Start 04/17/21 at 13:00 Zolpidem Tartrate (Ambien) 5 mg PRN QHS PRN PO INSOMNIA, MAY REPEAT IN 1HR; Start 04/17/21 at 13:00 Info (Non-Icu Electrolyte Protocol) 1 ea PRN DAILY PRN MC SEE COMMENTS; Start 04/17/21 at 13:00 Oxycodone HCl (Roxicodone) 5 mg PRN Q3HRS PRN PO BREAKTHROUGH PAIN; Start 04/17/21 at 13:00 Morphine Sulfate (Morphine Sulfate) 1 mg PRN Q1HR PRN IV MODERATE PAIN; Start 04/17/21 at 13:00 Morphine Sulfate (Morphine Sulfate) 2 mg PRN Q1HR PRN IV SEVERE PAIN Last admi nistered on 04/17/21at 13:36; Start 04/17/21 at 13:00 Oxycodone/ Acetaminophen (Percocet 5/325) 1 tab PRN Q4HRS PRN PO MILD PAIN, 1ST CHOICE; Start 04/17/21 at 13:00 Oxycodone/ Acetaminophen (Percocet 5/325) 2 tab PRN Q4HRS PRN PO MODERATE PAIN, SEVERE PAIN Last administered on 04/18/21at 08:43; Start 04/17/21 at 13:00 Acetaminophen (Tylenol) 650 mg PRN Q6HRS PRN PO Headaches, Temp > 101.5F; Start 04/17/21 at 13:00 Senna/Docusate Sodium (Senna Plus) 1 tab BID PO Last administered on 04/18/21at 08:43; Start 04/17/21 at 21:00 Heparin Sodium (Porcine) (Heparin Sodium) 5,000 unit Q8HRS SQ Last administered on 04/18/21at 06:27; Start 04/17/21 at 14:00 Pantoprazole Sodium (Protonix) 40 mg DAILYAC PO Last administered on 04/18/21at 08:43; Start 04/18/21 at 07:30 Piperacillin Sod/ Tazobactam Sod (Zosyn Per Pharmacy) 1 each PRN DAILY PRN MC SEE COMMENTS; Start 04/17/21 at 13:30 Piperacillin Sod/ Tazobactam Sod 3.375 gm/Sodium Chloride 50 ml @ 100 mls/hr Q6HRS IV Last administered on 04/18/21at 12:07; Start 04/17/21 at 18:00 Hydromorphone HCl (Dilaudid) 0.4 mg PRN Q2HR PRN IVP PAIN - 2ND CHOICE Last administered on 04/17/21at 17:35; Start 04/17/21 at 16:00 Sodium Chloride 1,000 ml @ 100 mls/hr Q10H IV Last administered on 04/18/21at 12:11; Start 04/17/21 at 17:30 Dextrose (Dextrose 50%-Water Syringe) 12.5 gm PRN Q15MIN PRN IV SEE COMMENTS; Start 04/17/21 at 19:00 Active Scripts Active Reported Levemir (Insulin Detemir) 100 Unit/1 Ml Vial 12 Unit SQ HS Novolog Flexpen (Insulin Aspart) 100 Unit/1 Ml Insuln.pen 7-10 Unit SQ TIDWMEALS Gibranon 24,000 Units Capsule (Lipase/Protease/Amylase) 1 Each Capsule.dr 2 Each PO TIDWMEALS Syndros (Dronabinol) 5 Mg/1 Ml Solution 5 Mg PO BID Magnesium (Magnesium Oxide) 250 Mg Tablet 1 Tab PO DAILY 30 Days Compazine (Prochlorperazine Maleate) 10 Mg Tablet 1 Tab PO PRN Q6HRS PRN 30 Days Hydrocodone-Acetamin 5-325 mg (Hydrocodone/Acetaminophen) 1 Each Tablet 1 Each PO PRN Q6HRS PRN Pantoprazole Sodium (Pantoprazole Sodium) 40 Mg Tablet. 40 Mg PO DAILYAC Allergies Allergies: Coded Allergies: No Known Drug Allergies (Unverified , 05/31/20) ROS Review of System Negative unless stated otherwise in HPI Physical Exam Physical Exam General: Awake, alert, no distress Head: Atraumatic, no conjunctival icterus, normal oral cavity mucosa Neck: Supple, no lymphadenopathy Chest: No trauma noted Cardiovascular: Regular rhythm, normal rate, no murmurs Respiratory: Bilateral air entry noted, lungs clear to auscultation bilaterally. No accessory muscle use Abdominal: Abdomen is soft, nontender, nondistended. Bowel sounds were normal. No hepatomegaly or splenomegaly Musculoskeletal: No deformity noted Extremities: No edema noted Skin: No rash or lesions Neurologic: Alert and oriented x3, no grossly evident neurologic deficits noted. Full neurological exam was not performed Psychiatric: Appropriate mood and affect Vitals VITALS Vital Signs Date Time Temp Pulse Resp B/P (MAP) Pulse Ox O2 Delivery O2 Flow Rate FiO2 04/18/21 10:48 98.2 77 18 89/55 (66) 97 Room Air 98.2 Assessment/Plan Assessment/Plan Assessment: Pancreatic adenocarcinoma, status post Whipple in 05/2020. 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 I recommended biopsy to confirm cancer recurrence. He was agreeable to this. IR consult was placed -Recommend CT chest evaluate for pulmonary metastasis -Check CA 19-9 -Follow-up surgery recommendations -We will discuss palliative systemic therapy and different treatment options if CT guided biopsy does confirm disease recurrence. He is interested in systemic therapy for prolonging life and minimizing disease related symptoms -Rest per primary service -We will see daily while inpatient. Will arrange outpatient follow-up to review results of biopsy Vasu Rey MD Medical Oncology/Hematology Ph: [phone] RAGHU REY MD Apr 18, 2021 12:51
[2021-04-18 13:50] LABS: BASO % 0 % (0-3); EOS # 0.1 x10^3/uL (0.0-0.7); EOS % 1 % (0-3); HEMATOCRIT 28.9 % (39.0-53.0); HEMOGLOBIN 9.9 g/dL (13.0-17.5); LYMPH # 0.6 x10^3/uL (1.0-4.8); LYMPH % 9 % (24-48); MEAN CORPUSCULAR HEMOGLOBIN 34 pg (25-35); MEAN CORPUSCULAR HGB CONC 34 g/dL (31-37); MEAN CORPUSCULAR VOLUME 99 fL (79-100); MONO # 0.5 x10^3/uL (0.0-1.1); MONO % 7 % (0-9); NEUT # 5.9 x10^3/uL (1.8-7.7); NEUT % 83 % (31-73); PLATELET COUNT 103 x10^3/uL (140-400); RED BLOOD COUNT 2.91 x10^6/uL (4.30-5.70); RED CELL DISTRIBUTION WIDTH 13.7 % (11.5-14.5); WHITE BLOOD COUNT 7.1 x10^3/uL (4.0-11.0)
[2021-04-18 13:57] LABS: PROTHROMBIN TIME PATIENT 16.9 SEC (11.7-14.0)
--- NOTE | 2021-04-18 13:57 | PDOC ---
[employer] PROGRESS NOTE Date of Service DOS: DATE: 04/18/21 TIME: 13:52 Chief Complaint Chief Complaint Acute abdominal pain due to multiple liver metastases and hepatic colofistula History of pancreatic adenocarcinoma status post Whipple May 2020 neoadjuvant and post-surgical chemotherapy with FOLIRINIFOX Pending CT of the chest to surveillance for pulmonary metastasis pending CA 19-9 Pending IR for liver biopsy No surgical intervention at this time Clear liquid diet and advance as tolerated per surgery History of Present Illness History of Present Illness 55-year-old male transferred from [place] emergency room after presenting there for lower abdominal pain. Patient has pancreatic adenocarcinoma and underwent a Whipple surgery in May 2020. Said he completed 3 rounds of chemotherapy after that and has not been on any since. Follows with Dr. Moise here. Patient reports that since about 1 month ago he was treated for intra-abdominal infection and completed his antibiotics last Saturday and said this completely resolved his condition. However yesterday woke up around 2 AM with vague lower abdominal pain. He took at home Zofran and Bernard without any improvement. Unable to go back to sleep presented to the emergency room this morning. 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 Due to the finding patient was transferred here for surgical evaluation, oncology consult. When evaluated patient was reporting abdominal pain. He was denying any sort of headache, dizziness, vision changes, fevers, chest pain, shortness of breath, dysuria. 04/18/2021 No acute events overnight. Patient's pain is well controlled and has not evolved. Continues to have lower abdominal pain. Denies any passing flatus or bowel movements. Pending heme-onc evaluation. Patient's chart, labs, images were reviewed and discussed with RN Vitals/I&O Vitals/I&O: Vital Signs Date Time Temp Pulse Resp B/P (MAP) Pulse Ox O2 Delivery O2 Flow Rate FiO2 04/18/21 10:48 98.2 77 18 89/55 (66) 97 Room Air 98.2 I & O 04/17/21 04/17/21 04/18/21 15:00 23:00 07:00 Intake Total 280 ml 0 ml 1150 ml Balance 280 ml 0 ml 1150 ml Physical Exam General: Alert, Oriented X3, Cooperative Heart: Regular rate, Normal S1, Normal S2 Abdomen: Soft Extremities: No clubbing, No cyanosis Skin: No rashes, No breakdown Comment Review of Relevant I have reviewed the following items derrick (where applicable) has been applied. Medications: Current Medications Medications (Trade) Dose Ordered Sig/Renuka Route PRN Reason Start Time Stop Time Status Last Admin Dose Admin Senna/Docusate Sodium (Senna Plus) 1 tab BID PO 04/17/21 21:00 04/18/21 08:43 Heparin Sodium (Porcine) (Heparin Sodium) 5,000 unit Q8HRS SQ 04/17/21 14:00 04/18/21 06:27 Pantoprazole Sodium (Protonix) 40 mg DAILYAC PO 04/18/21 07:30 04/18/21 08:43 Piperacillin Sod/ Tazobactam Sod 3.375 gm/Sodium Chloride 50 ml @ 100 mls/hr Q6HRS IV 04/17/21 18:00 04/18/21 12:07 Hydromorphone HCl (Dilaudid) 0.4 mg PRN Q2HR PRN IVP PAIN - 2ND CHOICE 04/17/21 16:00 04/17/21 17:35 Sodium Chloride 1,000 ml @ 100 mls/hr Q10H IV 04/17/21 17:30 04/18/21 12:11 Justifications for Admission Other Justification NOAH HERNANDEZ MD Apr 18, 2021 13:57
[2021-04-18 14:03] LABS: ALBUMIN 2.2 g/dL (3.4-5.0); ALBUMIN/GLOBULIN RATIO 0.8 (1.0-1.7); CALCIUM 7.8 mg/dL (8.5-10.1); CREATININE 0.7 mg/dL (0.7-1.3); POTASSIUM 3.8 mmol/L (3.5-5.1); TOTAL BILIRUBIN 0.7 mg/dL (0.2-1.0)
--- NOTE | 2021-04-18 14:04 | NUR ---
Heparin held for procedure.
[2021-04-18 15:00] VITALS: BP 96/55
--- NOTE | 2021-04-18 15:20 | RAD ---
EXAMINATION: CT Chest Without IV contrast. INDICATION:55 years, Male, pancreatic cancer with suspected recurrence. COMPARISON: 08/22/2020. TECHNIQUE: Spiral CT was obtained from the jugular notch through the posterior costophrenic recess. S agittal and coronal reformats were obtained. Exposure: One or more of the following individualized dose reduction techniques were utilized for thi s examination: 1. Automated exposure control 2. Adjustment of the mA and/or kV according to patient size 3. Use of iterative reconstruction technique. FINDINGS: LUNGS/PLEURA: Central airways are patent. Similar scattered bilateral calcified granulomas. Bibasilar subsegmental atelectasis. No focal consolidation or pneumothorax. Trace bilateral pleural effusions. Unchanged sub-5 mm scattered pulmonary nodules. For example 2 mm nodule in the left lower lobe (serie s 3 image 13). MEDIASTINUM: No pathologic mediastinal or hilar adenopathy. Multiple calcified the spinal and left hi lar lymph nodes. The thoracic aorta and pulmonary arteries are normal in caliber. The heart is normal in size. No pericardial effusion. Moderate calcified coronary atherosclerosis. The visualized thyroi d and the esophagus are unremarkable. Right Mediport catheter terminates in the. AXILLA/SOFT TISSUE: No supraclavicular or axillary adenopathy. Regional soft tissues are within jennifer l limits. UPPER ABDOMEN: Within the limitation of noncontrast, Similar intrahepatic biliary ductal dilation wit h pneumobilia. Incompletely imaged 5.5 x 3.7 cm gas locule locates the along the inferior aspect of t he anterior right hepatic lobe/gallbladder fossa (362). BONES: No evidence of acute fractures or aggressive osseous lesions. Multilevel degenerative changes in the spine. IMPRESSION: 1. Evaluation for pancreatic tumor recurrence is limited due to lack of IV contrast and limited imag ing of the upper abdomen. 2. Incompletely imaged 5.5 x 3.7 cm gas locule locates along the inferior aspect of the anterior rig ht hepatic lobe/gallbladder fossa. Findings may relate to partial volume averaging from adjacent colo vimal hepatic flexure. Recommend CT abdomen and pelvis with contrast to further evaluate. 3. Trace bilateral pleural effusions. 4. Unchanged sub-5 mm pulmonary nodules, nonspecific. Continued attention follow-up examination. Electronically signed by: Garrick Gunn MD (04/18/2021 3:18 PM) [facility]
--- NOTE | 2021-04-18 15:24 | PDOC ---
Provider Note Date of Service: DATE: 04/18/21 TIME: 15:12 Provider Note IR NOTE Large gas containing mass like lesion situated between the hepatic flexure and the liver. This appears to erode through the colonic wall and communicate with the lumen (coronal image 28). The adjacent colon is markedly thickened and inflamed. There is also a loop of small bowel extending into this process that also appears to have erosion of the wall (coronal image 25). There scattered smaller liver hypodensities consistent with metastasis. Largest is 1.4 cm (axial image 28). Spoke with oncology. Biopsy of one of the small mets would be of possible benefit if patient is candidate for further non chemotherapy treatment options. However given the state of the bowel and large liver lesion, it is unclear what his short term management and prognosis will be. Justifications for Admission Other Justification MARIN VILLASEÑOR MD Apr 18, 2021 15:24
[2021-04-18 19:00] VITALS: BP 103/62
[2021-04-18 23:00] VITALS: BP 99/63
[2021-04-19] MEDS: oxyCODONE/APAP 5/325 1 TAB TABLET PO PRN ×4 (00:17→23:21)
[2021-04-19] MEDS: IV NORMAL SALINE 1000ML BAG 1,000 ML IV SCH ×3 (00:17→23:14)
[2021-04-19] MEDS: PIPERACILLIN/TAZOBACTAM 3.375 GM in IV NORMAL SALINE 50ML 50 ML IV SCH ×4 (00:22→19:15)
[2021-04-19 03:00] VITALS: BP 85/49
[2021-04-19] MEDS: HEPARIN for SUB-Q USE 5,000 UNIT/ML VIAL. SQ SCH ×3 (05:53→21:49)
[2021-04-19 07:15] VITALS: BP 94/58
[2021-04-19 08:44] LABS: BASO % 1 % (0-3); EOS # 0.1 x10^3/uL (0.0-0.7); EOS % 1 % (0-3); HEMATOCRIT 29.3 % (39.0-53.0); HEMOGLOBIN 9.9 g/dL (13.0-17.5); LYMPH # 0.8 x10^3/uL (1.0-4.8); LYMPH % 12 % (24-48); MEAN CORPUSCULAR HEMOGLOBIN 34 pg (25-35); MEAN CORPUSCULAR HGB CONC 34 g/dL (31-37); MEAN CORPUSCULAR VOLUME 100 fL (79-100); MONO # 0.6 x10^3/uL (0.0-1.1); MONO % 9 % (0-9); NEUT # 5.2 x10^3/uL (1.8-7.7); NEUT % 78 % (31-73); PLATELET COUNT 114 x10^3/uL (140-400); RED BLOOD COUNT 2.94 x10^6/uL (4.30-5.70); RED CELL DISTRIBUTION WIDTH 13.7 % (11.5-14.5); WHITE BLOOD COUNT 6.7 x10^3/uL (4.0-11.0)
[2021-04-19 08:58] LABS: CREATININE 0.6 mg/dL (0.7-1.3); GFR 140.9; MAGNESIUM 1.8 mg/dL (1.8-2.4); POTASSIUM 3.8 mmol/L (3.5-5.1)
[2021-04-19] MEDS: SENNOSIDES/DOCUSATE 8.6/50MG TABLET. PO SCH ×2 (09:00→21:29)
[2021-04-19] MEDS: PANTOPRAZOLE 40 MG TABLET.DR. PO SCH (10:34)
[2021-04-19 10:54] VITALS: BP 100/60
--- NOTE | 2021-04-19 12:38 | PDOC ---
[employer] PROGRESS NOTE Date of Service DOS: DATE: 04/19/21 TIME: 12:36 Chief Complaint Chief Complaint Acute abdominal pain due to multiple liver metastases and hepatic colofistula History of pancreatic adenocarcinoma status post Whipple May 2020 neoadjuvant and post-surgical chemotherapy with FOLIRINIFOX Pending CT of the chest to surveillance for pulmonary metastasis pending CA 19-9 Pending IR for liver biopsy No surgical intervention at this time Clear liquid diet and advance as tolerated per surgery History of Present Illness History of Present Illness 55-year-old male transferred from [place] emergency room after presenting there for lower abdominal pain. Patient has pancreatic adenocarcinoma and underwent a Whipple surgery in May 2020. Said he completed 3 rounds of chemotherapy after that and has not been on any since. Follows with Dr. Moise here. Patient reports that since about 1 month ago he was treated for intra-abdominal infection and completed his antibiotics last Saturday and said this completely resolved his condition. However yesterday woke up around 2 AM with vague lower abdominal pain. He took at home Zofran and Ophelia without any improvement. Unable to go back to sleep presented to the emergency room this morning. 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 Due to the finding patient was transferred here for surgical evaluation, oncology consult. When evaluated patient was reporting abdominal pain. He was denying any sort of headache, dizziness, vision changes, fevers, chest pain, shortness of breath, dysuria. 04/18/2021 No acute events overnight. Patient's pain is well controlled and has not evolved. Continues to have lower abdominal pain. Denies any passing flatus or bowel movements. Pending heme-onc evaluation. Patient's chart, labs, images were reviewed and discussed with RN 04/19/2021 No acute events overnight. Patient seen and examined bedside. Patient still has some abdominal pain. Imaging was completed but biopsy was not because there was obstructing views from the small intestine and large bowel. It appears that possibly the masses in the liver may be eroding into the intestines. Biopsy was deferred till more discussion will happen with the oncologist and interventional radiologist. And also for discussion with oncologist and the patient. Patient's chart, labs, images were reviewed and discussed with RN Vitals/I&O Vitals/I&O: Vital Signs Date Time Temp Pulse Resp B/P (MAP) Pulse Ox O2 Delivery O2 Flow Rate FiO2 04/19/21 10:54 98.2 65 20 100/60 (73) 98 Room Air 98.2 I & O 04/18/21 04/18/21 04/19/21 15:00 23:00 07:00 Intake Total 180 ml 1050 ml Balance 180 ml 1050 ml Physical Exam General: Alert, Oriented X3, Cooperative Heart: Regular rate, Normal S1, Normal S2 Abdomen: Soft Extremities: No clubbing, No cyanosis Skin: No rashes, No breakdown Labs Labs: Laboratory Tests Test 04/18/21 13:30 04/19/21 08:30 White Blood Count 7.1 x10^3/uL (4.0-11.0) 6.7 x10^3/uL (4.0-11.0) Red Blood Count 2.91 x10^6/uL (4.30-5.70) 2.94 x10^6/uL (4.30-5.70) Hemoglobin 9.9 g/dL (13.0-17.5) 9.9 g/dL (13.0-17.5) Hematocrit 28.9 % (39.0-53.0) 29.3 % (39.0-53.0) Mean Corpuscular Volume 99 fL (79-100) 100 fL (79-100) Mean Corpuscular Hemoglobin 34 pg (25-35) 34 pg (25-35) Mean Corpuscular Hemoglobin Concent 34 g/dL (31-37) 34 g/dL (31-37) Red Cell Distribution Width 13.7 % (11.5-14.5) 13.7 % (11.5-14.5) Platelet Count 103 x10^3/uL (140-400) 114 x10^3/uL (140-400) Neutrophils (%) (Auto) 83 % (31-73) 78 % (31-73) Lymphocytes (%) (Auto) 9 % (24-48) 12 % (24-48) Monocytes (%) (Auto) 7 % (0-9) 9 % (0-9) Eosinophils (%) (Auto) 1 % (0-3) 1 % (0-3) Basophils (%) (Auto) 0 % (0-3) 1 % (0-3) Neutrophils # (Auto) 5.9 x10^3/uL (1.8-7.7) 5.2 x10^3/uL (1.8-7.7) Lymphocytes # (Auto) 0.6 x10^3/uL (1.0-4.8) 0.8 x10^3/uL (1.0-4.8) Monocytes # (Auto) 0.5 x10^3/uL (0.0-1.1) 0.6 x10^3/uL (0.0-1.1) Eosinophils # (Auto) 0.1 x10^3/uL (0.0-0.7) 0.1 x10^3/uL (0.0-0.7) Basophils # (Auto) 0.0 x10^3/uL (0.0-0.2) 0.0 x10^3/uL (0.0-0.2) Prothrombin Time 16.9 SEC (11.7-14.0) Prothromb Time International Ratio 1.4 (0.8-1.1) Activated Partial Thromboplast Time 38 SEC (24-38) Sodium Level 138 mmol/L (136-145) 138 mmol/L (136-145) Potassium Level 3.8 mmol/L (3.5-5.1) 3.8 mmol/L (3.5-5.1) Chloride Level 104 mmol/L (98-107) 105 mmol/L (98-107) Carbon Dioxide Level 29 mmol/L (21-32) 27 mmol/L (21-32) Anion Gap 5 (6-14) 6 (6-14) Blood Urea Nitrogen 13 mg/dL (8-26) 13 mg/dL (8-26) Creatinine 0.7 mg/dL (0.7-1.3) 0.6 mg/dL (0.7-1.3) Estimated GFR (Cockcroft-Gault) 118.0 140.9 BUN/Creatinine Ratio 19 (6-20) Glucose Level 147 mg/dL (70-99) 78 mg/dL (70-99) Calcium Level 7.8 mg/dL (8.5-10.1) 8.0 mg/dL (8.5-10.1) Total Bilirubin 0.7 mg/dL (0.2-1.0) Aspartate Amino Transf (AST/SGOT) 45 U/L (15-37) Alanine Aminotransferase (ALT/SGPT) 37 U/L (16-63) Alkaline Phosphatase 96 U/L (46-116) Total Protein 5.0 g/dL (6.4-8.2) Albumin 2.2 g/dL (3.4-5.0) Albumin/Globulin Ratio 0.8 (1.0-1.7) Lactic Acid Level 0.7 mmol/L (0.4-2.0) Magnesium Level 1.8 mg/dL (1.8-2.4) Comment Review of Relevant I have reviewed the following items derrick (where applicable) has been applied. Justifications for Admission Other Justification NOAH HERNANDEZ MD Apr 19, 2021 12:38
--- NOTE | 2021-04-19 14:27 | PDOC ---
SURGICAL PROGRESS NOTE DATE: 04/19/21 TIME: 14:23 Subjective Pt feels a little better, jasmin clears, hungry Vital Signs Vital Signs Date Time Temp Pulse Resp B/P (MAP) Pulse Ox O2 Delivery O2 Flow Rate FiO2 04/19/21 10:54 98.2 65 20 100/60 (73) 98 Room Air 98.2 I&O Intake and Output 04/19/21 07:00 Intake Total 1230 ml Balance 1230 ml Intake Oral 180 ml IV Total 1050 ml # Voids 1 General: Alert, Oriented X3, Cooperative, No acute distress Abdomen: Soft, Other (min TTP RUQ) Labs Laboratory Tests Test 04/18/21 13:30 04/19/21 08:30 White Blood Count 7.1 x10^3/uL (4.0-11.0) 6.7 x10^3/uL (4.0-11.0) Red Blood Count 2.91 x10^6/uL (4.30-5.70) 2.94 x10^6/uL (4.30-5.70) Hemoglobin 9.9 g/dL (13.0-17.5) 9.9 g/dL (13.0-17.5) Hematocrit 28.9 % (39.0-53.0) 29.3 % (39.0-53.0) Mean Corpuscular Volume 99 fL (79-100) 100 fL (79-100) Mean Corpuscular Hemoglobin 34 pg (25-35) 34 pg (25-35) Mean Corpuscular Hemoglobin Concent 34 g/dL (31-37) 34 g/dL (31-37) Red Cell Distribution Width 13.7 % (11.5-14.5) 13.7 % (11.5-14.5) Platelet Count 103 x10^3/uL (140-400) 114 x10^3/uL (140-400) Neutrophils (%) (Auto) 83 % (31-73) 78 % (31-73) Lymphocytes (%) (Auto) 9 % (24-48) 12 % (24-48) Monocytes (%) (Auto) 7 % (0-9) 9 % (0-9) Eosinophils (%) (Auto) 1 % (0-3) 1 % (0-3) Basophils (%) (Auto) 0 % (0-3) 1 % (0-3) Neutrophils # (Auto) 5.9 x10^3/uL (1.8-7.7) 5.2 x10^3/uL (1.8-7.7) Lymphocytes # (Auto) 0.6 x10^3/uL (1.0-4.8) 0.8 x10^3/uL (1.0-4.8) Monocytes # (Auto) 0.5 x10^3/uL (0.0-1.1) 0.6 x10^3/uL (0.0-1.1) Eosinophils # (Auto) 0.1 x10^3/uL (0.0-0.7) 0.1 x10^3/uL (0.0-0.7) Basophils # (Auto) 0.0 x10^3/uL (0.0-0.2) 0.0 x10^3/uL (0.0-0.2) Prothrombin Time 16.9 SEC (11.7-14.0) Prothromb Time International Ratio 1.4 (0.8-1.1) Activated Partial Thromboplast Time 38 SEC (24-38) Sodium Level 138 mmol/L (136-145) 138 mmol/L (136-145) Potassium Level 3.8 mmol/L (3.5-5.1) 3.8 mmol/L (3.5-5.1) Chloride Level 104 mmol/L (98-107) 105 mmol/L (98-107) Carbon Dioxide Level 29 mmol/L (21-32) 27 mmol/L (21-32) Anion Gap 5 (6-14) 6 (6-14) Blood Urea Nitrogen 13 mg/dL (8-26) 13 mg/dL (8-26) Creatinine 0.7 mg/dL (0.7-1.3) 0.6 mg/dL (0.7-1.3) Estimated GFR (Cockcroft-Gault) 118.0 140.9 BUN/Creatinine Ratio 19 (6-20) Glucose Level 147 mg/dL (70-99) 78 mg/dL (70-99) Calcium Level 7.8 mg/dL (8.5-10.1) 8.0 mg/dL (8.5-10.1) Total Bilirubin 0.7 mg/dL (0.2-1.0) Aspartate Amino Transf (AST/SGOT) 45 U/L (15-37) Alanine Aminotransferase (ALT/SGPT) 37 U/L (16-63) Alkaline Phosphatase 96 U/L (46-116) Total Protein 5.0 g/dL (6.4-8.2) Albumin 2.2 g/dL (3.4-5.0) Albumin/Globulin Ratio 0.8 (1.0-1.7) Lactic Acid Level 0.7 mmol/L (0.4-2.0) Magnesium Level 1.8 mg/dL (1.8-2.4) Laboratory Tests Test 04/19/21 08:30 White Blood Count 6.7 x10^3/uL (4.0-11.0) Red Blood Count 2.94 x10^6/uL (4.30-5.70) Hemoglobin 9.9 g/dL (13.0-17.5) Hematocrit 29.3 % (39.0-53.0) Mean Corpuscular Volume 100 fL (79-100) Mean Corpuscular Hemoglobin 34 pg (25-35) Mean Corpuscular Hemoglobin Concent 34 g/dL (31-37) Red Cell Distribution Width 13.7 % (11.5-14.5) Platelet Count 114 x10^3/uL (140-400) Neutrophils (%) (Auto) 78 % (31-73) Lymphocytes (%) (Auto) 12 % (24-48) Monocytes (%) (Auto) 9 % (0-9) Eosinophils (%) (Auto) 1 % (0-3) Basophils (%) (Auto) 1 % (0-3) Neutrophils # (Auto) 5.2 x10^3/uL (1.8-7.7) Lymphocytes # (Auto) 0.8 x10^3/uL (1.0-4.8) Monocytes # (Auto) 0.6 x10^3/uL (0.0-1.1) Eosinophils # (Auto) 0.1 x10^3/uL (0.0-0.7) Basophils # (Auto) 0.0 x10^3/uL (0.0-0.2) Sodium Level 138 mmol/L (136-145) Potassium Level 3.8 mmol/L (3.5-5.1) Chloride Level 105 mmol/L (98-107) Carbon Dioxide Level 27 mmol/L (21-32) Anion Gap 6 (6-14) Blood Urea Nitrogen 13 mg/dL (8-26) Creatinine 0.6 mg/dL (0.7-1.3) Estimated GFR (Cockcroft-Gault) 140.9 Glucose Level 78 mg/dL (70-99) Lactic Acid Level 0.7 mmol/L (0.4-2.0) Calcium Level 8.0 mg/dL (8.5-10.1) Magnesium Level 1.8 mg/dL (1.8-2.4) Problem List metastatic pancreatic cancer, colohepatic fistula d/w IR, d/w oncology suspect this is terminal event if requests, would d/w IR regarding obtaining a biopsy for confirmation, but unlikely to change treatment would favor abx and palliative care surgical intervention would be highly morbid would defer to oncology, but in reviewing CT, would be concerned of worsening fistula with chemo. pt will consider this and d/w his . Justicifation of Admission Dx: Justifications for Admission: Justification of Admission Dx: Yes SANG AVENDANO MD Apr 19, 2021 14:27
[2021-04-19 15:00] VITALS: BP 117/70
--- NOTE | 2021-04-19 16:01 | PDOC ---
PROGRESS NOTES Date of Service DATE: 04/19/21 TIME: 15:56 Subjective Subjective No interval history. No new symptoms today. Reports continued right upper quadrant abdominal discomfort. Objective Objective Vital Signs Date Time Temp Pulse Resp B/P (MAP) Pulse Ox O2 Delivery O2 Flow Rate FiO2 04/19/21 15:00 98.6 77 18 117/70 (86) 97 Room Air 98.6 Intake and Output 04/19/21 07:00 Intake Total 1230 ml Balance 1230 ml Intake Oral 180 ml IV Total 1050 ml # Voids 1 Physical Exam Physical Exam General: Awake, alert, no distress Head: Atraumatic, no conjunctival icterus, normal oral cavity mucosa Neck: Supple, no lymphadenopathy Chest: No trauma noted Cardiovascular: Regular rhythm, normal rate, no murmurs Respiratory: Bilateral air entry noted, lungs clear to auscultation bilaterally. No accessory muscle use Abdominal: Abdomen is soft, nontender, nondistended. Bowel sounds were normal. No hepatomegaly or splenomegaly Musculoskeletal: No deformity noted Extremities: No edema noted Skin: No rash or lesions Neurologic: Alert and oriented x3, no grossly evident neurologic deficits noted. 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 Doty. Significant concern for perforation with IR guided biopsy, reasonable to forego at this time -Discussed with Dr. Lezama. Surgical intervention is not recommended at this time. -I shared my suspicion for recurrent disease with the patient. We discussed the high likelihood for recurrent disease based on CT findings -We discussed the potential risks and benefits of palliative systemic therapy. I discussed the risk for perforation due to systemic therapy given the large liver metastasis that has caused erosion of the colon. We discussed that this in combination with immune suppression from chemotherapy could result in catastrophic illness and sooner than may be caused by his uncurable zayda gnancy -Reviewing the risks and benefits of systemic therapy, patient elected to continue on supportive care. -Continue with IV antibiotics. I recommend indefinite prophylactic antibiotic therapy -Recommend hospice consult for outpatient supportive care -Recommend advancing diet to full oral diet -Discussed changing CODE STATUS to DNR. He was agreeable to this. -Can be discharged tomorrow if hospice is arranged Vasu Peña MD Medical Oncology/Hematology Ph: [phone] Comment Review of Relevant I have reviewed the following items derrick (where applicable) has been applied. Labs Laboratory Tests Test 04/18/21 13:30 04/19/21 08:30 White Blood Count 7.1 x10^3/uL (4.0-11.0) 6.7 x10^3/uL (4.0-11.0) Red Blood Count 2.91 x10^6/uL (4.30-5.70) 2.94 x10^6/uL (4.30-5.70) Hemoglobin 9.9 g/dL (13.0-17.5) 9.9 g/dL (13.0-17.5) Hematocrit 28.9 % (39.0-53.0) 29.3 % (39.0-53.0) Mean Corpuscular Volume 99 fL (79-100) 100 fL (79-100) Mean Corpuscular Hemoglobin 34 pg (25-35) 34 pg (25-35) Mean Corpuscular Hemoglobin Concent 34 g/dL (31-37) 34 g/dL (31-37) Red Cell Distribution Width 13.7 % (11.5-14.5) 13.7 % (11.5-14.5) Platelet Count 103 x10^3/uL (140-400) 114 x10^3/uL (140-400) Neutrophils (%) (Auto) 83 % (31-73) 78 % (31-73) Lymphocytes (%) (Auto) 9 % (24-48) 12 % (24-48) Monocytes (%) (Auto) 7 % (0-9) 9 % (0-9) Eosinophils (%) (Auto) 1 % (0-3) 1 % (0-3) Basophils (%) (Auto) 0 % (0-3) 1 % (0-3) Neutrophils # (Auto) 5.9 x10^3/uL (1.8-7.7) 5.2 x10^3/uL (1.8-7.7) Lymphocytes # (Auto) 0.6 x10^3/uL (1.0-4.8) 0.8 x10^3/uL (1.0-4.8) Monocytes # (Auto) 0.5 x10^3/uL (0.0-1.1) 0.6 x10^3/uL (0.0-1.1) Eosinophils # (Auto) 0.1 x10^3/uL (0.0-0.7) 0.1 x10^3/uL (0.0-0.7) Basophils # (Auto) 0.0 x10^3/uL (0.0-0.2) 0.0 x10^3/uL (0.0-0.2) Prothrombin Time 16.9 SEC (11.7-14.0) Prothromb Time International Ratio 1.4 (0.8-1.1) Activated Partial Thromboplast Time 38 SEC (24-38) Sodium Level 138 mmol/L (136-145) 138 mmol/L (136-145) Potassium Level 3.8 mmol/L (3.5-5.1) 3.8 mmol/L (3.5-5.1) Chloride Level 104 mmol/L (98-107) 105 mmol/L (98-107) Carbon Dioxide Level 29 mmol/L (21-32) 27 mmol/L (21-32) Anion Gap 5 (6-14) 6 (6-14) Blood Urea Nitrogen 13 mg/dL (8-26) 13 mg/dL (8-26) Creatinine 0.7 mg/dL (0.7-1.3) 0.6 mg/dL (0.7-1.3) Estimated GFR (Cockcroft-Gault) 118.0 140.9 BUN/Creatinine Ratio 19 (6-20) Glucose Level 147 mg/dL (70-99) 78 mg/dL (70-99) Calcium Level 7.8 mg/dL (8.5-10.1) 8.0 mg/dL (8.5-10.1) Total Bilirubin 0.7 mg/dL (0.2-1.0) Aspartate Amino Transf (AST/SGOT) 45 U/L (15-37) Alanine Aminotransferase (ALT/SGPT) 37 U/L (16-63) Alkaline Phosphatase 96 U/L (46-116) Total Protein 5.0 g/dL (6.4-8.2) Albumin 2.2 g/dL (3.4-5.0) Albumin/Globulin Ratio 0.8 (1.0-1.7) Lactic Acid Level 0.7 mmol/L (0.4-2.0) Magnesium Level 1.8 mg/dL (1.8-2.4) Laboratory Tests Test 04/19/21 08:30 White Blood Count 6.7 x10^3/uL (4.0-11.0) Red Blood Count 2.94 x10^6/uL (4.30-5.70) Hemoglobin 9.9 g/dL (13.0-17.5) Hematocrit 29.3 % (39.0-53.0) Mean Corpuscular Volume 100 fL (79-100) Mean Corpuscular Hemoglobin 34 pg (25-35) Mean Corpuscular Hemoglobin Concent 34 g/dL (31-37) Red Cell Distribution Width 13.7 % (11.5-14.5) Platelet Count 114 x10^3/uL (140-400) Neutrophils (%) (Auto) 78 % (31-73) Lymphocytes (%) (Auto) 12 % (24-48) Monocytes (%) (Auto) 9 % (0-9) Eosinophils (%) (Auto) 1 % (0-3) Basophils (%) (Auto) 1 % (0-3) Neutrophils # (Auto) 5.2 x10^3/uL (1.8-7.7) Lymphocytes # (Auto) 0.8 x10^3/uL (1.0-4.8) Monocytes # (Auto) 0.6 x10^3/uL (0.0-1.1) Eosinophils # (Auto) 0.1 x10^3/uL (0.0-0.7) Basophils # (Auto) 0.0 x10^3/uL (0.0-0.2) Sodium Level 138 mmol/L (136-145) Potassium Level 3.8 mmol/L (3.5-5.1) Chloride Level 105 mmol/L (98-107) Carbon Dioxide Level 27 mmol/L (21-32) Anion Gap 6 (6-14) Blood Urea Nitrogen 13 mg/dL (8-26) Creatinine 0.6 mg/dL (0.7-1.3) Estimated GFR (Cockcroft-Gault) 140.9 Glucose Level 78 mg/dL (70-99) Lactic Acid Level 0.7 mmol/L (0.4-2.0) Calcium Level 8.0 mg/dL (8.5-10.1) Magnesium Level 1.8 mg/dL (1.8-2.4) Medications Current Medications Ondansetron HCl (Zofran) 4 mg PRN Q6HRS PRN IVP NAUSEA/VOMITING; Start 04/17/21 at 13:00 Prochlorperazine Edisylate (Compazine) 10 mg PRN Q6HRS PRN IVP NAUSEA/VOMITING- 2ND CHOICE; Start 04/17/21 at 13:00 Calcium Carbonate/ Glycine (Tums) 500 mg PRN Q3HRS PRN PO UPSET STOMACH; Start 04/17/21 at 13:00 Zolpidem Tartrate (Ambien) 5 mg PRN QHS PRN PO INSOMNIA, MAY REPEAT IN 1HR; Start 04/17/21 at 13:00 Info (Non-Icu Electrolyte Protocol) 1 ea PRN DAILY PRN MC SEE COMMENTS; Start 04/17/21 at 13:00 Oxycodone HCl (Roxicodone) 5 mg PRN Q3HRS PRN PO BREAKTHROUGH PAIN; Start 04/17/21 at 13:00 Morphine Sulfate (Morphine Sulfate) 1 mg PRN Q1HR PRN IV MODERATE PAIN; Start 04/17/21 at 13:00 Morphine Sulfate (Morphine Sulfate) 2 mg PRN Q1HR PRN IV SEVERE PAIN Last adm inistered on 04/17/21at 13:36; Start 04/17/21 at 13:00 Oxycodone/ Acetaminophen (Percocet 5/325) 1 tab PRN Q4HRS PRN PO MILD PAIN, 1ST CHOICE; Start 04/17/21 at 13:00 Oxycodone/ Acetaminophen (Percocet 5/325) 2 tab PRN Q4HRS PRN PO MODERATE PAIN, SEVERE PAIN Last administered on 04/19/21at 14:40; Start 04/17/21 at 13:00 Acetaminophen (Tylenol) 650 mg PRN Q6HRS PRN PO Headaches, Temp > 101.5F; Start 04/17/21 at 13:00 Senna/Docusate Sodium (Senna Plus) 1 tab BID PO Last administered on 04/18/21at 20:26; Start 04/17/21 at 21:00 Heparin Sodium (Porcine) (Heparin Sodium) 5,000 unit Q8HRS SQ Last administered on 04/19/21at 14:44; Start 04/17/21 at 14:00 Pantoprazole Sodium (Protonix) 40 mg DAILYAC PO Last administered on 04/19/21at 10:34; Start 04/18/21 at 07:30 Piperacillin Sod/ Tazobactam Sod (Zosyn Per Pharmacy) 1 each PRN DAILY PRN MC SEE COMMENTS; Start 04/17/21 at 13:30 Piperacillin Sod/ Tazobactam Sod 3.375 gm/Sodium Chloride 50 ml @ 100 mls/hr Q6HRS IV Last administered on 04/19/21at 12:53; Start 04/17/21 at 18:00 Hydromorphone HCl (Dilaudid) 0.4 mg PRN Q2HR PRN IVP PAIN - 2ND CHOICE Last administered on 04/17/21at 17:35; Start 04/17/21 at 16:00 Sodium Chloride 1,000 ml @ 100 mls/hr Q10H IV Last administered on 04/19/21at 12:55; Start 04/17/21 at 17:30 Dextrose (Dextrose 50%-Water Syringe) 12.5 gm PRN Q15MIN PRN IV SEE COMMENTS; Start 04/17/21 at 19:00 Active Scripts Active Reported Levemir (Insulin Detemir) 100 Unit/1 Ml Vial 12 Unit SQ HS Novolog Flexpen (Insulin Aspart) 100 Unit/1 Ml Insuln.pen 7-10 Unit SQ TIDWMEALS Cade Mao 24,000 Units Capsule (Lipase/Protease/Amylase) 1 Each Capsule. 2 Each PO TIDWMEALS Syndros (Dronabinol) 5 Mg/1 Ml Solution 5 Mg PO BID Magnesium (Magnesium Oxide) 250 Mg Tablet 1 Tab PO DAILY 30 Days Compazine (Prochlorperazine Maleate) 10 Mg Tablet 1 Tab PO PRN Q6HRS PRN 30 Days Hydrocodone-Acetamin 5-325 mg (Hydrocodone/Acetaminophen) 1 Each Tablet 1 Each PO PRN Q6HRS PRN Pantoprazole Sodium (Pantoprazole Sodium) 40 Mg Tablet. 40 Mg PO DAILYAC Vitals/I & O Vital Sign - Last 24 Hours 04/18/21 04/18/21 04/18/21 04/18/21 19:00 20:27 20:27 20:57 Temp 99.2 99.2 Pulse 81 Resp 18 18 B/P (MAP) 103/62 (76) Pulse Ox 98 97 O2 Delivery Room Air Room Air Room Air Room Air 04/18/21 04/19/21 04/19/21 04/19/21 23:00 00:17 00:47 03:00 Temp 98.1 97.9 98.1 97.9 Pulse 75 61 Resp 18 18 18 B/P (MAP) 99/63 (75) 85/49 (61) Pulse Ox 97 97 96 O2 Delivery Room Air Room Air Room Air Room Air 04/19/21 04/19/21 04/19/21 04/19/21 07:15 07:32 10:54 14:40 Temp 98.3 98.2 98.3 98.2 Pulse 69 65 Resp 18 20 B/P (MAP) 94/58 (70) 100/60 (73) Pulse Ox 97 98 O2 Delivery Room Air Room Air Room Air Room Air 04/19/21 15:00 Temp 98.6 98.6 Pulse 77 Resp 18 B/P (MAP) 117/70 (86) Pulse Ox 97 O2 Delivery Room Air Intake and Output 04/18/21 04/18/21 04/19/21 15:00 23:00 07:00 Intake Total 180 ml 1050 ml Balance 180 ml 1050 ml Justifications for Admission Other Justification RAGHU PEÑA MD Apr 19, 2021 16:00
[2021-04-19 19:00] VITALS: BP 107/61
[2021-04-19 23:00] VITALS: BP 105/62
[2021-04-20] MEDS: PIPERACILLIN/TAZOBACTAM 3.375 GM in IV NORMAL SALINE 50ML 50 ML IV SCH ×3 (00:37→12:26)
[2021-04-20 03:00] VITALS: BP 92/60
[2021-04-20] MEDS: oxyCODONE/APAP 5/325 1 TAB TABLET PO PRN ×4 (03:35→16:09)
[2021-04-20] MEDS: IV NORMAL SALINE 1000ML BAG 1,000 ML IV SCH (05:37)
[2021-04-20] MEDS: HEPARIN for SUB-Q USE 5,000 UNIT/ML VIAL. SQ SCH ×2 (05:38→14:00)
[2021-04-20 07:00] VITALS: BP 109/62
[2021-04-20] MEDS: SENNOSIDES/DOCUSATE 8.6/50MG TABLET. PO SCH (08:30)
[2021-04-20] MEDS: PANTOPRAZOLE 40 MG TABLET.DR. PO SCH (08:30)
--- NOTE | 2021-04-20 09:55 | PDOC ---
Infectious Disease Note Vital Signs: Vital Signs Vital Signs Date Time Temp Pulse Resp B/P (MAP) Pulse Ox O2 Delivery O2 Flow Rate FiO2 04/20/21 08:32 99 Room Air 04/20/21 07:00 98.4 62 18 109/62 (78) 98.4 Medications: Inpatient Meds: Medications reviewed. 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 twice daily Overall prognosis poor Patient is requesting transition to hospice at home Oncology is assisting with coordination of care for the same Patient can follow-up with PCP for refill of Augmentin Thank you for this consult [phone] SUNITA SMITH MD Apr 20, 2021 09:55
--- NOTE | 2021-04-20 10:17 | CONS ---
DATE OF CONSULTATION: 04/20/2021 REFERRING PHYSICIAN: Dr. Lezama. REASON FOR CONSULTATION: Antibiotics for chronic suppression. HISTORY OF PRESENT ILLNESS: This is a 55-year-old male diagnosed with a history of pancreatic adenocarcinoma in 2019. He underwent chemo with surgical resection in 05/[address] Lezama who performed a Whipple's resection. The patient had a Port-A-Cath in place. The patient developed abdominal pain earlier this month. He went to [facility] where [facility] abdomen showed enteritis. He was discharged home on p.o. antibiotics. He could not tell me the name. He felt better until a couple of days where he started having sharp abdominal pain in the right upper quadrant. He also had subjective chills and night sweats more on his back. He presented to [facility]. He underwent a CT of the abdomen and pelvis with IV contrast which showed multiple hepatic metastases with 4.2 cm lesion invading the hepatic flexure and demonstrating pneumatization consistent with hepatocolic fistula. Hepatic flexure wall thickening probably representing a segmental colitis or tumor invasion. White count was 9.1, creatinine of 0.6, lactate of 1.3. LFTs within normal limits. He was started on Cipro and Flagyl. UA was negative. The patient was transferred to [facility] for oncology and surgical evaluation. Here, he was started on Zosyn. IR was consulted for possible biopsy. There was concern for perforation with IR-guided biopsy. The patient is not a surgical candidate at this time. Oncology discussed transitioning to hospice for outpatient supportive care. They have recommended indefinite prophylactic antibiotic therapy. ID consultation has been requested for recommendations on the same. The patient was started on diet last night, which he has tolerated well including breakfast this morning. Denies any nausea. Denies any symptoms. PAST MEDICAL HISTORY: Pancreatic adenocarcinoma as above, status post chemo surgery with recurrence, history of enteritis on CT a couple of months ago. ALLERGIES: No known drug allergies. SOCIAL HISTORY: Denies smoking, ETOH. Lives with fiance. Children are all grown up. FAMILY HISTORY: He works in construction. CURRENT MEDICATIONS: Zosyn. Other medications reviewed in medication list. REVIEW OF SYSTEMS: Negative except for above in HPI. PHYSICAL EXAMINATION: VITAL SIGNS: Temperature 98.4, pulse 18, respiratory rate 109/62, oxygen saturation 99% on room air. T-max was 100.9. GENERAL: Alert, oriented, pleasant male lying in bed comfortably, in no acute distress. HEENT: Normocephalic, atraumatic. Anicteric. No thrush. Edentulous. NECK: Supple, no JVD, no lymphadenopathy. LUNGS: Clear bilaterally. No wheezing. HEART: S1, S2. No murmurs. ABDOMEN: Soft, mild tenderness in the right upper quadrant. No guarding, no rigidity. Scar from previous surgery, well healed. EXTREMITIES: No edema, no cyanosis. Port-A-Cath, right chest looks clean. PIV looks clean. DERMATOLOGIC: Warm, dry, no generalized rash. Multiple tattoos. CENTRAL NERVOUS SYSTEM: Alert and oriented x 3, grossly nonfocal. PSYCHIATRIC: Calm and cooperative. LABORATORY DATA: WBC 6.7, hemoglobin 9.9, hematocrit 29.3, platelets 114. Sodium 136, potassium 3.8, chloride 105, bicarbonate 27, BUN 13, creatinine 0.6, glucose 78. Lactate 0.7, magnesium 1.8, albumin 2.2. INR 1.4. IMAGING: CT chest, evaluation for pancreatic tumor recurrence is limited, incompletely imaged 5.5 x 3.7 cm gas locule, liquids along the inferior aspect of the anterior hepatic lobe/gallbladder fossa, trace bilateral pleural effusion, unchanged sub 5 mm pulmonary nodule, nonspecific. CT of the abdomen and pelvis as above in HPI. IMPRESSION: 1. 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 2. Fever. 3. History of enteritis on CT. 4. Failure to thrive 5. Anemia 6. Thrombocytopenia 7. Cath in place RECOMMENDATIONS: 1. Continue Zosyn while here. 2. The patient is requesting for hospice evaluation when discharged to home. He has discussed with oncology regarding the same. 3. The patient can be discharged on Augmentin for chronic suppressive treatment. Pros and cons discussed with the patient. Side effects Discussed including C. difficile colitis. 4. The patient will follow up with Dr. Proctor as outpatient for further antibiotic treatment. 5. Continue supportive care. Thank you, Dr. Lezama for consulting Infectious Disease to participate in this patient's care. If you have any questions, do not hesitate to contact me. Discussed with nursing staff. TARYN/ISIAH DR: Sloan TID: [id number] MTDD
--- NOTE | 2021-04-20 10:52 | SNU/HH DC ---
DISCHARGE ORDERS DISCHARGE INFORMATION: CONDITION ON DISCHARGE: Stable CODE STATUS: Code Status: DNR/DNI HOSPICE: HOSPICE: Yes HOSPICE EVAL & TREAT: Yes POST DISCHARGE ORDERS: ACTIVITY ORDERS: Activity as tolerated WEIGHT BEARING STATUS: As tolerated DIET AFTER DISCHARGE: Hepatic WOUND/INCISION CARE: No wound care needed TREATMENT/EQUIPMENT ORDERS: ADAPTIVE EQUIPMENT NEEDED: None Physical Therapy For: Evalulation/Treatment Occupational Therapy For: Evaluation/Treatment Speech Language Pathology For: Evaluation/Treatment DISCHARGE MEDICATIONS: Home Meds Reported Medications Insulin Detemir (LEVEMIR) 100 Unit/1 Ml Vial, 12 UNIT SQ HS for per pt , EACH 04/17/21 Insulin Aspart (NOVOLOG FLEXPEN) 100 Unit/1 Ml Insuln.pen, 7-10 UNIT SQ TIDWMEALS for per pt , SYR 04/17/21 Lipase/Protease/Amylase (BRITTANY LONG 24,000 UNITS CAPSULE) 1 Each Capsule., 2 EACH PO TIDWMEALS for supplement, CAP 04/17/21 Dronabinol (Syndros) 5 Mg/1 Ml Solution, 5 MG PO BID for per pt, MISC 04/17/21 Magnesium Oxide (MAGNESIUM) 250 Mg Tablet, 1 TAB PO DAILY for supplement for 30 Days, #30 TAB 0 Refills 04/17/21 Prochlorperazine Maleate (Compazine) 10 Mg Tablet, 1 TAB PO PRN Q6HRS PRN for NAUSEA for 30 Days, TAB 0 Refills 04/17/21 Hydrocodone/Acetaminophen (Hydrocodone-Acetamin 5-325 mg) 1 Each Tablet, 1 EACH PO PRN Q6HRS PRN for ABDOMINAL PAIN, TAB 04/17/21 Pantoprazole Sodium (PANTOPRAZOLE SODIUM ) 40 Mg Tablet., 40 MG PO DAILYAC for GERD, TAB 02/12/20 Discontinued Reported Medications Mv-Mn/Iron/Fa/Herbal Cmplx#190 (VITAMIN D3 COMPLETE CAPLET) 1 Each Tablet, 1 EACH PO DAILY for supplement, TAB 04/17/21 Lipase/Protease/Amylase (BRITTANY LONG 24,000 UNITS CAPSULE) 1 Each Capsule., 1 EACH PO DAILY for med list, CAP 04/17/21 PINA MARCOS MD Apr 20, 2021 10:52
[2021-04-20] MEDS ORDERED: OXYC1TAB19 PO (10:55)
[2021-04-20] MEDS ORDERED: AMOX1TAB61 PO (10:55)
[2021-04-20 11:00] VITALS: BP 114/63
--- NOTE | 2021-04-20 11:00 | PDOC3 ---
[facility]-Discharge Summary Date of Admission: Date of Admission: Apr 17, 2021 Date of Discharge: Date of Discharge: Apr 20, 2021 Admission Diagnosis: Problems: (1) Pancreatic cancer (2) Abdominal pain Discharge Diagnosis: Discharge Diagnosis: Same Consults: Consults: Surgery, oncology, infectious disease Hospital Course: Hospital Course: 55-year-old male transferred from [place] emergency room after presenting there for lower abdominal pain. Patient has pancreatic adenocarcinoma and underwent a Whipple surgery in May 2020. Said he completed 3 rounds of chemotherapy after that and has not been on any since. Follows with Dr. Moise here. Patient reports that since about 1 month ago he was treated for intra-abdominal infection and completed his antibiotics last Saturday and said this completely resolved his condition. However yesterday woke up around 2 AM with vague lower abdominal pain. He took at home Zofran and [place] without any improvement. Unable to go back to sleep presented to the emergency room this morning. 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 Due to the finding patient was transferred here for surgical evaluation, oncology consult. When evaluated patient was reporting abdominal pain. He was denying any sort of headache, dizziness, vision changes, fevers, chest pain, shortness of breath, dysuria. 04/18/2021 No acute events overnight. Patient's pain is well controlled and has not evolved. Continues to have lower abdominal pain. Denies any passing flatus or bowel movements. Pending heme-onc evaluation. Patient's chart, labs, images were reviewed and discussed with RN 04/19/2021 No acute events overnight. Patient seen and examined bedside. Patient still has some abdominal pain. Imaging was completed but biopsy was not because there was obstructing views from the small intestine and large bowel. It appears that possibly the masses in the liver may be eroding into the intestines. Biopsy was deferred till more discussion will happen with the oncologist and interventional radiologist. And also for discussion with oncologist and the patient. Patient's chart, labs, images were reviewed and discussed with RN 04/20 Patient evaluated at bedside this morning. After discussing with his providers yesterday to determine best route for him at this point is moving forward with hospice. Preferring home hospice. Would like to wait till he gets home to tell his this is his choice as to not cause her too much distress. We will plan for discharge home today. Evaluated by infectious disease this morning recommending Augmentin suppression as this may also provide pain relief. Patient provided information for hospice and wants to wait till next week and he will contact them himself he said. Disposition: Disposition/Orders: D/C to Home w/ Hospice Activity: Activity: Resume previous activity Diet: Diet: Regular Medications: Home Meds Active Scripts Amoxicillin/Potassium Clav (AUGMENTIN 875-125 TABLET) 1 Each Tablet, 1 TAB PO BID for chronic suppression hospice, #60 TAB 0 Refills Prov:PINA MARCOS MD 04/20/21 Oxycodone/Apap 7.5-325 (PERCOCET 7.5-325 MG TABLET ) 1 Each Tablet, 1 TAB PO PRN TID PRN for PAIN MDD 3 Tablet(s) for 30 Days, #90 TAB 0 Refills Prov:PINA MARCOS MD 04/20/21 Reported Medications Insulin Detemir (LEVEMIR) 100 Unit/1 Ml Vial, 12 UNIT SQ HS for per pt , EACH 04/17/21 Insulin Aspart (NOVOLOG FLEXPEN) 100 Unit/1 Ml Insuln.pen, 7-10 UNIT SQ TIDWMEALS for per pt , SYR 04/17/21 Lipase/Protease/Amylase (CADE MAO 24,000 UNITS CAPSULE) 1 Each Capsule., 2 EACH PO TIDWMEALS for supplement, CAP 04/17/21 Dronabinol (Syndros) 5 Mg/1 Ml Solution, 5 MG PO BID for per pt, MISC 04/17/21 Magnesium Oxide (MAGNESIUM) 250 Mg Tablet, 1 TAB PO DAILY for supplement for 30 Days, #30 TAB 0 Refills 04/17/21 Prochlorperazine Maleate (Compazine) 10 Mg Tablet, 1 TAB PO PRN Q6HRS PRN for NAUSEA for 30 Days, TAB 0 Refills 04/17/21 Pantoprazole Sodium (PANTOPRAZOLE SODIUM ) 40 Mg Tablet., 40 MG PO DAILYAC for GERD, TAB 02/12/20 Discontinued Reported Medications Hydrocodone/Acetaminophen (Hydrocodone-Acetamin 5-325 mg) 1 Each Tablet, 1 EACH PO PRN Q6HRS PRN for ABDOMINAL PAIN, TAB 04/17/21 Mv-Mn/Iron/Fa/Herbal Cmplx#190 (VITAMIN D3 COMPLETE CAPLET) 1 Each Tablet, 1 EACH PO DAILY for supplement, TAB 04/17/21 Lipase/Protease/Amylase (CADE MAO 24,000 UNITS CAPSULE) 1 Each Capsule.dr, 1 EACH PO DAILY for med list, CAP 04/17/21 Scheduled Amoxicillin/Potassium Clav (Augmentin 875-125 Tablet), 1 TAB PO BID Dronabinol (Syndros), 5 MG PO BID, (Reported) Insulin Aspart (Novolog Flexpen), 7-10 UNIT SQ TIDWMEALS, (Reported) Insulin Detemir (Levemir), 12 UNIT SQ HS, (Reported) Lipase/Protease/Amylase (Cade Mao 24,000 Units Capsule), 2 EACH PO TIDWMEALS, (Reported) Magnesium Oxide (Magnesium), 1 TAB PO DAILY, (Reported) Pantoprazole Sodium (Pantoprazole Sodium ), 40 MG PO DAILYAC, (Reported) Scheduled PRN Oxycodone/Apap 7.5-325 (Percocet 7.5-325 Mg Tablet ), 1 TAB PO PRN TID PRN for PAIN Prochlorperazine Maleate (Compazine), 1 TAB PO PRN Q6HRS PRN for NAUSEA, (Repo rted) Discontinued Medications Hydrocodone/Acetaminophen (Hydrocodone-Acetamin 5-325 mg), 1 EACH PO PRN Q6HRS PRN for ABDOMINAL PAIN, (Reported) Lipase/Protease/Amylase (Cade Mao 24,000 Units Capsule), 1 EACH PO DAILY, (Reported) Mv-Mn/Iron/Fa/Herbal Cmplx#190 (Vitamin D3 Complete Caplet), 1 EACH PO DAILY, (Reported) Justicifation of Admission Dx: Justifications for Admission: Justification of Admission Dx: Yes PINA MARCOS MD Apr 20, 2021 11:00
--- NOTE | 2021-04-20 12:35 | NUR ---
SW following. Discussed with RN, pt from home with , room air, ada diet. Pt agreeable to hospice but does not want his and children to know yet. Pt agreeable to [facility] hospice and will meet with them prior to discharge, but will not start hospice services until he has told his and children over the weekend about his prognosis. SW faxed referral to [facility], they are reaching out to patient to arrange a meeting. Pt's spouse can transport pt home. SW will continue to follow.
--- NOTE | 2021-04-20 14:12 | PDOC ---
SURGICAL PROGRESS NOTE DATE: 04/20/21 TIME: 14:08 Subjective Pt with c/o RUQ abd pain, controlled Vital Signs Vital Signs Date Time Temp Pulse Resp B/P (MAP) Pulse Ox O2 Delivery O2 Flow Rate FiO2 04/20/21 13:32 97 Room Air 04/20/21 11:00 98.3 64 18 114/63 (80) 98.3 I&O Intake and Output 04/20/21 07:00 Intake Total 840 ml Balance 840 ml Intake Oral 840 ml # Voids 1 General: Alert, Oriented X3, Cooperative, No acute distress Abdomen: Soft, Other (mild TTP RUQ) Labs Laboratory Tests Test 04/19/21 08:30 White Blood Count 6.7 x10^3/uL (4.0-11.0) Red Blood Count 2.94 x10^6/uL (4.30-5.70) Hemoglobin 9.9 g/dL (13.0-17.5) Hematocrit 29.3 % (39.0-53.0) Mean Corpuscular Volume 100 fL (79-100) Mean Corpuscular Hemoglobin 34 pg (25-35) Mean Corpuscular Hemoglobin Concent 34 g/dL (31-37) Red Cell Distribution Width 13.7 % (11.5-14.5) Platelet Count 114 x10^3/uL (140-400) Neutrophils (%) (Auto) 78 % (31-73) Lymphocytes (%) (Auto) 12 % (24-48) Monocytes (%) (Auto) 9 % (0-9) Eosinophils (%) (Auto) 1 % (0-3) Basophils (%) (Auto) 1 % (0-3) Neutrophils # (Auto) 5.2 x10^3/uL (1.8-7.7) Lymphocytes # (Auto) 0.8 x10^3/uL (1.0-4.8) Monocytes # (Auto) 0.6 x10^3/uL (0.0-1.1) Eosinophils # (Auto) 0.1 x10^3/uL (0.0-0.7) Basophils # (Auto) 0.0 x10^3/uL (0.0-0.2) Sodium Level 138 mmol/L (136-145) Potassium Level 3.8 mmol/L (3.5-5.1) Chloride Level 105 mmol/L (98-107) Carbon Dioxide Level 27 mmol/L (21-32) Anion Gap 6 (6-14) Blood Urea Nitrogen 13 mg/dL (8-26) Creatinine 0.6 mg/dL (0.7-1.3) Estimated GFR (Cockcroft-Gault) 140.9 Glucose Level 78 mg/dL (70-99) Lactic Acid Level 0.7 mmol/L (0.4-2.0) Calcium Level 8.0 mg/dL (8.5-10.1) Magnesium Level 1.8 mg/dL (1.8-2.4) Problem List metastatic pancreatic cancer agree with hospice plans will sign off, but please call for questions. Justicifation of Admission Dx: Justifications for Admission: Justification of Admission Dx: Yes SANG AVENDANO MD Apr 20, 2021 14:12
[2021-04-20] MEDS ORDERED: HEPARIN PF 500 UNIT/5 ML DISP.SYRIN. IVP ONE (14:15)
[2021-04-20 14:37] VITALS: BP 110/69
--- NOTE | 2021-04-20 16:23 | NUR ---
Discharge Note: [facility] [place] Discharge instructions and discharge home medications reviewed with Patient and a copy given. All questions have been answered and understanding verbalized. The following instructions and handouts were given: Diet, activity, medication list and follow up instructions provided to patient. Discontinued lines and drains: Peripheral IV discontinued and catheter intact, Port-a-cath heparin locked and de-accessed. Patient discharged to Home or Self Care with Family Member via Wheelchair
== END 2021-04-20 16:10 | disposition hospice, home (50) | DRG 435 ==
LOC: 4 NORTH 12:00
PROVIDERS: ADMIT Student in an Organized Health Care Education/Training Program; ATTEND Student in an Organized Health Care Education/Training Program
DX: C25.9 Malignant neoplasm of pancreas, unspecified (principal); E43 Unspecified severe protein-calorie malnutrition; C78.7 Secondary malignant neoplasm of liver and intrahepatic bile duct; D64.9 Anemia, unspecified; D69.6 Thrombocytopenia, unspecified; E10.9 Type 1 diabetes mellitus without complications; Z51.5 Encounter for palliative care; Z79.4 Long term (current) use of insulin; Z90.411 Acquired partial absence of pancreas; Z92.21 Personal history of antineoplastic chemotherapy; Z68.25 Body mass index [BMI] 25.0-25.9, adult
CPT/HCPCS: 36415; 71250; 80048; 80053; 83605; 83735; 85025; 85610; 85730; 86301; J1170; J1642; J1644; J2270; J2543; J7030; G0378